=== PATIENT | female | born 1940 | race Caucasian/White ===

== ENCOUNTER 2017-10-01 21:13 | Emergency (ER) | payer OTHER ==
[~2017-10-01] VITALS: Ht 152.4 cm; Wt 75.3 kg
[~2017-10-01 21:13] MED LIST: ASPEC81 PO; CHOL100027 PO; CLOP1TAB15 PO; FISHOIL PO; FURO20TA PO; LPT/40 PO; METO-551 PO; NTRGSL/4 UT
[2017-10-01 21:19] VITALS: TEMP 36.6; Ht 152.4 cm; Wt 75.3 kg
[2017-10-01] MEDS ORDERED: ONDANSETRON 4MG OD TAB PO STA (21:39)
--- NOTE | 2017-10-01 21:40 | EMERGENCY ROOM VISIT NOTE ---
History Report prepared by Gladys: Mayra Feldman Under the Supervision of: Dr. Ajith Kim M.D. 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 Positive left knee pain, nausea, and constipation. Negative SOB, chest pain, fevers, chills, recent falls, recent trauma, or a history of blood clots in her chest or lungs. The patient notes she has no difficulties walking. She is currently taking Metoprolol, Plavix, aspirin, Lasix, and a statin. 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 Negative recent falls or a history of blood clots in her chest or lungs Review of Systems See HPI for pertinent positives and negatives. A total of ten systems were reviewed and were otherwise negative. Past Medical & Surgical Medical Problems: (1) Breast cancer (2) cardiac valve abnormality (3) Colon cancer (4) Hyperlipidemia (5) Hypertension (6) sternum removed Surgical Problems: (1) H/O heart surgery (2) History of colon resection (3) History of mastectomy Family History Cancer Diabetes mellitus Heart disease High blood pressure Lung disease Social History Smoking Status: Never Smoker Smokeless Tobacco Use: No Alcohol Use: none Marital Status: Housing Status: lives with family Current/Historical Medications Scheduled Aspirin (Aspirin 81), 81 MG PO QAM Atorvastatin (Lipitor), 40 MG PO QAM Cholecalciferol (Vitamin D 1000 Unit), 1,000 INTER.UNIT PO QAM Clopidogrel (Plavix), 75 MG PO QAM Fish Oil (Maiden-3), 1 CAP PO QAM Furosemide (Lasix), 20 MG PO QAM Metoprolol Tartrate (Lopressor), 100 MG PO QAM Metoprolol Tartrate (Lopressor) (Lopressor), 75 MG PO QPM Scheduled PRN Acetaminophen (Tylenol), 500 MG PO for Pain Nitroglycerin (Nitrostat), 0.4 MG UT PRN PRN for CHEST PAIN Allergies Coded Allergies: Codeine (Verified Allergy, Severe, RESP. DEPRESSION, 11/06/15) Oyster (Verified Allergy, Unknown, HIVES AND SWELLING, NO PROBLEMS W CONTRAST, 11/06/15) NO PROBLESM W CONTRAST Physical Exam Vital Signs Date Time Temp Pulse Resp B/P (MAP) Pulse Ox O2 Delivery O2 Flow Rate FiO2 10/01/17 23:58 97 18 138/76 95 10/01/17 22:32 88 18 135/67 93 Room Air 10/01/17 21:19 36.6 91 22 162/69 95 Room Air Physical Exam GENERAL: Awake, alert, well-appearing, NAD HENT: Normocephalic, atraumatic. EYES: Normal conjunctiva. Sclera non-icteric. PERRL. No anisocoria. NECK: Supple. No nuchal rigidity. FROM. Ecchymosis to the right anterior neck RESPIRATORY: CTAB, no rhonchi, wheezing, crackles CARDIAC: RRR, no MRG ABDOMEN: Soft, NTND, BS+. Lower abdomen with areas of ecchymosis. MSK: No chest wall TTP, Left lower extremity has good femoral and DP pulses. NVI distally SP/DP/TIB nerves. 1+ LLE edema and pain and swelling. No calf pain. Negative Augusto's sign. NEURO: GCS 15, CN 2-12 intact, moves all 4s on command SKIN: No rash or jaundice noted. Medical Decision & Procedures ER Provider Diagnostic Interpretation: Radiology results as stated below per my review and radiologist interpretation: US VENOUS LEFT LOWER EXTREMITY No DVT Complex fluid collection in the popliteal fossa measures 5 cm in diameter. Radiologist: Dre Jensen MD Study ready at 23:09 and initial results transmitted at 23:35 Medications Administered Medications (Trade) Dose Ordered Sig/Azalea Route Start Time Stop Time Status Last Admin Dose Admin Ondansetron HCl (Zofran Odt) 4 mg NOW STAT PO 10/01/17 21:39 10/01/17 21:42 DC 10/01/17 21:46 4 MG ED Course 2128: The patient was evaluated in room A10. A complete history and physical exam was performed. 2138: Ordered Zofran Odt 4 mg PO 2339: I reevaluated the patient. Discussed results and discharge instructions: She verbalized understanding and agreement. The patient is ready for discharge. 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 Positive left knee pain, nausea, and constipation. Negative SOB, chest pain, fevers, chills, recent falls, recent trauma, or a history of blood clots in her chest or lungs. Prior records reviewed and summarized above. Triage Nursing notes reviewed. The patient's history was concerning for swelling and pain in the leg. Differential diagnosis: Etiologies such as DVT, musculoskeletal, infection, joint effusion, trauma, lymphedema, idiopathic, CHF, as well as others were entertained. Patient was seen and evaluated the bedside. Patient did have a recent TAVR completion. Patient was noting that she has some left lower extremity swelling. Patient did complain of some left-sided knee pain. However this is chronic. The patient does not have any warmth or redness. The patient has been ambulatory and denies any trauma. The patient declined to get a knee film. The patient does take aspirin Plavix and other blood thinning medication. The patient does have some ecchymosis to the right neck and the right groin and lower abdomen. This is from her prior procedures and lines. The patient does not have any calf pain. The patient is neurovascularly intact distally and has good DP and femoral pulses of the left lower extremity. Patient was given some Zofran for nausea. Patient denies any chest pain or shortness of breath I do not believe that she requires further workup of her nausea. Patient did have an ultrasound of the left lower extremity. Patient ultrasound showed a complex fluid collection with no evidence of DVT. I do not believe that this fluid collection represents infection. Patient was told to continue to use an Nain wrap and elevate the extremity. Patient was told to follow-up with her PCP. Patient was deemed suitable for outpatient follow-up treatment at this time. Patient was given strict follow-up, discharge , and return precautions. All questions were answered. Patient was deemed suitable for outpatient follow-up at this time. Patient agreed with the plan of care and was safely discharged home. Medication Reconcilliation Current Medication List: was personally reviewed by me Blood Pressure Screening Patient's blood pressure: Elevated blood pressure Blood pressure disposition: Referred to PCP Impression Primary Impression: Swelling of lower limb Scribe Attestation The scribe's documentation has been prepared under my direction and personally reviewed by me in its entirety. I confirm that the note above accurately reflects all work, treatment, procedures, and medical decision making performed by me. Departure Information Dispostion Home / Self-Care Referrals Mohit Perkins M.D. (PCP) Forms HOME CARE DOCUMENTATION FORM, IMPORTANT VISIT INFORMATION, WORK / SCHOOL INSTRUCTIONS Patient Instructions ED Leg Swelling Unilateral, ED RICE, My [facility] Additional Instructions Please return to the emergency department if you have worsening or recurrent symptoms not amenable to at-home treatment. Please call for a follow-up appointment with her primary care physician. Please take your medications as prescribed. If you have other concerns and/or complaints please feel free to also call your primary care physician's office or return the ED for further evaluation, management, and treatment. Take your medications as prescribed. You have been examined and treated today on an emergency basis only. This is not a substitute for, or an effort to provide, complete comprehensive medical care. It is impossible to recognize and treat all injuries or illnesses in a single emergency department visit. It is therefore important that you follow up closely with [facility], your PCP, and/or your specialist(s). Call as soon as possible for an appointment. Thank you for your time and consideration. I look forward to speaking with you again soon. Please don't hesitate to call us if you have any questions.
[2017-10-01] MEDS ORDERED: OMEG10007 PO (22:01)
[2017-10-01] MEDS ORDERED: ACET-1256 PO (22:01)
[2017-10-01] MEDS ORDERED: METO50TA16 PO (22:01)
[2017-10-01] MEDS ORDERED: ASPI-435 PO (22:01)
[2017-10-01 23:58] VITALS: BP 138/76; PULSE 97; O2SAT 95
--- NOTE | 2017-10-02 07:48 | DIAGNOSTIC IMAGING REPORT ---
LEFT LOWER EXTREMITY VENOUS DOPPLER HISTORY: LE swelling, recent TAVR procedure w/ use of RLE for access COMPARISON STUDY: None. FINDINGS: There is normal compressibility, flow, and augmentation within the left lower extremity deep venous system. Slightly complex 5.0 x 0.9 x 2.1 cm fluid collection within the popliteal fossa. This likely represents a popliteal cyst. IMPRESSION: No DVT within the left lower extremity. Electronically signed by: Rc Rodríguez M.D. 10/02/2017 7:47 AM Dictated Date/Time: 10/02/2017 7:46 AM
== END 2017-10-01 23:59 | disposition home or self-care (01) ==
LOC: C.EDB 21:14 → C.EDA 23:59
DX: M79.89 Other specified soft tissue disorders (principal); E78.5 Hyperlipidemia, unspecified; I10 Essential (primary) hypertension; Z88.5 Allergy status to narcotic agent; Z91.013 Allergy to seafood

== ENCOUNTER 2019-07-29 06:18 | Inpatient (IN) ==
--- OUTSIDE RECORDS SUMMARY | 2019-07-29 06:20 | External Medical Summary | Continuity of Care Document ---
:1940 Author Name Renetta Morillo Address Unavailable Unavailable , Care Team Providers Name Role Phone Mayo Morillo RRemy Unavailable [email or web address] Active medical history not documented Allergies and Adverse Reactions Allergy history not documented Medications Medications not documented Procedures Procedures not documented Immunizations Immunizations not documented Plan of Treatment Planned Observations Planned Goals not documented Results No Known Results Results not documented
--- OUTSIDE RECORDS SUMMARY | 2019-07-29 06:21 | External Medical Summary | Continuity of Care Document ---
:1940 Author Name Renetta Morillo Address Unavailable Unavailable , Care Team Providers Name Role Phone Mayo Morillo RRemy Unavailable [email or web address] Active medical history not documented Allergies and Adverse Reactions Allergy history not documented Medications Medications not documented Procedures Procedures not documented Immunizations Immunizations not documented Plan of Treatment Planned Observations Planned Goals not documented Results No Known Results Results not documented
[2019-07-29] MEDS ORDERED: SODIUM CHLORIDE 0.9% 1000ML 250 ML IV ONE (06:42)
--- NOTE | 2019-07-29 06:47 | Emergency Department Note ---
History of Present Illness General Chief complaint: Chest Pain Stated complaint: CHEST PRESSURE, NAUSEA, CARDIAC HX Time Seen by Provider: 07/29/19 06:30 Source: patient and family Mode of arrival: ambulatory Limitations: no limitations History of Present Illness Maximum Pain Intensity: 0 This patient comes in complaining of episode of chest pain she is had flulike symptoms starting last week with a cough chest congestion wheezing. Her cough to minimally productive. She did not sleep at all last night she was coughing she had a fever of 101.9 yesterday but none today. Around 4 AM she started having chest fullness a rapid heartbeat she does have history of A. fib. She took 3 nitroglycerin and it relieved the fullness. She is had some nausea but no emesis. No lower extremity pain or swelling no blood or melena stool. No trauma. Slight headache. No abdominal pain. No shortness of breath. At prese nt she appears comfortable. Home Medications Home Medications Medication Instructions Recorded Confirmed Type acetaminophen [Tylenol Extra 500 mg PO DIRECTED PRN 07/29/19 07/29/19 History Strength] aspirin [Aspir-81] 81 mg PO QAM 07/29/19 07/29/19 History atorvastatin 40 mg PO QAM 07/29/19 07/29/19 History cholecalciferol (vitamin D3) 1,000 unit PO QAM 07/29/19 07/29/19 History [Vitamin D3] clopidogrel [Plavix] 75 mg PO QAM 07/29/19 07/29/19 History furosemide [Lasix] 20 mg PO DAILY PRN 07/29/19 07/29/19 History metoprolol tartrate 100 mg PO BID 07/29/19 07/29/19 History nitroglycerin [Nitrostat] 0.4 mg SUBLINGUAL DIRECTED PRN 07/29/19 07/29/19 History omega 9-[id number]-fish oil [Fish Oil] 1 cap PO QAM 07/29/19 07/29/19 History Allergies Allergy/AdvReac Type Severity Reaction Status Date / Time codeine Allergy Severe RESP. Verified 07/29/19 06:57 DEPRESSION oyster extract Allergy Intermediate HIVES AND Verified 07/29/19 06:57 SWELLING, NO PROBLEMS W CONTRAST Past Med/Surg History Social History Preferred Language: Somali Communication Ability: Effective Take Away Worker Required: No Beliefs That Will Affect Care: None Current Living Situation: Spouse Other Information That Helps Us Care for You: No Feels Safe at Home: Yes Safety Concerns: Feels Safe At This Time Smoking Status: Never smoker Do You Dip or Chew Tobacco: No ; Second Hand Exposure: No ; Tobacco Cessation Education Requested by Patient: No Hx Alcohol Use: No Hx Substance Use: No Review of Systems A total of 10 systems reviewed and were otherwise negative Physical Exam Vital Signs Vital Signs - 24 hr 07/29/19 06:22 07/29/19 06:32 07/29/19 06:33 Temperature 36.7 C Temperature Source Oral Pulse Rate 128 H 125 H Pulse Rate from SpO2 Sensor Respiratory Rate 22 26 H Blood Pressure 105/63 163/75 H Blood Pressure Mean 77 83 Blood Pressure Position Sitting Pulse Oximetry 94 94 Oxygen Delivery Method Room Air Room Air Room Air Sepsis Recent Fever Within 48 Hours No Sepsis Action Taken by Nursing No Action Required 07/29/19 06:35 07/29/19 07:00 07/29/19 07:16 Temperature Temperature Source Pulse Rate 132 H 120 H 124 H Pulse Rate from SpO2 Sensor 132 H Respiratory Rate 28 H 20 23 Blood Pressure 101/61 Blood Pressure Mean 70 Blood Pressure Position Pulse Oximetry 93 90 92 Oxygen Delivery Method Room Air Sepsis Recent Fever Within 48 Hours Sepsis Action Taken by Nursing 07/29/19 07:17 07/29/19 07:30 07/29/19 07:31 Temperature Temperature Source Pulse Rate 129 H 126 H 120 H Pulse Rate from SpO2 Sensor Respiratory Rate 20 24 19 Blood Pressure 119/97 Blood Pressure Mean 104 Blood Pressure Position Pulse Oximetry 92 92 92 Oxygen Delivery Method Sepsis Recent Fever Within 48 Hours Sepsis Action Taken by Nursing 07/29/19 07:45 07/29/19 07:52 07/29/19 08:00 Temperature Temperature Source Pulse Rate 140 H 143 H 128 H Pulse Rate from SpO2 Sensor 138 H 123 H 127 H Respiratory Rate 20 22 23 Blood Pressure 138/75 141/72 H Blood Pressure Mean 108 83 Blood Pressure Position Pulse Oximetry 93 92 92 Oxygen Delivery Method Sepsis Recent Fever Within 48 Hours Sepsis Action Taken by Nursing 07/29/19 08:01 07/29/19 08:15 07/29/19 08:30 Temperature Temperature Source Pulse Rate 122 H 116 H 124 H Pulse Rate from SpO2 Sensor 115 H 110 H Respiratory Rate 20 24 21 Blood Pressure 148/78 H Blood Pressure Mean 107 Blood Pressure Position Pulse Oximetry 93 94 93 Oxygen Delivery Method Sepsis Recent Fever Within 48 Hours Sepsis Action Taken by Nursing 07/29/19 08:31 07/29/19 08:45 Temperature Temperature Source Pulse Rate 120 H 103 H Pulse Rate from SpO2 Sensor 113 H 116 H Respiratory Rate 24 20 Blood Pressure Blood Pressure Mean Blood Pressure Position Pulse Oximetry 93 92 Oxygen Delivery Method Sepsis Recent Fever Within 48 Hours Sepsis Action Taken by Nursing General: Well developed well nourished older female who appears in no acute distress, breathing comfortably on room air. Normal speech HEENT: Normal cephalic atraumatic. Pupils are equal round and reactive to light. Extraocular movements are intact. Oropharynx is pink with moist mucous membranes. No swelling of the mouth lips or tongue. Neck: Supple with a midline trachea. No meningeal signs or stiffness, no JVD or bruits. No Stridor. Chest: Clear to auscultation bilaterally. No wheezes or rhonchi. No increased work of breathing. Heart: Irregular rate and rhythm with tachycardia without murmurs or gallops. Abdomen: Soft nontender, nondistended without rebound guarding or rigidity. Extremities: No cyanosis clubbing or edema. No calf tenderness or assymetry Spine/Back. Non tender to palpation. No CVA tenderness Skin: Good turgor without rashes. Neurologic exam: Cranial nerves two through 12 are intact. Motor and sensation are intact and symmetrical throughout. Course Administered Medications [facility]ir[facility] ([facility]rin E[facility]ab) [facility] [place] [facility] [place] Stop: 08/28/19 11:25 Last Admin: 07/29/19 12:18 Dose: 81 mg Documented by: [id number] Atorvastatin Calcium (Lipitor) 40 [facility] [place] [facility] [place] Stop: 08/28/19 11:25 Last Admin: 07/29/19 12:18 Dose: 40 mg Documented by: [id number] Clopidogrel Bisulfate (Plavix) 75 mg PO QAM [facility] Stop: 08/28/19 11:25 Last Admin: 07/29/19 12:18 Dose: 75 mg Documented by: [id number] Fish Oil ([place]-3 (Purified Fish Oil)) 1 gm PO DAILY [facility] Stop: 08/28/19 11:44 Last Admin: 07/29/19 12:18 Dose: 1 gm Documented by: [id number] Metoprolol Tartrate (Lopressor) 100 mg PO BID [facility] Stop: 08/28/19 11:25 Last Admin: 07/29/19 12:17 Dose: Not Given Documented by: [id number] Vitamin D (Vitamin D3) 1,000 units PO QAM [facility] Stop: 08/28/19 11:25 Last Admin: 07/29/19 12:18 Dose: 1,000 units Documented by: [id number] Discontinued Medications Sodium Chloride (Nss 1000ml) 250 mls @ 999 mls/hr IV .Q16M ONE Stop: 07/29/19 06:57 Last Infusion: 07/29/19 08:08 Dose: 0 mls/hr Documented by: [id number] Admin: 07/29/19 07:53 Dose: 999 mls/hr Documented by: [id number] Magnesium Sulfate/Dextrose (Magnesium Sulfate / D5w) 1 gm in 100 mls @ 100 mls/hr IV Q1H [facility] Stop: 07/29/19 09:59 Last Infusion: 07/29/19 10:16 Dose: 0 mls/hr Documented by: [id number] Admin: 07/29/19 09:29 Dose: 100 mls/hr Documented by: [id number] Infusion: 07/29/19 09:29 Dose: 0 mls/hr Documented by: [id number] Admin: 07/29/19 08:08 Dose: 100 mls/hr Documented by: [id number] Sodium Chloride (Nss 1000ml) 500 mls @ 999 mls/hr IV .Q31M ONE Stop: 07/29/19 08:45 Last Infusion: 07/29/19 09:08 Dose: 0 mls/hr Documented by: [id number] Admin: 07/29/19 08:24 Dose: 999 mls/hr Documented by: [id number] Piperacillin Sod/Tazobactam Sod (Zosyn) 4.5 gm in 120 mls @ 240 mls/hr IV NOW ONE Stop: 07/29/19 08:44 Last Infusion: 07/29/19 09:08 Dose: 0 mls/hr Documented by: [id number] Admin: 07/29/19 08:24 Dose: 240 mls/hr Documented by: [id number] Ceftriaxone Sodium (Rocephin) 1,000 mg in 50 mls @ 100 mls/hr IV NOW STA Stop: 07/29/19 09:58 Last Infusion: 07/29/19 11:35 Dose: 0 mls/hr Documented by: [id number] Admin: 07/29/19 10:16 Dose: 100 mls/hr Documented by: [id number] Doxycycline Hyclate 100 mg/ (Dextrose) 110 mls @ 50 mls/hr IV 1000 ONE Stop: 07/29/19 12:11 Last Infusion: 07/29/19 12:22 Dose: 0 mls/hr Documented by: [id number] Admin: 07/29/19 09:43 Dose: 50 mls/hr Documented by: [id number] Metoprolol Tartrate (Lopressor) 100 mg PO NOW STA Stop: 07/29/19 09:19 Last Admin: 07/29/19 09:42 Dose: 100 mg Documented by: [id number] Potassium Chloride (Klor-Con M20) 40 meq PO NOW STA Stop: 07/29/19 08:15 Last Admin: 07/29/19 08:23 Dose: 40 meq Documented by: [id number] Critical Care Time Critical Care Time: Yes Total Critical Care Time: 32 Due to the patient's cardiac disease, arrhythmia, tachycardia and electrolyte and metabolic abnormalities, infection, and need for frequent reassessment and multiple medications, I have personally spent greater than 32 minutes of critical care time in the direct management of this patient. This includes bedside care, interpretation of diagnostic studies, and testing, discussion with consultants, patient, and family members, and other required patient management activities. This 32 minutes is in excess of all separately billable procedures. Medical Decision Making Differential Diagnosis Includes: Acute coronary syndrome, rapid A. fib, influenza, dehydration, sepsis, pneumonia, CHF, electrolyte or metabolic abnormality Medical Records Attestation: I reviewed the patient's medical records. Home Medications Current Medication List: was personally reviewed by me Laboratory Data Attestation: I reviewed the patient's lab results. Result diagrams: 07/29/19 07:13 07/29/19 07:13 Lab Results 07/29/19 07/29/19 07/29/19 Range/Units 06:50 07:13 07:13 WBC 3.53 L (4.8-10.8) K/uL RBC 4.28 (4.2-5.4) M/uL Hgb 13.0 (12.0-16.0) g/dL Hct 40.4 (37-47) % MCV 94.4 (80-100) fL MCH 30.4 (25-34) pg MCHC 32.2 (32-36) g/dL RDW Std Deviation 49.3 H (36.4-46.3) fL RDW Coeff of Letitia 14.6 H (11.5-14.5) % Plt Count 143 (130-400) K/uL MPV 11.5 H (7.4-10.4) fL Immature Gran % (Auto) 0.0 % Neut % (Auto) 48.7 % Lymph % (Auto) 34.3 % [place] % (Auto) 11.3 % Eos % (Auto) 5.4 % Baso % (Auto) 0.3 % Immature Gran # (Auto) 0.00 (0.00-0.02) K/uL Neut # (Auto) 1.72 (1.4-6.5) K/uL Lymph # (Auto) 1.21 (1.2-3.4) K/uL [place] # (Auto) 0.40 (0.11-0.59) K/uL Eos # (Auto) 0.19 (0-0.5) K/uL Baso # (Auto) 0.01 (0-0.2) K/uL PT 11.0 (9.0-12.0) Seconds INR 1.0 (0.9-1.1) APTT 28.5 (21.0-31.0) Seconds PTT Ratio 1.0 Sodium (136-145) mmol/L Potassium (3.5-5.1) mmol/L Chloride (98-107) mmol/L Carbon Dioxide (21-32) mmol/L Anion Gap (3-11) BUN (7-18) mg/dl Creatinine (0.6-1.2) mg/dl Est Cr Clr Drug Dosing ml/min Est GFR ( Amer) Est GFR (Non-Af Amer) BUN/Creatinine Ratio (10-20) Glucose (70-99) mg/dl Lactate (0.4-2.0) mmol/L Calcium (8.5-10.1) mg/dl Magnesium (1.8-2.4) mg/dl Total Bilirubin (0.2-1) mg/dl AST (15-37) U/L ALT (12-78) U/L Alkaline Phosphatase (45-117) U/L Troponin I (0-0.045) ng/ml Total Protein (6.4-8.2) gm/dl Albumin (3.4-5.0) gm/dl Globulin (2.5-4.0) gm/dl Albumin/Globulin Ratio (0.9-2) Urine Color Urine Appearance (Clear) Urine pH (4.5-7.5) Ur Specific [place] (1.000-1.030) Urine Protein (Negative) Urine Glucose (UA) (Negative) Urine Ketones (Negative) Urine Blood (Negative) Urine Nitrite (Negative) Urine Bilirubin (Negative) Urine Urobilinogen (Negative) Ur Leukocyte Esterase (Negative) Influenza Type A (PCR) Neg for Influ A (Neg) Influenza Type B (PCR) Neg for Influ B (Neg) 07/29/19 07/29/19 07/29/19 Range/Units 07:13 07:13 08:50 WBC (4.8-10.8) K/uL RBC (4.2-5.4) M/uL Hgb (12.0-16.0) g/dL Hct (37-47) % MCV (80-100) fL MCH (25-34) pg MCHC (32-36) g/dL RDW Std Deviation (36.4-46.3) fL RDW Coeff of Letitia (11.5-14.5) % Plt Count (130-400) K/uL MPV (7.4-10.4) fL Immature Gran % (Auto) % Neut % (Auto) % Lymph % (Auto) % [place] % (Auto) % Eos % (Auto) % Baso % (Auto) % Immature Gran # (Auto) (0.00-0.02) K/uL Neut # (Auto) (1.4-6.5) K/uL Lymph # (Auto) (1.2-3.4) K/uL [place] # (Auto) (0.11-0.59) K/uL Eos # (Auto) (0-0.5) K/uL Baso # (Auto) (0-0.2) K/uL PT (9.0-12.0) Seconds INR (0.9-1.1) APTT (21.0-31.0) Seconds PTT Ratio Sodium 140 (136-145) mmol/L Potassium 3.2 L (3.5-5.1) mmol/L Chloride 104 (98-107) mmol/L Carbon Dioxide 31 (21-32) mmol/L Anion Gap 5.0 (3-11) BUN 21 H (7-18) mg/dl Creatinine 0.86 (0.6-1.2) mg/dl Est Cr Clr Drug Dosing 46.7 ml/min Est GFR ( Amer) 74.5 Est GFR (Non-Af Amer) 64.3 BUN/Creatinine Ratio 24.2 H (10-20) Glucose 206 H (70-99) mg/dl Lactate 2.2 H* (0.4-2.0) mmol/L Calcium 8.3 L (8.5-10.1) mg/dl Magnesium 1.3 L (1.8-2.4) mg/dl Total Bilirubin 0.3 (0.2-1) mg/dl AST 19 (15-37) U/L ALT 19 (12-78) U/L Alkaline Phosphatase 118 H (45-117) U/L Troponin I < 0.015 (0-0.045) ng/ml Total Protein 7.1 (6.4-8.2) gm/dl Albumin 3.0 L (3.4-5.0) gm/dl Globulin 4.1 H (2.5-4.0) gm/dl Albumin/Globulin Ratio 0.7 L (0.9-2) Urine Color Yellow Urine Appearance Clear (Clear) Urine pH 5.5 (4.5-7.5) Ur Specific [place] 1.016 (1.000-1.030) Urine Protein Negative (Negative) Urine Glucose (UA) Trace H (Negative) Urine Ketones Negative (Negative) Urine Blood Negative (Negative) Urine Nitrite Negative (Negative) Urine Bilirubin Negative (Negative) Urine Urobilinogen Negative (Negative) Ur Leukocyte Esterase Negative (Negative) Influenza Type A (PCR) (Neg) Influenza Type B (PCR) (Neg) 07/29/19 Range/Units 08:56 WBC (4.8-10.8) K/uL RBC (4.2-5.4) M/uL Hgb (12.0-16.0) g/dL Hct (37-47) % MCV (80-100) fL MCH (25-34) pg MCHC (32-36) g/dL RDW Std Deviation (36.4-46.3) fL RDW Coeff of Letitia (11.5-14.5) % Plt Count (130-400) K/uL MPV (7.4-10.4) fL Immature Gran % (Auto) % Neut % (Auto) % Lymph % (Auto) % [place] % (Auto) % Eos % (Auto) % Baso % (Auto) % Immature Gran # (Auto) (0.00-0.02) K/uL Neut # (Auto) (1.4-6.5) K/uL Lymph # (Auto) (1.2-3.4) K/uL [place] # (Auto) (0.11-0.59) K/uL Eos # (Auto) (0-0.5) K/uL Baso # (Auto) (0-0.2) K/uL PT (9.0-12.0) Seconds INR (0.9-1.1) APTT (21.0-31.0) Seconds PTT Ratio Sodium (136-145) mmol/L Potassium (3.5-5.1) mmol/L Chloride (98-107) mmol/L Carbon Dioxide (21-32) mmol/L Anion Gap (3-11) BUN (7-18) mg/dl Creatinine (0.6-1.2) mg/dl Est Cr Clr Drug Dosing ml/min Est GFR ( Amer) Est GFR (Non-Af Amer) BUN/Creatinine Ratio (10-20) Glucose (70-99) mg/dl Lactate 1.2 (0.4-2.0) mmol/L Calcium (8.5-10.1) mg/dl Magnesium (1.8-2.4) mg/dl Total Bilirubin (0.2-1) mg/dl AST (15-37) U/L ALT (12-78) U/L Alkaline Phosphatase (45-117) U/L Troponin I (0-0.045) ng/ml Total Protein (6.4-8.2) gm/dl Albumin (3.4-5.0) gm/dl Globulin (2.5-4.0) gm/dl Albumin/Globulin Ratio (0.9-2) Urine Color Urine Appearance (Clear) Urine pH (4.5-7.5) Ur Specific [place] (1.000-1.030) Urine Protein (Negative) Urine Glucose (UA) (Negative) Urine Ketones (Negative) Urine Blood (Negative) Urine Nitrite (Negative) Urine Bilirubin (Negative) Urine Urobilinogen (Negative) Ur Leukocyte Esterase (Negative) Influenza Type A (PCR) (Neg) Influenza Type B (PCR) (Neg) ECG Data Attestation: I personally reviewed and interpreted this ECG as follows: Indication: + chest pain, + palpitations and + tachycardia Rate (beats per minute): 122 Rhythm: + atrial fibrillation ECG [place]: + Normal ECG ST segments: + Nonspecific ST abnormalities; no ST elevation ECG Findings: no PVCs Comparison ECG Date: from (05/11/13- ST segment elevation has resolved) Blood Pressure Blood Pressure Findings: Normal blood pressure MDM Narrative This patient comes in as described above. She was placed on a playground monitor and B6. She had a fever and cough. She was noted to be in A. fib that was slightly rapid in the 110s. She was gently hydrated with a 250 cc IV normal saline bolus. Multiple blood testing was obtained. She has no chest pain at present. It sounds like this started with a URI/respiratory illness. A full sepsis work-up was obtained including chest x-ray and flu swab. She was reassessed frequently. EKG shows A. fib that was mild to moderately rapid without any significant acute ischemic changes. No ST segment elevation. There is nonspecific changes. White count is low likely consistent with a viral illness. Hemoglobin is normal, and she has no significant anemia. Her electrolytes were abnormal with a low magnesium of 1.3. This was repleted with 2 g of IV mag. Potassium is also low at 3.3. She was given 40 mEq p.o. Her chest x-ray shows a possible infiltrate. She was given IV Zosyn. She heard lactic acid is mildly elevated at 2.2. She was given additional IV fluid bolus. She tolerated the initial 250 cc and so I gave her another 500 cc. I was concerned about judicious fluid given her age and the possibility for fluid overload/CHF. She has been normotensive and if anything hypertensive. Her heart rate, I think at this point is compensatory she is averaging about 110 and I suspect with some hydration and electrolyte replacement that rate will come down. I [facility] her for likely admission/observation. media monitor note: The patient was placed on a playground monitor upon arrival. Her heart rate was 122 and she was in A. fib. She continued be on the monitor to continue to monitor her rate while she was in the ED Impression & Plan Chest pain, Atrial fibrillation with RVR, Hypomagnesemia, Acute hypokalemia, Pneumonia Discharge Plan Visit Data *Final* Discharge Date/Time: 07/29/19 11:09 Chief Complaint: Chest Pain Stated Complaint: CHEST PRESSURE, NAUSEA, CARDIAC HX ED Provider: Vince Remy Discharge Problem: Chest pain, Atrial fibrillation with RVR, Hypomagnesemia, Acute hypokalemia, Pneumonia Patient Disposition: Admitted As Inpatient Discharge Instructions Interventions: ED Discharge Assessment Last Done: 07/29/19 11:09 Discharge Problem: Chest pain Qualifiers: Chest pain type: precordial pain Qualified Code(s): R07.2 - Precordial pain Pneumonia Qualifiers: Pneumonia type: due to unspecified organism Laterality: right Lung location: lower lobe of lung Qualified Code(s): J18.9 - Pneumonia, unspecified organism
[2019-07-29 07:27] LABS: Basophils # (auto) 0.01 K/uL (0-0.2); Basophils % (auto) 0.3 %; Eosinophils # (auto) 0.19 K/uL (0-0.5); Eosinophils % (auto) 5.4 %; Hematocrit (blood only) 40.4 % (37-47); Lymphocytes # (auto) 1.21 K/uL (1.2-3.4); Lymphocytes % (auto) 34.3 %; Mean Corpuscular Hemoglobin 30.4 pg (25-34); Mean Corpuscular Hgb Conc 32.2 g/dL (32-36); Mean Corpuscular Volume 94.4 fL (80-100); Mean Platelet Volume 11.5 fL (7.4-10.4); Monocytes % (auto) 11.3 %; Neutrophils # (auto) 1.72 K/uL (1.4-6.5); Neutrophils % (auto) 48.7 %; Platelet Count 143 K/uL (130-400); RDW Coefficient of Variation 14.6 % (11.5-14.5); RDW Standard Deviation 49.3 fL (36.4-46.3); Red Blood Count 4.28 M/uL (4.2-5.4); White Blood Count 3.53 K/uL (4.8-10.8)
[2019-07-29 07:38] LABS: Influenza A virus by PCR Neg for Influ A (Neg); Influenza B virus by PCR Neg for Influ B (Neg)
[2019-07-29 07:45] LABS: Alanine Aminotransferase 19 U/L (12-78); Aspartate Aminotransferase 19 U/L (15-37); BUN Creatinine Ratio 24.2 (10-20); Blood Urea Nitrogen 21 mg/dl (7-18); Calcium 8.3 mg/dl (8.5-10.1); Carbon Dioxide 31 mmol/L (21-32); Chloride 104 mmol/L (98-107); Creatinine Clr Calc Pharmacy 46.7 ml/min; Est GFR (African American) 74.5; Est GFR (Non-African American) 64.3; Glucose 206 mg/dl (70-99); Magnesium 1.3 mg/dl (1.8-2.4); Potassium 3.2 mmol/L (3.5-5.1); Sodium 140 mmol/L (136-145)
[2019-07-29 07:49] LABS: Albumin Globulin Ratio 0.7 (0.9-2); Alkaline Phosphatase 118 U/L (45-117); Bilirubin,Total 0.3 mg/dl (0.2-1); Globulin 4.1 gm/dl (2.5-4.0); Total Protein 7.1 gm/dl (6.4-8.2); Troponin I < 0.015 ng/ml (0-0.045)
[2019-07-29 07:50] LABS: Partial Thromboplastin Time 28.5 Seconds (21.0-31.0)
--- NOTE | 2019-07-29 08:01 | XRay Report ---
XR chest 1V portable HISTORY: SEPSIS COMPARISON: Chest 05/03/2013. FINDINGS: Chronic elevation of the right hemidiaphragm. The heart remains mildly enlarged. Mitral miguel ulus calcifications and an aortic stent are noted. Old, healed left-sided rib fractures. Left basilar linear densities favor subsegmental atelectasis or scarring. Faint patchy densities within the right lung base and left midlung zone. IMPRESSION: Faint patchy densities within the right lung base and left midlung zone. This may represent an atypic al pneumonitis. ACT 112: Negative or not required by law. Electronically signed by: Rc Rodríguez M.D. 07/29/2019 7:59 AM
[2019-07-29] MEDS: MAGNESIUM SULFATE / D5W 1 GM/100 ML BAG IV SCH ×2 (08:08→09:29)
[2019-07-29] MEDS ORDERED: POTASSIUM CHLORIDE 20 MEQ TABCR PO STA (08:14)
[2019-07-29] MEDS ORDERED: PIPERACILLIN/TAZOBACTAM 4.5 GM/120 ML BAG IV ONE (08:15)
[2019-07-29] MEDS ORDERED: PIPERACILL/TAZOBAC CONSULT ACTIVE PRN (08:15)
[2019-07-29] MEDS ORDERED: SODIUM CHLORIDE 0.9% 1000ML 500 ML IV ONE (08:15)
[2019-07-29] MEDS ORDERED: METOPROLOL TARTRATE 100 MG TAB PO STA (09:18)
[2019-07-29 09:24] LABS: Appearance Urine Clear (Clear); Bilirubin Urine Negative (Negative); Blood Urine Negative (Negative); Color Urine Yellow; Glucose Urine UA Trace (Negative); Ketones Urine Negative (Negative); Leukocyte Esterase Urine Negative (Negative); Nitrite Urine Negative (Negative); Protein Urine Negative (Negative); Specific Gravity Urine 1.016 (1.000-1.030); Urobilinogen Urine Negative (Negative); pH Urine 5.5 (4.5-7.5)
[2019-07-29] MEDS ORDERED: cefTRIAXone SODIUM 1,000 MG/50 ML BAG IV STA (09:29)
--- NOTE | 2019-07-29 09:41 | History & Physical Report ---
Date of Service July 29, 2019 Assessment & Plan (1) Pneumonia: Complaint to have flu symptoms about 1 week ago and received Tamiflu on last Condition got worse with productive phlegm and fever with increasing shortness of breath Chest x-ray did show developing right lower lobe infiltrate Received 1 dose of Zosyn in the ER and will continue with intravenous ceftriaxone and doxycycline to cover atypicals She has significant wheezing without any history of asthma and/or COPD We will give nebulized bronchodilator while in the hospital She has been feeling a little bit better Present on Admission?: Yes (2) Atrial fibrillation with RVR: History of atrial fibrillation and multiple complicated cardiac problem Has been on metoprolol 100 mg twice daily at home Will continue current medications Heart rate seems to be coming down She is not on any anticoagulation for atrial fibrillation and she had a remote history of possible embolic stroke in 2005 as per the note (3) Chest pain: Complaint chest pressure/pain Initial troponin normal and will cycle troponin EKG did not show any significant change but atrial fibrillation and difficult to interpret Cardiology consulted (4) Hypertension: Continue current medications (5) Hyperlipidemia: Continue statin (6) Breast cancer: History of breast cancer status post surgery with complication Deformities involving the right upper chest wall No acute issues (7) 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 as a complication of intra-aortic balloon pump in 2012 History of calcific aortic valve stenosis status post TAVR in September 2017 Cardiac cath with a status post PCI in RCA with CAROLA She has been on aspirin and Plavix and will continue She does not have any acute symptoms except chest pain and or pressure as mentioned earlier (8) Electrolyte imbalance: Noted to have low potassium and low magnesium Supplemented Monitor DVT prophylaxis Subcu heparin CODE STATUS Full History of Present Illness Chief Complaint: Cough, shortness of breath with chest tightness and fever Primary Care Provider: Mohit Perkins MD She is a 79-year-old female with significant complicated past medical history including aortic valve stenosis status post TAVR, 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 She was seen by her primary care provider on last and was given Tamiflu. Her condition did not get any better and she was having more cough with productive of yellowish phlegm, increasing shortness of breath with chest pressure and wheezing and also had fever of 101 F. She complained to have maddie st pressure and some pain involving the left shoulder as well with palpitation. Denies any increasing leg swelling. Did have nausea but no vomiting. Denies any problem with urine and her bowel habit. Denies any numbness and or tingling involving any of the extremities. In the ER she was noted to have atrial fibrillation with RVR and a chest x-ray did show developing right lower lobe infiltration from that point she was admitted to telemetry unit for continuation of care. Allergies Allergy/AdvReac Type Severity Reaction Status Date / Time codeine Allergy Severe RESP. Verified 07/29/19 06:57 DEPRESSION oyster extract Allergy Intermediate HIVES AND Verified 07/29/19 06:57 SWELLING, NO PROBLEMS W CONTRAST Home Medications Home Medications Medication Instructions Recorded Confirmed Type acetaminophen [Tylenol Extra 500 mg PO DIRECTED PRN 07/29/19 07/29/19 History Strength] aspirin [Aspir-81] 81 mg PO QAM 07/29/19 07/29/19 History atorvastatin 40 mg PO QAM 07/29/19 07/29/19 History cholecalciferol (vitamin D3) 1,000 unit PO QAM 07/29/19 07/29/19 History [Vitamin D3] clopidogrel [Plavix] 75 mg PO QAM 07/29/19 07/29/19 History furosemide [Lasix] 20 mg PO DAILY PRN 07/29/19 07/29/19 History metoprolol tartrate 100 mg PO BID 07/29/19 07/29/19 History nitroglycerin [Nitrostat] 0.4 mg SUBLINGUAL DIRECTED PRN 07/29/19 07/29/19 History omega 8-csc-ipg-fish oil [Fish Oil] 1 cap PO QAM 07/29/19 07/29/19 History Past Med/Surg History Social History Preferred Language: Maori Communication Ability: Effective 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 Beliefs That Will Affect Care: None Current Living Situation: Spouse Other Information That Helps Us Care for You: No Feels Safe at Home: Yes Safety Concerns: Feels Safe At This Time Smoking Status: Never smoker Do You Dip or Chew Tobacco: No ; Second Hand Exposure: No ; Tobacco Cessation Education Requested by Patient: No Hx Alcohol Use: No Hx Substance Use: No Review of Systems Review of Systems: All systems reviewed & are unremarkable except as noted in HPI & below Physical Exam Physical Exam: Lying in bed with moderate shortness of breath Constitutional: + acute distress (Shortness of breath and palpitation but no chest pain), + ill appearing and + thin Eyes: PERRL, conjunctivae normal, anicteric sclerae ENMT: external ear and nose normal, oropharynx normal Neck: trachea midline, no thyromegaly Respiratory: + respiratory distress (Shortness of breath with wheezing) and + uses accessory muscles Auscultation: + diminished lung sounds, + crackles (Right base) and + wheezes (Mild to moderate volume) Cardiovascular: Rate/Rhythm: + abnormal rate and + abnormal rhythm Heart Sounds: + murmur (2/6 ejection systolic murmur over precordium and aortic area) Chest (Breasts): Chest: + abnormal inspection of chest (Deformities of the right upper anterior chest wall secondary to complication with breast cancer procedure) Gastrointestinal (Abdomen): Inspection/Auscultation: abdomen normal to inspection and normal bowel sounds; abdomen not distended Percussion/Palpation: abdomen soft; abdomen nontender Musculoskeletal: No acute arthritis involving any joints Neurologic: moves all extremities; no focal motor deficits Lymphatic: no cervical or axillary lymphadenopathy Results & Data Vital Signs (Past 12 Hours) Vital Signs Temp Pulse Resp BP Pulse Ox 07/29/19 09:01 22 92 07/29/19 08:45 103 H 20 92 07/29/19 08:31 120 H 24 93 07/29/19 08:30 124 H 21 148/78 H 93 07/29/19 08:15 116 H 24 94 07/29/19 08:01 122 H 20 93 07/29/19 08:00 128 H 23 141/72 H 92 07/29/19 07:52 143 H 22 138/75 92 07/29/19 07:45 140 H 20 93 07/29/19 07:31 120 H 19 92 07/29/19 07:30 126 H 24 119/97 92 07/29/19 07:17 129 H 20 92 07/29/19 07:16 124 H 23 101/61 92 07/29/19 07:00 120 H 20 90 07/29/19 06:35 132 H 28 H 93 07/29/19 06:32 125 H 26 H 163/75 H 94 07/29/19 06:22 36.7 C 128 H 22 105/63 94 Laboratory Results Short CBC 07/29/19 Range/Units 07:13 WBC 3.53 L (4.8-10.8) K/uL Hgb 13.0 (12.0-16.0) g/dL Hct 40.4 (37-47) % Plt Count 143 (130-400) K/uL BMP 07/29/19 07:13 Sodium 140 Potassium 3.2 L Chloride 104 Carbon Dioxide 31 BUN 21 H Creatinine 0.86 Glucose 206 H Calcium 8.3 L Cardiac Enzymes 07/29/19 Range/Units 07:13 Troponin I < 0.015 (0-0.045) ng/ml Liver Function 07/29/19 Range/Units 07:13 Total Bilirubin 0.3 (0.2-1) mg/dl AST 19 (15-37) U/L ALT 19 (12-78) U/L Alkaline Phosphatase 118 H (45-117) U/L Albumin 3.0 L (3.4-5.0) gm/dl Urine 07/29/19 Range/Units 08:50 Urine Color Yellow Urine Appearance Clear (Clear) Urine pH 5.5 (4.5-7.5) Ur Specific [place] 1.016 (1.000-1.030) Urine Protein Negative (Negative) Urine Glucose (UA) Trace H (Negative) Code Status & VTE Plan VTE Prophylaxis Plan VTE Prophylaxis will be ordered: Yes (1) Chest pain Chest pain type: precordial pain Qualified Code(s): R07.2 - Precordial pain (2) Pneumonia Laterality: right Lung location: lower lobe of lung Pneumonia type: due to unspecified organism Qualified Code(s): J18.9 - Pneumonia, unspecified organism
[2019-07-29] MEDS ORDERED: DOXYCYCLINE HYCLATE 100 MG in DEXTROSE 5% 100 ML IV ONE (10:00)
[2019-07-29] MEDS ORDERED: NITROGLYCERIN SL 0.4 MG/TAB TAB SL PRN (11:26)
[2019-07-29] MEDS ORDERED: FUROSEMIDE 20 MG TAB PO PRN (11:26)
[2019-07-29] MEDS: METOPROLOL TARTRATE 100 MG TAB PO SCH ×2 (12:17→20:12)
--- NOTE | 2019-07-29 12:17 | Cardiology Consultation ---
Date of Consultation July 29, 2019 Assessment & Plan (1) Pneumonia: (2) Breast cancer: (3) History of mastectomy: (4) Atrial fibrillation with RVR: (5) S/P TAVR (transcatheter aortic valve replacement): Patient is comfortable and currently eating lunch. I suspect that this is a pneumonia or perhaps bronchitis and less likely to be heart failure.. Her influenza screen was negative. Thus far I believe she is receiving appropriate treatment. We will follow along with you during her hospital stay. History of Present Illness Attending Physician: Blaze Tracy MD History of Present Illness The patient is a 79-year-old female with an extensive cardiac history as outlined below. She was in her usual state of health until several days ago she began to have fever, chills and a productive cough. She has now been admitted with pneumonia. Initially she was in atrial fibrillation with RVR but after coming to the floor she is now in sinus rhythm. Influenza a and B are negative. Past medical history: Problem List. 1.Possible embolic stroke in 2005. 2.History of mitral valve fibroelastoma, status post minimally invasive left thoracotomy resection in June 2008. Postoperative course complicated by hepatic enzyme elevation, paroxysmal atrial fibrillation, left pleural effusion requiring thoracentesis, right heart failure, and anemia 3.Ischemic heart disease. 1.Acute inferior/posterolateral STEMI secondary to a subtotal occlusion of the mid RCA s/p successful intervention to the proximal and mid RCA with two bare metal stents. 2.August 10, 2017 cardiac catheterization with single-vessel disease, status post August 2017 PCI of the ostial RCA with a single drug-eluting stent. 4.Severe calcific aortic valve stenosis status post September 27, 2017 TAVR at [facility] [place] [facility] 5.Hypertension. 6.Hyperlipidemia. 7.Breast carcinoma s/p initial lumpectomy with right axillary node dissection and radiation therapy in 1979. Subsequent recurrence, radical mastectomy in 1981 followed by second course of radiation therapy. Patient developed a nonhealing wound of her medial right chest in early 2009 at site of prior radiation therapy. Attempts to heal have resulted in multiple surgical interventions and nonhealing flaps with extended longstanding wound drainage and ultimately secondary healing. 8.History of right femoral artery pseudoaneurysm as a complication of intra- aortic balloon pump during acute inferior myocardial infarction, 2012. 9.Colon (cecum) cancer Rx right larry-colectomy in 2002 10.Hypothyroidism 11.DJD Allergies Allergy/AdvReac Type Severity Reaction Status Date / Time codeine Allergy Severe RESP. Verified 07/29/19 06:57 DEPRESSION oyster extract Allergy Intermediate HIVES AND Verified 07/29/19 06:57 SWELLING, NO PROBLEMS W CONTRAST Home Medications Home Medications Medication Instructions Recorded Confirmed Type acetaminophen [Tylenol Extra 500 mg PO DIRECTED PRN 07/29/19 07/29/19 History Strength] aspirin [Aspir-81] 81 mg PO QAM 07/29/19 07/29/19 History atorvastatin 40 mg PO QAM 07/29/19 07/29/19 History cholecalciferol (vitamin D3) 1,000 unit PO QAM 07/29/19 07/29/19 History [Vitamin D3] clopidogrel [Plavix] 75 mg PO QAM 07/29/19 07/29/19 History furosemide [Lasix] 20 mg PO DAILY PRN 07/29/19 07/29/19 History metoprolol tartrate 100 mg PO BID 07/29/19 07/29/19 History nitroglycerin [Nitrostat] 0.4 mg SUBLINGUAL DIRECTED PRN 07/29/19 07/29/19 History omega 7-iay-atx-fish oil [Fish Oil] 1 cap PO QAM 07/29/19 07/29/19 History Patient History Social History Preferred Language: Ukrainian Communication Ability: Effective Second Mate Required: No Beliefs That Will Affect Care: None Current Living Situation: Spouse Other Information That Helps Us Care for You: No Feels Safe at Home: Yes Safety Concerns: Feels Safe At This Time Smoking Status: Never smoker Do You Dip or Chew Tobacco: No ; Second Hand Exposure: No ; Tobacco Cessation Education Requested by Patient: No Hx Alcohol Use: No Hx Substance Use: No Review of Systems Review of Systems: All systems reviewed & are unremarkable except as noted in HPI & below Nothing additional to add. Physical Exam Physical Exam: General: no acute distress and stated age Head: normocephalic, no masses, lesions, tenderness or abnormalities Eyes: conjunctiva are pink and non-injected, sclera clear Neck: supple, no adenopathy, no bruits, normal jugular venous pulse, no hepatojugular reflux Chest: Chest wall deformity due to previous breast cancer surgery Lungs: clear to auscultation and percussion Cardiac Exam: - regular rate & rhythm, no murmurs gallops or rubs - normal S1, normal S2 Pulses: 2(+) throughout Abdomen: abdomen soft, non-tender, no abnormal masses and no hepatosplenomegaly Musculoskeletal: no gait disturbance, no joint inflammation, no deforming arthritis Extremities: no edema and no cyanosis Neuro: grossly normal exam Results & Data ([facility]) Vital Signs (Past 12 Hours) Vital Signs Temp Pulse Pulse Resp BP BP Pulse Ox 07/29/19 11:31 37.2 C 93 H 20 141/71 H 94 07/29/19 11:01 81 22 123/41 L 93 07/29/19 11:00 100 H 22 92 07/29/19 10:45 87 24 92 07/29/19 10:32 92 H 24 90 07/29/19 10:31 98 H 21 125/75 91 07/29/19 10:30 107 H 21 90 07/29/19 10:15 118 H 16 92 07/29/19 10:06 131 H 21 91 07/29/19 10:00 121 H 23 105/78 92 07/29/19 09:45 125 H 23 92 07/29/19 09:31 106 H 22 91 07/29/19 09:30 117 H 24 131/85 91 07/29/19 09:18 130 H 20 148/75 H 93 07/29/19 09:15 132 H 20 92 07/29/19 09:01 22 92 07/29/19 08:45 103 H 20 92 07/29/19 08:31 120 H 24 93 07/29/19 08:30 124 H 21 148/78 H 93 07/29/19 08:15 116 H 24 94 07/29/19 08:01 122 H 20 93 07/29/19 08:00 128 H 23 141/72 H 92 07/29/19 07:52 143 H 22 138/75 92 07/29/19 07:45 140 H 20 93 07/29/19 07:31 120 H 19 92 07/29/19 07:30 126 H 24 119/97 92 07/29/19 07:17 129 H 20 92 07/29/19 07:16 124 H 23 101/61 92 07/29/19 07:00 120 H 20 90 07/29/19 06:35 132 H 28 H 93 07/29/19 06:32 125 H 26 H 163/75 H 94 07/29/19 06:22 36.7 C 128 H 22 105/63 94 Laboratory Results Laboratory Results - last 24 hr 07/29/19 07/29/19 07/29/19 06:50 07:13 07:13 WBC 3.53 L RBC 4.28 Hgb 13.0 Hct 40.4 MCV 94.4 MCH 30.4 MCHC 32.2 RDW Std Deviation 49.3 H RDW Coeff of Letitia 14.6 H Plt Count 143 MPV 11.5 H Immature Gran % (Auto) 0.0 Neut % (Auto) 48.7 Lymph % (Auto) 34.3 [place] % (Auto) 11.3 Eos % (Auto) 5.4 Baso % (Auto) 0.3 Immature Gran # (Auto) 0.00 Neut # (Auto) 1.72 Lymph # (Auto) 1.21 [place] # (Auto) 0.40 Eos # (Auto) 0.19 Baso # (Auto) 0.01 PT 11.0 INR 1.0 APTT 28.5 PTT Ratio 1.0 Sodium Potassium Chloride Carbon Dioxide Anion Gap BUN Creatinine Est Cr Clr Drug Dosing Est GFR ( Amer) Est GFR (Non-Af Amer) BUN/Creatinine Ratio Glucose Lactate Calcium Magnesium Total Bilirubin AST ALT Alkaline Phosphatase Troponin I Total Protein Albumin Globulin Albumin/Globulin Ratio Urine Color Urine Appearance Urine pH Ur Specific [place] Urine Protein Urine Glucose (UA) Urine Ketones Urine Blood Urine Nitrite Urine Bilirubin Urine Urobilinogen Ur Leukocyte Esterase Influenza Type A (PCR) Neg for Influ A Influenza Type B (PCR) Neg for Influ B 07/29/19 07/29/19 07/29/19 07:13 07:13 08:50 WBC RBC Hgb Hct MCV MCH MCHC RDW Std Deviation RDW Coeff of Letitia Plt Count MPV Immature Gran % (Auto) Neut % (Auto) Lymph % (Auto) [place] % (Auto) Eos % (Auto) Baso % (Auto) Immature Gran # (Auto) Neut # (Auto) Lymph # (Auto) [place] # (Auto) Eos # (Auto) Baso # (Auto) PT INR APTT PTT Ratio Sodium 140 Potassium 3.2 L Chloride 104 Carbon Dioxide 31 Anion Gap 5.0 BUN 21 H Creatinine 0.86 Est Cr Clr Drug Dosing 46.7 Est GFR ( Amer) 74.5 Est GFR (Non-Af Amer) 64.3 BUN/Creatinine Ratio 24.2 H Glucose 206 H Lactate 2.2 H* Calcium 8.3 L Magnesium 1.3 L Total Bilirubin 0.3 AST 19 ALT 19 Alkaline Phosphatase 118 H Troponin I < 0.015 Total Protein 7.1 Albumin 3.0 L Globulin 4.1 H Albumin/Globulin Ratio 0.7 L Urine Color Yellow Urine Appearance Clear Urine pH 5.5 Ur Specific [place] 1.016 Urine Protein Negative Urine Glucose (UA) Trace H Urine Ketones Negative Urine Blood Negative Urine Nitrite Negative Urine Bilirubin Negative Urine Urobilinogen Negative Ur Leukocyte Esterase Negative Influenza Type A (PCR) Influenza Type B (PCR) 07/29/19 08:56 WBC RBC Hgb Hct MCV MCH MCHC RDW Std Deviation RDW Coeff of Letitia Plt Count MPV Immature Gran % (Auto) Neut % (Auto) Lymph % (Auto) [place] % (Auto) Eos % (Auto) Baso % (Auto) Immature Gran # (Auto) Neut # (Auto) Lymph # (Auto) [place] # (Auto) Eos # (Auto) Baso # (Auto) PT INR APTT PTT Ratio Sodium Potassium Chloride Carbon Dioxide Anion Gap BUN Creatinine Est Cr Clr Drug Dosing Est GFR ( Amer) Est GFR (Non-Af Amer) BUN/Creatinine Ratio Glucose Lactate 1.2 Calcium Magnesium Total Bilirubin AST ALT Alkaline Phosphatase Troponin I Total Protein Albumin Globulin Albumin/Globulin Ratio Urine Color Urine Appearance Urine pH Ur Specific [place] Urine Protein Urine Glucose (UA) Urine Ketones Urine Blood Urine Nitrite Urine Bilirubin Urine Urobilinogen Ur Leukocyte Esterase Influenza Type A (PCR) Influenza Type B (PCR) Medications Administered Current Inpatient Medications Albuterol (Ventolin 0.083% 2.5mg/3ml) 2.5 mg NEB Q8H PRN PRN Reason: Shortness Of Breath Stop: 08/28/19 09:18 Aspirin (Ecotrin Ectab) 81 [facility] [place] Stop: 08/28/19 11:25 Last Admin: 07/29/19 12:18 Dose: 81 mg Documented by: Atorvastatin Calcium (Lipitor) 40 mg [facility] [place] Stop: 08/28/19 11:25 Last Admin: 07/29/19 12:18 Dose: 40 mg Documented by: Clopidogrel Bisulfate (Plavix) 75 mg PO QAM [facility] Stop: 08/28/19 11:25 Last Admin: 07/29/19 12:18 Dose: 75 mg Documented by: Fish Oil ([place]-3 (Purified Fish Oil)) 1 gm PO DAILY [facility] Stop: 08/28/19 11:44 Last Admin: 07/29/19 12:18 Dose: 1 gm Documented by: Furosemide (Lasix) 20 mg PO DAILY PRN PRN Reason: Edema Stop: 08/28/19 11:25 Heparin Sodium (Porcine) (Heparin Sodium (Porcine)) 5,000 units SQ Q12 [facility] Stop: 08/28/19 20:59 Ceftriaxone Sodium (Rocephin) 1,000 mg in 50 mls @ 100 mls/hr IV Q24H [facility] Stop: 08/04/19 09:29 Doxycycline Hyclate 100 mg/ (Dextrose) 110 mls @ 50 mls/hr IV BID [facility] Stop: 08/05/19 20:59 Metoprolol Tartrate (Lopressor) 100 mg PO BID [facility] Stop: 08/28/19 11:25 Last Admin: 07/29/19 12:17 Dose: Not Given Documented by: Nitroglycerin (Nitrostat) 0.4 mg SL UD PRN PRN Reason: Chest Pain Stop: 08/28/19 11:25 Vitamin D (Vitamin D3) 1,000 units PO QAM [facility] Stop: 08/28/19 11:25 Last Admin: 07/29/19 12:18 Dose: 1,000 units Documented by: (1) Pneumonia Laterality: right Lung location: lower lobe of lung Pneumonia type: due to unspecified organism Qualified Code(s): J18.9 - Pneumonia, unspecified organism
[2019-07-29] MEDS: CLOPIDOGREL BISULFATE 75 MG TAB PO SCH (12:18)
[2019-07-29] MEDS: CHOLECALCIFEROL 1,000 UNITS 25 MCG TAB PO SCH (12:18)
[2019-07-29] MEDS: ATORVASTATIN 40 MG TAB PO SCH (12:18)
[2019-07-29] MEDS: OMEGA-3 (PURIFIED FISH OIL) 1 GM CAP PO SCH (12:18)
[2019-07-29] MEDS: ASPIRIN 81 MG ECTAB PO SCH (12:18)
[2019-07-29] MEDS: DOXYCYCLINE HYCLATE 100 MG in DEXTROSE 5% 100 ML IV SCH (20:12)
[2019-07-29] MEDS: HEPARIN SOD 5,000 UNIT/0.5 ML VIAL SQ SCH (20:12)
[2019-07-30 07:31] LABS: Basophils # (auto) 0.03 K/uL (0-0.2); Basophils % (auto) 0.8 %; Eosinophils % (auto) 5.4 %; Hematocrit (blood only) 39.5 % (37-47); Hemoglobin 12.8 g/dL (12.0-16.0); Lymphocytes # (auto) 1.64 K/uL (1.2-3.4); Mean Corpuscular Hemoglobin 30.2 pg (25-34); Mean Corpuscular Volume 93.2 fL (80-100); Mean Platelet Volume 11.3 fL (7.4-10.4); Monocytes # (auto) 0.39 K/uL (0.11-0.59); Monocytes % (auto) 10.5 %; Neutrophils # (auto) 1.47 K/uL (1.4-6.5); Neutrophils % (auto) 39.3 %; Platelet Count 128 K/uL (130-400); RDW Coefficient of Variation 14.6 % (11.5-14.5); Red Blood Count 4.24 M/uL (4.2-5.4); White Blood Count 3.73 K/uL (4.8-10.8)
[2019-07-30 07:37] LABS: Mean Corpuscular Hgb Conc 32.4 g/dL (32-36)
[2019-07-30 08:00] LABS: Albumin Globulin Ratio 0.8 (0.9-2); Albumin Level 3.1 gm/dl (3.4-5.0); BUN Creatinine Ratio 19.6 (10-20); Bilirubin,Total 0.5 mg/dl (0.2-1); C Reactive Protein 0.64 mg/dl (0-0.29); Calcium 8.8 mg/dl (8.5-10.1); Est GFR (African American) 96.4; Est GFR (Non-African American) 83.2; Globulin 3.9 gm/dl (2.5-4.0); Magnesium 1.6 mg/dl (1.8-2.4); Phosphorus 2.9 mg/dl (2.5-4.9); Potassium 3.9 mmol/L (3.5-5.1)
--- NOTE | 2019-07-30 09:54 | Hospitalist Progress Note ---
Date of Service July 30, 2019 Assessment & Plan (1) Pneumonia: -as per admission note on 07/29/2019 "Complaint to have flu symptoms about 1 week ago and received Tamiflu on last . Condition got worse with productive phlegm and fever with increasing shortness of breath. Chest x-ray did show developing right lower lobe infiltrate. Received 1 dose of Zosyn in the ER and will continue with intravenous ceftriaxone and doxycycline to cover atypicals. She has significant wheezing without any history of asthma and/or COPD. We will give nebulized bronchodilator while in the hospital.She has been feeling a little bit better" -07/30/2019: procalctonin is negative, mild elevated ESR, mild elevated CRP. continue antibiotics of ceftriaxone and doxycycline.continue nebulizers prn (2) Atrial fibrillation with RVR: atrial fibrillation with rapid ventricular response -remote history of possible embolic stroke in 2005 -on metoprolol 100 mg BID -initial atrial fibrillation with rapid ventricular response resolved fairly quickly when admitted on 07/29/2019 -patient has been normal sinus rhythm since -no systemic anticoagulation at this time as per Dr. 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 as a complication of intra-aortic balloon pump in 2012 History of calcific aortic valve stenosis status post TAVR in September 2017 History of Cardiac catheterization with a status post PCI in RCA with CAROLA -continue aspirin and Plavix and will continue (8) Electrolyte imbalance: Hypokalemia -corrected Hypomagnesemia -admission serum potassium was 1.3, after supplements were given by ED provider the serum magnesium is still low as 1.6 on 07/30/2019 -give scheduled magnesium supplements and IV magnesium on 07/30/2019 DVT prophylaxis Subcu heparin CODE STATUS Full Admission and Anticipated Discharge Date Admission Date: July 29, 2019 Subjective patient breathing on room air. has chronic right chest wall deformity. she has cough intermittently. normal sinus rhythm currently. no palpitations. no dizziness. no headache Review of Systems Review of Systems: All systems reviewed & are unremarkable except as noted in HPI & below Physical Exam Constitutional: cooperative Eyes: PERRL, conjunctivae normal, anicteric sclerae EOM intact bilaterally ENMT: external ear and nose normal, oropharynx normal Neck: normal visual inspection Respiratory: normal respiratory effort Cardiovascular: Rate/Rhythm: regular rate and regular rhythm Chest (Breasts): Additional Comments: right chest wall abnormality that is chronic Gastrointestinal (Abdomen): normal bowel sounds, soft, nontender, no hepatosplenomegaly Musculoskeletal: Head/Neck/Chest: normocephalic and head atraumatic Neurologic: PERRL, EOMI, accommodation nl, no face palsy, no dysarthria CN's II-XI intact bilaterally Psychiatric: A+Ox3, euthymic affect Results & Data ([facility]) Vital Signs (Past 12 Hours) Vital Signs Temp Pulse Pulse Resp BP Pulse Ox 07/30/19 08:00 36.7 C 89 18 158/60 H 91 07/30/19 04:14 37.0 C 89 19 139/73 90 07/30/19 02:46 84 07/30/19 00:00 36.7 C 80 18 147/63 H 90 (1) Chest pain Chest pain type: precordial pain Qualified Code(s): R07.2 - Precordial pain (2) Pneumonia Laterality: right Lung location: lower lobe of lung Pneumonia type: due to unspecified organism Qualified Code(s): J18.9 - Pneumonia, unspecified organism
[2019-07-30] MEDS: DOXYCYCLINE HYCLATE 100 MG in DEXTROSE 5% 100 ML IV SCH ×2 (10:18→20:05)
[2019-07-30] MEDS: cefTRIAXone SODIUM 1,000 MG/50 ML BAG IV SCH (10:19)
[2019-07-30] MEDS: ASPIRIN 81 MG ECTAB PO SCH (10:20)
[2019-07-30] MEDS: HEPARIN SOD 5,000 UNIT/0.5 ML VIAL SQ SCH ×2 (10:20→20:05)
[2019-07-30] MEDS: MAGNESIUM OXIDE 400 MG TAB PO SCH (10:21)
[2019-07-30] MEDS: METOPROLOL TARTRATE 100 MG TAB PO SCH ×2 (10:21→20:04)
[2019-07-30] MEDS: CHOLECALCIFEROL 1,000 UNITS 25 MCG TAB PO SCH (10:22)
[2019-07-30] MEDS: ATORVASTATIN 40 MG TAB PO SCH (10:23)
[2019-07-30] MEDS: OMEGA-3 (PURIFIED FISH OIL) 1 GM CAP PO SCH (10:23)
[2019-07-30] MEDS: CLOPIDOGREL BISULFATE 75 MG TAB PO SCH (10:23)
[2019-07-30] MEDS: MAGNESIUM SULFATE / D5W 1 GM/100 ML BAG IV SCH ×2 (11:05→11:58)
--- NOTE | 2019-07-30 11:27 | Cardiology Progress Note ---
Date of Service July 30, 2019 Assessment & Plan (1) Pneumonia: (2) Breast cancer: (3) History of mastectomy: (4) Atrial fibrillation with RVR: (5) S/P TAVR (transcatheter aortic valve replacement): The patient is improving with the current treatment. Of note is that she is currently not anticoagulated but is on dual antiplatelet therapy. As an outpatient and prior to this admission she was not anticoagulated by the patient's choice even though she may have had an embolic stroke in the past. At this point I would keep her on subcu heparin and dual antiplatelet therapy. Otherwise she is doing well. Subjective The patient is found sitting in a chair. She is markedly improved from yesterday. She has no new cardiac complaints today. She remains in sinus rhythm on the telemetry. Review of Systems Review of Systems: All systems reviewed & are unremarkable except as noted in HPI & below Nothing additional to add. Physical Exam Physical Exam: General: no acute distress and stated age Head: normocephalic, no masses, lesions, tenderness or abnormalities Eyes: conjunctiva are pink and non-injected, sclera clear Neck: supple, no adenopathy, no bruits, normal jugular venous pulse, no hepatojugular reflux Chest: normal shape and normal respiratory effort Lungs: [place]ales mid left lung field. Cardiac Exam: - regular rate & rhythm, no murmurs gallops or rubs - normal S1, normal S2 Pulses: 2(+) throughout Abdomen: abdomen soft, non-tender, no abnormal masses and no hepatosplenomegaly Musculoskeletal: no gait disturbance, no joint inflammation, no deforming arthritis Extremities: no edema and no cyanosis Neuro: grossly normal exam Results & Data Vital Signs (Past 12 Hours) Vital Signs Temp Pulse Pulse Resp BP Pulse Ox 07/30/19 08:00 36.7 C 89 18 158/60 H 91 07/30/19 04:14 37.0 C 89 19 139/73 90 07/30/19 02:46 84 07/30/19 00:00 36.7 C 80 18 147/63 H 90 Laboratory Results Laboratory Results - last 24 hr 07/29/19 07/29/19 07/30/19 13:05 19:52 07:16 WBC 3.73 L RBC 4.24 Hgb 12.8 Hct 39.5 MCV 93.2 MCH 30.2 MCHC 32.4 RDW Std Deviation 50.0 H RDW Coeff of Letitia 14.6 H Plt Count 128 L MPV 11.3 H Immature Gran % (Auto) 0.0 Neut % (Auto) 39.3 Lymph % (Auto) 44.0 [place] % (Auto) 10.5 Eos % (Auto) 5.4 Baso % (Auto) 0.8 Immature Gran # (Auto) 0.00 Neut # (Auto) 1.47 Lymph # (Auto) 1.64 [place] # (Auto) 0.39 Eos # (Auto) 0.20 Baso # (Auto) 0.03 ESR Sodium Potassium Chloride Carbon Dioxide Anion Gap BUN Creatinine Est Cr Clr Drug Dosing Est GFR ( Amer) Est GFR (Non-Af Amer) BUN/Creatinine Ratio Glucose Calcium Phosphorus Magnesium Total Bilirubin AST ALT Alkaline Phosphatase Troponin I 0.165 H* 0.140 H* C-Reactive Protein Total Protein Albumin Globulin Albumin/Globulin Ratio Procalcitonin 07/30/19 07/30/19 07/30/19 07:16 07:16 07:16 WBC RBC Hgb Hct MCV MCH MCHC RDW Std Deviation RDW Coeff of Letitia Plt Count MPV Immature Gran % (Auto) Neut % (Auto) Lymph % (Auto) [place] % (Auto) Eos % (Auto) Baso % (Auto) Immature Gran # (Auto) Neut # (Auto) Lymph # (Auto) [place] # (Auto) Eos # (Auto) Baso # (Auto) ESR 34 H Sodium 140 Potassium 3.9 D Chloride 106 Carbon Dioxide 30 Anion Gap 4.0 BUN 13 Creatinine 0.68 Est Cr Clr Drug Dosing 59.0 Est GFR ( Amer) 96.4 Est GFR (Non-Af Amer) 83.2 BUN/Creatinine Ratio 19.6 Glucose 117 H Calcium 8.8 Phosphorus 2.9 Magnesium 1.6 L Total Bilirubin 0.5 AST 19 ALT 18 Alkaline Phosphatase 114 Troponin I C-Reactive Protein 0.64 H Total Protein 7.0 Albumin 3.1 L Globulin 3.9 Albumin/Globulin Ratio 0.8 L Procalcitonin < 0.05 Medications Administered Current Inpatient Medications Albuterol (Ventolin 0.083% 2.5mg/3ml) 2.5 mg NEB Q8H PRN PRN Reason: Shortness Of Breath Stop: 08/28/19 09:18 Aspirin (Ecotrin Ectab) 81 mg PO QAM [facility] Stop: 08/28/19 11:25 Last Admin: 07/30/19 10:20 Dose: 81 mg Documented by: Atorvastatin Calcium (Lipitor) 40 mg PO QAM [facility] Stop: 08/28/19 11:25 Last Admin: 07/30/19 10:23 Dose: 40 mg Documented by: Clopidogrel Bisulfate (Plavix) 75 mg PO QAM [facility] Stop: 08/28/19 11:25 Last Admin: 07/30/19 10:23 Dose: 75 mg Documented by: Fish Oil ([place]-3 (Purified Fish Oil)) 1 gm PO DAILY [facility] Stop: 08/28/19 11:44 Last Admin: 07/30/19 10:23 Dose: 1 gm Documented by: Furosemide (Lasix) 20 mg PO DAILY PRN PRN Reason: Edema Stop: 08/28/19 11:25 Heparin Sodium (Porcine) (Heparin Sodium (Porcine)) 5,000 units SQ Q12 [facility] Stop: 08/28/19 20:59 Last Admin: 07/30/19 10:20 Dose: 5,000 units Documented by: Ceftriaxone Sodium (Rocephin) 1,000 mg in 50 mls @ 100 mls/hr IV Q24H [facility] Stop: 08/04/19 09:29 Last Infusion: 07/30/19 11:05 Dose: Infused Documented by: Doxycycline Hyclate 100 mg/ (Dextrose) 110 mls @ 50 mls/hr IV BID [facility] Stop: 08/05/19 20:59 Last Admin: 07/30/19 10:18 Dose: 50 mls/hr Documented by: Magnesium Sulfate/Dextrose (Magnesium Sulfate / D5w) 1 gm in 100 mls @ 100 mls/hr IV Q1H [facility] Stop: 07/30/19 11:59 Last Admin: 07/30/19 11:05 Dose: 100 mls/hr Documented by: Magnesium Oxide (Mag-Ox) 400 mg PO QAM [facility] Stop: 08/29/19 09:59 Last Admin: 07/30/19 10:21 Dose: 400 mg Documented by: Metoprolol Tartrate (Lopressor) 100 mg PO BID [facility] Stop: 08/28/19 11:25 Last Admin: 07/30/19 10:21 Dose: 100 mg Documented by: Nitroglycerin (Nitrostat) 0.4 mg SL UD PRN PRN Reason: Chest Pain Stop: 08/28/19 11:25 Vitamin D (Vitamin D3) 1,000 units PO QAM [facility] Stop: 08/28/19 11:25 Last Admin: 07/30/19 10:22 Dose: 1,000 units Documented by: (1) Pneumonia Laterality: right Lung location: lower lobe of lung Pneumonia type: due to unspecified organism Qualified Code(s): J18.9 - Pneumonia, unspecified organism
--- NOTE | 2019-07-30 13:20 | Electrocardiogram Report ---
Test Reason : Blood Pressure : / mmHG Vent. Rate : 122 BPM Atrial Rate : 119 BPM P-R Int : 000 ms QRS Dur : 106 ms QT Int : 328 ms P-R-T Axes : 000 -16 155 degrees QTc Int : 467 ms Atrial fibrillation with rapid ventricular response Moderate voltage criteria for LVH, may be normal variant Anterior infarct (cited on or before 11-MAY-2013) Marked ST abnormality, possible lateral subendocardial injury Abnormal ECG When compared with ECG of 11-MAY-2013 07:25, Diffuse injury pattern is no longer Present Confirmed by Tung Harrell ([id number]) on 07/30/2019 1:20:12 PM Referred By: REFERRED SELF Confirmed By:Tung Harrell
[2019-07-31 07:16] LABS: Basophils # (auto) 0.02 K/uL (0-0.2); Basophils % (auto) 0.4 %; Eosinophils # (auto) 0.17 K/uL (0-0.5); Eosinophils % (auto) 3.6 %; Hematocrit (blood only) 40.6 % (37-47); Hemoglobin 12.8 g/dL (12.0-16.0); Immature Granulocytes # (auto) 0.01 K/uL (0.00-0.02); Immature Granulocytes % (auto) 0.2 %; Lymphocytes # (auto) 1.72 K/uL (1.2-3.4); Lymphocytes % (auto) 36.1 %; Mean Corpuscular Hemoglobin 29.9 pg (25-34); Mean Corpuscular Hgb Conc 31.5 g/dL (32-36); Mean Corpuscular Volume 94.9 fL (80-100); Mean Platelet Volume 11.4 fL (7.4-10.4); Monocytes # (auto) 0.52 K/uL (0.11-0.59); Monocytes % (auto) 10.9 %; Neutrophils # (auto) 2.32 K/uL (1.4-6.5); Neutrophils % (auto) 48.8 %; Platelet Count 139 K/uL (130-400); RDW Coefficient of Variation 14.5 % (11.5-14.5); RDW Standard Deviation 49.9 fL (36.4-46.3); Red Blood Count 4.28 M/uL (4.2-5.4); White Blood Count 4.76 K/uL (4.8-10.8)
[2019-07-31 08:00] LABS: Albumin Level 3.1 gm/dl (3.4-5.0); BUN Creatinine Ratio 17.3 (10-20); Calcium 8.7 mg/dl (8.5-10.1); Creatinine Clr Calc Pharmacy 57.3 ml/min; Est GFR (African American) 95.5; Est GFR (Non-African American) 82.4; Magnesium 1.8 mg/dl (1.8-2.4); Potassium 3.9 mmol/L (3.5-5.1)
[2019-07-31 08:03] LABS: Albumin Globulin Ratio 0.8 (0.9-2); Bilirubin,Total 0.6 mg/dl (0.2-1); Globulin 3.9 gm/dl (2.5-4.0)
[2019-07-31] MEDS: cefTRIAXone SODIUM 1,000 MG/50 ML BAG IV SCH (08:32)
[2019-07-31] MEDS: DOXYCYCLINE HYCLATE 100 MG in DEXTROSE 5% 100 ML IV SCH ×2 (08:33→20:20)
[2019-07-31] MEDS: METOPROLOL TARTRATE 100 MG TAB PO SCH ×2 (08:39→20:21)
[2019-07-31] MEDS: ATORVASTATIN 40 MG TAB PO SCH (08:40)
[2019-07-31] MEDS: ASPIRIN 81 MG ECTAB PO SCH (08:40)
[2019-07-31] MEDS: MAGNESIUM OXIDE 400 MG TAB PO SCH (08:40)
[2019-07-31] MEDS: HEPARIN SOD 5,000 UNIT/0.5 ML VIAL SQ SCH ×2 (08:40→20:20)
[2019-07-31] MEDS: CLOPIDOGREL BISULFATE 75 MG TAB PO SCH (08:42)
[2019-07-31] MEDS: CHOLECALCIFEROL 1,000 UNITS 25 MCG TAB PO SCH (08:42)
[2019-07-31] MEDS: OMEGA-3 (PURIFIED FISH OIL) 1 GM CAP PO SCH (08:42)
--- NOTE | 2019-07-31 09:28 | Hospitalist Progress Note ---
Date of Service July 31, 2019 Assessment & Plan (1) Pneumonia: Hypoxia from pneumonia -as per admission note on 07/29/2019 "Complaint to have flu symptoms about 1 week ago and received Tamiflu on last . Condition got worse with productive phlegm and fever with increasing shortness of breath. Chest x-ray did show developing right lower lobe infiltrate. Received 1 dose of Zosyn in the ER and will continue with intravenous ceftriaxone and doxycycline to cover atypicals. She has significant wheezing without any history of asthma and/or COPD. We will give nebulized bronchodilator while in the hospital.She has been feeling a little bit better" -07/30/2019: procalctonin is negative, mild elevated ESR, mild elevated CRP. continue antibiotics of ceftriaxone and doxycycline.continue nebulizers prn -07/31/2019: patient seen with oxygen nasal cannula in the day time because nurse reports that patient had desaturation to 84 to 85% when on room air. continue antibiotics of ceftriaxone and doxycycline.continue nebulizers prn, will see if oxygen level can be titrated down. (2) Atrial fibrillation with RVR: atrial fibrillation with rapid ventricular response -remote history of possible embolic stroke in 2005 -on metoprolol 100 mg BID -initial atrial fibrillation with rapid ventricular response resolved fairly quickly when admitted on 07/29/2019 -patient has been normal sinus rhythm since -no systemic anticoagulation at this time as per Dr. 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 as a complication of intra-aortic balloon pump in 2012 History of calcific aortic valve stenosis status post TAVR in September 2017 History of Cardiac catheterization with a status post PCI in RCA with [facility] -continue aspirin and Plavix and will continue (8) Electrolyte imbalance: Hypokalemia -corrected Hypomagnesemia -admission serum potassium was 1.3, after supplements were given by ED provider the serum magnesium is still low as 1.6 on 07/30/2019 -give scheduled magnesium supplements and IV magnesium on 07/30/2019 -serum magnesium is 1.8 on 07/31/2019, give IV magnesium with scheduled magnesium DVT prophylaxis Subcu heparin CODE STATUS Full Admission and Anticipated Discharge Date Admission Date: July 29, 2019 Subjective Patient remains in sinus rhythm. However, patient seen with oxygen nasal cannula in the day time, nurse reports that patient had desaturation to 84 to 85% when on room air. Patient is not in acute distress. not in acute pain. she is disappointed that she cannot be discharged from hospital today Review of Systems Review of Systems: All systems reviewed & are unremarkable except as noted in HPI & below Physical Exam Constitutional: cooperative Eyes: PERRL, conjunctivae normal, anicteric sclerae EOM intact bilaterally ENMT: external ear and nose normal, oropharynx normal Neck: normal visual inspection Respiratory: normal respiratory effort Cardiovascular: Rate/Rhythm: regular rate and regular rhythm Gastrointestinal (Abdomen): normal bowel sounds, soft, nontender, no hepatosplenomegaly Musculoskeletal: Head/Neck/Chest: normocephalic and head atraumatic Neurologic: PERRL, EOMI, accommodation nl, no face palsy, no dysarthria CN's II-XI intact bilaterally Psychiatric: A+Ox3, euthymic affect Results & Data ([facility]) Vital Signs (Past 12 Hours) Vital Signs Temp Pulse Pulse Resp BP Pulse Ox 07/31/19 08:00 36.9 C 103 H 18 163/82 H 94 07/31/19 03:44 36.9 C 89 18 134/66 94 07/31/19 03:18 82 07/30/19 23:38 36.8 C 83 18 157/79 H 90 (1) Pneumonia Laterality: right Lung location: lower lobe of lung Pneumonia type: due to unspecified organism Qualified Code(s): J18.9 - Pneumonia, unspecified organism (2) Chest pain Chest pain type: precordial pain Qualified Code(s): R07.2 - Precordial pain
[2019-07-31] MEDS: ALBUTEROL 0.083% NEBU SOLN 3 ML VIAL NEB PRN ×2 (09:38→20:24)
--- NOTE | 2019-07-31 17:08 | Cardiology Progress Note ---
Date of Service July 31, 2019 Assessment & Plan (1) Pneumonia: (2) Breast cancer: (3) History of mastectomy: (4) Atrial fibrillation with RVR: (5) S/P TAVR (transcatheter aortic valve replacement): Patient is currently stable and maintaining sinus rhythm on her own. I would continue to treat her for her pneumonia. Hopefully home soon. Subjective The patient is slowly improving. She has no new cardiac complaints today. Review of Systems Review of Systems: All systems reviewed & are unremarkable except as noted in HPI & below Nothing additional to add. Physical Exam Physical Exam: General: no acute distress and stated age Head: normocephalic, no masses, lesions, tenderness or abnormalities Eyes: conjunctiva are pink and non-injected, sclera clear Neck: supple, no adenopathy, no bruits, normal jugular venous pulse, no hepatojugular reflux Chest: Chest deformity due to previous surgery Lungs: clear to auscultation and percussion Cardiac Exam: - regular rate & rhythm, no murmurs gallops or rubs - normal S1, normal S2 Pulses: 2(+) throughout Abdomen: abdomen soft, non-tender, no abnormal masses and no hepatosplenomegaly Musculoskeletal: no gait disturbance, no joint inflammation, no deforming arthritis Extremities: no edema and no cyanosis Neuro: grossly normal exam Results & Data Vital Signs (Past 12 Hours) Vital Signs Temp Pulse Resp BP Pulse Ox 07/31/19 15:51 36.8 C 82 19 147/67 H 89 L 07/31/19 13:21 91 07/31/19 12:59 97 07/31/19 12:00 36.8 C 87 22 145/97 H 91 07/31/19 09:39 88 18 97 07/31/19 08:00 36.9 C 103 H 18 163/82 H 94 Laboratory Results Laboratory Results - last 24 hr 07/30/19 07/31/19 07/31/19 19:08 06:36 06:36 WBC 4.76 L RBC 4.28 Hgb 12.8 Hct 40.6 MCV 94.9 MCH 29.9 MCHC 31.5 L RDW Std Deviation 49.9 H RDW Coeff of Letitia 14.5 Plt Count 139 MPV 11.4 H Immature Gran % (Auto) 0.2 Neut % (Auto) 48.8 Lymph % (Auto) 36.1 [place] % (Auto) 10.9 Eos % (Auto) 3.6 Baso % (Auto) 0.4 Immature Gran # (Auto) 0.01 Neut # (Auto) 2.32 Lymph # (Auto) 1.72 [place] # (Auto) 0.52 Eos # (Auto) 0.17 Baso # (Auto) 0.02 Sodium 141 Potassium 3.9 Chloride 103 Carbon Dioxide 34 H Anion Gap 4.0 BUN 12 Creatinine 0.70 Est Cr Clr Drug Dosing 57.3 Est GFR ( Amer) 95.5 Est GFR (Non-Af Amer) 82.4 BUN/Creatinine Ratio 17.3 Glucose 101 H Calcium 8.7 Magnesium 1.8 Total Bilirubin 0.6 AST 15 ALT 17 Alkaline Phosphatase 109 Total Protein 7.0 Albumin 3.1 L Globulin 3.9 Albumin/Globulin Ratio 0.8 L Stl C. diff Tox B Gene Negative Cdiff Gene Medications Administered Current Inpatient Medications Albuterol (Ventolin 0.083% 2.5mg/3ml) 2.5 mg NEB Q8H PRN PRN Reason: Shortness Of Breath Stop: 08/28/19 09:18 Last Admin: 07/31/19 09:38 Dose: 2.5 mg Documented by: Aspirin (E[facility]rin Ectab) [facility]: 08/28/19 11:25 Last Admin: 07/31/19 08:40 Dose: 81 mg Documented by: Atorvastatin Calcium (Lipitor) [facility] Stop: 08/28/19 11:25 Last Admin: 07/31/19 08:40 Dose: 40 mg Documented by: Clopidogrel Bisulfate (Plavix) [facility] Stop: 08/28/19 11:25 Last Admin: 07/31/19 08:42 Dose: 75 mg Documented by: Fish Oil ([place]-3 (Purified Fish Oil)) 1 gm PO DAILY [facility] Stop: 08/28/19 11:44 Last Admin: 07/31/19 08:42 Dose: 1 gm Documented by: Furosemide (Lasix) 20 mg PO DAILY PRN PRN Reason: Edema Stop: 08/28/19 11:25 Heparin Sodium (Porcine) (Heparin Sodium (Porcine)) 5,000 units SQ Q12 [facility] Stop: 08/28/19 20:59 Last Admin: 07/31/19 08:40 Dose: 5,000 units Documented by: Ceftriaxone Sodium (Rocephin) 1,000 mg in 50 mls @ 100 mls/hr IV Q24H [facility] Stop: 08/04/19 09:29 Last Infusion: 07/31/19 09:20 Dose: Infused Documented by: Doxycycline Hyclate 100 mg/ (Dextrose) 110 mls @ 50 mls/hr IV BID [facility] Stop: 08/05/19 20:59 Last Infusion: 07/31/19 10:46 Dose: Infused Documented by: Magnesium Oxide (Mag-Ox) 400 mg PO QAM [facility] Stop: 08/29/19 09:59 Last Admin: 07/31/19 08:40 Dose: 400 mg Documented by: Metoprolol Tartrate (Lopressor) 100 mg PO BID [facility] Stop: 08/28/19 11:25 Last Admin: 07/31/19 08:39 Dose: 100 mg Documented by: Nitroglycerin (Nitrostat) 0.4 mg SL UD PRN PRN Reason: Chest Pain Stop: 08/28/19 11:25 Vitamin D (Vitamin D3) 1,000 units PO QAM [facility] Stop: 08/28/19 11:25 Last Admin: 07/31/19 08:42 Dose: 1,000 units Documented by: (1) Pneumonia Laterality: right Lung location: lower lobe of lung Pneumonia type: due to unspecified organism Qualified Code(s): J18.9 - Pneumonia, unspecified organism
[2019-08-01] MEDS: cefTRIAXone SODIUM 1,000 MG/50 ML BAG IV SCH (08:25)
[2019-08-01] MEDS: DOXYCYCLINE HYCLATE 100 MG in DEXTROSE 5% 100 ML IV SCH (08:25)
[2019-08-01] MEDS: METOPROLOL TARTRATE 100 MG TAB PO SCH (08:28)
[2019-08-01] MEDS: MAGNESIUM OXIDE 400 MG TAB PO SCH (08:29)
[2019-08-01] MEDS: ASPIRIN 81 MG ECTAB PO SCH (08:29)
[2019-08-01] MEDS: ATORVASTATIN 40 MG TAB PO SCH (08:29)
[2019-08-01] MEDS: CHOLECALCIFEROL 1,000 UNITS 25 MCG TAB PO SCH (08:29)
[2019-08-01] MEDS: HEPARIN SOD 5,000 UNIT/0.5 ML VIAL SQ SCH (08:29)
[2019-08-01] MEDS: CLOPIDOGREL BISULFATE 75 MG TAB PO SCH (08:29)
[2019-08-01] MEDS: OMEGA-3 (PURIFIED FISH OIL) 1 GM CAP PO SCH (08:29)
--- NOTE | 2019-08-01 13:56 | Cardiology Progress Note ---
Date of Service August 01, 2019 Assessment & Plan (1) Pneumonia: (2) Breast cancer: (3) History of mastectomy: (4) Atrial fibrillation with RVR: (5) S/P TAVR (transcatheter aortic valve replacement): Patient is doing better and is anxious to go home. I will arrange follow- up with our office. Subjective He patient is sitting in the chair comfortably talking with her . She has no new complaints today. Heart rhythm remains sinus. Review of Systems Review of Systems: All systems reviewed & are unremarkable except as noted in HPI & below Nothing additional to add. Physical Exam Physical Exam: General: no acute distress and stated age Head: normocephalic, no masses, lesions, tenderness or abnormalities Eyes: conjunctiva are pink and non-injected, sclera clear Neck: supple, no adenopathy, no bruits, normal jugular venous pulse, no h epatojugular reflux Chest: normal shape and normal respiratory effort Lungs: clear to auscultation and percussion Cardiac Exam: - regular rate & rhythm, no murmurs gallops or rubs - normal S1, normal S2 Pulses: 2(+) throughout Abdomen: abdomen soft, non-tender, no abnormal masses and no hepatosplenomegaly Musculoskeletal: no gait disturbance, no joint inflammation, no deforming arthritis Extremities: no edema and no cyanosis Neuro: grossly normal exam Results & Data Vital Signs (Past 12 Hours) Vital Signs Temp Pulse Pulse Resp BP Pulse Ox 08/01/19 11:10 36.3 C L 79 18 165/76 H 91 08/01/19 08:00 83 93 08/01/19 07:38 36.6 C 96 H 18 154/70 H 98 08/01/19 04:00 37.0 C 94 H 18 148/69 H 93 08/01/19 03:57 81 L Medications Administered Current Inpatient Medications Albuterol (Ventolin 0.083% 2.5mg/3ml) 2.5 mg NEB Q8H PRN PRN Reason: Shortness Of Breath Stop: 08/28/19 09:18 Last Admin: 07/31/19 20:24 Dose: 2.5 mg Documented by: Aspirin (Ecotrin Ectab) [facility] Stop: 08/28/19 11:25 Last Admin: 08/01/19 08:29 Dose: 81 mg Documented by: Atorvastatin Calcium (Lipitor) 40 mg PO QAM [facility] Stop: 08/28/19 11:25 Last Admin: 08/01/19 08:29 Dose: 40 mg Documented by: Clopidogrel Bisulfate (Plavix) 75 mg PO QAM [facility] Stop: 08/28/19 11:25 Last Admin: 08/01/19 08:29 Dose: 75 mg Documented by: Fish Oil ([place]-3 (Purified Fish Oil)) 1 gm PO DAILY [facility] Stop: 08/28/19 11:44 Last Admin: 08/01/19 08:29 Dose: 1 gm Documented by: Furosemide (Lasix) 20 mg PO DAILY PRN PRN Reason: Edema Stop: 08/28/19 11:25 Heparin Sodium (Porcine) (Heparin Sodium (Porcine)) 5,000 units SQ Q12 [facility] Stop: 08/28/19 20:59 Last Admin: 08/01/19 08:29 Dose: 5,000 units Documented by: Ceftriaxone Sodium (Rocephin) 1,000 mg in 50 mls @ 100 mls/hr IV Q24H [facility] Stop: 08/04/19 09:29 Last Infusion: 08/01/19 08:55 Dose: Infused Documented by: Doxycycline Hyclate 100 mg/ (Dextrose) 110 mls @ 50 mls/hr IV BID [facility] Stop: 08/05/19 20:59 Last Infusion: 08/01/19 10:37 Dose: Infused Documented by: Magnesium Oxide (Mag-Ox) 400 mg PO QAM [facility] Stop: 08/29/19 09:59 Last Admin: 08/01/19 08:29 Dose: 400 mg Documented by: Metoprolol Tartrate (Lopressor) 100 mg PO BID [facility] Stop: 08/28/19 11:25 Last Admin: 08/01/19 08:28 Dose: 100 mg Documented by: Nitroglycerin (Nitrostat) 0.4 mg SL UD PRN PRN Reason: Chest Pain Stop: 08/28/19 11:25 Vitamin D (Vitamin D3) 1,[facility] [place] Stop: 08/28/19 11:25 Last Admin: 08/01/19 08:29 Dose: 1,000 units Documented by: (1) Pneumonia Laterality: right Lung location: lower lobe of lung Pneumonia type: due to unspecified organism Qualified Code(s): J18.9 - Pneumonia, unspecified organism
--- NOTE | 2019-08-01 14:16 | Hospitalist Progress Note ---
Date of Service August 01, 2019 Assessment & Plan (1) Pneumonia: Hypoxia from pneumonia per Dr. Efrain Estrada's notes (previous attending): -as per admission note on 07/29/2019 "Complaint to have flu symptoms about 1 week ago and received Tamiflu on last . Condition got worse with productive phlegm and fever with increasing shortness of breath. Chest x-ray did show developing right lower lobe infiltrate. Received 1 dose of Zosyn in the ER and will continue with intravenous ceftriaxone and doxycycline to cover atypicals. She has significant wheezing without any history of asthma and/or COPD. We will give nebulized bronchodilator while in the hospital.She has been feeling a little bit better" -07/30/2019: procalctonin is negative, mild elevated ESR, mild elevated CRP. continue antibiotics of ceftriaxone and doxycycline.continue nebulizers prn -07/31/2019: patient seen with oxygen nasal cannula in the day time because nurse reports that patient had desaturation to 84 to 85% when on room air. continue antibiotics of ceftriaxone and doxycycline.continue nebulizers prn, will see if oxygen level can be titrated down. 08/01/19 off oxygen, saturating well on room air, no dyspnea; afebrile discharge plan: Augmentin Extended release 2 g BID x 5 more days Doxycycline 100mg BID x 5 more days ff up with PCP within 1 week (2) Atrial fibrillation with RVR: per Dr. Efrain Estrada's notes: atrial fibrillation with rapid ventricular response -remote history of possible embolic stroke in 2006 -on metoprolol 100 mg BID -initial atrial fibrillation with rapid ventricular response resolved fairly quickly when admitted on 07/29/2019 -patient has been normal sinus rhythm since -no systemic anticoagulation at this time as per Dr. Cantrell 08/01/19 - remains in SR (3) Chest pain: per Dr. 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 as a complication of intra-aortic balloon pump in 2012 History of calcific aortic valve stenosis status post TAVR in September 2017 History of Cardiac catheterization with a status post PCI in RCA with CAROLA -continue aspirin and Plavix (8) Electrolyte imbalance: Hypokalemia -corrected -repeat level on ff up with PCP in 1 week Hypomagnesemia - given IV and PO Mg - improved from 1.3 to 1.8 - will give Mg supplement x 7 days, repeat level on ff up with PCP in 1 week DVT prophylaxis Subcu heparin given Disposition d/c home ff up with PCP in 1 week as per DC instructions Admission and Anticipated Discharge Date Admission Date: July 29, 2019 Subjective ff up for pneumonia, A fib seen resting in bedside chair, comfortable states she feels much better overall no dyspnea, coughing much less, no sputum off oxygen, ambulated in the halls with no oxygen supplement-no symptoms no chest pain, palpitations, dizziness no other symptoms states she is feeling much better, states she is ready and would like to be discharged today Review of Systems Review of Systems: All systems reviewed & are unremarkable except as noted in HPI & below Physical Exam Physical Exam: General- oriented x 3, not in distress, speaks in sentences with no effort or accessory muscle use Head- atraumatic Eyes- PERRL, EOMI, anicteric ENT- oropharynx clear Neck- supple, no JVD, no adenopathy, no thyromegaly; carotids +2/2, no bruits appreciated Lungs- clear to auscultation bilaterally, no rales/wheezes Heart- normal rate, regular rhythm; no murmur, no gallop, no rub appreciated Abdomen- normal bowel sounds, nondistended, soft, nontender, no masses or hepatosplenomegaly Extremities- no pretibial edema, no calf tenderness; peripheral pulses intact Neuro- alert, oriented x 3; CN 2-12 grossly intact; motor 5/5 bilaterally;sensation 100% on all extremities; no other gross focal neurologic deficits Skin- warm & dry Results & Data ([facility]) Vital Signs (Past 12 Hours) Vital Signs Temp Pulse Pulse Resp BP Pulse Ox 08/01/19 11:10 36.3 C L 79 18 165/76 H 91 08/01/19 08:00 83 93 08/01/19 07:38 36.6 C 96 H 18 154/70 H 98 08/01/19 04:00 37.0 C 94 H 18 148/69 H 93 08/01/19 03:57 81 L (1) Pneumonia Laterality: right Lung location: lower lobe of lung Pneumonia type: due to unspecified organism Qualified Code(s): J18.9 - Pneumonia, unspecified organism (2) Chest pain Chest pain type: precordial pain Qualified Code(s): R07.2 - Precordial pain
--- NOTE | 2019-08-01 14:44 | Discharge Summary ---
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 She was seen by her primary care provider on last and was given Tamiflu. Her condition did not get any better and she was having more cough with productive of yellowish phlegm, increasing shortness of breath with chest pressure and wheezing and also had fever of 101 F. She complained to have chest pressure and some pain involving the left shoulder as well with palpitation. Denies any increasing leg swelling. Did have nausea but no vomiting. Denies any problem with urine and her bowel habit. Denies any numbness and or tingling involving any of the extremities. In the ER she was noted to have atrial fibrillation with RVR and a chest x-ray did show developing right lower lobe infiltration from that point she was admitted to telemetry unit for continuation of care. Admission Exam Per Admitting Provider Physical Exam: Lying in bed with moderate shortness of breath Constitutional: + acute distress (Shortness of breath and palpitation but no chest pain), + ill appearing and + thin Eyes: PERRL, conjunctivae normal, anicteric sclerae ENMT: external ear and nose normal, oropharynx normal Neck: trachea midline, no thyromegaly Respiratory: + respiratory distress (Shortness of breath with wheezing) and + uses accessory muscles Auscultation: + diminished lung sounds, + crackles (Right base) and + wheezes (Mild to moderate volume) Cardiovascular: Rate/Rhythm: + abnormal rate and + abnormal rhythm Heart Sounds: + murmur (2/6 ejection systolic murmur over precordium and aortic area) Chest (Breasts): Chest: + abnormal inspection of chest (Deformities of the right upper anterior chest wall secondary to complication with breast cancer pro cedure) Gastrointestinal (Abdomen): Inspection/Auscultation: abdomen normal to inspection and normal bowel sounds; abdomen not distended Percussion/Palpation: abdomen soft; abdomen nontender Musculoskeletal: No acute arthritis involving any joints Neurologic: moves all extremities; no focal motor deficits Lymphatic: no cervical or axillary lymphadenopathy Principal Diagnosis PNEUMONIA Discharge Exam General- oriented x 3, not in distress, speaks in sentences with no effort or accessory muscle use Head- atraumatic Eyes- PERRL, EOMI, anicteric ENT- oropharynx clear Neck- supple, no JVD, no adenopathy, no thyromegaly; carotids +2/2, no bruits appreciated Lungs- clear to auscultation bilaterally, no rales/wheezes Heart- normal rate, regular rhythm; no murmur, no gallop, no rub appreciated Abdomen- normal bowel sounds, nondistended, soft, nontender, no masses or hepatosplenomegaly Extremities- no pretibial edema, no calf tenderness; peripheral pulses intact Neuro- alert, oriented x 3; CN 2-12 grossly intact; motor 5/5 bilaterally;sensation 100% on all extremities; no other gross focal neurologic deficits Skin- warm & dry Discharge Data Allergies Allergy/AdvReac Type Severity Reaction Status Date / Time codeine Allergy Severe RESP. Verified 07/29/19 06:57 DEPRESSION oyster extract Allergy Intermediate HIVES AND Verified 07/29/19 06:57 SWELLING, NO PROBLEMS W CONTRAST Consultations 07/29/19 08:17 Consult Cardiology Routine Ordered Studies XR chest 1V portable HISTORY: SEPSIS COMPARISON: Chest 05/03/2013. FINDINGS: Chronic elevation of the right hemidiaphragm. The heart remains mildly enlarged. Mitral annulus calcifications and an aortic stent are noted. Old, healed left-sided rib fractures. Left basilar linear densities favor subsegmental atelectasis or scarring. Faint patchy densities within the right lung base and left midlung zone. IMPRESSION: Faint patchy densities within the right lung base and left midlung zone. This may represent an atypical pneumonitis. ACT 112: Negative or not required by law. Hospital Course (1) Pneumonia: Hypoxia from pneumonia per Dr. Efrain Estrada's notes (previous attending): -as per admission note on 07/29/2019 "Complaint to have flu symptoms about 1 week ago and received Tamiflu on last . Condition got worse with productive phlegm and fever with increasing shortness of breath. Chest x-ray did show dev eloping right lower lobe infiltrate. Received 1 dose of Zosyn in the ER and will continue with intravenous ceftriaxone and doxycycline to cover atypicals. She has significant wheezing without any history of asthma and/or COPD. We will give nebulized bronchodilator while in the hospital.She has been feeling a little bit better" -procalctonin is negative, mild elevated ESR, mild elevated CRP. Given antibiotics of ceftriaxone and doxycycline.continue nebulizers prn 08/01/19 off oxygen, saturating well on room air, no dyspnea; afebrile discharge plan: Augmentin Extended release 2 g BID x 5 more days Doxycycline 100mg BID x 5 more days ff up with PCP within 1 week (2) Atrial fibrillation with RVR: per Dr. Efrain Estrada's notes: atrial fibrillation with rapid ventricular response -remote history of possible embolic stroke in 2005 -on metoprolol 100 mg BID -initial atrial fibrillation with rapid ventricular response resolved fairly qu ickly when admitted on 07/29/2019 -patient has been normal sinus rhythm since -no systemic anticoagulation at this time as per Dr. Cantrell who was consulted 08/01/19 - remains in SR ff up with Dr. Cantrell in 2 weeks (3) Chest pain: per Dr. 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 as a complication of intra-aortic balloon pump in 2012 History of calcific aortic valve stenosis status post TAVR in September 2017 History of Cardiac catheterization with a status post PCI in RCA with CAROLA -continue aspirin and Plavix (8) Electrolyte imbalance: Hypokalemia -corrected -repeat level on ff up with PCP in 1 week Hypomagnesemia - given IV and PO Mg - improved from 1.3 to 1.8 - will give Mg supplement x 7 days, repeat level on ff up with PCP in 1 week DVT prophylaxis Subcu heparin given Disposition d/c home ff up with PCP in 1 week as per DC instructions Total Time Total Time Spent Total Time Spent (In Minutes): 50 minutes Discharge Plan Discharge Items Patient Disposition: Home - Self-Care Reason For Visit: PNEUMONIA,AF W/RVR Discharge Diagnosis: PNEUMONIA Activity: As commented below Activity Comment: RESUME ACTIVITY GRADUALLY TOLERATED, NO HEAVY EXERTION Lifting: Wait until after follow-up appointment Exercise/Sports: Wait until after follow-up appointment Driving/Machine Use: NO DRIVING UNTIL RE-EVALUATED AND ALLOWED BY PRIMARY CARE PHYSICIAN Non-emergency contact: Primary Care Provider Call non-emergency contact if: you have any medication questions, your symptoms worsen and you have a fever Follow-up/Referrals: Dre Cantrell DO [Pairer Odds] - 08/17/19 10:15 am Mohit Perkins MD [Primary Care Provider] - 08/07/19 11:05 am Diet: Heart Healthy Addtl Attending Provider Instructions: PLEASE REVIEW YOUR NEW MEDICATION LIST AND FOLLOW INSTRUCTIONS CAREFULLY. ALWAYS TAKE A PROBIOTIC AND INCLUDE YOGURT IN YOUR DAILY DIET FOR AT LEAST 2 WEEKS. DRINK PLENTY OF FLUIDS. CALL YOUR PRIMARY CARE PHYSICIAN OR RETURN TO THER IMMEDIATELY IF WITH RECURRENCE OR WORSENING OF SYMPTOMS, FEVER/CHILLS, SHORTNESS OF BREATH, COUGH, SPUTUM PRODUCTION. FOLLOW UP WITH DR. PERKINS AND DR. CANTRELL SCHEDULED ABOVE. Pending Studies at Discharge: Yes Studies:: REPEAT BLOOD WORK- BASIC METABOLIC PROFILE AND MAGNESIUM LEVELS- ON FOLLOW UP WITH YOUR PRIMARY CARE PHYSICIAN Stand-Alone Forms: My [facility] [place], Smoking Cessation Medications and DC Order Prescriptions: New amoxicillin-pot clavulanate [Augmentin XR] 1,000-62.5 mg tablet extended release 12 hr 2 tab PO Q12H 5 Days Qty: 20 RF: 0 magnesium oxide 400 mg (241.3 mg magnesium) Tablet 400 mg PO QAM 7 Days Qty: 7 RF: 0 doxycycline hyclate 100 mg capsule 100 mg PO Q12H 5 Days Qty: 10 RF: 0 Continued atorvastatin 40 mg Tablet 40 mg PO QAM RF: 0 metoprolol tartrate 100 mg Tablet 100 mg PO BID RF: 0 clopidogrel [Plavix] 75 mg Tablet 75 mg PO QAM RF: 0 aspirin [Aspir-81] 81 mg Tablet,Delayed Release (Dr/Ec) 81 mg PO QAM RF: 0 acetaminophen [Tylenol Extra Strength] 500 mg Tablet 500 mg PO DIRECTED PRN (Reason: Fever Or Pain) RF: 0 nitroglycerin [Nitrostat] 0.4 mg Tablet, Sublingual 0.4 mg sublingual DIRECTED PRN (Reason: Chest Pain) RF: 0 furosemide [Lasix] 20 mg Tablet 20 mg PO DAILY PRN (Reason: Edema) RF: 0 cholecalciferol (vitamin D3) [Vitamin D3] 25 mcg (1,000 unit) Capsule 1,000 unit PO QAM RF: 0 omega [id number] oil [Fish Oil] 1,000 mg (120 mg-180 mg) Capsule 1 cap PO QAM RF: 0 Discharge Orders: Discharge Order (Routine); Ordered 08/01/19 Ordered By: Elian Noble Admission Data Admit Date/Time: 07/29/19 09:01 Attending Provider: Elian Noble Admit Provider: Blaze Tracy Primary Care Provider: Mohit Perkins Other Providers: Dre Cantrell ; Efrain Estrada
[2019-08-01] MEDS ORDERED: DOXYCYCLINE HOME PACK 100 MG/CAP PO ONE (15:45)
[2019-08-01] MEDS ORDERED: AMOXICILLIN/CLAVULANATE 500 MG TAB PO SCH ×2 (17:00)
== END 2019-08-01 15:54 | disposition home or self-care (01) | DRG 195 ==
LOC: ED 06:18 → SUATTDRO 09:01 → 2E 09:01

== ENCOUNTER 2020-01-15 20:15 | Inpatient (IN) ==
[2020-01-15] MEDS ORDERED: HEPARIN SOD (PORCINE) 1000 UNIT/ML 10 ML VIAL IV ONE (20:28)
[2020-01-15] MEDS ORDERED: fentaNYL citrate 100 MCG/2 ML VIAL IV STA (20:28)
[2020-01-15] MEDS ORDERED: ASPIRIN CHEW 324 MG PO STA (20:28)
[2020-01-15] MEDS ORDERED: SODIUM CHLORIDE 0.9% 500 ML IV ONE (20:28)
[2020-01-15] MEDS ORDERED: ASPIRIN CHEW 324 MG ONE (20:28)
[2020-01-15] MEDS ORDERED: ONDANSETRON INJ 2 MG/ML 2 ML VIAL IV STA (20:29)
[2020-01-15] MEDS ORDERED: TICAGRELOR 90 MG TAB PO ONE ×2 (20:29→20:30)
[2020-01-15] MEDS ORDERED: ONDANSETRON INJ 2 MG/ML 2 ML VIAL ONE (20:30)
[2020-01-15] MEDS ORDERED: HEPARIN SQ 5000 UNIT HEART ALERT CARP ONE (20:31)
[2020-01-15] MEDS ORDERED: HEPARIN (PORCINE) 1000 UNIT/ML 10 ML (CATH LAB USE ONLY) ONE (20:42)
[2020-01-15] MEDS ORDERED: NiCARDipine HCL INJ 2.5 MG/ML 10 ML AMP ONE (20:42)
[2020-01-15] MEDS ORDERED: NITROGLYCERIN/D5W 100MCG/ML 20ML SYR ONE (20:43)
[2020-01-15] MEDS ORDERED: MIDAZOLAM HCL 1 MG/ML 2ML VIAL ONE ×2 (20:43→21:11)
[2020-01-15 20:47] LABS: Basophils # (auto) 0.04 K/uL (0-0.2); Basophils % (auto) 0.5 %; Eosinophils # (auto) 0.53 K/uL (0-0.5); Hematocrit (blood only) 42.5 % (37-47); Hemoglobin 13.7 g/dL (12.0-16.0); Immature Granulocytes # (auto) 0.02 K/uL (0.00-0.02); Immature Granulocytes % (auto) 0.2 %; Lymphocytes # (auto) 3.45 K/uL (1.2-3.4); Lymphocytes % (auto) 39.2 %; Mean Corpuscular Hemoglobin 29.9 pg (25-34); Mean Corpuscular Hgb Conc 32.2 g/dL (32-36); Mean Corpuscular Volume 92.8 fL (80-100); Mean Platelet Volume 11.2 fL (7.4-10.4); Monocytes # (auto) 0.81 K/uL (0.11-0.59); Monocytes % (auto) 9.2 %; Neutrophils # (auto) 3.96 K/uL (1.4-6.5); Neutrophils % (auto) 44.9 %; Platelet Count 188 K/uL (130-400); RDW Standard Deviation 47.3 fL (36.4-46.3); Red Blood Count 4.58 M/uL (4.2-5.4); White Blood Count 8.81 K/uL (4.8-10.8)
[2020-01-15] MEDS: fentaNYL citrate 100 MCG/2 ML VIAL ONE ×2 (20:50→22:15)
--- NOTE | 2020-01-15 20:52 | Emergency Department Note ---
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 EKG on arrival demonstrates inferior ST elevation MS. Heart alert was activated. Patient is on Eliquis and took her morning dose. She was given full dose aspirin in the emergency department. Upon arrival of Dr. Whitfield, confirmed and was given 180 mg of Brilinta. Heparin deferred given on Eliquis. Patient reports feeling well over the past couple of days though she was seen emergency department several days ago for symptoms of dizziness with fleeting (seconds) chest pain and felt better after IV fluid hydration and otherwise negative w/u. She denies fevers, cough, congestion, diarrhea, urinary sx. Patient was taken to the [facility]. Case was discussed with Dr. Stout, [facility] hospitalist, who will evaluate the patient for admission following [facility]. WBC, H/H, platelets wnl. Chemistry without acidosis. Mg 1.6. Otherwise, LFTs and electrolytes unremarkable. Troponin negative/undetectable. Triage Nursing notes reviewed and agree them. Prior medical records reviewed Vital Signs: reviewed and remarkable for no significant abnormalities Differential diagnosis: Cardiac ischemia, aortic dissection, pulmonary embolism, pneumothorax, pneumonia, pericarditis, myocarditis, esophageal rupture, GERD, cholecystitis, pancreatitis, musculoskeletal, as well as other pathologies. ER treatment provided: See below. Diagnostics interpreted by me: ECG: Sinus rhythm, 94 bpm, PACs, Inferior ST elevations, QTC 477, QRS 104 bpm. Cardiac Monitoring: An order for continuous cardiac monitoring was placed and demonstrated sinus rhythm, 94 bpm, PACs, Laboratory studies: See below Consultation(s): Dr. Whitfield, interventional cardiology. Dr. Stout, [facility] hospitalist. 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 EKG on arrival demonstrates inferior ST elevation MS. Heart alert was activated. Patient is on Eliquis and took her morning dose. She was given full dose aspirin in the emergency department. Upon arrival of Dr. Whitfield, confirmed and was given 180 mg of Brilinta. Heparin deferred given on Eliquis. Patient reports feeling well over the past couple of days though she was seen emergency department several days ago for symptoms of dizziness with fleeting (seconds) chest pain and felt better after IV fluid hydration and otherwise negative w/u. She denies fevers, cough, congestion, diarrhea, urinary sx. ROS: See above HPI for pertinent positives & negatives. A total of 10 systems reviewed and were otherwise negative. PAST MEDICAL HISTORY:See Below PAST SURGICAL HISTORY:See Below FAMILY HISTORY:See Below SOCIAL HISTORY:See Below HOME MEDICATIONS:See Below ALLERGIES:See Below VITALS:See Below PHYSICAL EXAMINATION: GENERAL: Awake, alert, uncomfortable-appearing, in no distress HENT: Normocephalic, atraumatic. Oropharynx unremarkable. EYES: Normal conjunctiva. Sclera non-icteric. NECK: Supple. No nuchal rigidity. FROM. No JVD. RESPIRATORY: Clear to auscultation. CARDIAC: Regular rate, normal rhythm. Extremities warm and well perfused. Pulses equal. ABDOMEN: Soft, non-distended. No tenderness to palpation. No rebound or guarding. No masses. RECTAL: Deferred. MUSCULOSKELETAL: Chest examination reveals no tenderness. The back is sy mmetrical on inspection without obvious abnormality. There is no CVA tenderness to palpation. No joint edema. LOWER EXTREMITIES: Calves are equal size bilaterally and non-tender. No edema. No discoloration. NEURO: Normal sensorium. No sensory or motor deficits noted. SKIN: No rash or jaundice noted. ED COURSE: Critical Care: I have personally spent greater than 35 minutes of critical care time in the direct management of this patient. This includes bedside care, interpretation of diagnostic studies, and testing, discussion with consultants, patient, and family members, and other required patient management activities. This 35 minutes is in excess of all separately billable procedures. Pro Boston MD Past Med/Surg History Social History Smoking Status: Never smoker Second Hand Exposure: No; Hx Alcohol Use: Yes Alcohol type: wine Hx Substance Use: No Preferred Language: Divehi Communication Ability: Effective Payroll Accounting Manager Required: No Beliefs That Will Affect Care: None Current Living Situation: Spouse Feels Safe at Home: Yes Safety Concerns: Feels Safe At This Time Allergies Allergies Allergy/AdvReac Type Severity Reaction Status Date / Time codeine Allergy Severe RESP. Verified 01/15/20 21:10 DEPRESSION oyster extract Allergy Intermediate HIVES AND Verified 01/15/20 21:10 SWELLING, NO PROBLEMS W CONTRAST Home Meds Home Medications Medication Instructions Recorded Confirmed acetaminophen [Tylenol Extra 500 mg PO DIRECTED PRN 07/29/19 01/15/20 Strength] atorvastatin 40 mg PO QAM 07/29/19 01/15/20 cholecalciferol (vitamin D3) 1,000 unit PO QAM 07/29/19 01/15/20 [Vitamin D3] furosemide [Lasix] 20 mg PO MOWEFR 07/29/19 01/15/20 metoprolol tartrate 100 mg PO BID 07/29/19 01/15/20 omega 4-awy-uhr-fish oil [Fish Oil] 1 cap PO QAM 07/29/19 01/15/20 apixaban [Eliquis] 5 mg PO BID 01/15/20 01/15/20 nitroglycerin [Nitrostat] 0.4 mg SUBLINGUAL UD PRN 01/15/20 01/15/20 omeprazole 20 mg PO DAILY 01/15/20 01/15/20 Results & Data (ED) Vital Signs Vital Signs - 24 hr 01/15/20 20:21 01/15/20 20:37 01/15/20 20:38 Temperature 36.7 C Temperature Source Oral Pulse Rate 94 H Pulse Rate [Apical] 99 H Respiratory Rate 20 22 Respiratory Effort / Characteristics Respiratory Depth Normal Respiratory Pattern Blood Pressure 151/76 H Blood Pressure [Left Arm] 172/96 H Blood Pressure Mean 101 Blood Pressure Mean [Left Arm] 121 Blood Pressure Position [Left Arm] Pulse Oximetry 96 90 93 Oxygen Delivery Method Room Air Room Air Room Air Oxygen Flow Rate Sepsis Recent Fever Within 48 Hours No Sepsis New/Unexplained Change in Mental Status N/A Sepsis Action Taken by Nursing No Action Required 01/15/20 20:39 01/15/20 22:45 01/15/20 23:01 Temperature 37.0 C 37.0 C Temperature Source Oral Oral Pulse Rate Pulse Rate [Apical] 105 H 71 Respiratory Rate 26 H 18 Respiratory Effort / Characteristics Non-Labored Spontaneous Non-Labored Spontaneous Respiratory Depth Normal Normal Respiratory Pattern Regular Regular Blood Pressure Blood Pressure [Left Arm] 130/69 137/72 Blood Pressure Mean Blood Pressure Mean [Left Arm] 89 93 Blood Pressure Position [Left Arm] Sitting Lying Pulse Oximetry 94 91 99 Oxygen Delivery Method Room Air Nasal Cannula Nasal Cannula Oxygen Flow Rate 2 4 Sepsis Recent Fever Within 48 Hours Sepsis New/Unexplained Change in Mental Status Sepsis Action Taken by Nursing Laboratory Data Attestation: I reviewed the patient's lab results. Result diagrams: 01/15/20 20:36 01/15/20 20:36 Lab Results 01/15/20 01/15/20 01/15/20 Range/Units 20:36 20:36 20:36 WBC 8.81 (4.8-10.8) K/uL RBC 4.58 (4.2-5.4) M/uL Hgb 13.7 (12.0-16.0) g/dL Hct 42.5 (37-47) % MCV 92.8 (80-100) fL MCH 29.9 (25-34) pg MCHC 32.2 (32-36) g/dL RDW Std Deviation 47.3 H (36.4-46.3) fL RDW Coeff of Letitia 14.0 (11.5-14.5) % Plt Count 188 (130-400) K/uL MPV 11.2 H (7.4-10.4) fL Immature Gran % (Auto) 0.2 % Neut % (Auto) 44.9 % Lymph % (Auto) 39.2 % [place] % (Auto) 9.2 % Eos % (Auto) 6.0 % Baso % (Auto) 0.5 % Neut # (Auto) 3.96 (1.4-6.5) K/uL Lymph # (Auto) 3.45 H (1.2-3.4) K/uL [place] # (Auto) 0.81 H (0.11-0.59) K/uL Eos # (Auto) 0.53 H (0-0.5) K/uL Baso # (Auto) 0.04 (0-0.2) K/uL Immature Gran # (Auto) 0.02 (0.00-0.02) K/uL PT 11.3 (9.0-12.0) Seconds INR 1.1 (0.9-1.1) APTT 23.6 (21.0-31.0) Seconds PTT Ratio 0.8 Activ Coag Time Kaolin (94-140) SECONDS Sodium 139 (136-145) mmol/L Potassium 4.0 (3.5-5.1) mmol/L Chloride 99 (98-107) mmol/L Carbon Dioxide 32 (21-32) mmol/L Anion Gap 7.0 (3-11) BUN 13 (7-18) mg/dl Creatinine 0.95 (0.6-1.2) mg/dl Est Cr Clr Drug Dosing 44.7 ml/min Est GFR ( Amer) 66.0 Est GFR (Non-Af Amer) 57.0 BUN/Creatinine Ratio 13.9 (10-20) Glucose 180 H (70-99) mg/dl Calcium 8.7 (8.5-10.1) mg/dl Magnesium 1.6 L (1.8-2.4) mg/dl Total Bilirubin 0.7 (0.2-1) mg/dl AST 24 (15-37) U/L ALT 22 (12-78) U/L Alkaline Phosphatase 149 H (45-117) U/L Total Creatine Kinase 70 (26-192) U/L CK-MB (CK-2) 1.2 (0.5-3.6) ng/ml CK/CKMB % Calc 1.7 (0-3.0) Troponin I < 0.015 (0-0.045) ng/ml Total Protein 7.8 (6.4-8.2) gm/dl Albumin 3.4 (3.4-5.0) gm/dl Globulin 4.4 H (2.5-4.0) gm/dl Albumin/Globulin Ratio 0.8 L (0.9-2) Lipase 229 (73-393) U/L TSH 5.460 H (0.300-4.500) uIu/ml Free T4 1.04 (0.8-1.6) ng/dl Specimen Hemolysis Blood Type Antibody Screen 01/15/20 01/15/20 Range/Units 20:36 21:48 WBC (4.8-10.8) K/uL RBC (4.2-5.4) M/uL Hgb (12.0-16.0) g/dL Hct (37-47) % MCV (80-100) fL MCH (25-34) pg MCHC (32-36) g/dL RDW Std Deviation (36.4-46.3) fL RDW Coeff of Letitia (11.5-14.5) % Plt Count (130-400) K/uL MPV (7.4-10.4) fL Immature Gran % (Auto) % Neut % (Auto) % Lymph % (Auto) % [place] % (Auto) % Eos % (Auto) % Baso % (Auto) % Neut # (Auto) (1.4-6.5) K/uL Lymph # (Auto) (1.2-3.4) K/uL [place] # (Auto) (0.11-0.59) K/uL Eos # (Auto) (0-0.5) K/uL Baso # (Auto) (0-0.2) K/uL Immature Gran # (Auto) (0.00-0.02) K/uL PT (9.0-12.0) Seconds INR (0.9-1.1) APTT (21.0-31.0) Seconds PTT Ratio Activ Coag Time Kaolin 252 H (94-140) SECONDS Sodium (136-145) mmol/L Potassium (3.5-5.1) mmol/L Chloride (98-107) mmol/L Carbon Dioxide (21-32) mmol/L Anion Gap (3-11) BUN (7-18) mg/dl Creatinine (0.6-1.2) mg/dl Est Cr Clr Drug Dosing ml/min Est GFR ( Amer) Est GFR (Non-Af Amer) BUN/Creatinine Ratio (10-20) Glucose (70-99) mg/dl Calcium (8.5-10.1) mg/dl Magnesium (1.8-2.4) mg/dl Total Bilirubin (0.2-1) mg/dl AST (15-37) U/L ALT (12-78) U/L Alkaline Phosphatase (45-117) U/L Total Creatine Kinase (26-192) U/L CK-MB (CK-2) (0.5-3.6) ng/ml CK/CKMB % Calc (0-3.0) Troponin I (0-0.045) ng/ml Total Protein (6.4-8.2) gm/dl Albumin (3.4-5.0) gm/dl Globulin (2.5-4.0) gm/dl Albumin/Globulin Ratio (0.9-2) Lipase (73-393) U/L TSH (0.300-4.500) uIu/ml Free T4 (0.8-1.6) ng/dl Specimen Hemolysis Blood Type O Positive Antibody Screen NEGATIVE Administered Medications Sodium Chloride (Nss 1000ml) 750 mls @ 100 mls/hr IV .Q7H30M ILA Stop: 01/16/20 06:29 Last Admin: 01/16/20 00:01 Dose: 100 mls/hr Documented by: [id number] Magnesium Sulfate/Dextrose (Magnesium Sulfate / D5w) 1 gm in 100 mls @ 50 mls/hr IV Q2H ILA Stop: 01/16/20 03:44 Last Infusion: 01/16/20 02:15 Dose: 0 mls/hr Documented by: [id number] Admin: 01/16/20 01:07 Dose: 50 mls/hr Documented by: [id number] Infusion: 01/16/20 01:07 Dose: 50 mls/hr Documented by: [id number] Admin: 01/16/20 00:02 Dose: 50 mls/hr Documented by: [id number] Discontinued Medications Aspirin (Aspirin Chew 324 Mg) Confirm Administered Dose 324 mg .ROUTE .STK-MED ONE Stop: 01/15/20 20:29 Last Admin: 01/15/20 20:49 Dose: 324 mg Documented by: [id number] Aspirin (Aspirin Chew 324 Mg) 324 mg PO NOW STA Stop: 01/15/20 20:29 Last Admin: 01/15/20 20:37 Dose: Not Given Documented by: [id number] Eptifibatide (Eptifibatide 0.75 Mg/Ml 75mg Vial ([facility] Use Only)) Confirm Administered Dose 75 mg .ROUTE .STK-MED ONE Stop: 01/15/20 21:27 Last Admin: 01/15/20 22:06 Dose: 75 mg Documented by: [id number] Eptifibatide (Eptifibatide 2 Mg/Ml 10 Ml Vial ([facility] Use Only)) Confirm Administered Dose 20 mg IV .STK-MED ONE Stop: 01/15/20 21:38 Last Admin: 01/15/20 22:06 Dose: 27.2 mg Documented by: [id number] Fentanyl Citrate (Fentanyl Citrate 100 Mcg/2 Ml Vial) 50 mcg IV NOW STA Stop: 01/15/20 20:29 Last Admin: 01/15/20 20:36 Dose: 50 mcg Documented by: [id number] Fentanyl Citrate (Fentanyl Citrate 100 Mcg/2 Ml Vial) Confirm Administered Dose 100 mcg .ROUTE .STK-MED ONE Stop: 01/15/20 20:44 Last Admin: 01/15/20 22:15 Dose: 100 mcg Documented by: [id number] Heparin Sodium (Beef Lung) (Heparin Sq 5000 Unit Heart Alert Carp) Confirm Administered Dose 5,000 units .ROUTE .STK-MED ONE Stop: 01/15/20 20:32 Last Admin: 01/15/20 23:15 Dose: Not Given Documented by: [id number] Heparin Sodium (Porcine) (Heparin Sod (Porcine) 1000 Unit/Ml 10 Ml Vial) 5,000 units IV ONE ONE Stop: 01/15/20 20:29 Last Admin: 01/15/20 20:50 Dose: Not Given Documented by: [id number] Heparin Sodium (Porcine) (Heparin (Porcine) 1000 Unit/Ml 10 Ml ([facility] Use Only)) Confirm Administered Dose 10,000 units .ROUTE .STK-MED ONE Stop: 01/15/20 20:43 Last Admin: 01/15/20 22:13 Dose: 5,000 units Documented by: [id number] Heparin Sodium/Sodium Chloride (Heparin In Nss Infusion 1000 Unit/500 Ml (2 U/Ml) Bag) Confirm Administered Dose 3,000 units IV .STK-MED ONE Stop: 01/15/20 20:44 Last Admin: 01/15/20 22:05 Dose: 3,000 units Documented by: [id number] Sodium Chloride (Nss) 500 mls @ 999 mls/hr IV .Q31M ONE Stop: 01/15/20 20:58 Last Infusion: 01/15/20 23:17 Dose: 0 mls/hr Documented by: [id number] Admin: 01/15/20 20:36 Dose: 999 mls/hr Documented by: [id number] Midazolam HCl (Midazolam Hcl 1 Mg/Ml 2ml Vial) Confirm Administered Dose 2 mg .ROUTE .STK-MED ONE Stop: 01/15/20 20:44 Last Admin: 01/15/20 22:13 Dose: 3 mg Documented by: [id number] Midazolam HCl (Midazolam Hcl 1 Mg/Ml 2ml Vial) Confirm Administered Dose 2 mg .ROUTE .STK-MED ONE Stop: 01/15/20 21:12 Last Admin: 01/15/20 22:14 Dose: Not Given Documented by: [id number] Nicardipine HCl (Nicardipine Hcl Inj 2.5 Mg/Ml 10 Ml Amp) Confirm Administered Dose 25 mg .ROUTE .STK-MED ONE Stop: 01/15/20 20:43 Last Admin: 01/15/20 22:05 Dose: 25 mg Documented by: [id number] Nitroglycerin/Dextrose (Nitroglycerin/D5w 100mcg/Ml 20ml Syr) Confirm Administered Dose 2,000 mcg .ROUTE .STK-MED ONE Stop: 01/15/20 20:44 Last Admin: 01/15/20 22:05 Dose: 2,000 mcg Documented by: [id number] Ondansetron HCl (Ondansetron Inj 2 Mg/Ml 2 Ml Vial) 4 mg IV NOW STA Stop: 01/15/20 20:30 Last Admin: 01/15/20 20:33 Dose: 4 mg Documented by: [id number] Ondansetron HCl (Ondansetron Inj 2 Mg/Ml 2 Ml Vial) Confirm Administered Dose 4 mg .ROUTE .STK-MED ONE Stop: 01/15/20 20:31 Last Admin: 01/15/20 20:49 Dose: Not Given Documented by: [id number] Ticagrelor (Ticagrelor 90 Mg Tab) 180 mg PO ONE ONE Stop: 01/15/20 20:30 Last Admin: 08/25/20 20:45 Dose: 180 mg Documented by: [id number] Ticagrelor (Ticagrelor 90 Mg Tab) Confirm Administered Dose 180 mg PO .STK-MED ONE Stop: 01/15/20 20:31 Last Admin: 01/15/20 20:49 Dose: Not Given Documented by: [id number] Blood Pressure Blood Pressure Findings: Elevated blood pressure Blood Pressure Disposition: further management by hospitalist Discharge Plan Visit Data Chief Complaint: Chest Pain Stated Complaint: CHEST PAIN,NAUSEA ED Provider: Pro Boston Discharge Problem: ST elevation (STEMI) myocardial infarction, On apixaban therapy, S/P TAVR (transcatheter aortic valve replacement) Patient Disposition: Admitted As Inpatient Discharge Instructions Interventions: ED Discharge Assessment Last Done: 01/15/20 21:02
[2020-01-15 20:56] LABS: INR 1.1 (0.9-1.1); Partial Thromboplastin Ratio 0.8; Partial Thromboplastin Time 23.6 Seconds (21.0-31.0); Prothrombin Time 11.3 Seconds (9.0-12.0)
[2020-01-15] MEDS ORDERED: EPTIFIBATIDE 0.75 MG/ML 75MG VIAL (CATH LAB USE ONLY) ONE (21:26)
[2020-01-15] MEDS ORDERED: EPTIFIBATIDE 2 MG/ML 10 ML VIAL (CATH LAB USE ONLY) IV ONE (21:37)
[2020-01-15 21:46] LABS: Alanine Aminotransferase 22 U/L (12-78); Albumin Globulin Ratio 0.8 (0.9-2); Albumin Level 3.4 gm/dl (3.4-5.0); Alkaline Phosphatase 149 U/L (45-117); Aspartate Aminotransferase 24 U/L (15-37); BUN Creatinine Ratio 13.9 (10-20); Bilirubin,Total 0.7 mg/dl (0.2-1); Blood Urea Nitrogen 13 mg/dl (7-18); Calcium 8.7 mg/dl (8.5-10.1); Carbon Dioxide 32 mmol/L (21-32); Chloride 99 mmol/L (98-107); Creatine Kinase 70 U/L (26-192); Creatine Kinase MB 1.2 ng/ml (0.5-3.6); Creatinine Clr Calc Pharmacy 44.7 ml/min; Globulin 4.4 gm/dl (2.5-4.0); Glucose 180 mg/dl (70-99); Lipase 229 U/L (73-393); Magnesium 1.6 mg/dl (1.8-2.4); Sodium 139 mmol/L (136-145); Total Protein 7.8 gm/dl (6.4-8.2); Troponin I < 0.015 ng/ml (0-0.045)
[2020-01-15 22:11] LABS: T4 Free Thyroxine 1.04 ng/dl (0.8-1.6)
--- NOTE | 2020-01-15 22:34 | Pre Anesthesia Assessment ---
Date of Service January 15, 2020 Pre Sedation Assessment Vital Signs Temp Pulse Pulse Resp BP BP Pulse Ox 01/15/20 20:39 94 01/15/20 20:38 99 H 22 172/96 H 93 01/15/20 20:37 90 01/15/20 20:21 98.1 F 94 H 20 151/76 H 96 Cardiovascular RRR, no murmur, no edema Respiratory normal respiratory effort, lungs clear to auscultation Pre-Sedation Airway Assessment Smoking Status: Never smoker Hx Sleep Apnea: No Hx Difficult Intubation: No Short, Thick Neck: No Thyromental Distance: > or= 3.5 Finger Breadths Oral Cavity: + WNL Mallampati Class: III Procedure Planning Contraindications for Sedation: none Current Medications Reviewed: Yes Notes The planned sedation has been discussed with the patient. Informed Consent was obtained. I have identified the patient, determined the appropriateness of sedation and have assessed the patient immediately prior to the procedure. All medicine(s) and interventions are by my order.
--- NOTE | 2020-01-15 22:34 | Post Anesthesia Assessment ---
Date of Service January 15, 2020 Post Sedation Assessment Vital Signs Temp Pulse Pulse Resp BP BP Pulse Ox 01/15/20 20:39 94 01/15/20 20:38 99 H 22 172/96 H 93 01/15/20 20:37 90 01/15/20 20:21 98.1 F 94 H 20 151/76 H 96 Recovery Score Activity: Moves 4 extremities Respiration: Deep Breath/Cough Circulation: +/-20% PreAnes Value Consciousness: Fully Awake Oxygen Saturation: O2 needed for >90% Discharge Sedation Level of Care: Fast Track Phase II Post Sedation Plan On clinical assessment, the patient appears to have tolerated the sedation without complications. Patient is recovering as anticipated. Patient will continue to be monitored by nursing and may be discharged when sedation discharge criteria are met per below protocol. Upon Completions of procedure up to 15 minutes continue every 5 minute vital signs and the P.A.R. score; then discharge to a Phase I or Fast Track to Phase II per the following guidelines: * Discharge Patient to appropriate Phase II area if PAR is 8 or greater or return to pre- procedure baseline. The post - procedure orders will be as directed. * If PAR score is less than 8 or not return to pre-procedure baseline then patient will follow Phase I monitoring till PAR is reached for Phase II. The Phase I may be done in procedure room or may call to secure a Phase I area. * If naloxone or flumazenil are used for reversal, hold in Phase I for continued monitoring from when last reversal dose was given for a minimum of 60 minutes or longer pending the nurse and/or physician discretion of patient condition before discharge to Phase II. Please call the Sedation Physician to re-evaluate and complete post-note for discharge to Phase II area. Do NOT discharge from procedure sedation or Phase 1 until post- sedation evaluation note is complete by procedure /sedation MD Sedation Discharge Instructions to be given to the patient at discharge to home.
--- NOTE | 2020-01-15 22:41 | Cardiology Consultation ---
Date of Consultation January 15, 2020 Assessment & Plan (1) Acute NE: Presentation consistent with inferior STEMI and recommend proceeding with emergent cardiac catheterization and likely primary PCI. No apparent contraindications to procedure. Discussed risks, benefits, alternatives of procedure with patient and they are willing to proceed. Given ticagrelor 180 mg in the ED. Further recommendations pending findings of coronary angiography. History of Present Illness Attending Physician: Basil Whitfield MD History of Present Illness Mrs. Garcia is a 79-year-old woman here with acute chest pain and ECG concerning for acute NE. Patient seen emergently in the ED after heart alert activated upon arrival. She is followed by [facility] cardiology. Past cardiac history remarkable for mitral valve fibroblastoma post surgical resection 2008, prior inferior NE with bare-metal stents to proximal/mid RCA, additional PCI to ostial RCA in 2017, severe aortic stenosis post TAVR with core valve at [facility] back in September 2017, hypertension, dyslipidemia and atrial fibrillation. Other medical issues include breast cancer post resection, her radiation, colon cancer post hemicolectomy. Chest pain began approximately 1 hour prior to arrival. Per report recently was transitioned from clopidogrel to Eliquis. Had chest pain on 01/11 and presented to ED. Work-up unremarkable. Since then had some intermittent dizziness but was feeling well until this evening. Chest pain at time of arrival 11/29. Hemodynamically stable. EKG showed inferior ST elevations. Allergies Allergy/AdvReac Type Severity Reaction Status Date / Time codeine Allergy Severe RESP. Verified 01/15/20 21:10 DEPRESSION oyster extract Allergy Intermediate HIVES AND Verified 01/15/20 21:10 SWELLING, NO PROBLEMS W CONTRAST Home Medications Home Medications Medication Instructions Recorded Confirmed Type acetaminophen [Tylenol Extra 500 mg PO DIRECTED PRN 07/29/19 01/15/20 History Strength] atorvastatin 40 mg PO QAM 07/29/19 01/15/20 History cholecalciferol (vitamin D3) 1,000 unit PO QAM 07/29/19 01/15/20 History [Vitamin D3] furosemide [Lasix] 20 mg PO MOWEFR 07/29/19 01/15/20 History metoprolol tartrate 100 mg PO BID 07/29/19 01/15/20 History omega 2-frd-zdg-fish oil [Fish Oil] 1 cap PO QAM 07/29/19 01/15/20 History apixaban [Eliquis] 5 mg PO BID 01/15/20 01/15/20 History nitroglycerin [Nitrostat] 0.4 mg SUBLINGUAL UD PRN 01/15/20 01/15/20 History omeprazole 20 mg PO DAILY 01/15/20 01/15/20 History Patient History Social History Smoking Status: Never smoker Second Hand Exposure: No; Hx Alcohol Use: No Hx Substance Use: No Preferred Language: [place] Communication Ability: Effective Package Sealer Machine Required: No Beliefs That Will Affect Care: None Current Living Situation: Spouse Feels Safe at Home: Yes Review of Systems Review of Systems: Other (emergent situation) Physical Exam Physical Exam: General: Uncomfortable HEENT: Sclerae anicteric, mucous membranes moist Lungs: Clear to auscultation bilaterally Cardiac: Tachycardic, regular Abdomen: Soft, nontender, nondistended, positive bowel sounds. Extremities: Warm, well perfused, no edema. 2+ radial pulses Skin: No rashes or lesions. Neuro: Nonfocal Psych: Alert orient x3, normal affect and mood Results & Data ([facility]) Vital Signs (Past 12 Hours) Vital Signs Temp Pulse Pulse Resp BP BP Pulse Ox 01/15/20 20:39 94 01/15/20 20:38 99 H 22 172/96 H 93 01/15/20 20:37 90 01/15/20 20:21 98.1 F 94 H 20 151/76 H 96 PG Care Time/CCT Total # of Minutes Spent Total Time Spent with Patient: Total time spent is greater than 50% in coordination of care (as documented) at patient's floor/unit and/or counseling patient: Coding Level of Care Code 28575 Initial Inpt Care Lvl 3 Diagnoses Acute NE I21.9
--- NOTE | 2020-01-15 22:59 | Critical Care Consultation ---
Date of Consultation January 15, 2020 Assessment & Plan (1) Admitted to intensive care unit: Reason Critically Ill: 79-year-old female with acute inferior STEMI status post PTCA with CAROLA x1 to the ostial RCA requiring close hemodynamic monitoring status post coronary intervention. NEURO - * CAM ICU: NEGATIVE CARDIAC/VASCULAR - * Acute inferior STEMI status post PTCA with CAROLA x1 to the ostial RCA: * Previously on Plavix. Per recommendation from interventional list, will need restarted. * Continue with Eliquis. * ASCVD Rx per typical * Trend troponins. * A.m. echocardiogram * EKG: SR@[address] Elevations in inferior/lateral leads. QTc 477 ms. * Monitor on telemetry. RESPIRATORY - * No h/o pulmonary disease. * Saturating well on room air. GI/NUTRITION - * AHA Diet RENAL/LYTES - * Hypomagnesemia: * Replace as needed. - * No concerns at this time. ENDO - * No h/o DM or Thyroid Dz * BSGs per unit protocol. ISS --> gtt per unit policy. HEME - * Stable H&H ID - * No concerns for infectious contribution at this time. LINES/IV ACCESS - * PIVs x2 DVT PROPHYLAXIS - * Continue Eliquis * SCDs I have personally spent 35 minutes of critical care time in the direct management of this patient. This is a life/limb threatening event. This includes time spent evaluating patient, direct bedside care, chart review, placing orders, interpretation of diagnostic studies, discussion with consultants, patient, and family members, as well as other required patient management activities. This time is exclusive of all separately billable procedures, and teaching time and separate from and in addition to any other critical care service time. Thank you for allowing us to participate in the care of this patient. Please refer to my attending physician's documentation for any further recommendations. (2) S/P PTCA (percutaneous transluminal coronary angioplasty): (3) S/P drug eluting coronary stent placement: (4) ST elevation (STEMI) myocardial infarction: (5) Acute TX: (6) S/P TAVR (transcatheter aortic valve replacement): (7) Atrial fibrillation with RVR: (8) Atherosclerotic cardiovascular disease: (9) Breast cancer: (10) Colon cancer: (11) Hypertension: (12) Hyperlipidemia: (13) H/O heart surgery: History of Present Illness Attending Physician: Basil Whitfield MD History of Present Illness Patient is a 79-year-old female with a significant past medical history of coronary artery disease status post stenting several years ago, A. 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 After cooking dinner this evening, the patient reports developing a sudden onset of intense 10/10 chest pain. Upon arrival in the emergency department, the patient was noted to have an inferior STEMI on EKG. Heart alert was called and the patient was taken to the catheterization suite. The patient underwent successful PTCA with CAROLA x1 to the ostial RCA near prior stenting. No intraprocedural complications noted. Upon arrival in the ICU, the patient is awake, alert, and oriented. She reports complete resolve of chest pain rating her discomfort is 0/10. She reports that she has had some lower back pain as she has had to lay flat secondary to recent invention. Otherwise, she offers no complaints of pain. The patient reports that she has been having severe episodes of dizziness over the last several days and occasionally reports of palpitations. She does carry history of A. fib. She is uncertain if this is contributing. She did not experience any of this with the episode of chest discomfort tonight, however. Allergies Allergy/AdvReac Type Severity Reaction Status Date / Time codeine Allergy Severe RESP. Verified 01/15/20 21:10 DEPRESSION oyster extract Allergy Intermediate HIVES AND Verified 01/15/20 21:10 SWELLING, NO PROBLEMS W CONTRAST Home Medications Home Medications Medication Instructions Recorded Confirmed Type acetaminophen [Tylenol Extra 500 mg PO DIRECTED PRN 07/29/19 01/15/20 History Strength] atorvastatin 40 mg PO QAM 07/29/19 01/15/20 History cholecalciferol (vitamin D3) 1,000 unit PO QAM 07/29/19 01/15/20 History [Vitamin D3] furosemide [Lasix] 20 mg PO MOWEFR 07/29/19 01/15/20 History metoprolol tartrate 100 mg PO BID 07/29/19 01/15/20 History omega 6-suv-ach-fish oil [Fish Oil] 1 cap PO QAM 07/29/19 01/15/20 History apixaban [Eliquis] 5 mg PO BID 01/15/20 01/15/20 History nitroglycerin [Nitrostat] 0.4 mg SUBLINGUAL UD PRN 01/15/20 01/15/20 History omeprazole 20 mg PO DAILY 01/15/20 01/15/20 History Patient History Social History Smoking Status: Never smoker Second Hand Exposure: No; Hx Alcohol Use: Yes Alcohol type: wine Hx Substance Use: No Preferred Language: Hungarian Communication Ability: Effective Registered Representative Required: No Beliefs That Will Affect Care: None Current Living Situation: Spouse Feels Safe at Home: Yes Safety Concerns: Feels Safe At This Time Review of Systems Review of Systems: A complete 10 point review of systems was reviewed with the patient with pertinent positives and negatives as per history of present illness. All else were negative. Physical Exam Physical Exam: VITAL SIGNS - Vital signs and nursing notes were reviewed. GENERAL - 79-year-old female appearing her stated age who is in no acute distress. Communicates well with provider and answers questions appropriately. HEAD - NC/AT. EYES - PERRL with EOMI bilaterally. Sclera anicteric. Palpebral conjunctiva pink and moist with no injection noted. EARS - No deformities of external structures noted on gross examination bilaterally. NOSE - Midline and without cyanosis. No epistaxis or purulent drainage noted. MOUTH/OROPHARYNX - Without perioral cyanosis. Buccal mucosa pink and moist and without leukoplakia. NECK - Neck with FROM. Supple to palpation. LUNGS - Chest wall symmetric without accessory muscle use, intercostals retractions, or central cyanosis. Unique anatomy w/ what appears to be prior skin grafting to the anterior chest. Normal vesicular breath sounds CTA B/L. No wheezes, rales, or rhonchi appreciated. CARDIAC - RRR with S1/S2. No murmur, rubs, or gallops appreciated. No reproducible tenderness to palpation appreciated over the anterior chest wall. ABDOMEN - Abdominal contour flat without pulsations or visible masses. BS normoactive all four quadrants. No tenderness, palpable masses, hepatosplenomegaly, or ascites noted. EXTREMITIES - No clubbing or peripheral cyanosis. No pretibial edema present. +3/5 radial and dorsalis pedis pulses palpated throughout. +5/5 strength noted in UE/LE bilaterally. NEUROLOGIC - Cranial nerves II through XII grossly intact. Sensory intact to light touch throughout. PSYCH - A&Ox3 and cooperates fully with examiner. Pt is very pleasant and interacts well with examiner. Results & Data Results & Data ([facility]) Vital Signs (Past 12 Hours) Vital Signs Temp Pulse Pulse Resp BP BP Pulse Ox 01/15/20 20:39 94 01/15/20 20:38 99 H 22 172/96 H 93 01/15/20 20:37 90 01/15/20 20:21 36.7 C 94 H 20 151/76 H 96 Coding Level of Care Code Critical Care 1st 30-74 mins Diagnoses Admitted to intensive care unit Z78.9 S/P PTCA (percutaneous transluminal coronary angioplasty) Z98.61 S/P drug eluting coronary stent placement Z95.5 ST elevation (STEMI) myocardial infarction I21.3 Acute TX I21.9 S/P TAVR (transcatheter aortic valve replacement) Z95.2 Atrial fibrillation with RVR I48.91 Atherosclerotic cardiovascular disease I25.10 Breast cancer C50.919 Colon cancer C18.9 Hypertension I10 Hyperlipidemia E78.5 H/O heart surgery Z98.890 Time Spent (min) 35
[2020-01-15] MEDS ORDERED: ICU PROTOCOL FOR HYPERGLYCEMIA PRN ×2 (23:00→23:13)
[2020-01-15] MEDS ORDERED: ACETAMINOPHEN 325 MG TAB PO PRN (23:00)
[2020-01-15] MEDS ORDERED: ONDANSETRON INJ 2 MG/ML 2 ML VIAL IV PRN (23:00)
[2020-01-15] MEDS ORDERED: SODIUM CHLORIDE 0.9% 1000ML 750 ML IV SCH (23:00)
--- NOTE | 2020-01-15 23:24 | Cardiac Catheterization ---
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 Cardiac Status Clinical evaluation leading to the procedure CAD Presenation: STEMI Anginal Classification: CCS IV Heart Failure: No Cardiogenic Shock within 24 Hours: No Cardiac Arrest within 24 Hours: No Imaging Studies Past 6 Months: No Stress Studies Past 6 Months: No Diagnostic Physicians Name: Basil Whitfield MD Status: Emergency Closure Device Percutaneous Entry Location: Radial Closure Device: Radial Band Recommendations: PCI without planned CABG PCI Indication: Immediate PCI for STEMI First Noted: First EKG Lesion Segment Name: ostial RCA Culprit Artery: Yes Stenosis Prior to Rx (%): 100 Chronic Total Occlusion: No IVUS: Yes FFR: No Pre-Procedure CATRACHO Flow: 0 Previously Treated Lesion: Timeframe: greater than 2 years Treated with Stent: Yes In-Stent Thrombosis: Yes Stent Type: CAROLA Yes Lesion Complexity: High/C Lesion Length (mm): 12 Thrombus Present: Yes Bifurcation Lesion: No Guidewire Across Lesion: Stenosis Post-Procedure (%): 0 Post-Procedure CATRACHO Flow: 3 Devices(s) Deployed: Yes Yes Intraprocedure Events Significant Disection: No Perforation: No Cardiac Cath Procedure Full Procedure Date January 15, 2020 Pre-Procedure Diagnosis Pre-Procedure Diagnosis: STEMI AUC Score AUC Score: 9 Post-Procedure Diagnosis Post-Procedure Diagnosis: Severe CAD, Successful PCI and Normal Intracardiac Pressures Procedure(s) Performed Procedure(s) Performed: Coronary Angiography, Left Heart Cath, Drug Eluting Stent, Ultrasound Guided Vascular Access and IVUS Chief Program Officer Basil Whitfield MD Sliver Chopper(s) Nick Estimated Blood Loss Estimated Blood Loss: 15 Medication(s) Medication(s): Fentanyl, Heparin, Integrilin, Nicardipine, Nitroglycerin and Versed Medication(s): Ticagrelor Summary of Findings Indication: STEMI/Heart Alert Access: 6 Fr slender right radial artery, 4 Fr right common femoral vein under ultrasound guidance Catheters: [place], JR4 guide, JL 3.5 Findings: LM -angiographically normal LAD -medium caliber, mid segment luminal irregularities, distal vessel tapers prior to apex. Medium caliber first diagonal with 20 to 30% ostial stenosis Circumflex -angiographically normal, gives off large OM1 without significant d isease RCA -100% acute ostial in-stent occlusion. Heavy thrombus burden with reestablish flow. LVEDP -8 -- PCI -- Antithrombotic therapy: Heparin,, Integrilin, ticagrelor Procedure: RCA cannulated with JR4 guide Box Stamper 50 wire passed across lesion into distal vessel Ostial RCA lesion predilated with 2.5 compliant balloon Heavy thrombus burden noted throughout RCA particularly and proximal PDA. Started on Integrilin IVUS used to assess vessel, in-stent pathology. Heavily calcified mid RCA without significant disease. Stent widely patent until proximal aspect with residual thrombus/restenosis extending back to ostium. Stent postdilated with 3.5 NC balloon. Residual haziness in proximal aspect of stent. Proximal PDA thrombus gently ballooned with 2.5 balloon Residual ostial RCA stent disease covered with an additional 3.0 x 8 mm Xience Missy drug-eluting stent Stent post-dilated with 3.5 noncompliant balloon IC vasodilators administered for spasm Repeat IVUS showed well-expanded, well apposed stent Post procedure CATRACHO 3 flow, stent well expanded with minimal residual stenosis and no apparent cardiac complications. Arterial Closure: TR band Summary: 1. Inferior STEMI/100% ostial RCA very late stent thrombosis 2. Minimal non-culprit coronary artery disease 3. Normal intracardiac filling pressure 4. Successful PCI of ostial RCA stent thrombosis with placement of new ov erlapping CAROLA (3.0 x 8 mm Xience Missy; postdilated with 3.5 NC). Recommendations: Admit to ICU for continued monitoring Loaded with ticagrelor 180 mg in ED IC/IV Integrilin ended at completion of procedure Continue triple therapy for at least 1 month. Long-term likely dual therapy with P2Y12 inhibitor and anticoagulation Trend troponins until peak, Check Echo Uptitrate beta-brock/TIFFANIE as BP allows High-dose statin Consult cardiac Rehab Hemodynamics Rest Ao:: 141/55/95 Final Ao: 123/53/80 LV: 141/8 Recommendations Recommendations: PCI without planned CABG Specimens Specimens: None Radiation Exposure (mGy) 3340 Contrast (mls) 85 Fluids (cc crystalloids) Fluids (cc crystalloids): 360 Drains Drains: none Anesthesia moderate Procedural Complication(s) None Disposition ICU I attest to the content of the Intraoperative Record and any orders documented therein. Any exceptions are noted below. [email or web address] Card Cath Procedure Codes Cardiac Catheterization Procedure 1: Cardiovascular Cath Procedures: 44236 Coronaries and LHC (+/-LV) Therapeutic Services & Ancillary Proc Procedure 1: Cardiovascular Tx and Anc Procedures: 30382 IV Ultrasound (Coronary or Graft) Procedure 2: Cardiovascular Tx and Anc Procedures: 54249 Ultrasonic Guidance Vascular Access Procedure 3: Cardiovascular Tx and Anc Procedures: 67275 Insertion Central Venous Catheter Moderate Sedation Procedure 1: Sedation/Anesthesia: 77296 Mod Sedation by the same physician;Init15 Min Child Age 5 & Up Procedure 2: Sedation/Anesthesia: 35187 Mod Sedation by the same physician; Ea [id number] Minutes Stenting Procedure 1: Cardiovascular Stent Procedures: 34071 Perc transluminal revascularization of acute sub/total occl, aMI PG Care Time/CCT Total # of Minutes Spent Total Time Spent with Patient: Total time spent is greater than 50% in coordination of care (as documented) at patient's floor/unit and/or counseling patient:
[2020-01-15] MEDS ORDERED: ACETAMINOPHEN 500 MG TAB PO PRN (23:41)
[2020-01-15] MEDS ORDERED: NITROGLYCERIN SL 0.4 MG/TAB TAB SL PRN (23:41)
[2020-01-16] MEDS: MAGNESIUM SULFATE / D5W 1 GM/100 ML BAG IV SCH ×2 (00:02→01:07)
--- NOTE | 2020-01-16 02:23 | History and Physical Report ---
DATE OF ADMISSION: 01/15/2020 CHIEF COMPLAINT: ST elevated myocardial infarction. 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 Postoperative course complicated by atrial fibrillation, left pleural effusion requiring thoracocentesis, right heart failure and anemia, history of coronary artery disease status post stent to the RCA and in 2017 status post PCI of the ostial RCA with single drug-eluting stent, history of severe calcific aortic valve stenosis, status post TAVR at [facility] in September 2017, hypertension, hyperlipidemia, history of breast cancer, status post lumpectomy with right axillary lymph node dissection and radiation therapy in 1979. Subsequent recurrence and radical mastectomy in 1981 followed by second course of radiation therapy, patient ended up with nonhealing wounds of her medial right chest in early 2009 at site of prior radiation therapy, requiring multiple surgical interventions and nonhealing flaps with extended longstanding wound drainage and ultimately secondary healing. History of right femoral artery pseudoaneurysm as a complication of intraaortic balloon pump during acute inferior myocardial infarction in 2012, colon cancer, status post right hemicolectomy in 2001, hyperthyroidism, degenerative joint disease, history of C. diff, history of CVA, who lives with her , presents with chest pain and found to have ST elevated MS. The patient was in the ER on 01/12/2020 with dizziness. At that time, workup was negative and she was discharged home. She has been feeling the dizziness since last 3 days. Today, she walked in the room and sat in a chair and suddenly felt severe chest pain and was brought to ER.EKG showing acute inferior MS, heart alert was called in and currently status post cardiac catheterization, found to have 100% acute ostial in-stent occlusion, heavy thrombus burden, status post successful PCI of ostial RCA stent thrombosis and placement of new overlapping drug-eluting stent. Currently, the patient is asymptomatic, resting comfortably in the ICU, hemodynamically stable. The patient says during the episode, she felt short of breath, sweating and dizzy, that has all resolved now. Denies any headache, no blurred vision, no earache, no runny nose, no sore throat, no cough, no recent fever or chills. No abdominal pain. Normal bowel and bladder movements. Ambulates without any help. No swelling in the legs, no rash. Because of history of atrial fibrillation, the patient recently started on Eliquis and her Plavix was stopped. ALLERGIES: FOOD, CODEINE. PAST MEDICAL HISTORY: As mentioned above. PAST SURGICAL HISTORY: Bilateral knee arthroplasty, colonoscopy, right complete removal of the breast, cardiac catheterization, incision and drainage of soft tissue of neck, atrioventricular pacemaker implant in 2018. Radical mastectomy of the right side in 1980. Muscle skin flap trunk in 2009 and 2010 and debridement in 2009, partial removal of colon in 2001, partial removal of the eye fluid, radical sternum resection in 2010, removal of the cataract lens in 2011, TAVR in September 2017, replacement of mitral valve with bypass in 2008, total abdominal hysterectomy with removal of tubes in 1989. MEDICATIONS: Currently the patient is on Tylenol Extra Strength 500 mg p.o. as directed, Eliquis 5 mg p.o. b.i.d., atorvastatin 40 mg p.o. daily, vitamin D 1000 units p.o. daily, Lasix 20 mg p.o. Tuesday, Tuesday and Tuesday, metoprolol 100 mg p.o. b.i.d., nitroglycerin 0.4 mg sublingual p.r.n., omega fish oil 1 capsule p.o. a.m., omeprazole 20 mg p.o. daily. FAMILY HISTORY: Significant for father had prostate cancer. Mother had lung cancer, lymphoma and eye problems. Paternal grandmother had diabetes. Sister has eye problems. SOCIAL HISTORY: , lives with her . No smoking, no alcohol, no drug use. REVIEW OF SYMPTOMS: As per HPI. Rest of review of symptoms negative. PHYSICAL EXAMINATION: GENERAL: The patient is of moderate build, not in acute distress. VITAL SIGNS: Temperature 37, pulse 97, respiratory rate 20, blood pressure 148/80, oxygen 98% on 3 liters. HEENT: No pallor, no icterus. NECK: No JVD, no neck masses. CARDIOVASCULAR: S1, S2 heard, regular rate and rhythm, no murmur, no gallop. RESPIRATORY SYSTEM: Normal AP diameter. No accessory muscle use. No wheezing, no crackles. Scar tissue seen in the chest region. ABDOMEN: Soft, bowel sounds present, nontender. No distention. CENTRAL NERVOUS SYSTEM: Alert and awake. Speech is clear. Obeys commands. Moves extremities. EXTREMITIES: No edema, no erythema. LABORATORY DATA: WBC 8.8, hemoglobin 13.7, hematocrit 42.5, platelets 188. PT 11.3, INR 1.1, APTT 23.6. Sodium 139, potassium 4, chloride 99, bicarbonate 32, BUN 13, creatinine 0.9, serum glucose 180, calcium 8.7, magnesium 1.6, total bilirubin 0.7, AST 24, ALT 22, alkaline phosphatase 149, total creatine kinase 70, CK-MB 1.2. Troponin I less than 0.015. Lipase 293. TSH 5.4. Free T4 1.04. EKG: Sinus rhythm with PACs at a rate of 94. ST elevations in inferior leads. ASSESSMENT AND PLAN: This is a 79-year-old female who presents with acute ST elevated myocardial infarction. 1. Acute ST elevated myocardial infarction in inferior leads, status post cardiac catheterization and found to have 100% occlusion of the acute ostial in-stent occlusion, status post placement of the new overlapping drug-eluting stent of the ostial RCA stent thrombosis. The patient started with Ticagrelor and Integrilin as per cardiology. Interventional Cardiology recommended triple therapy with aspirin, Brilinta and Eliquis for 1 month and to continue long-term dual therapy with P2Y12 inhibitor and anticoagulation. We will trend the troponins and follow echocardiogram. High dose statin .Started on beta brock, Lopressor 50 b.i.d. and as blood pressure allows, to add TIFFANIE inhibitors. Monitor closely in ICU. Follow the fasting lipid profile, HbA1c levels. 2. History of atrial fibrillation, rate controlled with Lopressor and Eliquis. 3. History of aortic valve stenosis, status post TAVR. 4. Hypertension: Currently on Lopressor 50 b.i.d. Monitor the blood pressure and adjust medications, to add TIFFANIE inhibitors. 5. History of possible stroke, CVA: On Eliquis, currently on statin, added aspirin and Plavix. 6. History of breast cancer status post surgery and radiation. 7. History of colon cancer, status post hemicolectomy. 8. History of pseudoaneurysm of right femoral artery. 9. Deep venous thrombosis prophylaxis: On Eliquis. 10. Disposition: Close monitor in the ICU. Level 1 full code. Expect discharge home and follow with family doctor and cardiology. PT and OT prior to discharge. Social Service to help with discharge planning. MTDD
[2020-01-16 05:23] LABS: Basophils # (auto) 0.02 K/uL (0-0.2); Basophils % (auto) 0.3 %; Eosinophils # (auto) 0.14 K/uL (0-0.5); Eosinophils % (auto) 2.1 %; Hemoglobin 12.2 g/dL (12.0-16.0); Lymphocytes # (auto) 1.26 K/uL (1.2-3.4); Lymphocytes % (auto) 18.6 %; Mean Corpuscular Hemoglobin 29.4 pg (25-34); Mean Corpuscular Hgb Conc 31.3 g/dL (32-36); Mean Platelet Volume 10.4 fL (7.4-10.4); Monocytes # (auto) 0.62 K/uL (0.11-0.59); Monocytes % (auto) 9.1 %; Neutrophils # (auto) 4.74 K/uL (1.4-6.5); Neutrophils % (auto) 69.9 %; Platelet Count 155 K/uL (130-400); RDW Standard Deviation 48.4 fL (36.4-46.3); Red Blood Count 4.15 M/uL (4.2-5.4); White Blood Count 6.78 K/uL (4.8-10.8)
[2020-01-16 05:40] LABS: BUN Creatinine Ratio 18.7 (10-20); Calcium 8.2 mg/dl (8.5-10.1); Creatinine Clr Calc Pharmacy 61.1 ml/min; Est GFR (African American) 93.9; Potassium 3.8 mmol/L (3.5-5.1)
[2020-01-16 05:44] LABS: Estimated Average Glucose 154 mg/dl
[2020-01-16 06:03] LABS: Phosphorus 4.6 mg/dl (2.5-4.9)
[2020-01-16] MEDS ORDERED: PERFLUTREN LIPID MICROSPHERE (DEFINITY) IV ONE (07:03)
--- NOTE | 2020-01-16 08:05 | XRay Report ---
SINGLE VIEW CHEST CLINICAL HISTORY: Near syncope. FINDINGS: An AP, portable, upright chest radiograph is compared to study dated 01/12/2020. The examina tion is degraded by portable technique and patient rotation. The heart is mildly enlarged noting at herosclerotic calcification of the thoracic aorta. There is evidence of previous cardiac valve surger y. The pulmonary vasculature is noncongested. Chronic interstitial thickening and elevation of the ri ght hemidiaphragm is similar to previous. No airspace consolidation or large pleural effusion is iden tified. No pneumothorax is seen. The skeletal structures are osteopenic. The bony thorax is grossly i ntact. IMPRESSION: Mild cardiac enlargement and chronic changes as above. No acute cardiopulmonary abnormali ty is seen and there has been no significant change from 01/12/2020. ACT 112: Negative or not required by law. Electronically signed by: Pb Renae M.D. 01/16/2020 8:04 AM
[2020-01-16] MEDS: APIXABAN 5 MG TABLET PO SCH ×3 (08:46→20:31)
[2020-01-16] MEDS: ATORVASTATIN 40 MG TAB PO SCH (08:46)
[2020-01-16] MEDS: CHOLECALCIFEROL 1,000 UNITS 25 MCG TAB PO SCH (08:46)
[2020-01-16] MEDS: PANTOprazole 40 MG TAB PO SCH (08:47)
[2020-01-16] MEDS: ASPIRIN 81 MG ECTAB PO SCH (08:48)
[2020-01-16] MEDS: TICAGRELOR 90 MG TAB PO SCH ×2 (08:48→20:31)
[2020-01-16] MEDS ORDERED: METOPROLOL TARTRATE 50 MG TAB PO SCH (09:00)
[2020-01-16] MEDS ORDERED: FUROSEMIDE 20 MG TAB PO SCH (09:00)
--- NOTE | 2020-01-16 09:11 | Hospitalist Progress Note ---
Date of Service January 16, 2020 Assessment & Plan (1) ST elevation (STEMI) myocardial infarction: (2) S/P drug eluting coronary stent placement: This is a 79 y/o female who presents with acute ST elevated myocardial infarction. 1. Acute ST elevated myocardial infarction in inferior leads, status post cardiac catheterization and found to have 100% occlusion of the acute ostial in-stent occlusion, status post placement of the new overlapping drug-eluting stent of the ostial RCA stent thrombosis. The patient started with Ticagrelor and Integrilin as per cardiology. Interventional Cardiology recommended triple therapy with aspirin, Brilinta and Eliquis for 1 month and to continue long-term dual therapy with P2Y12 inhibitor and anticoagulation. We will trend the troponins and follow echocardiogram. High dose statin .Started on beta brock, Lopressor 50 b.i.d. and as blood pressure allows, to add TIFFANIE inhibitors. Monitored closely in ICU initially after procedure. Telemetry reviewed: Normal sinus rhythm with run of idioventricular rhythm, possibly afib w/ aberrancy. Cardiology consulted, recommend to continue medications as above, and transfer to telemetry Follow the fasting lipid profile, HbA1c levels. 2. New onset diabetes mellitus type 2 Hemoglobin A1c 7% rn diabetes educator consulted, discussed with the patient lifestyle modifications Discussed with the patient close PCP follow-up and left modifications 3. History of atrial fibrillation, rate controlled with Lopressor and Eliquis. 4. History of aortic valve stenosis, status post TAVR. 5. Hypertension: Currently on Lopressor 50 b.i.d. Monitor the blood pressure and adjust medications, to add TIFFANIE inhibitors. 6. History of possible stroke, CVA: On Eliquis, currently on statin, added aspirin and Plavix. 7. History of breast cancer status post surgery and radiation. History of colon cancer, status post hemicolectomy. 8. History of pseudoaneurysm of right femoral artery. 9. Deep venous thrombosis prophylaxis: On Eliquis. Disposition: Expect discharge home and follow with family doctor and cardiology. PT and OT prior to discharge. Social Service to help with discharge planning. Admission and Anticipated Discharge Date Admission Date: January 15, 2020 Subjective Patient is lying in bed, in no acute distress. States she did not have any more recurrences of chest pain since her PCI. Denies any episodes of shortness of breath, palpitations, lightheadedness, dizziness or syncope. Telemetry reviewed: Normal sinus rhythm with run of idioventricular rhythm, possibly afib w/ aberrancy. Review of Systems Review of Systems: All systems reviewed & are unremarkable except as noted in HPI & below Constitutional: no fever and no chills Respiratory: no cough and no dyspnea Cardiovascular: no chest pain and no palpitations Gastrointestinal: no abdominal pain, no nausea and no vomiting Physical Exam Physical Exam: GENERAL: Elderly female, lying in bed, not in acute distress. HEENT: Normocephalic, atraumatic, EOMI, no pallor, no icterus. NECK: No JVD, no neck masses. CARDIOVASCULAR: S1, S2 heard, regular rate and rhythm, no murmur, no gallop. RESPIRATORY SYSTEM: Normal AP diameter. No accessory muscle use. No wheezing, no crackles. Scar tissue seen in the chest region. ABDOMEN: Soft, bowel sounds present, nontender. No distention. NEURO: Alert and oriented x3, answering questions appropriately, speech fluent, no facial asymmetry, moves all 4 extremities spontaneously EXTREMITIES: No edema, no erythema Results & Data Results & Data ([facility]) Vital Signs (Past 12 Hours) Vital Signs Temp Pulse Pulse Resp BP BP Pulse Ox 01/16/20 06:10 102 H 25 H 130/57 L 94 01/16/20 05:00 92 H 19 134/73 96 01/16/20 04:46 36.7 C 90 20 134/66 97 01/16/20 03:46 90 22 125/60 97 01/16/20 02:46 91 H 18 139/64 96 01/16/20 01:46 92 H 18 129/50 L 97 01/16/20 00:46 102 H 20 135/78 98 01/16/20 00:16 97 H 16 150/71 H 98 01/15/20 23:46 99 H 20 139/54 L 97 01/15/20 23:31 97 H 20 148/80 H 98 01/15/20 23:16 100 H 21 132/78 98 01/15/20 23:01 37.0 C 71 18 137/72 99 01/15/20 22:45 37.0 C 105 H 26 H 130/69 91 Laboratory Results 01/16/20 01/16/20 01/16/20 Range/Units 05:08 05:08 05:08 WBC 6.78 (4.8-10.8) K/uL RBC 4.15 L (4.2-5.4) M/uL Hgb 12.2 (12.0-16.0) g/dL Hct 39.0 (37-47) % MCV 94.0 (80-100) fL MCH 29.4 (25-34) pg MCHC 31.3 L (32-36) g/dL RDW Std Deviation 48.4 H (36.4-46.3) fL RDW Coeff of Letitia 14.0 (11.5-14.5) % Plt Count 155 (130-400) K/uL MPV 10.4 (7.4-10.4) fL Immature Gran % (Auto) 0.0 % Neut % (Auto) 69.9 % Lymph % (Auto) 18.6 % [place] % (Auto) 9.1 % Eos % (Auto) 2.1 % Baso % (Auto) 0.3 % Neut # (Auto) 4.74 (1.4-6.5) K/uL Lymph # (Auto) 1.26 (1.2-3.4) K/uL [place] # (Auto) 0.62 H (0.11-0.59) K/uL Eos # (Auto) 0.14 (0-0.5) K/uL Baso # (Auto) 0.02 (0-0.2) K/uL Immature Gran # (Auto) 0.00 (0.00-0.02) K/uL PT (9.0-12.0) Seconds INR (0.9-1.1) APTT (21.0-31.0) Seconds PTT Ratio Activ Coag Time Kaolin (94-140) SECONDS Sodium 139 (136-145) mmol/L Potassium 3.8 (3.5-5.1) mmol/L Chloride 105 (98-107) mmol/L Carbon Dioxide 30 (21-32) mmol/L Anion Gap 4.0 (3-11) BUN 13 (7-18) mg/dl Creatinine 0.71 (0.6-1.2) mg/dl Est Cr Clr Drug Dosing 61.1 ml/min Est GFR ( Amer) 93.9 Est GFR (Non-Af Amer) 81.0 BUN/Creatinine Ratio 18.7 (10-20) Glucose 135 H (70-99) mg/dl Estimat Average Glucose 154 mg/dl Hemoglobin A1c 7.0 H (4.5-5.6) % Calcium 8.2 L (8.5-10.1) mg/dl Phosphorus 4.6 (2.5-4.9) mg/dl Magnesium 2.0 (1.8-2.4) mg/dl Total Bilirubin (0.2-1) mg/dl AST (15-37) U/L ALT (12-78) U/L Alkaline Phosphatase (45-117) U/L Total Creatine Kinase (26-192) U/L CK-MB (CK-2) (0.5-3.6) ng/ml CK/CKMB % Calc (0-3.0) Troponin I 27.000 H* (0-0.045) ng/ml Total Protein (6.4-8.2) gm/dl Albumin (3.4-5.0) gm/dl Globulin (2.5-4.0) gm/dl Albumin/Globulin Ratio (0.9-2) Triglycerides 123 (0-150) mg/dl Cholesterol 131 (0-200) mg/dl LDL Cholesterol, Calc 57 mg/dl VLDL Cholesterol, Calc 25 mg/dl HDL Cholesterol 49 mg/dl Cholesterol/HDL Ratio 3 Lipase (73-393) U/L TSH (0.300-4.500) uIu/ml Free T4 (0.8-1.6) ng/dl Specimen Hemolysis Nasal Screen MRSA (PCR) (Negative) Blood Type Antibody Screen 01/16/20 01/15/20 01/15/20 Range/Units 00:04 21:48 20:36 WBC (4.8-10.8) K/uL RBC (4.2-5.4) M/uL Hgb (12.0-16.0) g/dL Hct (37-47) % MCV (80-100) fL MCH (25-34) pg MCHC (32-36) g/dL RDW Std Deviation (36.4-46.3) fL RDW Coeff of Letitia (11.5-14.5) % Plt Count (130-400) K/uL MPV (7.4-10.4) fL Immature Gran % (Auto) % Neut % (Auto) % Lymph % (Auto) % [place] % (Auto) % Eos % (Auto) % Baso % (Auto) % Neut # (Auto) (1.4-6.5) K/uL Lymph # (Auto) (1.2-3.4) K/uL [place] # (Auto) (0.11-0.59) K/uL Eos # (Auto) (0-0.5) K/uL Baso # (Auto) (0-0.2) K/uL Immature Gran # (Auto) (0.00-0.02) K/uL PT (9.0-12.0) Seconds INR (0.9-1.1) APTT (21.0-31.0) Seconds PTT Ratio Activ Coag Time Kaolin 252 H (94-140) SECONDS Sodium (136-145) mmol/L Potassium (3.5-5.1) mmol/L Chloride (98-107) mmol/L Carbon Dioxide (21-32) mmol/L Anion Gap (3-11) BUN (7-18) mg/dl Creatinine (0.6-1.2) mg/dl Est Cr Clr Drug Dosing ml/min Est GFR ( Amer) Est GFR (Non-Af Amer) BUN/Creatinine Ratio (10-20) Glucose (70-99) mg/dl Estimat Average Glucose mg/dl Hemoglobin A1c (4.5-5.6) % Calcium (8.5-10.1) mg/dl Phosphorus (2.5-4.9) mg/dl Magnesium (1.8-2.4) mg/dl Total Bilirubin (0.2-1) mg/dl AST (15-37) U/L ALT (12-78) U/L Alkaline Phosphatase (45-117) U/L Total Creatine Kinase (26-192) U/L CK-MB (CK-2) (0.5-3.6) ng/ml CK/CKMB % Calc (0-3.0) Troponin I (0-0.045) ng/ml Total Protein (6.4-8.2) gm/dl Albumin (3.4-5.0) gm/dl Globulin (2.5-4.0) gm/dl Albumin/Globulin Ratio (0.9-2) Triglycerides (0-150) mg/dl Cholesterol (0-200) mg/dl LDL Cholesterol, Calc mg/dl VLDL Cholesterol, Calc mg/dl HDL Cholesterol mg/dl Cholesterol/HDL Ratio Lipase (73-393) U/L TSH (0.300-4.500) uIu/ml Free T4 (0.8-1.6) ng/dl Specimen Hemolysis Nasal Screen MRSA (PCR) Negative (Negative) Blood Type O Positive Antibody Screen NEGATIVE 01/15/20 01/15/20 01/15/20 Range/Units 20:36 20:36 20:36 WBC 8.81 (4.8-10.8) K/uL RBC 4.58 (4.2-5.4) M/uL Hgb 13.7 (12.0-16.0) g/dL Hct 42.5 (37-47) % MCV 92.8 (80-100) fL MCH 29.9 (25-34) pg MCHC 32.2 (32-36) g/dL RDW Std Deviation 47.3 H (36.4-46.3) fL RDW Coeff of Letitia 14.0 (11.5-14.5) % Plt Count 188 (130-400) K/uL MPV 11.2 H (7.4-10.4) fL Immature Gran % (Auto) 0.2 % Neut % (Auto) 44.9 % Lymph % (Auto) 39.2 % [place] % (Auto) 9.2 % Eos % (Auto) 6.0 % Baso % (Auto) 0.5 % Neut # (Auto) 3.96 (1.4-6.5) K/uL Lymph # (Auto) 3.45 H (1.2-3.4) K/uL [place] # (Auto) 0.81 H (0.11-0.59) K/uL Eos # (Auto) 0.53 H (0-0.5) K/uL Baso # (Auto) 0.04 (0-0.2) K/uL Immature Gran # (Auto) 0.02 (0.00-0.02) K/uL PT 11.3 (9.0-12.0) Seconds INR 1.1 (0.9-1.1) APTT 23.6 (21.0-31.0) Seconds PTT Ratio 0.8 Activ Coag Time Kaolin (94-140) SECONDS Sodium 139 (136-145) mmol/L Potassium 4.0 (3.5-5.1) mmol/L Chloride 99 (98-107) mmol/L Carbon Dioxide 32 (21-32) mmol/L Anion Gap 7.0 (3-11) BUN 13 (7-18) mg/dl Creatinine 0.95 (0.6-1.2) mg/dl Est Cr Clr Drug Dosing 44.7 ml/min Est GFR ( Amer) 66.0 Est GFR (Non-Af Amer) 57.0 BUN/Creatinine Ratio 13.9 (10-20) Glucose 180 H (70-99) mg/dl Estimat Average Glucose mg/dl Hemoglobin A1c (4.5-5.6) % Calcium 8.7 (8.5-10.1) mg/dl Phosphorus (2.5-4.9) mg/dl Magnesium 1.6 L (1.8-2.4) mg/dl Total Bilirubin 0.7 (0.2-1) mg/dl AST 24 (15-37) U/L ALT 22 (12-78) U/L Alkaline Phosphatase 149 H (45-117) U/L Total Creatine Kinase 70 (26-192) U/L CK-MB (CK-2) 1.2 (0.5-3.6) ng/ml CK/CKMB % Calc 1.7 (0-3.0) Troponin I < 0.015 (0-0.045) ng/ml Total Protein 7.8 (6.4-8.2) gm/dl Albumin 3.4 (3.4-5.0) gm/dl Globulin 4.4 H (2.5-4.0) gm/dl Albumin/Globulin Ratio 0.8 L (0.9-2) Triglycerides (0-150) mg/dl Cholesterol (0-200) mg/dl LDL Cholesterol, Calc mg/dl VLDL Cholesterol, Calc mg/dl HDL Cholesterol mg/dl Cholesterol/HDL Ratio Lipase 229 (73-393) U/L TSH 5.460 H (0.300-4.500) uIu/ml Free T4 1.04 (0.8-1.6) ng/dl Specimen Hemolysis Nasal Screen MRSA (PCR) (Negative) Blood Type Antibody Screen Medications Administered Current Inpatient Medications Acetaminophen (Acetaminophen 325 Mg Tab) 650 mg PO Q4H PRN PRN Reason: MILD Pain (Scale 1,2,3) Stop: 02/14/20 22:59 Apixaban (Apixaban 5 Mg Tablet) 5 mg PO BID [facility] Stop: 02/15/20 08:59 Last Admin: 01/16/20 09:06 Dose: 5 mg Documented by: Aspirin (Aspirin 81 Mg Ectab) 81 mg PO QAM [facility] Stop: 02/15/20 08:59 Last Admin: 01/16/20 08:48 Dose: 81 mg Documented by: Atorvastatin Calcium (Atorvastatin 40 Mg Tab) 80 mg PO QAM [facility] Stop: 02/15/20 08:59 Last Admin: 01/16/20 08:46 Dose: 80 mg Documented by: Furosemide (Furosemide 20 Mg Tab) 20 mg PO MOWEFR [facility] Stop: 02/15/20 08:59 Last Admin: 01/16/20 08:47 Dose: 20 mg Documented by: Metoprolol Tartrate (Metoprolol Tartrate 50 Mg Tab) 50 mg PO BID [facility] Stop: 02/15/20 08:59 Last Admin: 01/16/20 08:48 Dose: 50 mg Documented by: Miscellaneous (Icu Protocol For Hyperglycemia) 1 ea N/A PRN PRN; Protocol PRN Reason: Hyperglycemia Protocol Stop: 01/17/20 22:59 Nitroglycerin (Nitroglycerin Sl 0.4 Mg/Tab Tab) 0.4 mg SL UD PRN PRN Reason: Chest Pain Stop: 02/14/20 23:40 Ondansetron HCl (Ondansetron Inj 2 Mg/Ml 2 Ml Vial) 4 mg IV Q6H PRN PRN Reason: Nausea And Vomiting Stop: 02/14/20 22:59 Pantoprazole Sodium (Pantoprazole 40 Mg Tab) 40 mg PO DAILY [facility] Stop: 02/15/20 08:59 Last Admin: 01/16/20 08:47 Dose: 40 mg Documented by: Ticagrelor (Ticagrelor 90 Mg Tab) 90 mg PO BID [facility] Stop: 02/15/20 08:59 Last Admin: 01/16/20 08:48 Dose: 90 mg Documented by: Vitamin D (Cholecalciferol 1,000 Units 25 Mcg Tab) 1,000 units PO QAM [facility] Stop: 02/15/20 08:59 Last Admin: 01/16/20 08:46 Dose: 1,000 units Documented by:
[2020-01-16] MEDS ORDERED: GLUCOSE 40% GEL 15 GM TUBE PO PRN (10:30)
[2020-01-16] MEDS ORDERED: GLUCOSE 10 TABS/TUBE PO PRN (10:30)
[2020-01-16] MEDS ORDERED: GLUCAGON FOR INJ 1 MG VIAL IM PRN (10:30)
[2020-01-16] MEDS ORDERED: DEXTROSE 50% 50 ML SYRINGE IV PRN (10:30)
[2020-01-16] MEDS ORDERED: CARBOHYDRATES FOR HYPOGLYCEMIA PO PRN (10:30)
[2020-01-16] MEDS ORDERED: POTASSIUM CHLORIDE PWD 20 MEQ PACK PO ONE (10:45)
[2020-01-16] MEDS: INSULIN ASPART 100 UNITS/ML 3 ML PEN SC SCH ×3 (11:06→21:10)
--- NOTE | 2020-01-16 11:14 | Critical Care Progress Note ---
Date of Service January 16, 2020 Assessment & Plan (1) Admitted to intensive care unit: Impression: 79-year-old female with history of coronary disease and TAVR presenting with acute myocardial infarction status post stent placement. She is doing well clinically. She does have an elevated hemoglobin A1c. Recommendations: 1. Acute myocardial infarction: Doing well post stent placement. 2. Hypertension: We will increase the patient's metoprolol 200 mg twice daily. Given potential diabetes will add lisinopril 2.5 mg daily and follow kidney function and potassium. 3. Abnormal chest x-ray: The patient has elevation of the right hemidiaphragm which has been chronic dating back for 7 or 8 years. She is asymptomatic. No additional evaluation indicated currently. 4. Diabetes: Patient's hemoglobin A1c is elevated at 7. No prior history of diabetes. Recommend the patient meet with the diabetic nurse educator. Will institute insulin sliding scale. Follow blood sugars. May require oral hypoglycemics. Will need close follow-up with her primary care provider Patient is stable to transfer out of the intensive care unit to the telemetry floor. We will sign off at this point in time. Feel free to contact us with additional pulmonary critical care issues (2) S/P drug eluting coronary stent placement: (3) Hypertension: (4) Hyperlipidemia: Admission and Anticipated Discharge Date Admission Date: January 15, 2020 Subjective Patient seen and examined. EMR reviewed. Discussed with critical care CHAITANYA and on multidisciplinary rounds and with bedside critical care nurse. Also discussed with cardiology. The patient reports that she is doing well post catheterization and stent placement. She denies any chest pain or palpitations. No difficulty breathing. No shortness of breath or palpitations. Her radial site shows evidence of small hematoma with some ecchymoses. Not painful. She is neurovascularly intact. Review of Systems Review of Systems: All systems reviewed & are unremarkable except as noted in HPI & below Physical Exam Constitutional: WD/WN, vitals as above Neck: trachea midline, no thyromegaly Respiratory: normal respiratory effort, lungs clear to auscultation Cardiovascular: RRR, no murmur, no edema Gastrointestinal (Abdomen): normal bowel sounds, soft, nontender, no hepatosplenomegaly Musculoskeletal: Extremities: extremities normal to inspection Skin: no rashes, warm and dry Neurologic: Nonfocal exam Lymphatic: no cervical lymphadenopathy Results & Data Results & Data ([facility]) Vital Signs (Past 12 Hours) Vital Signs Temp Pulse Pulse Resp BP BP Pulse Ox 01/16/20 06:10 102 H 25 H 130/57 L 94 01/16/20 05:00 92 H 19 134/73 96 01/16/20 04:46 36.7 C 90 20 134/66 97 01/16/20 03:46 90 22 125/60 97 01/16/20 02:46 91 H 18 139/64 96 01/16/20 01:46 92 H 18 129/50 L 97 01/16/20 00:46 102 H 20 135/78 98 01/16/20 00:16 97 H 16 150/71 H 98 01/15/20 23:46 99 H 20 139/54 L 97 01/15/20 23:31 97 H 20 148/80 H 98 01/15/20 23:16 100 H 21 132/78 98 Laboratory Results 01/16/20 05:08 01/16/20 05:08 Hemoglobin A1c elevated at 7 Diagnostic Findings Chest x-ray reviewed. There is chronic elevation of the right hemidiaphragm. No CT scans available. Coding Level of Care Code 22822 Subseq Hosp Care Lvl 3 Diagnoses Admitted to intensive care unit Z78.9 S/P drug eluting coronary stent placement Z95.5 Hypertension I10 Hyperlipidemia E78.5 Time Spent (min) 26
--- NOTE | 2020-01-16 11:27 | Electrocardiogram Report ---
Test Reason : Blood Pressure : / mmHG Vent. Rate : 094 BPM Atrial Rate : 094 BPM P-R Int : 158 ms QRS Dur : 104 ms QT Int : 382 ms P-R-T Axes : 035 005 090 degrees QTc Int : 477 ms Poor data quality, interpretation may be adversely affected Sinus rhythm with Premature atrial complexes Left atrial enlargement Acute Inferior-posterior infarct Consider right ventricular involvement in acute inferior infarct Abnormal ECG When compared with ECG of 12-JAN-2020 12:27, Premature atrial complexes are now Present Acute Inferior-posterior infarct is now Present Confirmed by Bubba Mata ([id number]) on 01/16/2020 11:26:33 AM Referred By: REFERRED SELF Confirmed By:Bubba Mata
--- NOTE | 2020-01-16 11:59 | Electrocardiogram Report ---
Test Reason : Blood Pressure : / mmHG Vent. Rate : 097 BPM Atrial Rate : 097 BPM P-R Int : 172 ms QRS Dur : 106 ms QT Int : 380 ms P-R-T Axes : 042 -24 -37 degrees QTc Int : 482 ms Normal sinus rhythm Left atrial enlargement Left ventricular hypertrophy Serial changes of evolving Inferior infarct Old Anterior infarct (cited on or before 11-MAY-2013) Abnormal ECG When compared with ECG of 15-JAN-2020 20:21, Confirmed by Bubba Mata ([id number]) on 01/16/2020 11:59:20 AM Referred By: REFERRED SELF Confirmed By:Bubba Mata
[2020-01-16] MEDS ORDERED: METOPROLOL TARTRATE 50 MG TAB PO ONE (15:30)
--- NOTE | 2020-01-16 16:30 | Cardiology Progress Note ---
Date of Service January 16, 2020 Assessment & Plan (1) ST elevation (STEMI) myocardial infarction: (2) S/P drug eluting coronary stent placement: (3) S/P TAVR (transcatheter aortic valve replacement): The patient is doing well status post PCI to her RCA. She is concerned about being on triple therapy, she was reassured that since she is in sinus rhythm she had a significant bleeding occur we may be able to hold Eliquis but will need dual antiplatelet therapy for the time being Did have a short burst of idioventricular rhythm today, possibly secondary reperfusion. Beta-brock restarted. She received 50 mg of metoprolol tartrate p.o. this a.m. and I will give her additional 50 now she will then restart her normal 100 twice daily. Okay to transfer to telemetry Admission and Anticipated Discharge Date Admission Date: January 15, 2020 Subjective Patient seen and examined, chart reviewed. States that she is feeling well today and has not had any recurrences of chest discomfort since PCI. Denies any episodes of shortness of breath, palpitations, lightheadedness, dizziness or syncope. She has been tolerating her medications without issue. Telemetry reviewed: Normal sinus rhythm with an approximately 32nd run of idioventricular rhythm, possibly atrial fibrillation with aberrancy. No other episodes of atrial fibrillation on monitor. Review of Systems Review of Systems: All systems reviewed & are unremarkable except as noted in HPI & below Physical Exam Physical Exam: General: Awake, alert and oriented x 3. No acute distress. HEENT: Normocephalic, atraumatic. Pupils equal, round and reactive to light and accommodation. Extraocular muscles are intact. Anicteric sclera. Moist mucous membranes. Neck: No JVD. No bruit. Cardiovascular: Regular. Positive S-4. Normal S-1 and S-2. No S-3. No murmurs or rubs. Pulmonary: Clear to auscultation B/L. No rales, rhonchi or wheezing Abdomen: Bowel sounds x 4, soft. No rebound, guarding or tenderness. No organomegaly. Extremities: No clubbing, cyanosis or edema. +2 pedal pulses bilaterally. Skin: Warm and dry. Results & Data ([facility]) Vital Signs (Past 12 Hours) Vital Signs Temp Pulse Pulse Resp BP BP Pulse Ox 01/16/20 16:00 36.9 C 92 H 24 143/67 H 97 01/16/20 14:55 100 H 20 146/60 H 96 01/16/20 13:44 36.7 C 01/16/20 13:36 101 H 30 H 127/56 L 92 01/16/20 13:00 97 H 28 H 127/56 L 01/16/20 12:00 88 22 01/16/20 11:03 86 22 96 01/16/20 11:02 86 22 131/82 93 01/16/20 10:10 86 24 144/70 H 89 L 01/16/20 09:10 97 H 24 138/61 93 01/16/20 08:11 94 H 26 H 143/64 H 01/16/20 07:10 99 H 25 H 155/69 H 92 01/16/20 06:10 102 H 25 H 130/57 L 94 01/16/20 05:00 92 H 19 134/73 96 01/16/20 04:46 36.7 C 90 20 134/66 97
[2020-01-16] MEDS: METOPROLOL TARTRATE 100 MG TAB PO SCH (20:31)
[2020-01-16] MEDS ORDERED: LORazepam 0.5 MG TAB PO STA (23:11)
[2020-01-17 05:04] LABS: Hematocrit (blood only) 39.9 % (37-47); Hemoglobin 12.9 g/dL (12.0-16.0); Mean Corpuscular Hemoglobin 29.9 pg (25-34); Mean Corpuscular Hgb Conc 32.3 g/dL (32-36); Mean Corpuscular Volume 92.4 fL (80-100); Mean Platelet Volume 11.2 fL (7.4-10.4); Platelet Count 161 K/uL (130-400); RDW Coefficient of Variation 14.1 % (11.5-14.5); RDW Standard Deviation 47.6 fL (36.4-46.3); Red Blood Count 4.32 M/uL (4.2-5.4)
[2020-01-17 05:31] LABS: BUN Creatinine Ratio 19.9 (10-20); Calcium 8.6 mg/dl (8.5-10.1); Creatinine Clr Calc Pharmacy 52.3 ml/min; Est GFR (African American) 77.7; Est GFR (Non-African American) 67.1; Magnesium 1.8 mg/dl (1.8-2.4); Potassium 4.2 mmol/L (3.5-5.1)
[2020-01-17 05:52] LABS: Phosphorus 3.5 mg/dl (2.5-4.9)
[2020-01-17 06:53] LABS: Appearance Urine Clear (Clear); Bacteria Urine Automated Negative (Negative); Bilirubin Urine Negative (Negative); Blood Urine Negative (Negative); Color Urine Yellow; Epithelial Cell Urine Auto >30 /lpf (0-5); Glucose Urine UA Negative (Negative); Ketones Urine Negative (Negative); Leukocyte Esterase Urine Trace (Negative); Nitrite Urine Negative (Negative); Protein Urine Negative (Negative); RBC Urine Automated 0-4 /hpf (0-4); Specific Gravity Urine 1.014 (1.000-1.030); Urobilinogen Urine Negative (Negative); pH Urine 8.5 (4.5-7.5)
--- NOTE | 2020-01-17 07:17 | XRay Report ---
XR chest 1V portable CLINICAL HISTORY: sob COMPARISON STUDY: 01/16/2020 FINDINGS: The heart is borderline enlarged. There is an aortic valve prosthesis. There is chronic margarita vation right hemidiaphragm with chronic blunting of the right lateral costophrenic angle. There is no failure. There is no lobar consolidation. There are no pleural effusions. There is a left lower lung zone calcified granuloma.[ IMPRESSION: No active disease in the chest. ACT 112: Negative or not required by law. Electronically signed by: Roney Holden M.D. 01/17/2020 7:16 AM
--- NOTE | 2020-01-17 08:02 | Hospitalist Progress Note ---
Date of Service January 17, 2020 Assessment & Plan (1) ST elevation (STEMI) myocardial infarction: (2) S/P drug eluting coronary stent placement: This is a 79 y/o female who presents with acute ST elevated myocardial infarction. 1. Acute ST elevated myocardial infarction in inferior leads, status post cardiac catheterization and found to have 100% occlusion of the acute ostial in-stent occlusion, status post placement of the new overlapping drug-eluting stent of the ostial RCA stent thrombosis. Interventional Cardiology recommended triple therapy with aspirin, Brilinta and Eliquis for 1 month and to continue long-term dual therapy with P2Y12 inhibitor and anticoagulation. High dose statin. Continue metoprolol 100 mg twice daily, and started on lisinopril 2.5 mg daily. Initially monitored closely in ICU after procedure. Telemetry reviewed: Normal sinus rhythm with run of idioventricular rhythm, possibly afib w/ aberrancy noted yesterday. Cardiology consulted, recommend to continue medications as above, and safe to discharge home. 2. New onset diabetes mellitus type 2 Hemoglobin A1c 7% life educator consulted, discussed with the patient lifestyle modifications Discussed with the patient close PCP follow-up and lifestyle modifications 3. History of atrial fibrillation, rate controlled with Lopressor, on Eliquis. 4. History of aortic valve stenosis, status post TAVR. 5. Hypertension: Currently on Lopressor, and lisinopril monitor the blood pressure and adjust medications 6. History of possible stroke, CVA: On Eliquis, currently on statin, added aspirin and Brilinta due to stent placement. 7. History of breast cancer status post surgery and radiation. History of colon cancer, status post hemicolectomy. 8. History of pseudoaneurysm of right femoral artery. 9. Deep venous thrombosis prophylaxis: On Eliquis. Disposition: Discharge home and follow up with family doctor and cardiology. Admission and Anticipated Discharge Date Admission Date: January 15, 2020 Subjective No acute events overnight. Patient is lying in bed, in no acute distress. Patient's at the bedside. Currently she denies any chest pain, palpitations, shortness of breath, fevers, chills, abdominal pain, nausea or vomiting. She reports episodes of dizziness, these have improved significantly after stent placement. She says that these episodes are now only very short and she does not have them as often either. PT evaluated patient, believe safe to discharge home. Patient also reported some anxiety/trouble sleeping, and she received 0.25 of Ativan which she believes helped. She is hopeful to have some medication at home to help her with anxiety and sleep. Review of Systems Review of Systems: All systems reviewed & are unremarkable except as noted in HPI & below Constitutional: no fever and no chills Respiratory: no cough and no dyspnea Cardiovascular: no chest pain and no palpitations Gastrointestinal: no abdominal pain, no nausea and no vomiting Physical Exam Physical Exam: GENERAL: Elderly female, lying in bed, not in acute distress. HEENT: Normocephalic, atraumatic, EOMI, no pallor, no icterus. NECK: No JVD, no neck masses. CARDIOVASCULAR: S1, S2 heard, regular rate and rhythm, no murmur, no gallop. RESPIRATORY SYSTEM: Normal AP diameter. No accessory muscle use. No wheezing, no crackles. Scar tissue seen in the chest region. ABDOMEN: Soft, bowel sounds present, nontender. No distention. NEURO: Alert and oriented x3, answering questions appropriately, speech fluent, no facial asymmetry, moves all 4 extremities spontaneously EXTREMITIES: No edema, no erythema Results & Data Results & Data ([facility]) Vital Signs (Past 12 Hours) Vital Signs Temp Pulse Pulse Resp BP Pulse Ox 01/17/20 07:01 36.7 C 91 H 18 131/75 93 01/17/20 04:00 36.8 C 97 H 20 130/70 91 01/17/20 00:00 86 01/16/20 23:02 36.6 C 82 20 142/81 H 95 Laboratory Results 01/17/20 01/17/20 01/17/20 Range/Units 07:22 06:40 04:44 WBC (4.8-10.8) K/uL RBC (4.2-5.4) M/uL Hgb (12.0-16.0) g/dL Hct (37-47) % MCV (80-100) fL MCH (25-34) pg MCHC (32-36) g/dL RDW Std Deviation (36.4-46.3) fL RDW Coeff of Letitia (11.5-14.5) % Plt Count (130-400) K/uL MPV (7.4-10.4) fL Sodium 139 (136-145) mmol/L Potassium 4.2 (3.5-5.1) mmol/L Chloride 103 (98-107) mmol/L Carbon Dioxide 32 (21-32) mmol/L Anion Gap 4.0 (3-11) BUN 16 (7-18) mg/dl Creatinine 0.83 (0.6-1.2) mg/dl Est Cr Clr Drug Dosing 52.3 ml/min Est GFR ( Amer) 77.7 Est GFR (Non-Af Amer) 67.1 BUN/Creatinine Ratio 19.9 (10-20) Glucose 133 H (70-99) mg/dl POC Glucose 117 H (70-99) mg/dl Calcium 8.6 (8.5-10.1) mg/dl Phosphorus 3.5 D (2.5-4.9) mg/dl Magnesium 1.8 (1.8-2.4) mg/dl Troponin I (0-0.045) ng/ml Urine Color Yellow Urine Appearance Clear (Clear) Urine pH 8.5 H (4.5-7.5) Ur Specific Mansfield 1.014 (1.000-1.030) Urine Protein Negative (Negative) Urine Glucose (UA) Negative (Negative) Urine Ketones Negative (Negative) Urine Blood Negative (Negative) Urine Nitrite Negative (Negative) Urine Bilirubin Negative (Negative) Urine Urobilinogen Negative (Negative) Ur Leukocyte Esterase Trace H (Negative) Urine WBC (Auto) 1-5 (0-5) /hpf Urine RBC (Auto) 0-4 (0-4) /hpf U Hyaline Cast (Auto) 1-5 (0-5) /lpf U Epithel Cells (Auto) >30 H (0-5) /lpf Urine Bacteria (Auto) Negative (Negative) 01/17/20 01/16/20 01/16/20 Range/Units 04:44 16:56 16:20 WBC 7.70 (4.8-10.8) K/uL RBC 4.32 (4.2-5.4) M/uL Hgb 12.9 (12.0-16.0) g/dL Hct 39.9 (37-47) % MCV 92.4 (80-100) fL MCH 29.9 (25-34) pg MCHC 32.3 (32-36) g/dL RDW Std Deviation 47.6 H (36.4-46.3) fL RDW Coeff of Letitia 14.1 (11.5-14.5) % Plt Count 161 (130-400) K/uL MPV 11.2 H (7.4-10.4) fL Sodium (136-145) mmol/L Potassium (3.5-5.1) mmol/L Chloride (98-107) mmol/L Carbon Dioxide (21-32) mmol/L Anion Gap (3-11) BUN (7-18) mg/dl Creatinine (0.6-1.2) mg/dl Est Cr Clr Drug Dosing ml/min Est GFR ( Amer) Est GFR (Non-Af Amer) BUN/Creatinine Ratio (10-20) Glucose (70-99) mg/dl POC Glucose 128 H (70-99) mg/dl Calcium (8.5-10.1) mg/dl Phosphorus (2.5-4.9) mg/dl Magnesium (1.8-2.4) mg/dl Troponin I 12.800 H* (0-0.045) ng/ml Urine Color Urine Appearance (Clear) Urine pH (4.5-7.5) Ur Specific [place] (1.000-1.030) Urine Protein (Negative) Urine Glucose (UA) (Negative) Urine Ketones (Negative) Urine Blood (Negative) Urine Nitrite (Negative) Urine Bilirubin (Negative) Urine Urobilinogen (Negative) Ur Leukocyte Esterase (Negative) Urine WBC (Auto) (0-5) /hpf Urine RBC (Auto) (0-4) /hpf U Hyaline Cast (Auto) (0-5) /lpf U Epithel Cells (Auto) (0-5) /lpf Urine Bacteria (Auto) (Negative) 01/16/20 01/16/20 Range/Units 10:50 10:46 WBC (4.8-10.8) K/uL RBC (4.2-5.4) M/uL Hgb (12.0-16.0) g/dL Hct (37-47) % MCV (80-100) fL MCH (25-34) pg MCHC (32-36) g/dL RDW Std Deviation (36.4-46.3) fL RDW Coeff of Letitia (11.5-14.5) % Plt Count (130-400) K/uL MPV (7.4-10.4) fL Sodium (136-145) mmol/L Potassium (3.5-5.1) mmol/L Chloride (98-107) mmol/L Carbon Dioxide (21-32) mmol/L Anion Gap (3-11) BUN (7-18) mg/dl Creatinine (0.6-1.2) mg/dl Est Cr Clr Drug Dosing ml/min Est GFR ( Amer) Est GFR (Non-Af Amer) BUN/Creatinine Ratio (10-20) Glucose (70-99) mg/dl POC Glucose 126 H (70-99) mg/dl Calcium (8.5-10.1) mg/dl Phosphorus (2.5-4.9) mg/dl Magnesium (1.8-2.4) mg/dl Troponin I 16.900 H* (0-0.045) ng/ml Urine Color Urine Appearance (Clear) Urine pH (4.5-7.5) Ur Specific [place] (1.000-1.030) Urine Protein (Negative) Urine Glucose (UA) (Negative) Urine Ketones (Negative) Urine Blood (Negative) Urine Nitrite (Negative) Urine Bilirubin (Negative) Urine Urobilinogen (Negative) Ur Leukocyte Esterase (Negative) Urine WBC (Auto) (0-5) /hpf Urine RBC (Auto) (0-4) /hpf U Hyaline Cast (Auto) (0-5) /lpf U Epithel Cells (Auto) (0-5) /lpf Urine Bacteria (Auto) (Negative) Medications Administered Current Inpatient Medications Acetaminophen (Acetaminophen 325 Mg Tab) 650 mg PO Q4H PRN PRN Reason: MILD Pain (Scale 1,2,3) Stop: 02/14/20 22:59 Apixaban (Apixaban 5 Mg Tablet) 5 mg PO BID [facility] Stop: 02/15/20 08:59 Last Admin: 01/16/20 20:31 Dose: 5 mg Documented by: Aspirin (Aspirin 81 Mg Ectab) 81 mg PO QAM [facility] Stop: 02/15/20 08:59 Last Admin: 01/16/20 08:48 Dose: 81 mg Documented by: Atorvastatin Calcium (Atorvastatin 40 Mg Tab) 80 mg PO QAM [facility] Stop: 02/15/20 08:59 Last Admin: 08/26/20 08:46 Dose: 80 mg Documented by: Dextrose (Dextrose 50% 50 Ml Syringe) 25 - 50 ml IV UD PRN; Protocol PRN Reason: Hypoglycemia Protocol Stop: 02/15/20 10:29 Furosemide (Furosemide 20 Mg Tab) 20 mg PO MOWEFR [facility] Stop: 02/15/20 08:59 Last Admin: 01/16/20 08:47 Dose: 20 mg Documented by: Glucagon (Glucagon For Inj 1 Mg Vial) 1 mg IM UD PRN; Protocol PRN Reason: Hypoglycemia Protocol Stop: 02/15/20 10:29 Glucose (Glucose 40% Gel 15 Gm Tube) 15 - 30 gm PO UD PRN; Protocol PRN Reason: Hypoglycemia Protocol Stop: 02/15/20 10:29 Glucose (Glucose 10 Tabs/Tube) 4 - 8 tabs PO UD PRN; Protocol PRN Reason: Hypoglycemia Protocol Stop: 02/15/20 10:29 Insulin Aspart (Insulin Aspart 100 Units/Ml 3 Ml Pen) 0 units SC ACHS [facility] Stop: 02/15/20 11:29 Last Admin: 01/16/20 21:10 Dose: Not Given Documented by: Lisinopril (Lisinopril 2.5 Mg Tab) 2.5 mg PO QAM [facility] Stop: 02/15/20 09:59 Last Admin: 01/16/20 11:05 Dose: 2.5 mg Documented by: Metoprolol Tartrate (Metoprolol Tartrate 100 Mg Tab) 100 mg PO BID [facility] Stop: 02/15/20 20:59 Last Admin: 01/16/20 20:31 Dose: 100 mg Documented by: Miscellaneous (Icu Protocol For Hyperglycemia) 1 ea N/A PRN PRN; Protocol PRN Reason: Hyperglycemia Protocol Stop: 01/17/20 22:59 Miscellaneous (Carbohydrates For Hypoglycemia ) 15 - 30 gm PO UD PRN PRN Reason: Hypoglycemia Treatment Stop: 02/15/20 10:29 Nitroglycerin (Nitroglycerin Sl 0.4 Mg/Tab Tab) 0.4 mg SL UD PRN PRN Reason: Chest Pain Stop: 02/14/20 23:40 Ondansetron HCl (Ondansetron Inj 2 Mg/Ml 2 Ml Vial) 4 mg IV Q6H PRN PRN Reason: Nausea And Vomiting Stop: 02/14/20 22:59 Pantoprazole Sodium (Pantoprazole 40 Mg Tab) 40 mg PO DAILY [facility] Stop: 02/15/20 08:59 Last Admin: 01/16/20 08:47 Dose: 40 mg Documented by: Ticagrelor (Ticagrelor 90 Mg Tab) 90 mg PO BID [facility] Stop: 02/15/20 08:59 Last Admin: 01/16/20 20:31 Dose: 90 mg Documented by: Vitamin D (Cholecalciferol 1,000 Units 25 Mcg Tab) 1,000 units PO QA [facility] Stop: 02/15/20 08:59 Last Admin: 01/16/20 08:46 Dose: 1,000 units Documented by:
[2020-01-17] MEDS: INSULIN ASPART 100 UNITS/ML 3 ML PEN SC SCH ×2 (08:10→13:40)
[2020-01-17] MEDS: METOPROLOL TARTRATE 100 MG TAB PO SCH (08:10)
[2020-01-17] MEDS: CHOLECALCIFEROL 1,000 UNITS 25 MCG TAB PO SCH (08:11)
[2020-01-17] MEDS: APIXABAN 5 MG TABLET PO SCH (08:11)
[2020-01-17] MEDS: ATORVASTATIN 40 MG TAB PO SCH (08:11)
[2020-01-17] MEDS: PANTOprazole 40 MG TAB PO SCH (08:11)
[2020-01-17] MEDS: ASPIRIN 81 MG ECTAB PO SCH (08:11)
[2020-01-17] MEDS: TICAGRELOR 90 MG TAB PO SCH (08:11)
--- NOTE | 2020-01-17 14:19 | Cardiology Progress Note ---
Date of Service January 17, 2020 Assessment & Plan (1) ST elevation (STEMI) myocardial infarction: (2) S/P drug eluting coronary stent placement: (3) S/P TAVR (transcatheter aortic valve replacement): The patient is doing well status post PCI to her RCA. She is doing well without arrhythmias or significant ectopy. No further symptoms. Anxious for discharge. Medications reviewed with the patient and her . Recommend discharge to home on current medications. We will arrange outpatient follow-up with us in 2 to 4 weeks. (4) Anxiety: Responded well to Ativan last p.m. We will ask primary team to start therapy and recommend follow-up with PCP as outpatient. (5) BPV (benign positional vertigo): We will ask physical therapy to evaluate and treat. Admission and Anticipated Discharge Date Admission Date: January 15, 2020 Subjective Patient seen and examined, chart reviewed. at bedside. States that she feels well but very anxious. She is also been having episodes of positional dizziness. Received Ativan last evening with significant improvement of her anxiety, is asking if something could be started. Denies chest pain, shortness of breath, palpitations, lightheadedness or syncope. Telemetry reviewed: Normal sinus rhythm without arrhythmia or significant ectopy. Review of Systems Review of Systems: All systems reviewed & are unremarkable except as noted in HPI & below Physical Exam Physical Exam: General: Awake, alert and oriented x 3. No acute distress. HEENT: Normocephalic, atraumatic. Pupils equal, round and reactive to light and accommodation. Extraocular muscles are intact. Anicteric sclera. Moist mucous membranes. Neck: No JVD. No bruit. Cardiovascular: Regular. Positive S-4. Normal S-1 and S-2. No S-3. No murmurs or rubs. Pulmonary: Clear to auscultation B/L. No rales, rhonchi or wheezing Abdomen: Bowel sounds x 4, soft. No rebound, guarding or tenderness. No organomegaly. Extremities: No clubbing, cyanosis or edema. +2 pedal pulses bilaterally. Skin: Warm and dry. Results & Data ([facility]) Vital Signs (Past 12 Hours) Vital Signs Temp Pulse Resp BP Pulse Ox 01/17/20 11:04 36.7 C 80 19 131/72 94 01/17/20 07:01 36.7 C 91 H 18 131/75 93 01/17/20 04:00 36.8 C 97 H 20 130/70 91
--- NOTE | 2020-01-17 15:57 | Discharge Summary ---
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 Postoperative course complicated by atrial fibrillation, left pleural effusion requiring thoracocentesis, right heart failure and anemia, history of coronary artery disease status post stent to the RCA and in 2017 status post PCI of the ostial RCA with single drug-eluting stent, history of severe calcific aortic valve stenosis, status post TAVR at [facility] in September 2017, hypertension, hyperlipidemia, history of breast cancer, status post lumpectomy with right axillary lymph node dissection and radiation therapy in 1979. Subsequent recurrence and radical mastectomy in 1981 followed by second course of radiation therapy, patient ended up with nonhealing wounds of her medial right chest in early 2009 at site of prior radiation therapy, requiring multiple surgical interventions and nonhealing flaps with extended longstanding wound drainage and ultimately secondary healing. History of right femoral artery pseudoaneurysm as a complication of intraaortic balloon pump during acute inferior myocardial infarction in 2012, colon cancer, status post right hemicolectomy in 2001, hyperthyroidism, degenerative joint disease, history of C. diff, history of CVA, who lives with her , presents with chest pain and found to have ST elevated DC. The patient was in the ER on 01/12/2020 with dizziness. At that time, workup was negative and she was discharged home. She has been feeling the dizziness since last 3 days. Today, she walked in the room and sat in a chair and suddenly felt severe chest pain and was brought to ER.EKG showing acute inferior DC, heart alert was called in and currently status post cardiac catheterization, found to have 100% acute ostial in-stent occlusion, heavy thrombus burden, status post successful PCI of ostial RCA stent thrombosis and placement of new overlapping drug-eluting stent. Currently, the patient is asymptomatic, resting comfortably in the ICU, hemodynamically stable. The patient says during the episode, she felt short of breath, sweating and dizzy, that has all resolved now. Denies any headache, no blurred vision, no earache, no runny nose, no sore throat, no cough, no recent fever or chills. No abdominal pain. Normal bowel and bladder movements. Ambulates without any help. No swelling in the legs, no rash. Because of history of atrial fibrillation, the patient recently started on Eliquis and her Plavix was stopped. Admission Exam Per Admitting Provider GENERAL: The patient is of moderate build, not in acute distress. VITAL SIGNS: Temperature 37, pulse 97, respiratory rate 20, blood pressure 148/80, oxygen 98% on 3 liters. HEENT: No pallor, no icterus. NECK: No JVD, no neck masses. CARDIOVASCULAR: S1, S2 heard, regular rate and rhythm, no murmur, no gallop. RESPIRATORY SYSTEM: Normal AP diameter. No accessory muscle use. No wheezing, no crackles. Scar tissue seen in the chest region. ABDOMEN: Soft, bowel sounds present, nontender. No distention. CENTRAL NERVOUS SYSTEM: Alert and awake. Speech is clear. Obeys commands. Moves extremities. EXTREMITIES: No edema, no erythema. Principal Diagnosis STEMI status post Drug-eluting stent placement Diabetes mellitus type 2, new onset Anxiety Discharge Exam GENERAL: Elderly female, lying in bed, not in acute distress. HEENT: Normocephalic, atraumatic, EOMI, no pallor, no icterus. NECK: No JVD, no neck masses. CARDIOVASCULAR: S1, S2 heard, regular rate and rhythm, no murmur, no gallop. RESPIRATORY SYSTEM: Normal AP diameter. No accessory muscle use. No wheezing, no crackles. Scar tissue seen in the chest region. ABDOMEN: Soft, bowel sounds present, nontender. No distention. NEURO: Alert and oriented x3, answering questions appropriately, speech fluent, no facial asymmetry, moves all 4 extremities spontaneously EXTREMITIES: No edema, no erythema SKIN: warm, dry Discharge Data Allergies Allergy/AdvReac Type Severity Reaction Status Date / Time codeine Allergy Severe RESP. Verified 01/15/20 21:10 DEPRESSION oyster extract Allergy Intermediate HIVES AND Verified 01/15/20 21:10 SWELLING, NO PROBLEMS W CONTRAST Consultations 01/15/20 21:24 ED Decision to Admit Stat 01/15/20 23:03 Consult Cardiac Rehabilitation Routine 01/15/20 23:04 Consult Case Management - Discharge Planning Routine Consult Wire Drawing Die Maker Routine 01/15/20 23:13 Consult Case Management - Discharge Planning Routine Consult Wire Drawing Die Maker Routine 01/15/20 23:50 Consult Cardiology Routine 01/16/20 08:00 Consult Cardiology Routine Procedures Performed Operation Date: 01/15/20 08:45 Actual Procedures p Aspiration/PCI w/CAROLA for Stemi - MD bahman Espinal Central Venous Cath Placement - Zoltan Whitfield MD s Cineradiography w/Routine Exam - MD bahman Espinal IVUS Coronary Single Vessel - Zoltan Whitfield MD Ordered Studies 01/15/20 08:06 CL IVUS Coronary Single Vessel Routine 01/15/20 20:41 CL Cath Imgs for PACS use only Stat Hospital Course (1) ST elevation (STEMI) myocardial infarction: (2) S/P drug eluting coronary stent placement: This is a 79 y/o female who presents with acute ST elevated myocardial infarction. 1. Acute ST elevated myocardial infarction in inferior leads, status post cardiac catheterization and found to have 100% occlusion of the acute ostial in-stent occlusion, status post placement of the new overlapping drug-eluting stent of the ostial RCA stent thrombosis. Interventional Cardiology recommended triple therapy with aspirin, Brilinta and Eliquis for 1 month and to continue long-term dual therapy with P2Y12 inhibitor and anticoagulation. High dose statin. Continue metoprolol 100 mg twice daily, and started on lisinopril 2.5 mg daily. Initially monitored closely in ICU after procedure. Telemetry reviewed: Normal sinus rhythm with run of idioventricular rhythm, possibly afib w/ aberrancy noted yesterday. Cardiology consulted, recommend to continue medications as above, and safe to discharge home. 2. New onset diabetes mellitus type 2 Hemoglobin A1c 7% diabetes educator consulted, discussed with the patient lifestyle modifications Discussed with the patient close PCP follow-up and lifestyle modifications 3. History of atrial fibrillation, rate controlled with Lopressor, on Eliquis. 4. History of aortic valve stenosis, status post TAVR. 5. Hypertension: Currently on Lopressor, and lisinopril monitor the blood pressure and adjust medications 6. History of possible stroke, CVA: On Eliquis, currently on statin, added aspirin and Brilinta due to stent placement. 7. History of breast cancer status post surgery and radiation. History of colon cancer, status post hemicolectomy. 8. History of pseudoaneurysm of right femoral artery. 9. Deep venous thrombosis prophylaxis: On Eliquis. Disposition: Discharge home and follow up with family doctor and cardiology. Total Time Total Time Spent Total Time Spent (In Minutes): 50 Total Time Includes: Examination of the Patient, Discharge Planning, Medication Reconciliation and Communication With Other Providers Discharge Plan Discharge Items Patient Disposition: Home - Self-Care Reason For Visit: STEMI, CHEST PAIN Discharge Diagnosis: STEMI status post Drug-eluting stent placement Diabetes mellitus type 2, new onset Activity: Per Instructions section Non-emergency contact: Primary Care Provider and Yeast Tender Call non-emergency contact if: you have any medication questions and your symptoms worsen Follow-up/Referrals: Mohit Perkins MD [Primary Care Provider] - 01/21/20 11:20 am (Date & Time 01/21/2020 11:20 AM Provider Mohit Perkins MD [facility] ) Diet: Heart Healthy Addtl Attending Provider Instructions: It is important that you follow-up with your primary care doctor and your video software engineer. Make sure to take aspirin, Brilinta, Eliquis, atorvastatin, lisinopril, metoprolol as prescribed. It is recommended that you take aspirin, Brilinta, Eliquis for 1 month. Do not change any medications unless you talk to your video software engineer. You were also diagnosed with diabetes mellitus, and discussed this with the clinical staff educator. Lifestyle modifications are recommended, however you may need medication to help with diabetes in the future. Discuss this with your primary care doctor. It is important that your primary care doctor closely follows up on your diabetes. For anxiety/sleep disturbance, Ativan was prescribed for you. Only take one half of a tablet as needed for sleep. Discuss this further with your primary care doctor. Pending Studies at Discharge: No Stand-Alone Forms: My [facility] Reviews, Smoking Cessation Medications and DC Order Prescriptions: New atorvastatin 40 mg Tablet 80 mg PO QAM 30 Days Qty: 60 RF: 0 Brilinta 90 mg Tablet 90 mg PO BID 30 Days Qty: 60 RF: 0 lisinopril 2.5 mg Tablet 2.5 mg PO QAM 30 Days Qty: 30 RF: 0 aspirin 81 mg Tablet,Delayed Release (Dr/Ec) 81 mg PO QAM 30 Days Qty: 30 RF: 0 lorazepam [Ativan] 0.5 mg tablet 0.25 mg PO HS PRN (Reason: sleep) Qty: 7 RF: 0 Continued metoprolol tartrate 100 mg Tablet 100 mg PO BID RF: 0 acetaminophen [Tylenol Extra Strength] 500 mg Tablet 500 mg PO DIRECTED PRN (Reason: Fever Or Pain) RF: 0 furosemide [Lasix] 20 mg Tablet 20 mg PO MOWEFR RF: 0 cholecalciferol (vitamin D3) [Vitamin D3] 25 mcg (1,000 unit) Capsule 1,000 unit PO QAM RF: 0 omega [id number] oil [Fish Oil] 1,000 mg (120 mg-180 mg) Capsule 1 cap PO QAM RF: 0 nitroglycerin [Nitrostat] 0.4 mg Tablet, Sublingual 0.4 mg sublingual UD PRN (Reason: Chest Pain) RF: 0 Eliquis 5 mg Tablet 5 mg PO BID RF: 0 omeprazole 20 mg Tablet,Delayed Release (Dr/Ec) 20 mg PO DAILY RF: 0 Discontinued atorvastatin 40 mg Tablet 40 mg PO QAM RF: 0 Discharge Orders: Discharge Order (Routine); Ordered 01/17/20 Ordered By: Jerome Barragan/Other Patient Handouts: Managing Type 2 Diabetes, Diabetes: Meal Planning, Eating Heart-Healthy Foods, A1C Admission Data Admit Date/Time: 01/15/20 23:04 Attending Provider: Jerome Mcneal Admit Provider: Cody Stout Primary Care Provider: Mohit Perkins Other Providers: Zack Giron ; Efrain Alexander ; Cody Stout ; Zoltan Whitfield ; Jason Dasilva ; Chavo Rock ; Steffen Santos ; Charly Alatorre ; Dre Cantrell ; Mohit Orellana ; Maria Horton ; Cheri Berkowitz ; Mahesh Gregg
== END 2020-01-17 16:30 | disposition home or self-care (01) | DRG 247 ==
LOC: ED 20:15 → CC 21:02 → SUATTDRO 23:04 → 1E 23:04 → 2S 01-16 16:14

== ENCOUNTER 2022-02-06 16:27 | Inpatient (IN) ==
--- NOTE | 2022-02-06 16:45 | Emergency Department Note ---
Impression & Plan Acute exacerbation of CHF (congestive heart failure), Acute respiratory failure with hypoxemia, Atrial fibrillation with RVR, Hypomagnesemia, S/P TAVR (transcatheter aortic valve replacement) ED Provider Note NAME: KENDALL GRUBBS AGE: 81 SEX: F : 1940 ARRIVES VIA: Walk-In INFORMANT: Patient, ED PROVIDER(S): Ajith Kim MD Chief Complaint: Shortness of breath, chest pain HPI: Patient presents due to concern for associated chest pain that began about 2 hours prior to arrival. The patient did take a nitro but without significant relief in symptoms. The patient did have a recent hospitalization for a calculus cholecystitis. The patient had also had an admission back in October to where the patient did have a PERC drain placed for cholecystitis. It was determined during her most recent hospitalization that her cardiac risk was too high to warrant removal of her gallbladder. The patient denies any recent surgeries or procedures. The patient was discharged from [facility] approximately 5 days prior. Patient describes her chest pain is centralized and nonradiating. Patient does have prior history of breast CA sternal osteomyelitis. Patient did have prior removal of her sternum. Patient denies any falls or trauma. The patient has not had any cough or fever. The patient is concerned that she is "filling up with fluid." ROS: See HPI for pertinent positives and negatives. A total of 10 systems were reviewed and otherwise negative. Past medical history: See below Surgical history: See below Social history: See below Physical Exam: GENERAL: Ill in appearance, moderate distress, nasal cannula in place. EYE EXAM: Normal conjunctiva. PERRL, no anisocoria and EOM's grossly intact w/o pain. NECK: Supple, no nuchal rigidity, no adenopathy, non-tender. No signs of meningismus. FROM of the neck with good chin to chest and neck extension. No stridor. Chest: Scarring with likely prior skin graft to the right anterior chest with absent portion of the sternum. LUNGS: Crackles throughout, tachypneic. HEART: Tachycardic and irregularly irregular, no MRG. ABDOMEN: Abdomen soft, non-tender, normo-active bowel sounds, no masses, no rebound or guarding. BACK: No CVA TTP. SKIN: No rashes and no bruising. UPPER EXTREMITIES: Upper extremities are grossly normal. LOWER EXTREMITIES: Grossly normal, 2-3+ bilateral symmetric lower extremity edema without calf pain or erythema, no crepitus, compartments are soft and neurovascular intact distally NEURO EXAM: A&O x3, cranial nerves II-XII grossly intact, normal speech, moves all 4 extremities. Differential diagnoses: Cardiac ischemia, aortic dissection, pulmonary embolism, pneumothorax, pneumonia, pericarditis, myocarditis, esophageal rupture, GERD, cholecystitis, pancreatitis, musculoskeletal, as well as other pathologies. Course: Patient was seen and evaluated the bedside. Full history physical exam was performed. EKG interpreted by me Being read as sinus tach but believe this to be A. fib with RVR with rate of 145, normal QRS duration, normal axis. Repeat completed at 1652 being read as SVT but believe A. fib with RVR rate of 150 with normal axis and normal QRS duration. Imaging Studies: See Below Cardiac monitoring: An order was placed for continuous cardiac monitoring. The monitor shows a rate of 142 with irregularly irregular and tachycardicrhythm. MDM: Patient did present due to concern for shortness of breath and chest pain. The patient did have improvement of her chest pain with additional oxygen and positional changes. I did obtain some outpatient records and the patient was ordered Lasix, nitro, metoprolol IV, and BiPAP. Patient did have blood work completed along with a [id number] BMP. The patient did have a relatively recent CT angiography of the chest completed in October which showed no evidence of dissection or PE at that time. The patient is anticoagulated on Eliquis. Pat ient does have significant leg swelling with shortness of breath and the patient does have B-lines on [id number] bedside ultrasound. No obvious pericardial effusion noted. Patient's blood work showed a normal creatinine potassium. Patient did have improvement with the medications. The patient was given multiple doses of IV metoprolol and did have improvement in her heart rate. The patient was tolerating the BiPAP well. The patient's blood work did show normal white count with a hemoglobin of 8. The patient's platelet count is unremarkable. INR 1.2. Patient did have a positive troponin. Patient did have an elevated BNP. Do believe that the patient's elevated troponin and BNP likely to demand ischemia secondary to her A. fib with RVR. Patient chest pain is virtually resolved. Shortness of breath is much improved with symptomatic treatment IV medications in addition to BiPAP. I did speak the on-call hospitalist Dr. Cox and the patient was admitted to the medicine service. Critical Care: I have personally spent 95 minutes of critical care time in direct management of this patient. This includes bedside care, interpretation of diagnostic studies, and testing, discussion with consultants, patient, and family members, and other require inpatient management activities. This 95 minutes is in excess of all separately billable procedures. Past Med/Surg History Medical History (HFpEF) heart failure with preserved ejection fraction Acute hypokalemia Anxiety Atherosclerotic cardiovascular disease Atrial fibrillation with RVR BPV (benign positional vertigo) Breast cancer Colon cancer DMII (diabetes mellitus, type 2) Hyperlipidemia Hypertension Hypomagnesemia On apixaban therapy Pneumonia ST elevation (STEMI) myocardial infarction Surgical History History of colon resection History of mastectomy S/P drug eluting coronary stent placement S/P PTCA (percutaneous transluminal coronary angioplasty) S/P TAVR (transcatheter aortic valve replacement) Social History Smoking Status: Never smoker Second Hand Exposure: No; Do You Dip or Chew Tobacco: No; Tobacco Cessation Education Requested by Patient: No Hx Alcohol Use: No Hx Substance Use: No Preferred Language: [place] Leonean Communication Ability: Effective Illuminating Engineer Required: No Beliefs That Will Affect Care: None marital status: Current Living Situation: Spouse Other Information That Helps Us Care for You: No Feels Safe at Home: Yes Safety Concerns: Feels Safe At This Time Assistive Devices: Glasses and Oxygen - Continuous Allergies Allergies Allergy/AdvReac Type Severity Reaction Status Date / Time codeine Allergy Severe RESP. Verified 01/15/20 21:10 DEPRESSION oyster extract Allergy Intermediate HIVES AND Verified 01/15/20 21:10 SWELLING, NO PROBLEMS W CONTRAST Home Meds Home Medications Medication Instructions Recorded Confirmed acetaminophen 500 mg tablet 500 mg PO DIRECTED PRN Fever Or 07/29/19 02/06/22 (Tylenol Extra Strength) Pain cholecalciferol (vitamin D3) 25 1,000 unit PO QAM 07/29/19 02/06/22 mcg (1,000 unit) capsule (Vitamin D3) furosemide 20 mg tablet (Lasix) 20 mg PO DAILY 07/29/19 02/06/22 metoprolol tartrate 100 mg tablet 200 mg PO BID 07/29/19 02/06/22 omega [id number]-izk-fbc-fish oil 1,000 mg 1 cap PO QAM 07/29/19 02/06/22 (120 mg-180 mg) capsule (Fish Oil) nitroglycerin 0.4 mg sublingual 0.4 mg sublingual UD PRN Chest Pain 01/15/20 02/06/22 tablet (Nitrostat) omeprazole 20 mg tablet,delayed 20 mg PO DAILY 01/15/20 02/06/22 release atorvastatin 40 mg tablet 40 mg PO DAILY 02/06/22 02/06/22 clopidogrel 75 mg tablet 75 mg PO DAILY 02/06/22 02/06/22 ferrous sulfate 325 mg (65 mg 325 mg PO DAILY 02/06/22 02/06/22 iron) tablet (Iron (ferrous sulfate)) isosorbide mononitrate 30 mg 30 mg PO DAILY 02/06/22 02/06/22 tablet,extended release 24 hr lisinopril 2.5 mg tablet 2.5 mg PO DAILY 02/06/22 02/06/22 lorazepam 0.5 mg tablet (Ativan) 0.25 mg PO BID PRN Anxiety 02/06/22 02/06/22 Previous Rx's Medication Instructions Recorded apixaban 5 mg tablet (Eliquis) 5 mg PO BID 30 days #60 tabs 01/17/20 Results & Data (ED) Vital Signs Vital Signs - 24 hr 02/06/22 16:47 02/06/22 16:50 02/06/22 17:00 Pulse Rate 109 H 148 H 147 H Pulse Rate from SpO2 Sensor 139 H 149 H 149 H Respiratory Rate 23 27 H 36 H Respiratory Effort / Characteristics Respiratory Depth Respiratory Pattern Blood Pressure 184/94 H Blood Pressure Mean 124 Pulse Oximetry 100 100 100 Pulse Oximetry [Left Middle Finger] Oxygen Delivery Method Nasal Cannula Oxygen Delivery Method [Left Middle Finger] Oxygen Flow Rate 6 Oxygen Flow Rate [Left Middle Finger] Fraction of Inspired Oxygen 02/06/22 17:17 02/06/22 17:23 02/06/22 16:59 Pulse Rate 147 H 150 H Pulse Rate from SpO2 Sensor Respiratory Rate 29 H Respiratory Effort / Characteristics Non-Labored Spontaneous Respiratory Depth Normal Respiratory Pattern Tachypnea Blood Pressure 184/94 H Blood Pressure Mean Pulse Oximetry 97 83 L Pulse Oximetry [Left Middle Finger] Oxygen Delivery Method Room Air Oxygen Delivery Method [Left Middle Finger] Oxygen Flow Rate Oxygen Flow Rate [Left Middle Finger] Fraction of Inspired Oxygen 28 02/06/22 17:11 02/06/22 17:20 02/06/22 17:48 Pulse Rate 145 H 149 H 99 H Pulse Rate from SpO2 Sensor 151 H 148 H Respiratory Rate 26 H 19 Respiratory Effort / Characteristics Respiratory Depth Respiratory Pattern Blood Pressure 163/89 H 130/89 112/87 Blood Pressure Mean 113 102 Pulse Oximetry 100 99 Pulse Oximetry [Left Middle Finger] Oxygen Delivery Method BiPAP Oxygen Delivery Method [Left Middle Finger] Oxygen Flow Rate Oxygen Flow Rate [Left Middle Finger] Fraction of Inspired Oxygen 02/06/22 17:30 02/06/22 18:00 02/06/22 18:28 Pulse Rate 144 H 128 H 115 H Pulse Rate from SpO2 Sensor 145 H 134 H Respiratory Rate 24 21 Respiratory Effort / Characteristics Respiratory Depth Respiratory Pattern Blood Pressure 147/79 H 110/78 133/67 Blood Pressure Mean 101 88 Pulse Oximetry 96 96 Pulse Oximetry [Left Middle Finger] Oxygen Delivery Method BiPAP BiPAP Oxygen Delivery Method [Left Middle Finger] Oxygen Flow Rate Oxygen Flow Rate [Left Middle Finger] Fraction of Inspired Oxygen 02/06/22 18:30 02/06/22 18:50 02/06/22 18:51 Pulse Rate 115 H Pulse Rate from SpO2 Sensor 119 H Respiratory Rate 24 Respiratory Effort / Characteristics Respiratory Depth Respiratory Pattern Blood Pressure 99/63 L Blood Pressure Mean 75 Pulse Oximetry 91 100 95 Pulse Oximetry [Left Middle Finger] Oxygen Delivery Method BiPAP BiPAP Nasal Cannula Oxygen Delivery Method [Left Middle Finger] Oxygen Flow Rate 5 4 Oxygen Flow Rate [Left Middle Finger] Fraction of Inspired Oxygen 02/06/22 19:06 02/06/22 18:52 02/06/22 19:00 Pulse Rate 108 H 102 H Pulse Rate from SpO2 Sensor 108 H 119 H Respiratory Rate 27 H 19 Respiratory Effort / Characteristics Respiratory Depth Respiratory Pattern Blood Pressure 134/53 L Blood Pressure Mean 80 Pulse Oximetry 96 95 95 Pulse Oximetry [Left Middle Finger] Oxygen Delivery Method Nasal Cannula Nasal Cannula Oxygen Delivery Method [Left Middle Finger] Oxygen Flow Rate 4 4 Oxygen Flow Rate [Left Middle Finger] Fraction of Inspired Oxygen 02/06/22 19:01 09/17/22 19:01 02/06/22 16:48 Pulse Rate 119 H Pulse Rate from SpO2 Sensor 128 H Respiratory Rate 27 H Respiratory Effort / Characteristics Respiratory Depth Respiratory Pattern Blood Pressure 138/91 Blood Pressure Mean 106 Pulse Oximetry 93 Pulse Oximetry [Left Middle Finger] 94 Oxygen Delivery Method Oxygen Delivery Method [Left Middle Finger] Nasal Cannula Oxygen Flow Rate Oxygen Flow Rate [Left Middle Finger] 4 Fraction of Inspired Oxygen Home Medications Current Medication List: was personally reviewed by me Laboratory Data Attestation: I reviewed the patient's lab results. Result diagrams: 02/07/22 07:20 02/07/22 07:19 Lab Results 02/06/22 02/06/22 02/06/22 Range/Units 16:55 16:55 16:55 WBC 4.93 (4.8-10.8) K/ul RBC 3.21 L (3.93-5.22) M/uL Hgb 8.1 L (12.0-16.0) g/dl POC Hgb (12.0-16.0) g/dl Hct 27.8 L (34.1-44.9) % POC Hct (37-47) % MCV 86.6 (80.0-100.0) fL MCH 25.2 (25.0-34.0) pg MCHC 29.1 L (32.0-36.0) g/dL RDW Std Deviation 52.0 H (36.4-46.3) fL RDW Coeff of Letitia 16.7 H (11.5-14.5) % Plt Count 191 (130-400) K/uL MPV 12.0 (9.4-12.3) fL Immature Gran % (Auto) 0.2 % Neut % (Auto) 62.3 % Lymph % (Auto) 22.9 % [place] % (Auto) 11.2 % Eos % (Auto) 2.4 % Baso % (Auto) 1.0 % Neut # (Auto) 3.07 (1.4-6.5) K/uL Lymph # (Auto) 1.13 L (1.2-3.4) K/uL [place] # (Auto) 0.55 (0.24-0.82) K/uL Eos # (Auto) 0.12 (0-0.50) K/uL Baso # (Auto) 0.05 (0-0.2) K/uL Immature Gran # (Auto) 0.01 (0.00-0.02) K/uL PT 12.5 H (9.0-12.0) Seconds INR 1.2 H (0.9-1.1) APTT 27.9 (21.0-31.0) Seconds PTT Ratio 1.0 POC Sodium (135-144) mmol/L Sodium 142 (136-145) mmol/L POC Potassium (3.3-5.0) mmol/L Potassium 4.0 (3.5-5.1) mmol/L POC Chloride (101-112) mmol/L Chloride 97 L (98-107) mmol/L Carbon Dioxide 39 H (21-32) mmol/L POC Total CO2 (24-31) mmol/L Anion Gap 6 (3-11) POC Anion Gap (16-25) mmol/L POC BUN (7-18) mg/dl BUN 45 H (6-23) mg/dl Creatinine 1.06 (0.6-1.2) mg/dl POC Creatinine (0.6-1.3) mg/dl Est Cr Clr Drug Dosing 39.6 ml/min Est GFR ( Amer) 57.0 ml/min Est GFR (Non-Af Amer) 49.2 ml/min BUN/Creatinine Ratio 42.5 H (10-20) Glucose 189 H (70-99(Fasting)) mg/dl POC Glucose (other) (70-99) mg/dl Calcium 8.4 L (8.5-10.1) mg/dl POC Ioniz Calcium Nick (1.12-1.32) mmol/l Magnesium (1.7-2.4) mg/dl Total Bilirubin 0.8 (0.2-1.0) mg/dl AST 17 (13-39) U/L ALT 12 (7-52) U/L Alkaline Phosphatase 89 (34-104) U/L Troponin I High Sens 19.3 H D (0-14) pg/ml B-Natriuretic Peptide (0-100) pg/ml Total Protein 7.0 (6.0-8.3) gm/dl Albumin 3.8 (3.4-5.0) gm/dl Globulin 3.2 (2.5-4.0) gm/dl Albumin/Globulin Ratio 1.2 (0.9-2) Lipase 92 H (11-82) U/L SARS-CoV-2, RNA, NAAT (NEGATIVE) 02/06/22 02/06/22 02/06/22 Range/Units 16:55 16:55 17:08 WBC (4.8-10.8) K/ul RBC (3.93-5.22) M/uL Hgb (12.0-16.0) g/dl POC Hgb 10.2 L (12.0-16.0) g/dl Hct (34.1-44.9) % POC Hct 30 L (37-47) % MCV (80.0-100.0) fL MCH (25.0-34.0) pg MCHC (32.0-36.0) g/dL RDW Std Deviation (36.4-46.3) fL RDW Coeff of Letitia (11.5-14.5) % Plt Count (130-400) K/uL MPV (9.4-12.3) fL Immature Gran % (Auto) % Neut % (Auto) % Lymph % (Auto) % [place] % (Auto) % Eos % (Auto) % Baso % (Auto) % Neut # (Auto) (1.4-6.5) K/uL Lymph # (Auto) (1.2-3.4) K/uL [place] # (Auto) (0.24-0.82) K/uL Eos # (Auto) (0-0.50) K/uL Baso # (Auto) (0-0.2) K/uL Immature Gran # (Auto) (0.00-0.02) K/uL PT (9.0-12.0) Seconds INR (0.9-1.1) APTT (21.0-31.0) Seconds PTT Ratio POC Sodium 143 (135-144) mmol/L Sodium (136-145) mmol/L POC Potassium 4.0 (3.3-5.0) mmol/L Potassium (3.5-5.1) mmol/L POC Chloride 93 L (101-112) mmol/L Chloride (98-107) mmol/L Carbon Dioxide (21-32) mmol/L POC Total CO2 38 H (24-31) mmol/L Anion Gap (3-11) POC Anion Gap 17.0 (16-25) mmol/L POC BUN 53 H (7-18) mg/dl BUN (6-23) mg/dl Creatinine (0.6-1.2) mg/dl POC Creatinine 1.1 (0.6-1.3) mg/dl Est Cr Clr Drug Dosing ml/min Est GFR ( Amer) ml/min Est GFR (Non-Af Amer) ml/min BUN/Creatinine Ratio (10-20) Glucose (70-99(Fasting)) mg/dl POC Glucose (other) 199 H (70-99) mg/dl Calcium (8.5-10.1) mg/dl POC Ioniz Calcium Nick 1.06 L (1.12-1.32) mmol/l Magnesium 1.0 L (1.7-2.4) mg/dl Total Bilirubin (0.2-1.0) mg/dl AST (13-39) U/L ALT (7-52) U/L Alkaline Phosphatase (34-104) U/L Troponin I High Sens (0-14) pg/ml B-Natriuretic Peptide (0-100) pg/ml Total Protein (6.0-8.3) gm/dl Albumin (3.4-5.0) gm/dl Globulin (2.5-4.0) gm/dl Albumin/Globulin Ratio (0.9-2) Lipase (11-82) U/L SARS-CoV-2, RNA, NAAT NEGATIVE (NEGATIVE) 02/06/22 Range/Units 17:50 WBC (4.8-10.8) K/ul RBC (3.93-5.22) M/uL Hgb (12.0-16.0) g/dl POC Hgb (12.0-16.0) g/dl Hct (34.1-44.9) % POC Hct (37-47) % MCV (80.0-100.0) fL MCH (25.0-34.0) pg MCHC (32.0-36.0) g/dL RDW Std Deviation (36.4-46.3) fL RDW Coeff of Letitia (11.5-14.5) % Plt Count (130-400) K/uL MPV (9.4-12.3) fL Immature Gran % (Auto) % Neut % (Auto) % Lymph % (Auto) % [place] % (Auto) % Eos % (Auto) % Baso % (Auto) % Neut # (Auto) (1.4-6.5) K/uL Lymph # (Auto) (1.2-3.4) K/uL [place] # (Auto) (0.24-0.82) K/uL Eos # (Auto) (0-0.50) K/uL Baso # (Auto) (0-0.2) K/uL Immature Gran # (Auto) (0.00-0.02) K/uL PT (9.0-12.0) Seconds INR (0.9-1.1) APTT (21.0-31.0) Seconds PTT Ratio POC Sodium (135-144) mmol/L Sodium (136-145) mmol/L POC Potassium (3.3-5.0) mmol/L Potassium (3.5-5.1) mmol/L POC Chloride (101-112) mmol/L Chloride (98-107) mmol/L Carbon Dioxide (21-32) mmol/L POC Total CO2 (24-31) mmol/L Anion Gap (3-11) POC Anion Gap (16-25) mmol/L POC BUN (7-18) mg/dl BUN (6-23) mg/dl Creatinine (0.6-1.2) mg/dl POC Creatinine (0.6-1.3) mg/dl Est Cr Clr Drug Dosing ml/min Est GFR ( Amer) ml/min Est GFR (Non-Af Amer) ml/min BUN/Creatinine Ratio (10-20) Glucose (70-99(Fasting)) mg/dl POC Glucose (other) (70-99) mg/dl Calcium (8.5-10.1) mg/dl POC Ioniz Calcium Nick (1.12-1.32) mmol/l Magnesium (1.7-2.4) mg/dl Total Bilirubin (0.2-1.0) mg/dl AST (13-39) U/L ALT (7-52) U/L Alkaline Phosphatase (34-104) U/L Troponin I High Sens (0-14) pg/ml B-Natriuretic Peptide 639 H (0-100) pg/ml Total Protein (6.0-8.3) gm/dl Albumin (3.4-5.0) gm/dl Globulin (2.5-4.0) gm/dl Albumin/Globulin Ratio (0.9-2) Lipase (11-82) U/L SARS-CoV-2, RNA, NAAT (NEGATIVE) Administered Medications Acetaminophen (Acetaminophen 325 Mg Tab) 650 mg PO Q4H PRN PRN Reason: Pain or Fever Stop: 03/08/22 21:22 Last Admin: 02/07/22 05:31 Dose: 650 mg Documented By: ALYSSA Apixaban (Apixaban 5 Mg Tablet) 5 mg PO BID ILA Stop: 03/08/22 21:22 Last Admin: 02/07/22 08:16 Dose: 5 mg Documented By: ANNE-MARIE Admin: 02/06/22 22:22 Dose: 5 mg Documented By: ALYSSA Atorvastatin Calcium (Atorvastatin 40 Mg Tab) 40 mg PO DAILY ILA Stop: 03/09/22 08:59 Last Admin: 02/07/22 08:17 Dose: 40 mg Documented By: ANNE-MARIE Clopidogrel Bisulfate (Clopidogrel Bisulfate 75 Mg Tab) 75 mg PO DAILY ILA Stop: 03/09/22 08:59 Last Admin: 02/07/22 08:16 Dose: 75 mg Documented By: SUB Ferrous Sulfate (Ferrous Sulfate 325 Mg Tab) 325 mg PO DAILY ILA Stop: 03/09/22 08:59 Last Admin: 02/07/22 08:16 Dose: 325 mg Documented By: SUB Fish Oil (Anthony-3 (Purified Fish Oil) 1 Gm Cap) 1 gm PO QAM ILA Stop: 03/09/22 08:59 Last Admin: 02/07/22 08:16 Dose: 1 gm Documented By: SUB Furosemide (Furosemide 40 Mg/4 Ml Vial) 40 mg IV BID ILA Stop: 03/09/22 11:29 Last Admin: 02/07/22 11:26 Dose: 40 mg Documented By: ANNE-MARIE Insulin Aspart (Insulin Aspart Per Unit) 0 units SC ACHS ILA Stop: 03/08/22 21:22 Last Admin: 02/07/22 11:59 Dose: 2 units Documented By: ANNE-MARIE Co-signed By: GOVIND Admin: 02/07/22 08:08 Dose: Not Given Documented By: ANNE-MARIE Admin: 02/06/22 22:22 Dose: 2 units Documented By: ALYSSA Co-signed By: AMI Isosorbide Mononitrate (Isosorbide [place] Extended Rel 30 Mg Tabcr) 30 mg PO DAILY ILA Stop: 03/09/22 08:59 Last Admin: 02/07/22 08:16 Dose: 30 mg Documented By: SUB Lisinopril (Lisinopril 2.5 Mg Tab) 2.5 mg PO DAILY ILA Stop: 03/09/22 08:59 Last Admin: 02/07/22 08:16 Dose: 2.5 mg Documented By: SUB Metoprolol Tartrate (Metoprolol Tartrate 100 Mg Tab) 200 mg PO BID ILA Stop: 03/08/22 21:22 Last Admin: 02/07/22 08:16 Dose: 200 mg Documented By: ANNE-MARIE Admin: 02/06/22 22:22 Dose: 200 mg Documented By: ThienT Nitroglycerin (Nitroglycerin Sl 0.4 Mg/Tab Tab) 0.4 mg SL UD PRN PRN Reason: Chest Pain Stop: 03/08/22 16:47 Last Admin: 02/06/22 17:17 Dose: 0.4 mg Documented By: MT Pantoprazole Sodium (Pantoprazole 40 Mg Tab) 40 mg PO DAILY ILA Stop: 03/09/22 08:59 Last Admin: 02/07/22 08:16 Dose: 40 mg Documented By: SUB Spironolactone (Spironolactone 12.5 Mg Tab) 12.5 mg PO DAILY ILA Stop: 03/09/22 10:59 Last Admin: 02/07/22 11:56 Dose: 12.5 mg Documented By: SUB Vitamin D (Cholecalciferol 1,000 Units 25 Mcg Tab) 1,000 units PO QAM ILA Stop: 03/09/22 08:59 Last Admin: 02/07/22 08:16 Dose: 1,000 units Documented By: SUB Discontinued Medications Aspirin (Aspirin Chew 324 Mg) 324 mg PO NOW STA Stop: 02/06/22 16:49 Last Admin: 02/06/22 17:17 Dose: 324 mg Documented By: MT Furosemide (Furosemide 40 Mg/4 Ml Vial) 40 mg IV ONE ONE Stop: 02/06/22 17:11 Last Admin: 02/06/22 17:17 Dose: 40 mg Documented By: MT Furosemide (Furosemide 40 Mg/4 Ml Vial) 40 mg IV BID ILA Stop: 02/09/22 10:44 Last Admin: 02/07/22 12:01 Dose: Not Given Documented By: ANNE-MARIE Calcium Gluconate () 1,000 mg in 60 mls @ 240 mls/hr IV NOW STA Stop: 02/06/22 18:45 Last Infusion: 02/06/22 19:31 Dose: 0 mls/hr Documented By: Admin: 02/06/22 19:12 Dose: 240 mls/hr Documented By: BARRON Magnesium Sulfate/Dextrose (Magnesium Sulfate / D5w) 1 gm in 100 mls @ 50 mls/hr IV Q2H ILA Stop: 02/07/22 15:14 Last Infusion: 02/07/22 15:56 Dose: 0 mls/hr Documented By: Admin: 02/07/22 13:53 Dose: 50 mls/hr Documented By: ANNE-MARIE Infusion: 02/07/22 13:53 Dose: 50 mls/hr Documented By: Admin: 02/07/22 11:54 Dose: 50 mls/hr Documented By: ANNE-MARIE Infusion: 02/07/22 11:46 Dose: 50 mls/hr Documented By: Admin: 02/07/22 09:46 Dose: 50 mls/hr Documented By: ANNE-MARIE Infusion: 02/07/22 09:46 Dose: 50 mls/hr Documented By: Admin: 02/07/22 08:14 Dose: 50 mls/hr Documented By: ANNE-MARIE Lorazepam (Lorazepam 2 Mg/1 Ml Vial) 0.25 mg IV NOW STA; Protocol Stop: 02/06/22 18:16 Last Admin: 02/06/22 18:28 Dose: 0.25 mg Documented By: RAFAL Metoprolol Tartrate (Metoprolol Tartrate 1 Mg/Ml Vial) 5 mg IV NOW STA Stop: 02/06/22 17:11 Last Admin: 02/06/22 17:17 Dose: 5 mg Documented By: RAFAL Metoprolol Tartrate (Metoprolol Tartrate 1 Mg/Ml Vial) 5 mg IV NOW STA Stop: 02/06/22 17:40 Last Admin: 02/06/22 17:48 Dose: 5 mg Documented By: RAFAL Metoprolol Tartrate (Metoprolol Tartrate 1 Mg/Ml Vial) 5 mg IV NOW STA Stop: 02/06/22 18:19 Last Admin: 02/06/22 18:28 Dose: 5 mg Documented By: MT Imaging Data Radiologist's Impression: Chest X-Ray 02/06/22 16:30 XR chest 1V portable HISTORY: Atypical Chest Pain COMPARISON: Chest CTA 11/03/2021. FINDINGS: No pneumothorax. No pleural effusions. There is chronic elevation the right hemidiaphragm with stable blunting of the right lateral costophrenic sulcus. The heart remains mildly enlarged. There are dense mitral annulus calcifications and an aortic valve stent is noted. No evidence for pulmonary edema. Patchy reticulonodular densities within the lung bases persist. IMPRESSION: 1. Patchy reticulonodular densities within the lung bases persists. This favors a chronic inflammatory/infectious bronchiolitis. 2. No new focal lung consolidations identified. 3. Stable cardiomegaly. ACT 112: Negative or not required by law. Electronically signed by: Rc Rodríguez M.D. 02/06/2022 5:16 PM Discharge Plan Visit Data Chief Complaint: Chest Pain Stated Complaint: CHEST PAIN ED Provider: Ajith Kim Discharge Problem: Acute exacerbation of CHF (congestive heart failure), Acute respiratory failure with hypoxemia, Atrial fibrillation with RVR, Hypomagnesemia, S/P TAVR (transcatheter aortic valve replacement) Patient Disposition: Admitted As Inpatient Discharge Instructions Interventions: ED Discharge Assessment Last Done: 02/06/22 19:50
[2022-02-06] MEDS ORDERED: NITROGLYCERIN SL 0.4 MG/TAB TAB SL PRN ×2 (16:48→21:23)
[2022-02-06] MEDS ORDERED: ASPIRIN CHEW 324 MG PO STA (16:48)
[2022-02-06] MEDS ORDERED: FUROSEMIDE 40 MG/4 ML VIAL IV ONE (17:10)
[2022-02-06] MEDS ORDERED: METOPROLOL TARTRATE 1 MG/ML VIAL IV STA ×3 (17:10→18:18)
--- NOTE | 2022-02-06 17:17 | XRay Report ---
XR chest 1V portable HISTORY: Atypical Chest Pain COMPARISON: Chest CTA 11/03/2021. FINDINGS: No pneumothorax. No pleural effusions. There is chronic elevation the right hemidiaphragm w ith stable blunting of the right lateral costophrenic sulcus. The heart remains mildly enlarged. Ther e are dense mitral annulus calcifications and an aortic valve stent is noted. No evidence for pulmona ry edema. Patchy reticulonodular densities within the lung bases persist. IMPRESSION: 1. Patchy reticulonodular densities within the lung bases persists. This favors a chronic inflammator y/infectious bronchiolitis. 2. No new focal lung consolidations identified. 3. Stable cardiomegaly. ACT 112: Negative or not required by law. Electronically signed by: Rc Rodríguez M.D. 02/06/2022 5:16 PM
[2022-02-06 17:21] LABS: iSTAT Creatinine 1.1 mg/dl (0.6-1.3); iSTAT Hemoglobin 10.2 g/dl (12.0-16.0); iSTAT Ionized Calcium 1.06 mmol/l (1.12-1.32)
[2022-02-06 17:25] LABS: Basophils # (auto) 0.05 K/uL (0-0.2); Eosinophils # (auto) 0.12 K/uL (0-0.50); Eosinophils % (auto) 2.4 %; Hematocrit (blood only) 27.8 % (34.1-44.9); Hemoglobin 8.1 g/dl (12.0-16.0); Immature Granulocytes # (auto) 0.01 K/uL (0.00-0.02); Immature Granulocytes % (auto) 0.2 %; Lymphocytes # (auto) 1.13 K/uL (1.2-3.4); Lymphocytes % (auto) 22.9 %; Mean Corpuscular Hemoglobin 25.2 pg (25.0-34.0); Mean Corpuscular Hgb Conc 29.1 g/dL (32.0-36.0); Mean Corpuscular Volume 86.6 fL (80.0-100.0); Monocytes # (auto) 0.55 K/uL (0.24-0.82); Monocytes % (auto) 11.2 %; Neutrophils # (auto) 3.07 K/uL (1.4-6.5); Neutrophils % (auto) 62.3 %; Platelet Count 191 K/uL (130-400); RDW Coefficient of Variation 16.7 % (11.5-14.5); Red Blood Count 3.21 M/uL (3.93-5.22); White Blood Count 4.93 K/ul (4.8-10.8)
[2022-02-06 17:37] LABS: INR 1.2 (0.9-1.1); Partial Thromboplastin Time 27.9 Seconds (21.0-31.0); Prothrombin Time 12.5 Seconds (9.0-12.0)
[2022-02-06 17:54] LABS: Troponin I High Sensitivity 19.3 pg/ml (0-14)
[2022-02-06] MEDS ORDERED: LORazepam 2 MG/2 ML SYR IV STA (18:15)
[2022-02-06 18:19] LABS: Albumin Globulin Ratio 1.2 (0.9-2); Albumin Level 3.8 gm/dl (3.4-5.0); BUN Creatinine Ratio 42.5 (10-20); Bilirubin,Total 0.8 mg/dl (0.2-1.0); Calcium 8.4 mg/dl (8.5-10.1); Creatinine Clr Calc Pharmacy 39.6 ml/min; Est GFR (Non-African American) 49.2 ml/min; Globulin 3.2 gm/dl (2.5-4.0)
[2022-02-06] MEDS ORDERED: CALCIUM GLUCONATE 1,000 MG/60 ML BAG IV STA (18:31)
--- NOTE | 2022-02-06 19:57 | History & Physical Report ---
Date of Service February 06, 2022 Assessment & Plan (1) Acute on chronic heart failure with preserved ejection fraction: (2) Acute and chronic respiratory failure: (3) Anemia: (4) Atrial fibrillation with RVR: (5) Hypertension: (6) S/P TAVR (transcatheter aortic valve replacement): (7) DMII (diabetes mellitus, type 2): Plan Acute on CHF with Hypoxia: -was able to transition pt from BiPAP to NC --- pt did very well on 4L of oxygen -Echo from 04/2021 showed EF of 58% -trop is elevated: will trend -continue Lasix 40mg IV q24hr -Cardiology consult -repeat echo -at baseline pt wears 2L of oxygen ----wean off oxygen as tolerates -daily weight -Strict I/O Afib with RVR: -HR improved with IV Lopressor -will continue pt on home metoprolol dose 200mg BID -admit to PCU tele - continue Eliquis BID Chronic anemia: -hgb from outpt was 8.7 but it was 10-11 3 months ago -hgb is stable now -will get FOBT -trend CBC -continue iron supplement chronic calculus cholecystitis: -pt was admitted to [facility] 2 weeks ago for possible cholecystectomy but it was cancelled bc pt tested positive for COVID -sched to follow up with surgery as outpt on 02/24 CAD s/p stents: -continue statin and Plavix DMII: -pt is not on any meds from outpt -repeat A1C and ISS HTN/HLD/Anxiety: -continue home meds Diet: Heart healthy and DMII DVT PPx:Eliquis Code Status: FULL CODE Emergency Contact: Adama [phone] History of Present Illness Chief Complaint: chest pain Primary Care Provider: Mohit Perkins MD Pt is a 81 y/o F with complicated cardiac history, CAD s/p stents, Mitral valve fibroelastoma s/p annuloplasty, breast ca s/p lumpectomy & radiation, 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 Per pt she has been having diarrhea 3-4x/day with nausea for few weeks. Today she started to experience chest pain and has been noticing increased leg swelling for last few days. Has been complaint with her medications and today took 40mg of lasix instead of 20mg. She has been wearing 2L of oxygen at home continuously. ER course: pt was initially put on Bipap and given 40mg IV Lasix and 15mg of IV Lopressor At bedside: pt denied any acute CP, abd pain, N/V or SOB. She stated that she is feeling better since the arrival. Transition the pt to 4L NC and pt did very well and remained asymptomatic Allergies Allergy/AdvReac Type Severity Reaction Status Date / Time codeine Allergy Severe RESP. Verified 01/15/20 21:10 DEPRESSION oyster extract Allergy Intermediate HIVES AND Verified 01/15/20 21:10 SWELLING, NO PROBLEMS W CONTRAST Home Medications Medication Instructions Recorded Confirmed Type acetaminophen 500 mg tablet 500 mg PO DIRECTED PRN Fever Or 07/29/19 02/06/22 History (Tylenol Extra Strength) Pain cholecalciferol (vitamin D3) 25 1,000 unit PO QAM 07/29/19 02/06/22 History mcg (1,000 unit) capsule (Vitamin D3) furosemide 20 mg tablet (Lasix) 20 mg PO DAILY 07/29/19 02/06/22 History metoprolol tartrate 100 mg tablet 200 mg PO BID 07/29/19 02/06/22 History omega 5-mjw-baa-fish oil 1,000 mg 1 cap PO QAM 07/29/19 02/06/22 History (120 mg-180 mg) capsule (Fish Oil) nitroglycerin 0.4 mg sublingual 0.4 mg sublingual UD PRN Chest Pain 01/15/20 02/06/22 History tablet (Nitrostat) omeprazole 20 mg tablet,delayed 20 mg PO DAILY 01/15/20 02/06/22 History release apixaban 5 mg tablet (Eliquis) 5 mg PO BID 30 days #60 tabs 01/17/20 02/06/22 Rx atorvastatin 40 mg tablet 40 mg PO DAILY 02/06/22 02/06/22 History clopidogrel 75 mg tablet 75 mg PO DAILY 02/06/22 02/06/22 History ferrous sulfate 325 mg (65 mg 325 mg PO DAILY 02/06/22 02/06/22 History iron) tablet (Iron (ferrous sulfate)) isosorbide mononitrate 30 mg 30 mg PO DAILY 02/06/22 02/06/22 History tablet,extended release 24 hr lisinopril 2.5 mg tablet 2.5 mg PO DAILY 02/06/22 02/06/22 History lorazepam 0.5 mg tablet (Ativan) 0.25 mg PO BID PRN Anxiety 02/06/22 02/06/22 History Past Med/Surg History Medical History (Updated 02/06/22 @ 19:54 by Chin Chacon MD) (HFpEF) heart failure with preserved ejection fraction Acute hypokalemia Anxiety Atherosclerotic cardiovascular disease Atrial fibrillation with RVR BPV (benign positional vertigo) Breast cancer Colon cancer DMII (diabetes mellitus, type 2) Hyperlipidemia Hypertension Hypomagnesemia On apixaban therapy Pneumonia ST elevation (STEMI) myocardial infarction Surgical History History of colon resection History of mastectomy S/P drug eluting coronary stent placement S/P PTCA (percutaneous transluminal coronary angioplasty) S/P TAVR (transcatheter aortic valve replacement) Social History Smoking Status: Never smoker Second Hand Exposure: No; Hx Alcohol Use: Yes Alcohol type: wine Hx Substance Use: No Preferred Language: Hebrew Communication Ability: Effective Complaint Investigations Officer Required: No Beliefs That Will Affect Care: None marital status: Current Living Situation: Spouse Feels Safe at Home: Yes Assistive Devices: None Review of Systems Review of Systems: At least 10 Review of systems were reviewed and all negative except as indicated in HPI Physical Exam Physical Exam: General:.NC in place (4L), NAD, well developed, well nourished, average body habitus HEENT:. Normocephalic and atraumatic, Normal Conjunctiva, EOMI, Sclera is non- icteric Lungs:.b/l lower lobe crackles but Good air entry b/l Heart:.Systolic murmur, in Afib ( upper part of the sternum removed) Abdominal:. ND, Soft, NT MSK:severe b/l LE pitting edema Psych:. AAOx3, normal affect Results & Data Results & Data ([facility]) Vital Signs (Past 12 Hours) Vital Signs Temp Pulse Resp BP Pulse Ox O2 Del Method O2 Flow Rate 02/06/22 19:25 105 H 25 H 120/77 100 02/06/22 19:01 138/91 02/06/22 19:01 119 H 27 H 93 02/06/22 19:00 102 H 19 95 02/06/22 18:52 108 H 27 H 134/53 L 95 Nasal Cannula 4 02/06/22 19:06 96 Nasal Cannula 4 02/06/22 18:51 95 Nasal Cannula 4 02/06/22 18:50 100 BiPAP 5 02/06/22 18:30 115 H 24 99/63 L 91 BiPAP 02/06/22 18:28 115 H 133/67 02/06/22 18:00 128 H 21 110/78 96 BiPAP 02/06/22 17:30 144 H 24 147/79 H 96 BiPAP 02/06/22 17:48 99 H 112/87 02/06/22 17:20 149 H 19 130/89 99 BiPAP 02/06/22 17:11 145 H 26 H 163/89 H 100 02/06/22 16:59 83 L Room Air 02/06/22 17:23 150 H 29 H 97 02/06/22 17:17 147 H 184/94 H 02/06/22 17:00 147 H 36 H 184/94 H 100 Nasal Cannula 6 02/06/22 16:50 148 H 27 H 100 02/06/22 16:47 109 H 23 100 02/06/22 16:28 36.5 C 133 H 16 130/70 92 Room Air FiO2 02/06/22 19:25 02/06/22 19:01 02/06/22 19:01 02/06/22 19:00 02/06/22 18:52 02/06/22 19:06 02/06/22 18:51 02/06/22 18:50 02/06/22 18:30 02/06/22 18:28 02/06/22 18:00 02/06/22 17:30 02/06/22 17:48 02/06/22 17:20 02/06/22 17:11 02/06/22 16:59 02/06/22 17:23 28 02/06/22 17:17 02/06/22 17:00 02/06/22 16:50 02/06/22 16:47 02/06/22 16:28 Laboratory Results Short CBC 02/06/22 Range/Units 16:55 WBC 4.93 (4.8-10.8) K/ul Hgb 8.1 L (12.0-16.0) g/dl Hct 27.8 L (34.1-44.9) % Plt Count 191 (130-400) K/uL BMP 02/06/22 16:55 Sodium 142 Potassium 4.0 Chloride 97 L Carbon Dioxide 39 H BUN 45 H Creatinine 1.06 Glucose 189 H Calcium 8.4 L Liver Function 02/06/22 Range/Units 16:55 Total Bilirubin 0.8 (0.2-1.0) mg/dl AST 17 (13-39) U/L ALT 12 (7-52) U/L Alkaline Phosphatase 89 (34-104) U/L Albumin 3.8 (3.4-5.0) gm/dl Diagnostic Findings Chest X-Ray 02/06/22 16:30 XR chest 1V portable HISTORY: Atypical Chest Pain COMPARISON: Chest CTA 11/03/2021. FINDINGS: No pneumothorax. No pleural effusions. There is chronic elevation the right hemidiaphragm with stable blunting of the right lateral costophrenic sulcus. The heart remains mildly enlarged. There are dense mitral annulus calcifications and an aortic valve stent is noted. No evidence for pulmonary edema. Patchy reticulonodular densities within the lung bases persist. IMPRESSION: 1. Patchy reticulonodular densities within the lung bases persists. This favors a chronic inflammatory/infectious bronchiolitis. 2. No new focal lung consolidations identified. 3. Stable cardiomegaly. ACT 112: Negative or not required by law. Electronically signed by: Rc Rodríguez M.D. 02/06/2022 5:16 PM Code Status & VTE Plan VTE Prophylaxis Plan VTE Prophylaxis will be ordered: Yes
[2022-02-06] MEDS ORDERED: CARBOHYDRATES FOR HYPOGLYCEMIA PO PRN (21:23)
[2022-02-06] MEDS ORDERED: DEXTROSE 50% 50 ML SYRINGE IV PRN (21:23)
[2022-02-06] MEDS ORDERED: GLUCAGON FOR INJ 1 MG VIAL SQ PRN (21:23)
[2022-02-06] MEDS ORDERED: GLUCOSE 10 TAB/TUBE PO PRN (21:23)
[2022-02-06] MEDS ORDERED: GLUCOSE 40% GEL 15 GM TUBE PO PRN (21:23)
[2022-02-06] MEDS: METOPROLOL TARTRATE 100 MG TAB PO SCH (22:22)
[2022-02-06] MEDS: INSULIN ASPART PER UNIT SC SCH (22:22)
[2022-02-06] MEDS: APIXABAN 5 MG TABLET PO SCH (22:22)
[2022-02-07] MEDS: ACETAMINOPHEN 325 MG TAB PO PRN ×2 (05:31→20:11)
--- NOTE | 2022-02-07 08:06 | Hospitalist Progress Note ---
Date of Service February 07, 2022 Assessment & Plan (1) Acute on chronic heart failure with preserved ejection fraction: Plan: -was able to transition pt from BiPAP to NC --- pt did very well on 4L of oxygen -Echo from 04/2021 showed EF of 58% -trop is elevated: will trend - large jump but repeat without delta, ECG without ischemic chages - trop elevation likely type 2 NSTEMI with demand ischemia in the setting of CHF exacerbation and afib -continue Lasix 40mg IV BID - started on spironolactone 12.5mg dialy per cardiology -Cardiology consult -repeat echo pending -at baseline pt wears 2L of oxygen ----wean off oxygen as tolerates - down to baseline 2L NC -daily weight -Strict I/O (2) Acute and chronic respiratory failure: Plan: - exacerbation of CHF - improved with IV diuretics - on baseline home O2 at 2L NC - monitor, Lasix as above (3) Anemia: Plan: -hgb from outpt was 8.7 but it was 10-11 3 months ago -hgb is stable now -will get FOBT -trend CBC -continue iron supplement - possilbe dilution given volume overload from CHF - will monitor, no signs of bleeding (4) Atrial fibrillation with RVR: Plan: -HR improved with IV Lopressor -will continue pt on home metoprolol dose 200mg BID -admit to PCU tele - continue Eliquis BID (5) CAD (coronary artery disease): Plan: -continue statin and Plavix - troponin elevated 19-->1395 - without chest pain - ECG without ischemic changes - trend troponin, ECG - Cardiology consulted (6) Hypertension: Plan: -continue home meds (7) S/P TAVR (transcatheter aortic valve replacement): Plan: - noted (8) DMII (diabetes mellitus, type 2): Plan: - not on medications at this time - monitor BG - will start on ISS for now - follow up A1c - diabetic diet (9) Chronic cholecystitis with calculus: Plan: -pt was admitted to [place] 2 weeks ago for possible cholecystectomy but it was cancelled bc pt tested positive for COVID -sched to follow up with surgery as outpt on 02/24 Plan DVT PPx:Eliquis Code Status: FULL CODE Dispo: PCU/telemetry Emergency Contact: Adama [phone] Bertram Aldridge MD [facility] Medicine Admission and Anticipated Discharge Date Admission Date: February 06, 2022 Subjective Patient with CAD s/p stenting, MV fibroelastoma s/p annuloplasty, breat CA s/p lumpectomy and radition, h/o sternal osteomyelitis, STEMI, HFpEF, s/p TAVR, afib on Eliquis, HTN, DM2 (not on meds), colon CA s/p hemicolectomy, chronic respiratory failure on home O2 2L, anxiety, anemia admitted for shortness of breath, found to be in CHF exacerbation and elevated troponin. Started on diuresis, TTE ordered, Cardiology consulted. Patient denies chest pain, shortness of breath, n/v/d, light headedness, dizziness, abdominal pain, dysuria, palpitations. Review of Systems Review of Systems: All systems reviewed & are unremarkable except as noted in Subjective Physical Exam Physical Exam: General:.NC in place (2L),NAD, well developed, well nourished, average body habitus HEENT:.Normocephalic and atraumatic, Normal Conjunctiva, EOMI, Sclera is non- icteric Lungs:.CTAB Heart:.Systolic murmur, in NSR( upper part of the sternum removed) Abdominal:.ND, Soft, NT MSK:2+ b/l LE pitting edema to knees Psych:.AAOx3, normal affect Results & Data Results & Data ([facility]) Vital Signs (Past 12 Hours) Vital Signs Temp Pulse Pulse Resp BP Pulse Ox Pulse Ox 02/07/22 07:35 36.4 C L 83 20 120/57 L 100 02/07/22 07:15 82 02/07/22 07:15 02/07/22 05:27 36.8 C 83 18 113/56 L 100 02/07/22 00:15 101 H 02/06/22 20:50 103 H 02/06/22 23:49 36.9 C 99 H 20 114/60 96 02/06/22 21:25 02/06/22 21:25 36.6 C 75 28 H 125/85 94 02/06/22 21:23 36.6 C 971 H 28 H 125/85 97 02/06/22 21:23 94 O2 Del Method O2 Del Method O2 Flow Rate O2 Flow Rate 02/07/22 07:35 Nasal Cannula 4 02/07/22 07:15 02/07/22 07:15 Nasal Cannula 4 02/07/22 05:27 Nasal Cannula 4.0 02/07/22 00:15 02/06/22 20:50 02/06/22 23:49 Nasal Cannula 4.0 02/06/22 21:25 Nasal Cannula 4 02/06/22 21:25 Nasal Cannula 4 02/06/22 21:23 Nasal Cannula 4 02/06/22 21:23 Nasal Cannula 4 Laboratory Results Short CBC 02/06/22 Range/Units 16:55 WBC 4.93 (4.8-10.8) K/ul Hgb 8.1 L (12.0-16.0) g/dl Hct 27.8 L (34.1-44.9) % Plt Count 191 (130-400) K/uL BMP 02/06/22 16:55 Sodium 142 Potassium 4.0 Chloride 97 L Carbon Dioxide 39 H BUN 45 H Creatinine 1.06 Glucose 189 H Calcium 8.4 L Liver Function 02/06/22 Range/Units 16:55 Total Bilirubin 0.8 (0.2-1.0) mg/dl AST 17 (13-39) U/L ALT 12 (7-52) U/L Alkaline Phosphatase 89 (34-104) U/L Albumin 3.8 (3.4-5.0) gm/dl Diagnostic Findings reviewed Medications Administered Current Inpatient Medications Acetaminophen (Acetaminophen 325 Mg Tab) 650 mg PO Q4H PRN PRN Reason: Pain or Fever Stop: 03/08/22 21:22 Last Admin: 02/07/22 05:31 Dose: 650 mg Apixaban (Apixaban 5 Mg Tablet) 5 mg PO BID ILA Stop: 03/08/22 21:22 Last Admin: 02/06/22 22:22 Dose: 5 mg Atorvastatin Calcium (Atorvastatin 40 Mg Tab) 40 mg PO DAILY ILA Stop: 03/09/22 08:59 Clopidogrel Bisulfate (Clopidogrel Bisulfate 75 Mg Tab) 75 mg PO DAILY ILA Stop: 03/09/22 08:59 Dextrose (Dextrose 50% 50 Ml Syringe) 25 - 50 ml IV UD PRN; Protocol PRN Reason: Hypoglycemia Protocol Stop: 03/08/22 21:22 Ferrous Sulfate (Ferrous Sulfate 325 Mg Tab) 325 mg PO DAILY ILA Stop: 03/09/22 08:59 Fish Oil ([place]-3 (Purified Fish Oil) 1 Gm Cap) 1 gm PO QAM ILA Stop: 03/09/22 08:59 Furosemide (Furosemide 40 Mg/4 Ml Vial) 40 mg IV Q24H ILA Stop: 03/09/22 16:59 Glucagon (Glucagon For Inj 1 Mg Vial) 1 mg SQ UD PRN; Protocol PRN Reason: Hypoglycemia Protocol Stop: 03/08/22 21:22 Glucose (Glucose 40% Gel 15 Gm Tube) 15 - 30 gm PO UD PRN; Protocol PRN Reason: Hypoglycemia Protocol Stop: 03/08/22 21:22 Glucose (Glucose 10 Tab/Tube) 4 - 8 tab PO UD PRN; Protocol PRN Reason: Hypoglycemia Treatment Stop: 03/08/22 21:22 Magnesium Sulfate/Dextrose (Magnesium Sulfate / D5w) 1 gm in 100 mls @ 50 mls/hr IV Q2H ILA Stop: 02/07/22 15:14 Insulin Aspart (Insulin Aspart Per Unit) 0 units SC ACHS ILA Stop: 03/08/22 21:22 Last Admin: 02/06/22 22:22 Dose: 2 units Isosorbide Mononitrate (Isosorbide Holmes Extended Rel 30 Mg Tabcr) 30 mg PO DAILY ILA Stop: 03/09/22 08:59 Lisinopril (Lisinopril 2.5 Mg Tab) 2.5 mg PO DAILY ILA Stop: 03/09/22 08:59 Lorazepam (Lorazepam 0.5 Mg Tab) 0.25 mg PO BID PRN PRN Reason: Anxiety Stop: 03/08/22 21:22 Metoprolol Tartrate (Metoprolol Tartrate 100 Mg Tab) 200 mg PO BID ILA Stop: 03/08/22 21:22 Last Admin: 02/06/22 22:22 Dose: 200 mg Miscellaneous (Carbohydrates For Hypoglycemia ) 15 - 30 gm PO UD PRN PRN Reason: Hypoglycemia Protocol Stop: 03/08/22 21:22 Nitroglycerin (Nitroglycerin Sl 0.4 Mg/Tab Tab) 0.4 mg SL UD PRN PRN Reason: Chest Pain Stop: 03/08/22 16:47 Last Admin: 02/06/22 17:17 Dose: 0.4 mg Nitroglycerin (Nitroglycerin Sl 0.4 Mg/Tab Tab) 0.4 mg SL UD PRN PRN Reason: Chest Pain Stop: 03/08/22 21:22 Pantoprazole Sodium (Pantoprazole 40 Mg Tab) 40 mg PO DAILY ILA Stop: 03/09/22 08:59 Vitamin D (Cholecalciferol 1,000 Units 25 Mcg Tab) 1,000 units PO QAM ILA Stop: 03/09/22 08:59
[2022-02-07] MEDS: INSULIN ASPART PER UNIT SC SCH ×4 (08:08→20:17)
[2022-02-07 08:10] LABS: Albumin Globulin Ratio 1.3 (0.9-2); Albumin Level 3.5 gm/dl (3.4-5.0); BUN Creatinine Ratio 45.2 (10-20); Bilirubin,Total 0.8 mg/dl (0.2-1.0); Calcium 8.2 mg/dl (8.5-10.1); Creatinine Clr Calc Pharmacy 37.5 ml/min; Est GFR (African American) 58.4 ml/min; Est GFR (Non-African American) 50.3 ml/min; Globulin 2.8 gm/dl (2.5-4.0); Potassium 4.1 mmol/L (3.5-5.1); Total Protein 6.3 gm/dl (6.0-8.3)
[2022-02-07 08:13] LABS: Basophils # (auto) 0.06 K/uL (0-0.2); Basophils % (auto) 1.5 %; Eosinophils # (auto) 0.08 K/uL (0-0.50); Giant Platelets 1+; Hematocrit (blood only) 27.7 % (34.1-44.9); Hemoglobin 7.8 g/dl (12.0-16.0); Immature Granulocytes # (auto) 0.01 K/uL (0.00-0.02); Immature Granulocytes % (auto) 0.2 %; Lymphocytes % (auto) 22.3 %; Mean Corpuscular Hemoglobin 24.9 pg (25.0-34.0); Mean Corpuscular Hgb Conc 28.2 g/dL (32.0-36.0); Mean Corpuscular Volume 88.5 fL (80.0-100.0); Mean Platelet Volume 11.7 fL (9.4-12.3); Monocytes # (auto) 0.46 K/uL (0.24-0.82); Monocytes % (auto) 11.4 %; Neutrophils # (auto) 2.53 K/uL (1.4-6.5); Neutrophils % (auto) 62.6 %; Ovalocytes 1+; Platelet Count 152 K/uL (130-400); Polychromasia 1+; RDW Coefficient of Variation 16.9 % (11.5-14.5); RDW Standard Deviation 53.6 fL (36.4-46.3); Red Blood Count 3.13 M/uL (3.93-5.22); White Blood Count 4.04 K/ul (4.8-10.8)
[2022-02-07] MEDS: MAGNESIUM SULFATE / D5W 1 GM/100 ML BAG IV SCH ×4 (08:14→13:53)
[2022-02-07] MEDS: FERROUS SULFATE 325 MG TAB PO SCH (08:16)
[2022-02-07] MEDS: PANTOprazole 40 MG TAB PO SCH (08:16)
[2022-02-07] MEDS: METOPROLOL TARTRATE 100 MG TAB PO SCH ×2 (08:16→20:11)
[2022-02-07] MEDS: APIXABAN 5 MG TABLET PO SCH ×2 (08:16→20:11)
[2022-02-07] MEDS: CHOLECALCIFEROL 1,000 UNITS 25 MCG TAB PO SCH (08:16)
[2022-02-07] MEDS: lisinopril 2.5 MG TAB PO SCH (08:16)
[2022-02-07] MEDS: CLOPIDOGREL BISULFATE 75 MG TAB PO SCH (08:16)
[2022-02-07] MEDS: OMEGA-3 (PURIFIED FISH OIL) 1 GM CAP PO SCH (08:16)
[2022-02-07] MEDS: ISOSORBIDE MONO EXTENDED REL 30 MG TABCR PO SCH (08:16)
[2022-02-07] MEDS: ATORVASTATIN 40 MG TAB PO SCH (08:17)
--- NOTE | 2022-02-07 08:21 | Cardiology Consultation ---
Date of Consultation February 07, 2022 Assessment & Plan (1) Acute on chronic heart failure with preserved ejection fraction: (2) Acute and chronic respiratory failure: (3) Non-ST elevation (NSTEMI) myocardial infarction: (4) Paroxysmal atrial fibrillation: (5) S/P TAVR (transcatheter aortic valve replacement): (6) Hypomagnesemia: (7) Anemia: Plan Complex 81-year-old female presenting to the emergency department with acute on chronic respiratory failure with hypoxia due to acute heart failure, paroxysmal atrial fibrillation with rapid ventricular response, and type II non-STEMI (demand ischemia) in the setting of chronic coronary disease. Patient converted to sinus rhythm overnight. Electrolyte derangement noted with significant hypomagnesemia. IV magnesium currently infusing. She is currently treated with high-dose metoprolol, 200 mg twice daily and appropriately anticoagulated with Eliquis. Recommend intravenous Lasix, 40 mg twice daily. Add spironolactone 12.5 mg daily. Follow daily weight, fluid balance, GFR, and electrolytes. Trend cardiac enzymes. Repeat resting 2D transthoracic echocardiogram pending. Follow daily H&H. Monitor for signs of recurrent GI blood loss. (Patient with history of internal hemorrhoids). History of Present Illness Reason for Consultation: Acute CHF Requesting Physician: Dr. Chacon Attending Physician: Bertram Aldridge MD History of Present Illness 81-year-old female recently discharged from [facility] secondary to chronic calculus cholecystitis status post ERCP and biliary stent placement. Discharged from [facility] 02/01/2022. Cardiac history includes CAD status post stenting, mitral valve fibroblastoma status post annuloplasty chronic heart failure with preserved ejection fraction, aortic stenosis status post TAVR, paroxysmal atrial fibrillation chronically anticoagulated with Eliquis, hypertension, and diabetes. Covid + 01/28/2022. Presented to the ER yesterday with 3 to 4 days of diarrhea and nausea. Reported increased leg swelling prior to admission. States "I was feeling very ill". 10 pound weight gain over a 1 week period. Denies any recent medication changes excessive sodium or fluid intake. Increased dose of Lasix on the day prior to admission due to worsening edema. Denies orthopnea or PND. Fleeting episode of chest tightness noted approximately 3 days ago. Chronically supplemented with 2 L of oxygen at home. In the ER she was initially placed on BiPAP and treated with intravenous furosemide and Lopressor. ECG demonstrating atrial flutter with 2-1 conduction. Converted to sinus rhythm at approximately 12:11 AM. ECG this morning confirming atrial fibrillation at [address] changes. Feeling much better today. Oxygen supplementation reduced to 2 L. Negative fluid balance noted. Guevara catheter in place. Denies chest pain, abdominal discomfort, nausea, or vomiting. Significant hypomagnesemia and anemia noted on admission. Troponin elevated, trending upward overnight. Resting 2D transthoracic echocardiogram pending. Complex problem list copied from the outpatient medical record: Problem List. 1. Possible embolic stroke in 2005. 2. 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 Postoperative course complicated by hepatic enzyme elevation, paroxysmal atrial fibrillation, left pleural effusion requiring thoracentesis, right heart failure, and anemia 3. Ischemic heart disease. 1. Acute inferior/posterolateral STEMI secondary to a subtotal occlusion of the mid RCA s/p successful intervention to the proximal and mid RCA with two bare metal stents. 2. August 10, 2017 cardiac catheterization with single-vessel disease, status post August 2017 PCI of the ostial RCA with a single drug-eluting stent. 3. January 15, 2020 inferior STEMI, very late stent thrombosis with minimal non culprit coronary artery disease elsewhere, normal intracardiac filling pressures. Status post PCI of the ostial RCA sten thrombosis with a new overlapping 3.0 x 8 mm Xience drug eluting stent. 4. Severe calcific aortic valve stenosis status post September 27, 2017 TAVR at [facility] [place] 5. Paroxysmal atrial fibrillation. bserved after mitral valve surgery, when hospitalized in July 2019 with pneumonia, and possibly when hospitalized in December 2019 6. [id number] score 9 points. 7. Hypertension. 8. Diastolic congestive heart failure 9. Hyperlipidemia. 10. Type II diabetes mellitus 11. Breast carcinoma s/p initial lumpectomy with right axillary node dissection and radiation therapy in 1979. Subsequent recurrence, radical mastectomy in 1981 followed by second course of radiation therapy. Patient developed a nonhealing wound of her medial right chest in early 2009 at site of prior radiation therapy. Attempts to heal resulted in multiple surgical interventions and nonhealing flaps with extended longstanding wound drainage and ultimately secondary healing. 12. History of right femoral artery pseudoaneurysm as a complication of intra- aortic balloon pump during acute inferior myocardial infarction, 2012. 13. Colon (cecum) cancer Rx right larry-colectomy in 2001 14. Hypothyroidism 15. DJD 16. Hospitalized in January 2020, presenting at that time with multiple complaints. She noted dizziness that appear to be vertiginous in etiology as well as secondary to volume depletion. She was prescribed meclizine. Furosemide was decreased to only as needed and she was advised increase her free water intake. 17. Presentation in April 2021 with symptomatic iron deficiency anemia Allergies Allergy/AdvReac Type Severity Reaction Status Date / Time codeine Allergy Severe RESP. Verified 01/15/20 21:10 DEPRESSION oyster extract Allergy Intermediate HIVES AND Verified 01/15/20 21:10 SWELLING, NO PROBLEMS W CONTRAST Home Medications Medication Instructions Recorded Confirmed Type acetaminophen 500 mg tablet 500 mg PO DIRECTED PRN Fever Or 07/29/19 02/06/22 History (Tylenol Extra Strength) Pain cholecalciferol (vitamin D3) 25 1,000 unit PO QAM 07/29/19 02/06/22 History mcg (1,000 unit) capsule (Vitamin D3) furosemide 20 mg tablet (Lasix) 20 mg PO DAILY 07/29/19 02/06/22 History metoprolol tartrate 100 mg tablet 200 mg PO BID 07/29/19 02/06/22 History omega 2-cho-ivk-fish oil 1,000 mg 1 cap PO QAM 07/29/19 02/06/22 History (120 mg-180 mg) capsule (Fish Oil) nitroglycerin 0.4 mg sublingual 0.4 mg sublingual UD PRN Chest Pain 01/15/20 02/06/22 History tablet (Nitrostat) omeprazole 20 mg tablet,delayed 20 mg PO DAILY 01/15/20 02/06/22 History release apixaban 5 mg tablet (Eliquis) 5 mg PO BID 30 days #60 tabs 01/17/20 02/06/22 Rx atorvastatin 40 mg tablet 40 mg PO DAILY 02/06/22 02/06/22 History clopidogrel 75 mg tablet 75 mg PO DAILY 02/06/22 02/06/22 History ferrous sulfate 325 mg (65 mg 325 mg PO DAILY 02/06/22 02/06/22 History iron) tablet (Iron (ferrous sulfate)) isosorbide mononitrate 30 mg 30 mg PO DAILY 02/06/22 02/06/22 History tablet,extended release 24 hr lisinopril 2.5 mg tablet 2.5 mg PO DAILY 02/06/22 02/06/22 History lorazepam 0.5 mg tablet (Ativan) 0.25 mg PO BID PRN Anxiety 02/06/22 02/06/22 History Patient History Medical History (HFpEF) heart failure with preserved ejection fraction Acute hypokalemia Anxiety Atherosclerotic cardiovascular disease Atrial fibrillation with RVR BPV (benign positional vertigo) Breast cancer Colon cancer DMII (diabetes mellitus, type 2) Hyperlipidemia Hypertension Hypomagnesemia On apixaban therapy Pneumonia ST elevation (STEMI) myocardial infarction Surgical History History of colon resection History of mastectomy S/P drug eluting coronary stent placement S/P PTCA (percutaneous transluminal coronary angioplasty) S/P TAVR (transcatheter aortic valve replacement) Social History Smoking Status: Never smoker Second Hand Exposure: No; Do You Dip or Chew Tobacco: No; Tobacco Cessation Education Requested by Patient: No Hx Alcohol Use: No Hx Substance Use: No Preferred Language: Telugu Communication Ability: Effective Cut Out Press Operator Required: No Beliefs That Will Affect Care: None marital status: Current Living Situation: Spouse Other Information That Helps Us Care for You: No Feels Safe at Home: Yes Safety Concerns: Feels Safe At This Time Assistive Devices: Glasses and Oxygen - Continuous Review of Systems Review of Systems: All systems reviewed & are unremarkable except as noted in Subjective Physical Exam Constitutional: well nourished and + ill appearing; no acute distress Respiratory: normal respiratory effort; no respiratory distress and no labored breathing Auscultation: + diminished lung sounds (Bases bilateral) and + rales (Bases bilateral) Cardiovascular: Rate/Rhythm: regular rate and regular rhythm Heart Sounds: normal S1, normal S2 and + murmur (2/6 systolic ejection) Vessels: radial pulses present; no JVD (Seated upright) and no carotid bruit Extremities: + edema (2+ bilateral pretibial edema) Gastrointestinal (Abdomen): Inspection/Auscultation: abdomen normal to inspection; abdomen not distended Percussion/Palpation: abdomen soft; abdomen nontender, no guarding and abdomen not rigid Neurologic: CN's II-XI intact bilaterally and moves all extremities; no focal motor deficits Motor/Sensory: no tremor Results & Data ([facility]) Vital Signs (Past 12 Hours) Vital Signs Temp Pulse Pulse Resp BP Pulse Ox Pulse Ox 02/07/22 07:35 36.4 C L 83 20 120/57 L 100 02/07/22 07:15 82 02/07/22 07:15 02/07/22 05:27 36.8 C 83 18 113/56 L 100 02/07/22 00:15 101 H 02/06/22 20:50 103 H 02/06/22 23:49 36.9 C 99 H 20 114/60 96 02/06/22 21:25 02/06/22 21:25 36.6 C 75 28 H 125/85 94 02/06/22 21:23 36.6 C 971 H 28 H 125/85 97 02/06/22 21:23 94 O2 Del Method O2 Del Method O2 Flow Rate O2 Flow Rate 02/07/22 07:35 Nasal Cannula 4 02/07/22 07:15 02/07/22 07:15 Nasal Cannula 4 02/07/22 05:27 Nasal Cannula 4.0 02/07/22 00:15 02/06/22 20:50 02/06/22 23:49 Nasal Cannula 4.0 02/06/22 21:25 Nasal Cannula 4 02/06/22 21:25 Nasal Cannula 4 02/06/22 21:23 Nasal Cannula 4 02/06/22 21:23 Nasal Cannula 4 Diagnostic Findings 2D echocardiogram report 04/30/2021: Normal LV chamber size with mild concentric LVH. Normal LV systolic function without regional wall motion abnormality. The patient is status post TAVR with Claudio type prosthetic valve. The aortic valve prosthesis systolic gradients are normal for this type prosthesis. Significant aortic valve prosthesis regurgitation is absent. Calculated LV ejection Fraction = 58% (bi-plane method of discs). Mitral stenosis is absent. Mild mitral regurgitation is present. There is evidence of prior mitral valve annuloplasty. Grade 2 diastolic dysfunction. Severe left atrial enlargement. Pulmonary hypertension is present. The estimated pulmonary artery systolic pressure is 41mm Hg. Left
[2022-02-07] MEDS ORDERED: FUROSEMIDE 40 MG/4 ML VIAL IV SCH ×2 (10:45→17:00)
[2022-02-07] MEDS: FUROSEMIDE 40 MG/4 ML VIAL IV SCH ×2 (11:26→20:12)
[2022-02-07] MEDS: SPIRONOLACTONE 12.5 MG TAB PO SCH (11:56)
--- NOTE | 2022-02-07 12:29 | Electrocardiogram Report ---
Test Reason : Blood Pressure : / mmHG Vent. Rate : 145 BPM Atrial Rate : 144 BPM P-R Int : 000 ms QRS Dur : 090 ms QT Int : 284 ms P-R-T Axes : 000 -14 162 degrees QTc Int : 441 ms Poor data quality, interpretation may be adversely affected Sinus tachycardia Left ventricular hypertrophy with repolarization abnormality Possible Inferior infarct , age undetermined Anterolateral infarct (cited on or before 11-MAY-2013) Abnormal ECG When compared with ECG of 03-NOV-2021 18:57, Sinus rhythm has replaced Atrial fibrillation Questionable change in initial forces of Anterolateral leads Confirmed by Dalton Singer ([id number]) on 02/07/2022 12:28:48 PM Referred By: REFERRED SELF Confirmed By:Dalton Singer
--- NOTE | 2022-02-07 12:29 | Electrocardiogram Report ---
Test Reason : Blood Pressure : / mmHG Vent. Rate : 150 BPM Atrial Rate : 153 BPM P-R Int : 000 ms QRS Dur : 092 ms QT Int : 284 ms P-R-T Axes : 000 -16 157 degrees QTc Int : 448 ms Poor data quality, interpretation may be adversely affected Supraventricular tachycardia Left ventricular hypertrophy with repolarization abnormality Inferior infarct (cited on or before 11-MAY-2013) Anterior infarct (cited on or before 11-MAY-2013) Abnormal ECG When compared with ECG of 06-FEB-2022 16:41, (unconfirmed) Questionable change in initial forces of Lateral leads Confirmed by Dalton Singer ([id number]) on 02/07/2022 12:29:44 PM Referred By: REFERRED SELF Confirmed By:Dalton Singer
--- NOTE | 2022-02-07 12:38 | Electrocardiogram Report ---
Test Reason : Blood Pressure : / mmHG Vent. Rate : 107 BPM Atrial Rate : 110 BPM P-R Int : 000 ms QRS Dur : 104 ms QT Int : 364 ms P-R-T Axes : 000 -09 009 degrees QTc Int : 485 ms Atrial fibrillation with rapid ventricular response Minimal voltage criteria for LVH, may be normal variant Possible Inferior infarct (cited on or before 11-MAY-2013) Anterior infarct (cited on or before 11-MAY-2013) Abnormal ECG When compared with ECG of 06-FEB-2022 16:52, (unconfirmed) Atrial fibrillation has replaced Sinus rhythm ST no longer depressed in Lateral leads Nonspecific T wave abnormality, worse in Inferior leads Confirmed by Dalton Singer ([id number]) on 02/07/2022 12:37:47 PM Referred By: REFERRED SELF Confirmed By:Dalton Singer
--- NOTE | 2022-02-07 12:55 | Electrocardiogram Report ---
Test Reason : Blood Pressure : / mmHG Vent. Rate : 083 BPM Atrial Rate : 083 BPM P-R Int : 162 ms QRS Dur : 096 ms QT Int : 378 ms P-R-T Axes : 041 -10 016 degrees QTc Int : 444 ms Normal sinus rhythm Anterior infarct (cited on or before 11-MAY-2013) Abnormal ECG When compared with ECG of 06-FEB-2022 18:39, (unconfirmed) Sinus rhythm has replaced Atrial fibrillation Questionable change in initial forces of Anterior leads Confirmed by Dalton Singer ([id number]) on 02/07/2022 12:54:55 PM Referred By: REFERRED SELF Confirmed By:Dalton Singer
[2022-02-08] MEDS: ACETAMINOPHEN 325 MG TAB PO PRN (00:15)
[2022-02-08] MEDS: LORazepam 0.5 MG TAB PO PRN ×2 (03:52→20:48)
[2022-02-08 08:13] LABS: Estimated Average Glucose 180 mg/dl; Hemoglobin A1C 7.9 % (4.5-5.6)
[2022-02-08] MEDS: INSULIN ASPART PER UNIT SC SCH ×4 (08:21→20:49)
[2022-02-08 08:25] LABS: BUN Creatinine Ratio 39.5 (10-20); Calcium 8.1 mg/dl (8.5-10.1); Creatinine Clr Calc Pharmacy 30.3 ml/min; Est GFR (Non-African American) 38.8 ml/min; Magnesium 1.7 mg/dl (1.7-2.4); Phosphorus 4.9 mg/dl (2.5-4.9); Potassium 3.9 mmol/L (3.5-5.1)
[2022-02-08] MEDS: PANTOprazole 40 MG TAB PO SCH (09:03)
[2022-02-08] MEDS: METOPROLOL TARTRATE 100 MG TAB PO SCH ×2 (09:03→20:48)
[2022-02-08] MEDS: ATORVASTATIN 40 MG TAB PO SCH (09:03)
[2022-02-08] MEDS: CHOLECALCIFEROL 1,000 UNITS 25 MCG TAB PO SCH (09:03)
[2022-02-08] MEDS: ISOSORBIDE MONO EXTENDED REL 30 MG TABCR PO SCH (09:03)
[2022-02-08] MEDS: APIXABAN 5 MG TABLET PO SCH (09:03)
[2022-02-08] MEDS: FUROSEMIDE 40 MG/4 ML VIAL IV SCH ×2 (09:03→20:48)
[2022-02-08] MEDS: SPIRONOLACTONE 12.5 MG TAB PO SCH (09:03)
[2022-02-08] MEDS: CLOPIDOGREL BISULFATE 75 MG TAB PO SCH (09:03)
[2022-02-08] MEDS: lisinopril 2.5 MG TAB PO SCH (09:04)
[2022-02-08] MEDS: FERROUS SULFATE 325 MG TAB PO SCH (09:04)
[2022-02-08] MEDS: OMEGA-3 (PURIFIED FISH OIL) 1 GM CAP PO SCH (09:04)
[2022-02-08 09:18] LABS: Basophils # (auto) 0.05 K/uL (0-0.2); Basophils % (auto) 1.2 %; Eosinophils # (auto) 0.13 K/uL (0-0.50); Eosinophils % (auto) 3.2 %; Hematocrit (blood only) 24.6 % (34.1-44.9); Hypochromasia Present; Immature Granulocytes # (auto) 0.01 K/uL (0.00-0.02); Immature Granulocytes % (auto) 0.2 %; Lymphocytes # (auto) 0.83 K/uL (1.2-3.4); Lymphocytes % (auto) 20.2 %; Mean Corpuscular Hemoglobin 25.1 pg (25.0-34.0); Mean Corpuscular Hgb Conc 28.5 g/dL (32.0-36.0); Mean Corpuscular Volume 88.2 fL (80.0-100.0); Monocytes # (auto) 0.36 K/uL (0.24-0.82); Monocytes % (auto) 8.8 %; Neutrophils # (auto) 2.73 K/uL (1.4-6.5); Neutrophils % (auto) 66.4 %; Ovalocytes 1+; Platelet Count 156 K/uL (130-400); Polychromasia 1+; RDW Coefficient of Variation 16.4 % (11.5-14.5); RDW Standard Deviation 53.3 fL (36.4-46.3); Red Blood Count 2.79 M/uL (3.93-5.22); White Blood Count 4.11 K/ul (4.8-10.8)
[2022-02-08] MEDS ORDERED: SODIUM CHLORIDE 0.9% 250 ML IV PRN (10:52)
[2022-02-08] MEDS ORDERED: ACETAMINOPHEN 325 MG TAB PO ONE (10:52)
--- NOTE | 2022-02-08 10:55 | Cardiology Progress Note ---
Date of Service February 08, 2022 Assessment & Plan (1) Acute on chronic heart failure with preserved ejection fraction: (2) Acute and chronic respiratory failure: (3) Non-ST elevation (NSTEMI) myocardial infarction: (4) Paroxysmal atrial fibrillation: (5) S/P TAVR (transcatheter aortic valve replacement): (6) Hypomagnesemia: (7) Anemia: Plan Recurrent symptomatic atrial fibrillation with a rapid ventricular response of unknown duration, status post spontaneous conversion back to sinus rhythm in the early AM of 02/07/2022. [id number] score 9 points. Continue high dose metoprolol, 200 mg twice a day, and Eliquis anticoagulation as able. Acute on chronic respiratory failure with hypoxia due to acute decompensated diastolic congestive heart failure, type II non-STEMI (demand ischemia) in the setting of chronic coronary disease. Continue IV diuresis today, reassess ongoing need in the AM. Symptomatic anemia. Agree with cautious slow transfusion of PRBC's, one unit today. ? Cholecystitis. GI evaluation pending, considering Axios stent placement at the time of EGD after resolution of acute heart failure and improvement in anemia. Ischemic heart disease. Acute inferior/posterolateral STEMI secondary to a subtotal occlusion of the mid RCA s/p successful intervention to the proximal and mid RCA with two bare metal stents. August 10, 2017 cardiac catheterization with single-vessel disease, status post August 2017 PCI of the ostial RCA with a single drug-eluting stent. January 15, 2020 inferior STEMI, very late stent thrombosis with minimal non culprit coronary artery disease elsewhere, normal intracardiac filling pressures. Status post PCI of the ostial RCA sten thrombosis with a new overlapping 3.0 x 8 mm Xience drug eluting stent. See above. Continue appropriate medical management including Clopidogrel. She is not prescribed ASA. 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 Admission and Anticipated Discharge Date Admission Date: February 06, 2022 Supervising Physician Co-Signing Physician Notes Patient seen and examined at the bedside. Bright red blood per rectum reported earlier today. Hemoglobin trending down to 7.0. Gastroenterology consultation obtained. Patient feeling tired today. Edema unchanged. Fluid balance negative with IV diuretic therapy. Renal function remained stable. Telemetry demonstrates sinus rhythm. PE: VSS. Gen: NAD, AAOx3. Heart: Regular rhythm, normal S1-S2, 2/6 systolic ejection murmur. Lungs: Scant crackles at the bases bilateral. Extremities: 1- 2+ bilateral pitting pretibial edema. A/P: Agree with above PA-C history, physical exam, assessment and plan. Transfuse 1 unit of packed red blood cells today. Continue IV Lasix 40 mg twice daily. Monitor daily weight, fluid balance, GFR, and electrolytes. Hold evening dose of Eliquis. Continue to monitor for any recurrent signs of GI blood loss. Likely proceed with endoscopy when optimized from a cardiovascular perspective. Subjective Patient seen and examined initially around 9:30 AM then again around 10:40 AM. Chart, medications and telemetry reviewed. Prior to hospitalization patient notes "I started to get sick again. What I felt was my heart. Extreme pressure in the middle of my chest, extreme fatigue, palpitations at times." Presenting symptoms improved following administration of IV diuresis then conversion to sinus. Patient notes feeling "90% better" in regards to the fluid. I/O's negative 1,264 mL's overall. Stools are chronically dark, on oral iron replacement. Notes bright red blood on the toilet tissue which she feelis is consistent with her history of moderately severe internal hemorrhoids. Patient does have a history of colon cancer and diverticulosis. Sinus rhythm in the 70's and 80's since conversion from atrial fibrillation with a RVR early in the AM of 02/07/2022. February 07, 2022 TTE Interpretation Summary ([facility], Dr. Alatorre): EF 60-65%. Moderate concentric LVH. Flattened septum consistent with RV pressure/volume overload. Mildly dilated RV. Reduced RV systolic function by TAPSE. TAVR (Claudio type prosthetic valve) with normal gradients. Mild aortic valve prosthesis regurgitation is present. Annuloplasty ringg in the mitral position. Moderate MR. Moderate to severe TR. Review of Systems Review of Systems: All systems reviewed & are unremarkable except as noted in Subjective Physical Exam Physical Exam: General: A&Ox3. HENT: Normocephalic. Atraumatic. Eyes: PER. Conjunctiva pink, sclera pale. Neck: No carotid bruits. + JVP. Chest: Extensive surgical graft scars with unprotected thoracic contents right of the sternum. Heart:RRR, 70 bpm. Grade 2 systolic ejection murmur. No diastolic murmur. No rub. Lungs: Diminished at the bases. Clear to auscultation. Abdomen: Multiple surgical scars. +BS. Soft. Nontender. No masses or organomegaly. Extremities: 1+ edema. No clubbing. No cyanosis. Limited neurological examination is without focal deficits. Pulses: radial=2/4, posterior tibial=1/4. Results & Data ([facility]) Vital Signs (Past 12 Hours) Vital Signs Temp Pulse Pulse Resp BP Pulse Ox O2 Del Method 02/08/22 07:27 36.8 C 77 18 115/66 100 Nasal Cannula 02/08/22 07:08 75 02/08/22 07:08 Nasal Cannula 02/08/22 04:31 36.7 C 75 18 114/53 L 100 Room Air 02/07/22 23:32 74 02/07/22 23:08 36.9 C 73 15 113/53 L 98 Nasal Cannula O2 Flow Rate 02/08/22 07:27 2 02/08/22 07:08 02/08/22 07:08 2 02/08/22 04:31 02/07/22 23:32 02/07/22 23:08 2 Laboratory Results Cardiac Enzymes 02/07/22 Range/Units 16:50 Troponin I High Sens 702.8 H* D (0-14) pg/ml CBC 02/08/22 Range/Units 07:07 WBC 4.11 L (4.8-10.8) K/ul RBC 2.79 L (3.93-5.22) M/uL Hgb 7.0 L (12.0-16.0) g/dl Hct 24.6 L (34.1-44.9) % Plt Count 156 (130-400) K/uL Neut # (Auto) 2.73 (1.4-6.5) K/uL Lymph # (Auto) 0.83 L (1.2-3.4) K/uL Banner # (Auto) 0.36 (0.24-0.82) K/uL Eos # (Auto) 0.13 (0-0.50) K/uL Baso # (Auto) 0.05 (0-0.2) K/uL Comprehensive Metabolic Panel 02/08/22 Range/Units 07:07 Sodium 142 (136-145) mmol/L Potassium 3.9 (3.5-5.1) mmol/L Chloride 97 L (98-107) mmol/L Carbon Dioxide 42 H* (21-32) mmol/L BUN 51 H (6-23) mg/dl Creatinine 1.29 H (0.6-1.2) mg/dl Glucose 127 H (70-99(Fasting)) mg/dl Calcium 8.1 L (8.5-10.1) mg/dl Intake and Output 02/07/22 02/08/22 02/08/22 22:59 06:59 14:59 Intake Total 250 / 825.834 100 / 825.834 Output Total 550 / 1550 500 / 1550 Balance -300 / -724.166 -400 / -724.166 Intake: IV 100 / 375.834 Magnesium Sulfate / D5w 1 gm In 100 / 375.834 100 ml @ 50 mls/hr IV Q2H [facility] Rx#:[id number] Oral 150 / 450 100 / 450 Output: Urine Amount (Catheter) 550 / 1550 500 / 1550 Guevara/Indwelling 550 / 1550 500 / 1550 Other: Weight 72.1 kg 72.1 kg Weight Measurement Method Built in [facility] Patient Weight 02/09/22 06:59 Weight 72.1 kg
--- NOTE | 2022-02-08 11:05 | Gastrointestinal Consultation ---
Date of Consultation February 08, 2022 Assessment & Plan (1) Rectal bleeding: (2) Acute blood loss anemia: (3) Cholecystitis: Plan Will consider EGD, once cardiopulmonary status is optimized. Will also consider/discuss w advanced endoscopist if she would benefit from Axios stent placement to drain the gallbladder. Recommend PPI drip, hold Eliquis (discussed w Cardiology - will defer to them). Recommend full liquid diet. Defer management of fluid/blood resuscitation to primary and cardiology services. Supervising Physician Co-Signing Physician Notes I have personally seen and examined the patient with JOCELINE Bocanegra. Her note reflects my exam and findings. I agree with her impression and plan. Patient also has been having 6-8 months of diarrhea. Her rectal bleeding is described as "red and sporadic". Cont to follow H/H and stabilize cardiopulmonary status. Will address need for endoscopic evaluation as her course unfolds. Chilo Sullivan M.D. History of Present Illness Reason for Consultation: Consult for anemia and occult positive stool Pt also with acute cholecystitis and not a surgical candidate Requesting Physician: Dr. Cortez Attending Physician: Jeyson Cortez MD History of Present Illness Ms. Andrea Garcia is an 81 yr old female pt of Dr. Peter diaz an extensive cardiac hx most recent stenting in 2019, maintained on Plavix/Eliquis. Also hx of distant breast CA S/P mastectomy, radiation and distant colon cancer S/P resection. She was admitted 02/06 for SOB. She was found to be in A. fib with RVR and cardiology notes a NSTEMI this admission. She is maintained on Eliquis and Plavix which are continued at this time, most recent doses this morning. She reports having had 2 small red bowel movements yesterday that were red, and this morning the nurse reports one dark BM, small, loose. Hb on arrival 11.6, today 7.0. BUN is elevated at 51 cr is also mildly elevated at 1.29. She denies any abdominal pain nausea or vomiting. Though she is somewhat high risk, she does agree to go through EGD if that is her recommendation. However, she does not want any operations. 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 Minimal sphincterotomy, papillary balloon dilation and placement of a CBD stent. In December she underwent repeat ERCP w removal of the stent and sweeping of the CBD for sludge. Most recent imaging of the gallbladder was in October prior to the initial ERCP w a distended gallbladder with a thickened and edematous wall as well as biliary sludge. Allergies Allergy/AdvReac Type Severity Reaction Status Date / Time codeine Allergy Severe RESP. Verified 01/15/20 21:10 DEPRESSION oyster extract Allergy Intermediate HIVES AND Verified 01/15/20 21:10 SWELLING, NO PROBLEMS W CONTRAST Home Medications Medication Instructions Recorded Confirmed Type acetaminophen 500 mg tablet 500 mg PO DIRECTED PRN Fever Or 07/29/19 02/06/22 History (Tylenol Extra Strength) Pain cholecalciferol (vitamin D3) 25 1,000 unit PO QAM 07/29/19 02/06/22 History mcg (1,000 unit) capsule (Vitamin D3) furosemide 20 mg tablet (Lasix) 20 mg PO DAILY 07/29/19 02/06/22 History metoprolol tartrate 100 mg tablet 200 mg PO BID 07/29/19 02/06/22 History omega 3-rhp-bde-fish oil 1,000 mg 1 cap PO QAM 07/29/19 02/06/22 History (120 mg-180 mg) capsule (Fish Oil) nitroglycerin 0.4 mg sublingual 0.4 mg sublingual UD PRN Chest Pain 01/15/20 02/06/22 History tablet (Nitrostat) omeprazole 20 mg tablet,delayed 20 mg PO DAILY 01/15/20 02/06/22 History release apixaban 5 mg tablet (Eliquis) 5 mg PO BID 30 days #60 tabs 01/17/20 02/06/22 Rx atorvastatin 40 mg tablet 40 mg PO DAILY 02/06/22 02/06/22 History clopidogrel 75 mg tablet 75 mg PO DAILY 02/06/22 02/06/22 History ferrous sulfate 325 mg (65 mg 325 mg PO DAILY 02/06/22 02/06/22 History iron) tablet (Iron (ferrous sulfate)) isosorbide mononitrate 30 mg 30 mg PO DAILY 02/06/22 02/06/22 History tablet,extended release 24 hr lisinopril 2.5 mg tablet 2.5 mg PO DAILY 02/06/22 02/06/22 History lorazepam 0.5 mg tablet (Ativan) 0.25 mg PO BID PRN Anxiety 02/06/22 02/06/22 History Patient History Medical History (HFpEF) heart failure with preserved ejection fraction Acute hypokalemia Anxiety Atherosclerotic cardiovascular disease Atrial fibrillation with RVR BPV (benign positional vertigo) Breast cancer Colon cancer DMII (diabetes mellitus, type 2) Hyperlipidemia Hypertension Hypomagnesemia On apixaban therapy Pneumonia ST elevation (STEMI) myocardial infarction Surgical History History of colon resection History of mastectomy S/P drug eluting coronary stent placement S/P PTCA (percutaneous transluminal coronary angioplasty) S/P TAVR (transcatheter aortic valve replacement) Social History Smoking Status: Never smoker Second Hand Exposure: No; Do You Dip or Chew Tobacco: No; Tobacco Cessation Education Requested by Patient: No Hx Alcohol Use: No Hx Substance Use: No Preferred Language: Tongan Communication Ability: Effective Diving Board Assembler Required: No Beliefs That Will Affect Care: None marital status: Current Living Situation: Spouse Other Information That Helps Us Care for You: No Feels Safe at Home: Yes Safety Concerns: Feels Safe At This Time Assistive Devices: Oxygen - Continuous Review of Systems Review of Systems: ROS: Gen: + weakness No fevers, no weight loss Eyes: No eye redness, or pain, no recent vision changes Resp: + SOB; occasional cough Cardio: +palpitations, + lower leg edema, Noo chest pain GI: As per HPI, otherwise (-). : Denies pain on urination Skin: No jaundice, itching or new rashes Physical Exam Constitutional: well nourished, + ill appearing (chronically), cooperative and + overweight; no acute distress Eyes: PERRL, conjunctivae normal, anicteric sclerae ENMT: external ear and nose normal, oropharynx normal Neck: trachea midline; neck nontender no lymphadenopathy Respiratory: + retractions (slight - right side of the chest wall moves in/out with respiration); no labored breathing, no cough, not tachypneic, no audible wheezes and no nasal flaring Auscultation: + crackles (right mid and lower lung); no wheezes Cardiovascular: Rate/Rhythm: regular rhythm Heart Sounds: + murmur (2-3/6 systolic) Extremities: + edema (1+ lower leg edema bilat) Chest (Breasts): Additional Comments: deformed right side of the chest; post mastectomy, non intact right upper ribs (pt reports chronic) Gastrointestinal (Abdomen): normal bowel sounds, soft, nontender, no hepatosplenomegaly Skin: no rashes, warm and dry Neurologic: PERRL, EOMI, accommodation nl, no face palsy, no dysarthria Psychiatric: A+Ox3, euthymic affect Lymphatic: no cervical or axillary lymphadenopathy Results & Data ([facility]) Vital Signs (Past 12 Hours) Vital Signs Temp Pulse Pulse Resp BP Pulse Ox O2 Del Method 02/08/22 07:27 36.8 C 77 18 115/66 100 Nasal Cannula 02/08/22 07:08 75 02/08/22 07:08 Nasal Cannula 02/08/22 04:31 36.7 C 75 18 114/53 L 100 Room Air 02/07/22 23:32 74 02/07/22 23:08 36.9 C 73 15 113/53 L 98 Nasal Cannula O2 Flow Rate 02/08/22 07:27 2 02/08/22 07:08 02/08/22 07:08 2 02/08/22 04:31 02/07/22 23:32 02/07/22 23:08 2 Laboratory Results Troponins are elevated WBC 4, Hb 7, HCT 24, PLT S156, NA 142, K3.9, CL 97, CO2 42, BUN 51, creatinine 1.29, glucose 137. Diagnostic Findings CXR 02/06/22: 1. Patchy reticulonodular densities within the lung bases persists. This favors a chronic inflammatory/infectious bronchiolitis. 2. No new focal lung consolidations identified. 3. Stable cardiomegaly.
--- NOTE | 2022-02-08 12:37 | Electrocardiogram Report ---
Test Reason : Blood Pressure : / mmHG Vent. Rate : 083 BPM Atrial Rate : 083 BPM P-R Int : 166 ms QRS Dur : 106 ms QT Int : 390 ms P-R-T Axes : 044 -08 046 degrees QTc Int : 458 ms Normal sinus rhythm Cannot rule out Inferior infarct , age undetermined Abnormal ECG When compared with ECG of 07-FEB-2022 05:32, Criteria for Anterior infarct are no longer Present Confirmed by Tung Harrell ([id number]) on 02/08/2022 12:37:07 PM Referred By: REFERRED SELF Confirmed By:Tung Harrell
--- NOTE | 2022-02-08 17:49 | Hospitalist Progress Note ---
Date of Service February 08, 2022 Assessment & Plan (1) Acute blood loss anemia: Plan Acute on chronic heart failure with preserved ejection fraction Acute on chronic respiratory failure: Likely secondary to above, improved. Patient does have complicated cardiac history, CAD status post stents, mitral valve fibroblastoma status post annuloplasty, STEMI, status post TAVR, A. fib on Eliquis. Patient also has history of breast cancer status postlumpectomy and radiation. Patient presented with chest pain and complaint of worsening leg swelling for last few days [employer]. Patient was given IV Lasix in the ED and initially placed on BiPAP and then transition to 4 L oxygen. April 2021 echo with EF of 58%. Admitting troponin elevated but down trended. Likely secondary to type II NSTEMI in the setting of CHF exacerbation and A. fib. ECG without ischemic changes at admission. 02/07 echo with EF of 60 to 65%, moderate concentric LVH, RV pressure/volume overload. Cardiology on board, managing diuresis. Patient on 2 L nasal cannula oxygen [baseline oxygen 2 L] Daily weight, strict I's and O's. Acute on chronic anemia GI bleed Hemoglobin around 10-11 3 months ago, outpatient hemoglobin of 8.7, admitting hemoglobin of 8.1 FOBT positive, hemoglobin dropping gradually to 7.0 today, blood consent obtained, transfusing 1 unit Monitor hemoglobin after transfusion and as required Full liq diet per GI, PPI IV, GI consult, avoid NSAIDs. Eliquis on hold. Appreciate GI recs. Patient denies any dizziness/chest pain/feeling of heart racing. In fact patient feels better today. Continue with iron supplement. Atrial fibrillation with RVR: Currently NSR, continue with home dose of metoprolol. Eliquis on hold due to GI bleed. YUE: Creatinine 1.29 today, likely prerenal secondary to blood loss and possibly cardiorenal/patient is volume overloaded. BMP in AM. Other chronic medical conditions: CAD, HTN, status post TAVR, DM2 --> continue with/resume home meds as and when appropriate. Chronic cholecystitis with calculus: Patient was admitted to [place] 2 weeks ago for possible cholecystectomy but was canceled due to positive COVID test. Scheduled to follow-up with surgery as outpatient on 02/24. GI considering endoscopic evaluation and possible Axios stent placement. DVT prophylaxis: SCDs, Eliquis on hold. CODE STATUS: Full code Disposition: PCU telemetry Emergency Contact: Adama [phone] Admission and Anticipated Discharge Date Admission Date: February 06, 2022 Subjective Patient seen and examined at bedside as a follow-up of acute on chronic heart failure with preserved ejection fraction, acute on chronic respiratory failure and acute on chronic anemia likely secondary to GI bleed and A. fib with RVR. Patient was sitting up in chair, on 2 L nasal cannula oxygen, NAD, denies any acute events overnight, patient in fact reports that she is feeling better today , patient also reports that she has been having red blood in the stool since last 2 days but at the same time stated that she had not notified anybody about the problem. Patient reports eating okay. Patient reports feeling weak and tired as usual but may be slightly better per her. Patient denies any dizziness or chest pain. Patient's hemoglobin was 7.0 today morning, given the fact that she is losing blood per GI, GI consulted, n.p.o., IV Protonix, blood transfusion consent obtained [initially patient was reluctant but has history of blood transfusion in the past, later on was willing for blood transfusion]. Avoid NSAIDs. Physical Exam Physical Exam: GENERAL: Alert and oriented x3. NAD, on 2L NC O2. HEENT: No pallor, no icterus. Pupils equal, round and reactive to light. Oral mucosa moist. Upper part of sternum removed. NECK: No JVD, no neck masses. HEART: S1 and S2 heard. Regular rate and rhythm. + murmur, no gallop. RESPIRATORY SYSTEM: Normal AP diameter. No accessory muscle use. No wheezing, b/b crackles. ABDOMEN: Soft, bowel sounds present, nontender, no distention. CENTRAL NERVOUS SYSTEM: No facial droop. Speech is clear. Obeys simple commands. Moves extremities. EXTREMITIES: 2+ ble edema, no erythema seen. Results & Data Results & Data ([facility]) Vital Signs (Past 12 Hours) Vital Signs Temp Pulse Pulse Resp BP BP Pulse Ox 02/08/22 14:50 36.4 C L 76 16 121/55 L 99 02/08/22 13:50 36.7 C 74 18 110/57 L 100 02/08/22 13:20 36.7 C 74 16 117/51 L 100 02/08/22 13:05 36.8 C 74 14 116/43 L 100 02/08/22 12:45 36.8 C 74 18 124/54 L 100 02/08/22 11:41 36.8 C 73 14 100/62 100 02/08/22 07:27 36.8 C 77 18 115/66 100 02/08/22 07:08 75 02/08/22 07:08 O2 Del Method O2 Flow Rate 02/08/22 14:50 02/08/22 13:50 02/08/22 13:20 02/08/22 13:05 2 02/08/22 12:45 02/08/22 11:41 02/08/22 07:27 Nasal Cannula 2 02/08/22 07:08 02/08/22 07:08 Nasal Cannula 2
[2022-02-08 18:25] LABS: Hematocrit (blood only) 29.7 % (34.1-44.9); Hemoglobin 8.5 g/dl (12.0-16.0)
[2022-02-08] MEDS ORDERED: ACETAMINOPHEN 325 MG TAB PO STA (19:57)
[2022-02-08] MEDS: PANTOprazole 40 MG in SYRINGE 0 ML IV SCH (20:48)
[2022-02-09] MEDS: LORazepam 0.5 MG TAB PO PRN ×2 (02:06→23:02)
[2022-02-09] MEDS: ACETAMINOPHEN 325 MG TAB PO PRN ×2 (02:11→23:01)
[2022-02-09 06:46] LABS: Hematocrit (blood only) 29.3 % (34.1-44.9); Hemoglobin 8.4 g/dl (12.0-16.0); Mean Corpuscular Hemoglobin 25.4 pg (25.0-34.0); Mean Corpuscular Hgb Conc 28.7 g/dL (32.0-36.0); Mean Corpuscular Volume 88.5 fL (80.0-100.0); Mean Platelet Volume 11.1 fL (9.4-12.3); Platelet Count 160 K/uL (130-400); RDW Coefficient of Variation 16.4 % (11.5-14.5); RDW Standard Deviation 53.3 fL (36.4-46.3); Red Blood Count 3.31 M/uL (3.93-5.22); White Blood Count 4.82 K/ul (4.8-10.8)
[2022-02-09 07:12] LABS: Calcium 8.4 mg/dl (8.5-10.1); Creatinine Clr Calc Pharmacy 31.9 ml/min; Est GFR (African American) 47.6 ml/min; Est GFR (Non-African American) 41.1 ml/min; Magnesium 1.5 mg/dl (1.7-2.4); Phosphorus 4.6 mg/dl (2.5-4.9)
[2022-02-09] MEDS: lisinopril 2.5 MG TAB PO SCH (08:14)
[2022-02-09] MEDS: FERROUS SULFATE 325 MG TAB PO SCH (08:14)
[2022-02-09] MEDS: ATORVASTATIN 40 MG TAB PO SCH (08:14)
[2022-02-09] MEDS: METOPROLOL TARTRATE 100 MG TAB PO SCH ×2 (08:14→20:44)
[2022-02-09] MEDS: CHOLECALCIFEROL 1,000 UNITS 25 MCG TAB PO SCH (08:14)
[2022-02-09] MEDS: OMEGA-3 (PURIFIED FISH OIL) 1 GM CAP PO SCH (08:14)
[2022-02-09] MEDS: CLOPIDOGREL BISULFATE 75 MG TAB PO SCH (08:14)
[2022-02-09] MEDS: SPIRONOLACTONE 12.5 MG TAB PO SCH (08:14)
[2022-02-09] MEDS: ISOSORBIDE MONO EXTENDED REL 30 MG TABCR PO SCH (08:14)
[2022-02-09] MEDS: PANTOprazole 40 MG in SYRINGE 0 ML IV SCH ×2 (08:15→20:44)
[2022-02-09] MEDS: FUROSEMIDE 40 MG/4 ML VIAL IV SCH (08:15)
[2022-02-09] MEDS: MAGNESIUM SULFATE / D5W 1 GM/100 ML BAG IV SCH ×3 (08:26→12:15)
[2022-02-09] MEDS: INSULIN ASPART PER UNIT SC SCH ×4 (08:46→20:43)
--- NOTE | 2022-02-09 09:38 | Gastroenterology Progress Note ---
Date of Service February 09, 2022 Assessment & Plan (1) Rectal bleeding: Plan: Continued w two diarrheal BMs with small amt of bright red blood. Hb stable. BUN 48. Plan Per cardiology, should be ready for EGD tomorrow. Will make NPO after midnight, order EGD and will go forward with EGD tomorrow if no adverse events. For today, froma GI standpoint, may have a regular diet but will defer to primary/cardiology. Admission and Anticipated Discharge Date Admission Date: February 06, 2022 Supervising Physician Co-Signing Physician Notes I have personally seen and examined the patient with JOCELINE Bocanegra. Her note reflects my exam and findings. I agree with her impression and plan. Will plan on EGD in am looking for upper GI pathology as possible contributing factor to anemia. Chilo Sullivan M.D. Subjective Awake, alert, HR in the 70's, O2 by NC at 2L/min. no SOB. Edema much improved. Pt reports urgent diarrheal BMs one last night, one this morning both w small amt of blood. Review of Systems Review of Systems: ROS: Gen: + weakness No fevers, no weight loss Eyes: No eye redness, or pain, no recent vision changes Resp: Currently no SOB; no cough Cardio: Currently no palpitations, lower leg edema improved and, no chest pain GI: As per HPI, otherwise (-). : Denies pain on urination Skin: No jaundice, itching or new rashes Physical Exam Constitutional: well nourished, + ill appearing (chronically), cooperative and + overweight; no acute distress Eyes: PERRL, conjunctivae normal, anicteric sclerae ENMT: external ear and nose normal, oropharynx normal Neck: trachea midline; neck nontender Respiratory: + retractions (slight - right side of the chest wall moves in/out with respiration); no labored breathing, no cough, not tachypneic, no audible wheezes and no nasal flaring Auscultation: + crackles (right mid and lower lung); no wheezes Cardiovascular: Rate/Rhythm: regular rhythm Heart Sounds: + murmur (2-3/6 systolic) Extremities: + edema (trace bilat lower leg edea) Gastrointestinal (Abdomen): normal bowel sounds, soft, nontender, no hepatosplenomegaly Skin: no rashes, warm and dry Neurologic: PERRL, EOMI, accommodation nl, no face palsy, no dysarthria Psychiatric: A+Ox3, euthymic affect Lymphatic: no cervical or axillary lymphadenopathy Results & Data ([facility]) Vital Signs (Past 12 Hours) Vital Signs Temp Pulse Pulse Resp BP Pulse Ox O2 Del Method 02/09/22 07:30 76 02/09/22 07:30 Nasal Cannula 02/09/22 07:30 36.7 C 79 14 119/51 L 98 Nasal Cannula 02/09/22 02:07 36.5 C 75 15 111/54 L 94 Nasal Cannula 02/09/22 00:02 70 02/08/22 22:48 36.9 C 74 18 109/55 L 99 Nasal Cannula 02/08/22 21:52 Nasal Cannula O2 Flow Rate 02/09/22 07:30 02/09/22 07:30 2 02/09/22 07:30 2 02/09/22 02:07 2 02/09/22 00:02 02/08/22 22:48 2 02/08/22 21:52 2 Laboratory Results WBC 4.8, Hb 8.4, Hct 29.3, plts 160, INR 1.2, Na 141, K 4.0, Cl 96, CO2 41, BUN 48, Cr 1.23, glucose 122
--- NOTE | 2022-02-09 10:00 | Cardiology Progress Note ---
Date of Service February 09, 2022 Assessment & Plan (1) Acute on chronic heart failure with preserved ejection fraction: (2) Acute and chronic respiratory failure: (3) Non-ST elevation (NSTEMI) myocardial infarction: (4) Paroxysmal atrial fibrillation: (5) S/P TAVR (transcatheter aortic valve replacement): (6) Hypomagnesemia: (7) Anemia: Plan Recurrent symptomatic atrial fibrillation with a rapid ventricular response of unknown duration, status post spontaneous conversion back to sinus rhythm in the early AM of 02/07/2022. [id number] score 9 points. Continue high dose metoprolol, 200 mg twice a day. Eliquis anticoagulation is currently on hold, pending GI workup. Resume Eliquis when able. Acute on chronic respiratory failure with hypoxia due to acute decompensated diastolic congestive heart failure, type II non-STEMI (demand ischemia) in the setting of chronic coronary disease. Hold IV diuresis after the AM dose today. Supplement magnesium. Maintain normokalemia. Symptomatic anemia. Status post 1 U PRBC's on 02/08/2022. Hgb 8.4 this AM. EGD planned for 02/10/2021, then colonoscopy based on EGD findings. Resume Eliquis when able. Discontinue fish oils. ? Cholecystitis. Her wishes are clear. She does not want cholecystectomy. She is interested in Axios stent placement. Ischemic heart disease. Acute inferior/posterolateral STEMI secondary to a subtotal occlusion of the mid RCA s/p successful intervention to the proximal and mid RCA with two bare metal stents. August 10, 2017 cardiac catheterization with single-vessel disease, status post August 2017 PCI of the ostial RCA with a single drug-eluting stent. January 15, 2020 inferior STEMI, very late stent thrombosis with minimal non culprit coronary artery disease elsewhere, normal intracardiac filling pressures. Status post PCI of the ostial RCA sten thrombosis with a new overlapping 3.0 x 8 mm Xience drug eluting stent. NSTEMI this admission. See above. Continue appropriate medical management including Clopidogrel. She is not prescribed ASA. 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 Admission and Anticipated Discharge Date Admission Date: February 06, 2022 Supervising Physician Co-Signing Physician Notes Patient seen and examined at the bedside. No recurrent signs/symptoms of GI blood loss. Received 1 unit of packed red blood cells yesterday. Hemoglobin stable. Eliquis on hold in anticipation of endoscopy 02/10/2022. Fluid balance remains negative. She is feeling better today. Denies chest pain or shortness of breath at rest. Telemetry reveals sinus rhythm. No recurrent atrial fibrillation overnight. PE: VSS. Gen: NAD, AAOx3. Heart: Regular rhythm, normal S1-S2, 2/6 systolic ejection murmur. Lungs: Scant crackles at the bases bilateral. Extremities: 1+ bilateral pitting pretibial edema. A/P: Agree with above PA-C history, physical exam, assessment and plan. Monitor daily H&H. Continue IV diuretics. Monitor daily weight, fluid balance, GFR, and electrolytes. Hold Eliquis in anticipation of endoscopy tomorrow 02/10/2022. Continue to monitor for any recurrent signs of GI blood loss. Subjective Patient seen and examined. Chart, medications and telemetry reviewed. Feeling better overall. No chest pressure. Fatigue has improved some. No palpitations. Edema continues to improve. Two bouts of diarrhea in the last 24 hours. Hypomagnesemia (1.5) noted with supplemental magnesium already ordered. I/O's negative 1,754 mL's overall. Telemetry: Sinus in the 70's currently, 70's and 80's overnight. No atrial fibrillation since very early in the AM of 02/07/2022. February 07, 2022 TTE Interpretation Summary ([facility], Dr. Alatorre): EF 60-65%. Moderate concentric LVH. Flattened septum consistent with RV pressure/volume overload. Mildly dilated RV. Reduced RV systolic function by TAPSE. TAVR (Claudio type prosthetic valve) with normal gradients. Mild aortic valve prosthesis regurgitation is present. Annuloplasty ringg in the mitral position. Moderate MR. Moderate to severe TR. Review of Systems Review of Systems: Complete Review of Systems is as stated above, negative, or noncontributory. Physical Exam Physical Exam: General: A&Ox3. HENT: Normocephalic. Atraumatic. Eyes: PER. Conjunctiva pink, sclera pale. Neck: No carotid bruits. + JVP. Chest: Extensive surgical graft scars with unprotected thoracic contents right of the sternum. Heart:RRR, 70 bpm. Grade 2 systolic ejection murmur. No diastolic murmur. No rub. Lungs: Diminished at the bases. Clear to auscultation. Abdomen: Multiple surgical scars. +BS. Soft. Nontender. No masses or organomegaly. Extremities: Trace to 1+ edema. No clubbing. No cyanosis. Limited neurological examination is without focal deficits. Pulses: radial=2/4, posterior tibial=1/4. Results & Data ([facility]) Vital Signs (Past 12 Hours) Vital Signs Temp Pulse Pulse Resp BP Pulse Ox O2 Del Method 02/09/22 07:30 76 02/09/22 07:30 Nasal Cannula 02/09/22 07:30 36.7 C 79 14 119/51 L 98 Nasal Cannula 02/09/22 02:07 36.5 C 75 15 111/54 L 94 Nasal Cannula 02/09/22 00:02 70 02/08/22 22:48 36.9 C 74 18 109/55 L 99 Nasal Cannula O2 Flow Rate 02/09/22 07:30 02/09/22 07:30 2 02/09/22 07:30 2 02/09/22 02:07 2 02/09/22 00:02 02/08/22 22:48 2 Laboratory Results CBC 02/08/22 02/09/22 Range/Units 17:13 06:29 WBC 4.82 (4.8-10.8) K/ul RBC 3.31 L (3.93-5.22) M/uL Hgb 8.5 L 8.4 L (12.0-16.0) g/dl Hct 29.7 L 29.3 L (34.1-44.9) % Plt Count 160 (130-400) K/uL Comprehensive Metabolic Panel 02/09/22 Range/Units 06:29 Sodium 141 (136-145) mmol/L Potassium 4.0 (3.5-5.1) mmol/L Chloride 96 L (98-107) mmol/L Carbon Dioxide 41 H* (21-32) mmol/L BUN 48 H (6-23) mg/dl Creatinine 1.23 H (0.6-1.2) mg/dl Glucose 122 H (70-99(Fasting)) mg/dl Calcium 8.4 L (8.5-10.1) mg/dl Intake and Output 02/08/22 02/09/22 02/09/22 22:59 06:59 14:59 Intake Total 1210 / 1210 Output Total 750 / 1700 300 / 1700 Balance 460 / -490 -300 / -490 Intake: Oral 900 / 900 Intake (Blood Product) Amt 310 / 310 Packed Cells, Leukoreduced 310 / 310 Unit [id number] Output: Urine Amount (Catheter) 750 / 1700 300 / 1700 Guevara/Indwelling 750 / 1700 300 / 1700 Other: Weight 72.5 kg Weight Measurement Method Built in [facility]
--- NOTE | 2022-02-09 16:10 | Hospitalist Progress Note ---
Date of Service February 09, 2022 Assessment & Plan (1) Acute blood loss anemia: Plan Acute on chronic heart failure with preserved ejection fraction Acute on chronic respiratory failure: Likely secondary to above, improved. Patient does have complicated cardiac history, CAD status post stents, mitral valve fibroblastoma status post annuloplasty, STEMI, status post TAVR, A. fib on Eliquis. Patient also has history of breast cancer status post lumpectomy and radiation. Patient presented with chest pain and complaint of worsening leg swelling for last few days [employer]. Patient was given IV Lasix in the ED and initially placed on BiPAP and then transitioned to 4 L oxygen. April 2021 echo with EF of 58%. Admitting troponin elevated but down trended. Likely secondary to type II NSTEMI in the setting of CHF exacerbation and A. fib. ECG without ischemic changes at admission. 02/07 echo with EF of 60 to 65%, moderate concentric LVH, RV pressure/volume overload. Cardiology on board, managing diuresis, IV Lasix on hold today. Patient on 2 L nasal cannula oxygen [baseline oxygen 2 L] Daily weight, strict I's and O's. Acute on chronic anemia GI bleed Hemoglobin around 10-11 3 months ago, outpatient hemoglobin of 8.7, admitting hemoglobin of 8.1 FOBT positive, hemoglobin dropping gradually to 7.0 on 02/08, s/p 1 unit prbc 02/08 GI on board, n.p.o. midnight, for EGD tomorrow. Can continue with regular diet for now. Eliquis remains on hold. Continue with pantoprazole IV. Patient denies any dizziness/chest pain/feeling of heart racing. Continue with iron supplement. Atrial fibrillation with RVR: Currently NSR, continue with home dose of metoprolol. Eliquis on hold due to GI bleed. YUE: Creatinine 1.29 today, likely prerenal secondary to blood loss and possibly cardiorenal/patient is volume overloaded. BMP in AM. Other chronic medical conditions: CAD, HTN, status post TAVR, DM2 --> continue with/resume home meds as and when appropriate. Chronic cholecystitis with calculus: Patient was admitted to [facility] 2 weeks ago for possible cholecystectomy but was canceled due to positive COVID test. Scheduled to follow-up with surgery as outpatient on 02/24. GI considering endoscopic evaluation and possible Axios stent placement, will likely happen as an outpatient. Patient to follow-up with GI as an outpatient. DVT prophylaxis: SCDs, Eliquis on hold. CODE STATUS: Full code Disposition: PCU telemetry Emergency Contact: Adama [phone] Admission and Anticipated Discharge Date Admission Date: February 06, 2022 Subjective Patient seen and examined at bedside as a follow-up of acute on chronic heart failure with preserved ejection fraction, acute on chronic respiratory failure and acute on chronic anemia likely secondary to GI bleed and A. fib with RVR. Patient was sitting up in chair, on 2 L nasal cannula oxygen, NAD, at bedside, denies any acute events overnight, patient reports that she is feeling better, denies further blood in the stool. Patient reports eating okay. Patient lightheadedness or dizziness or chest pain or palpitation or belly pain or other review of symptoms. Telemetry reviewed, sinus in the 70s. Physical Exam Physical Exam: GENERAL: Alert and oriented x3. NAD, on 2L NC O2. HEENT: No pallor, no icterus. Pupils equal, round and reactive to light. Oral mucosa moist. Upper part of sternum removed. NECK: No JVD, no neck masses. HEART: S1 and S2 heard. Regular rate and rhythm. + murmur, no gallop. RESPIRATORY SYSTEM: Normal AP diameter. No accessory muscle use. No wheezing, b/b crackles. ABDOMEN: Soft, bowel sounds present, nontender, no distention. CENTRAL NERVOUS SYSTEM: No facial droop. Speech is clear. Obeys simple commands. Moves extremities. EXTREMITIES: 1-2+ ble edema, no erythema seen. Results & Data Results & Data ([facility] [place]) Vital Signs (Past 12 Hours) Vital Signs Temp Pulse Pulse Resp BP Pulse Ox O2 Del Method 02/09/22 15:43 72 02/09/22 15:00 36.8 C 75 18 109/78 95 Room Air 02/09/22 11:26 36.8 C 73 14 102/47 L 100 Nasal Cannula 02/09/22 07:30 76 02/09/22 07:30 Nasal Cannula 02/09/22 07:30 36.7 C 79 14 119/51 L 98 Nasal Cannula O2 Flow Rate 02/09/22 15:43 02/09/22 15:00 02/09/22 11:26 2 02/09/22 07:30 02/09/22 07:30 2 02/09/22 07:30 2
[2022-02-10 07:12] LABS: Hematocrit (blood only) 29.4 % (34.1-44.9); Hemoglobin 8.4 g/dl (12.0-16.0); Mean Corpuscular Hemoglobin 25.6 pg (25.0-34.0); Mean Corpuscular Hgb Conc 28.6 g/dL (32.0-36.0); Mean Corpuscular Volume 89.6 fL (80.0-100.0); Mean Platelet Volume 11.8 fL (9.4-12.3); Platelet Count 166 K/uL (130-400); RDW Coefficient of Variation 16.4 % (11.5-14.5); RDW Standard Deviation 53.8 fL (36.4-46.3); Red Blood Count 3.28 M/uL (3.93-5.22); White Blood Count 5.24 K/ul (4.8-10.8)
[2022-02-10 07:36] LABS: BUN Creatinine Ratio 39.8 (10-20); Calcium 8.6 mg/dl (8.5-10.1); Creatinine Clr Calc Pharmacy 34.7 ml/min; Est GFR (African American) 52.8 ml/min; Est GFR (Non-African American) 45.5 ml/min; Potassium 4.1 mmol/L (3.5-5.1)
--- NOTE | 2022-02-10 08:04 | Anesthesiology Consultation ---
Date of Service February 10, 2022 Assessment & Plan (1) Encounter for pre-operative examination: Chart Review Chart Review: Acceptable Risk for Surgery and Patient NOT seen in Pre Admission Testing Cardiology note 02/09/22: Assessment & Plan (1) Acute on chronic heart failure with preserved ejection fraction: (2) Acute and chronic respiratory failure: (3) Non-ST elevation (NSTEMI) myocardial infarction: (4) Paroxysmal atrial fibrillation: (5) S/P TAVR (transcatheter aortic valve replacement): (6) Hypomagnesemia: (7) Anemia: Plan Recurrent symptomatic atrial fibrillation with a rapid ventricular response of unknown duration, status post spontaneous conversion back to sinus rhythm in the early AM of 02/07/2022. [id number] score 9 points. Continue high dose metoprolol, 200 mg twice a day. Eliquis anticoagulation is currently on hold, pending GI workup. Resume Eliquis when able. Acute on chronic respiratory failure with hypoxia due to acute decompensated diastolic congestive heart failure, type II non-STEMI (demand ischemia) in the setting of chronic coronary disease. Hold IV diuresis after the AM dose today. Supplement magnesium. Maintain normokalemia. Symptomatic anemia. Status post 1 U PRBC's on 02/08/2022. Hgb 8.4 this AM. EGD planned for 02/10/2021, then colonoscopy based on EGD findings. Resume Eliquis when able. Discontinue fish oils. ? Cholecystitis. Her wishes are clear. She does not want cholecystectomy. She is interested in Axios stent placement. Ischemic heart disease. Acute inferior/posterolateral STEMI secondary to a subtotal occlusion of the mid RCA s/p successful intervention to the proximal and mid RCA with two bare metal stents. August 10, 2017 cardiac catheterization with single-vessel disease, status post August 2017 PCI of the ostial RCA with a single drug-eluting stent. January 15, 2020 inferior STEMI, very late stent thrombosis with minimal non culprit coronary artery disease elsewhere, normal intracardiac filling pressures. Status post PCI of the ostial RCA sten thrombosis with a new overlapping 3.0 x 8 mm Xience drug eluting stent. NSTEMI this admission. See above. Continue appropriate medical management including Clopidogrel. She is not prescribed ASA. 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 Consults Requested none History Surgery Operation Date: 02/10/22 16:00 Proposed Procedures p Esophagogastroduodenoscopy Dr Sullivan - Chilo Sullivan MD Height/Weight Height: 5 ft Weight: 72.6 kg Allergies Allergy/AdvReac Type Severity Reaction Status Date / Time codeine Allergy Severe RESP. Verified 01/15/20 21:10 DEPRESSION oyster extract Allergy Intermediate HIVES AND Verified 01/15/20 21:10 SWELLING, NO PROBLEMS W CONTRAST Medications Home Medications Medication Instructions Recorded Confirmed Last Taken acetaminophen 500 mg tablet 500 mg PO DIRECTED PRN Fever Or 07/29/19 02/06/22 Unknown (Tylenol Extra Strength) Pain cholecalciferol (vitamin D3) 25 1,000 unit PO QAM 07/29/19 02/06/22 07/28/19 mcg (1,000 unit) capsule (Vitamin D3) furosemide 20 mg tablet (Lasix) 20 mg PO DAILY 07/29/19 02/06/22 Unknown metoprolol tartrate 100 mg tablet 200 mg PO BID 07/29/19 02/06/22 07/28/19 omega [id number] oil 1,000 mg 1 cap PO QAM 07/29/19 02/06/22 07/28/19 (120 mg-180 mg) capsule (Fish Oil) nitroglycerin 0.4 mg sublingual 0.4 mg sublingual UD PRN Chest Pain 01/15/20 02/06/22 Unknown tablet (Nitrostat) omeprazole 20 mg tablet,delayed 20 mg PO DAILY 01/15/20 02/06/22 Unknown release apixaban 5 mg tablet (Eliquis) 5 mg PO BID 30 days #60 tabs 01/17/20 02/06/22 0 02/06/22 atorvastatin 40 mg tablet 40 mg PO DAILY 02/06/22 02/06/22 Unknown clopidogrel 75 mg tablet 75 mg PO DAILY 02/06/22 02/06/22 Unknown ferrous sulfate 325 mg (65 mg 325 mg PO DAILY 02/06/22 02/06/22 Unknown iron) tablet (Iron (ferrous sulfate)) isosorbide mononitrate 30 mg 30 mg PO DAILY 02/06/22 02/06/22 Unknown tablet,extended release 24 hr lisinopril 2.5 mg tablet 2.5 mg PO DAILY 02/06/22 02/06/22 Unknown lorazepam 0.5 mg tablet (Ativan) 0.25 mg PO BID PRN Anxiety 02/06/22 02/06/22 Unknown Active Medications Generic Name Dose Route Start Last Admin Trade Name Ruel PRN Reason Stop Dose Admin Acetaminophen 650 mg 02/06/22 21:23 02/09/22 23:01 Acetaminophen 325 Mg Tab PO 03/08/22 21:22 650 mg Q4H PRN Administration Pain or Fever Apixaban 5 mg 02/06/22 21:23 02/08/22 09:03 Apixaban 5 Mg Tablet PO 03/08/22 21:22 5 mg BID ILA Administration Atorvastatin Calcium 40 mg 02/07/22 09:00 02/09/22 08:14 Atorvastatin 40 Mg Tab PO 03/09/22 08:59 40 mg DAILY ILA Administration Clopidogrel Bisulfate 75 mg 02/07/22 09:00 02/09/22 08:14 Clopidogrel Bisulfate 75 Mg Tab PO 03/09/22 08:59 75 mg DAILY ILA Administration Ferrous Sulfate 325 mg 02/07/22 09:00 02/09/22 08:14 Ferrous Sulfate 325 Mg Tab PO 03/09/22 08:59 325 mg DAILY ILA Administration Furosemide 40 mg 02/07/22 11:30 02/09/22 08:15 Furosemide 40 Mg/4 Ml Vial IV 03/09/22 11:29 40 mg BID ILA Administration Pantoprazole Sodium 40 mg/ 10 mls @ 5 mls/min 02/08/22 21:00 02/09/22 20:44 Syringe IV 03/10/22 20:59 5 mls/min BID ILA Administration Insulin Aspart 0 units 02/06/22 21:23 02/09/22 20:43 Insulin Aspart Per Unit SC 03/08/22 21:22 Not Given ACHS ILA Isosorbide Mononitrate 30 mg 02/07/22 09:00 02/09/22 08:14 Isosorbide Iron Extended Rel 30 Mg Tabcr PO 03/09/22 08:59 30 mg DAILY ILA Administration Lisinopril 2.5 mg 02/07/22 09:00 02/09/22 08:14 Lisinopril 2.5 Mg Tab PO 03/09/22 08:59 2.5 mg DAILY ILA Administration Lorazepam 0.25 mg 02/06/22 21:23 02/09/22 23:02 Lorazepam 0.5 Mg Tab PO 03/08/22 21:22 0.25 mg BID PRN Administration Anxiety Metoprolol Tartrate 200 mg 02/06/22 21:23 02/09/22 20:44 Metoprolol Tartrate 100 Mg Tab PO 03/08/22 21:22 200 mg BID ILA Administration Nitroglycerin 0.4 mg 02/06/22 16:48 02/06/22 17:17 Nitroglycerin Sl 0.4 Mg/Tab Tab SL 03/08/22 16:47 0.4 mg UD PRN Administration Chest Pain Pantoprazole Sodium 40 mg 02/07/22 09:00 02/08/22 09:03 Pantoprazole 40 Mg Tab PO 03/09/22 08:59 40 mg DAILY ILA Administration Spironolactone 12.5 mg 02/07/22 11:00 02/09/22 08:14 Spironolactone 12.5 Mg Tab PO 03/09/22 10:59 12.5 mg DAILY ILA Administration Vitamin D 1,000 units 02/07/22 09:00 02/09/22 08:14 Cholecalciferol 1,000 Units 25 Mcg Tab PO 03/09/22 08:59 1,000 units QAM ILA Administration Past Medical History Medical History (HFpEF) heart failure with preserved ejection fraction Acute hypokalemia Anxiety Atherosclerotic cardiovascular disease Atrial fibrillation with RVR BPV (benign positional vertigo) Breast cancer Colon cancer DMII (diabetes mellitus, type 2) Hyperlipidemia Hypertension Hypomagnesemia On apixaban therapy Pneumonia ST elevation (STEMI) myocardial infarction Past Surgical History Surgical History History of colon resection History of mastectomy S/P drug eluting coronary stent placement S/P PTCA (percutaneous transluminal coronary angioplasty) S/P TAVR (transcatheter aortic valve replacement) Social History Smoking Status: Never smoker Do You Dip or Chew Tobacco: No Hx Alcohol Use: No Alcohol type: wine alcohol intake frequency: holidays/special occasions only Hx Substance Use: No substance use type: does not use Physical Exam Vital Signs Last Vital Signs Temp 36.7 C 02/10/22 07:49 Pulse 82 02/10/22 07:49 Resp 20 02/10/22 07:49 BP 136/46 L 02/10/22 07:49 Pulse Ox 2 L 02/10/22 07:49 O2 Del Method 02/10/22 07:49 O2 Flow Rate 2 02/10/22 03:30 FiO2 28 02/06/22 17:23 Testing Laboratory Results 02/10/22 06:38 02/10/22 06:38 PT 12.5 Seconds (9.0-12.0) H 02/06/22 16:55 INR 1.2 (0.9-1.1) H 02/06/22 16:55 APTT 27.9 Seconds (21.0-31.0) 02/06/22 16:55 Hemoglobin A1c 7.9 % (4.5-5.6) H 02/07/22 07:20 Blood Type O Positive 02/08/22 11:23 Antibody Screen NEGATIVE 02/08/22 11:23 02/10/22 02/09/22 07:37 20:43 POC Glucose 134 H 143 H Electrocardiogram Date: 02/06/22 DICTATED BY:Dalton Singer MD Test Reason : Blood Pressure : / mmHG Vent. Rate : 107 BPM Atrial Rate : 110 BPM P-R Int : 000 ms QRS Dur : 104 ms QT Int : 364 ms P-R-T Axes : 000 -09 009 degrees QTc Int : 485 ms Atrial fibrillation with rapid ventricular response Minimal voltage criteria for LVH, may be normal variant Possible Inferior infarct (cited on or before 11-MAY-2013) Anterior infarct (cited on or before 11-MAY-2013) Abnormal ECG When compared with ECG of 06-FEB-2022 16:52, (unconfirmed) Atrial fibrillation has replaced Sinus rhythm ST no longer depressed in Lateral leads Nonspecific T wave abnormality, worse in Inferior leads Confirmed by Dalton Singer ([id number]) on 02/07/2022 12:37:47 PM Chest X-Ray Date: 02/06/22 XR chest 1V portable HISTORY: Atypical Chest Pain COMPARISON: Chest CTA 11/03/2021. FINDINGS: No pneumothorax. No pleural effusions. There is chronic elevation the right hemidiaphragm with stable blunting of the right lateral costophrenic sulcus. The heart remains mildly enlarged. There are dense mitral annulus calcifications and an aortic valve stent is noted. No evidence for pulmonary edema. Patchy reticulonodular densities within the lung bases persist. IMPRESSION: 1. Patchy reticulonodular densities within the lung bases persists. This favors a chronic inflammatory/infectious bronchiolitis. 2. No new focal lung consolidations identified. 3. Stable cardiomegaly. Echocardiogram Date: 02/07/22 EF 60-65% LVH s/p TAVR
[2022-02-10] MEDS: METOPROLOL TARTRATE 100 MG TAB PO SCH ×2 (09:10→20:30)
[2022-02-10] MEDS: INSULIN ASPART PER UNIT SC SCH ×4 (09:17→20:24)
[2022-02-10] MEDS ORDERED: LORazepam 0.25 MG in SYRINGE 0.125 ML IV STA (09:22)
[2022-02-10] MEDS ORDERED: METOPROLOL TARTRATE 1 MG/ML VIAL IV STA (09:24)
--- NOTE | 2022-02-10 09:39 | Cardiology Progress Note ---
Date of Service February 10, 2022 Assessment & Plan (1) Acute on chronic heart failure with preserved ejection fraction: (2) Acute and chronic respiratory failure: (3) Non-ST elevation (NSTEMI) myocardial infarction: (4) Paroxysmal atrial fibrillation: (5) S/P TAVR (transcatheter aortic valve replacement): (6) Hypomagnesemia: (7) Anemia: Plan Recurrent (as of 08:54 this AM) symptomatic atrial fibrillation with a rapid ventricular response. 5 mg IV lopressor now. Decrease metoprolol tartrate from 200 mg twice a day to 100 mg twice a day. Add Sotalol 80 mg twice a day. Check QTc interval 2 to 4 hours after each dose of Sotalol. [id number] score 9 points. Resume anticoagulation when able. Acute on chronic respiratory failure with hypoxia due to acute decompensated diastolic congestive heart failure, type II non-STEMI (demand ischemia) in the setting of chronic coronary disease. Last dose of IV furosemide was in the AM of 02/09/2022. Start oral furosemide today. Maintain electrolytes. Symptomatic anemia. Status post 1 U PRBC's on 02/08/2022. Hgb stable at 8.4 this AM. GI evaluation in process. Resume Eliquis when able. Fish oils discontinued this admission. ? Cholecystitis. Her wishes are clear. She does not want cholecystectomy. She is interested in Axios stent placement. Ischemic heart disease. Acute inferior/posterolateral STEMI secondary to a subtotal occlusion of the mid RCA s/p successful intervention to the proximal and mid RCA with two bare metal stents. August 10, 2017 cardiac catheterization with single-vessel disease, status post August 2017 PCI of the ostial RCA with a single drug-eluting stent. January 15, 2020 inferior STEMI, very late stent thrombosis with minimal non culprit coronary artery disease elsewhere, normal intracardiac filling pressures. Status post PCI of the ostial RCA sten thrombosis with a new overlapping 3.0 x 8 mm Xience drug eluting stent. NSTEMI this admission. See above. Continue appropriate medical management including Clopidogrel. She is not prescribed ASA. 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 Admission and Anticipated Discharge Date Admission Date: February 06, 2022 Supervising Physician Co-Signing Physician Notes Patient seen and examined at the bedside. Recurrent atrial fibrillation with rapid ventricular response this AM. No recurrent signs/symptoms of GI blood loss. Received 1 unit of packed red blood cells yesterday. Hemoglobin stable. Eliquis on hold in anticipation of endoscopy. Fluid balance remains negative 805cc. Patient feeling anxious with intermittent chest pressure. Denies orthopnea or PND. present at bedside. PE: VSS. Gen: NAD, AAOx3. Heart: Irregular rhythm, borderline tachycardic, normal S1-S2, 2/6 systolic ejection murmur. Lungs: Scant crackles at the bases bilateral. Extremities: 1+ bilateral pitting pretibial edema. A/P: Agree with above PA-C history, physical exam, assessment and plan. 5 mg of IV Lopressor x1 now. Recommend sotalol loading, 80 mg twice daily. Reduce metoprolol to tartrate to 100 mg twice daily. Monitor daily H&H. Continue IV diuretics. Monitor daily weight, fluid balance, GFR, and electrolytes. Resume Eliquis when able. Endoscopy will be postponed today. Monitor for any recurrent signs of GI blood loss. Subjective Patient seen and examined. Chart, medications and telemetry reviewed. For EGD this AM + Chest pressure, shortness of breath, anxious feeling, intermittent palpitations this morning. Edema has improved. Telemetry: Recurrent atrial fibrillation with RVR replaced sinus rhythm this morning at 8:54 AM. I/O's negative 2,464 mL's overall. February 07, 2022 TTE Interpretation Summary ([facility], Dr. Alatorre): EF 60-65%. Moderate concentric LVH. Flattened septum consistent with RV pressure/volume overload. Mildly dilated RV. Reduced RV systolic function by TAPSE. TAVR (Claudio type prosthetic valve) with normal gradients. Mild aortic valve prosthesis regurgitation is present. Annuloplasty ringg in the mitral position. Moderate MR. Moderate to severe TR. Physical Exam Physical Exam: General: A&Ox3. HENT: Normocephalic. Atraumatic. Eyes: PER. Conjunctiva pink, sclera pale. Neck: No carotid bruits. + JVP. Chest: Extensive surgical graft scars with unprotected thoracic contents right of the sternum. Heart: Irregularly irregular at 110 bpm. Soft systolic murmur. No diastolic murmur. No rub. Lungs: Diminished at the bases. Clear to auscultation. Abdomen: Multiple surgical scars. +BS. Soft. Nontender. No masses or organomegaly. Extremities: Mild edema (improvd). No clubbing. No cyanosis. Limited neurological examination is without focal deficits. Pulses: radial=2/4, posterior tibial=1/4. Results & Data ([facility] [place]) Vital Signs (Past 12 Hours) Vital Signs Temp Pulse Pulse Pulse Resp BP Pulse Ox 02/10/22 09:31 133/43 L 02/10/22 09:02 122 H 18 130/68 100 02/10/22 07:15 74 02/10/22 07:15 02/10/22 07:49 36.7 C 82 20 136/46 L 2 L 02/10/22 03:30 36.8 C 78 18 104/53 L 96 02/10/22 00:05 73 02/09/22 23:00 36.2 C L 73 22 105/49 L 97 02/09/22 22:44 O2 Del Method O2 Flow Rate 02/10/22 09:31 02/10/22 09:02 Nasal Cannula 2 02/10/22 07:15 02/10/22 07:15 Nasal Cannula 2 02/10/22 07:49 Nasal Cannula 02/10/22 03:30 Nasal Cannula 2 02/10/22 00:05 02/09/22 23:00 Nasal Cannula 2 02/09/22 22:44 Nasal Cannula 2 Laboratory Results CBC 02/10/22 Range/Units 06:38 WBC 5.24 (4.8-10.8) K/ul RBC 3.28 L (3.93-5.22) M/uL Hgb 8.4 L (12.0-16.0) g/dl Hct 29.4 L (34.1-44.9) % Plt Count 166 (130-400) K/uL Comprehensive Metabolic Panel 02/10/22 Range/Units 06:38 Sodium 141 (136-145) mmol/L Potassium 4.1 (3.5-5.1) mmol/L Chloride 97 L (98-107) mmol/L Carbon Dioxide 40 H (21-32) mmol/L BUN 45 H (6-23) mg/dl Creatinine 1.13 (0.6-1.2) mg/dl Glucose 118 H (70-99(Fasting)) mg/dl Calcium 8.6 (8.5-10.1) mg/dl Intake and Output 02/09/22 02/10/22 02/10/22 22:59 06:59 14:59 Output Total 801 / 1001 200 / 1001 Balance -801 / -710.167 -200 / -710.167 Output: Urine Amount (Catheter) 800 / 1000 200 / 1000 Guevara/Indwelling 800 / 1000 200 / 1000 # Bowel Movements Other: Weight 72.6 kg 72.6 kg Weight Measurement Method Built in [facility] Patient Weight 02/11/22 06:59 Weight 72.6 kg
[2022-02-10] MEDS: PANTOprazole 40 MG in SYRINGE 0 ML IV SCH ×2 (10:12→20:30)
--- NOTE | 2022-02-10 10:46 | Gastroenterology Progress Note ---
Date of Service February 10, 2022 Assessment & Plan (1) Rectal bleeding: (2) Atherosclerotic cardiovascular disease: (3) Acute blood loss anemia: Plan Hb is stable post transfusion. Most recent blood in BM about 24 hrs ago, small amt on toilet paper. Plan for EGD tomorrow. May eat today. Please keep NPO after midnight for EGD tomorrow. OK to continue antiplatelet meds. Will do diagnostic, not therapeutic EGD. Admission and Anticipated Discharge Date Admission Date: February 06, 2022 Supervising Physician Co-Signing Physician Notes I have personally seen and examined the patient with JOCELINE Bocanegra. Her note reflects my exam and findings. I agree with her impression and plan. H/H stable. Will reschedule EGD given rapid rate A. fib and it's associated procedural risk. Chilo Sullivan M.D. Subjective 81 female admitted for A-fib w RVR. No BM in the past 24 hrs. Hb stable post transfusion. Pt denies any abd pain. No N/V This morning plan was to have pt undergo EGD, but reviewed by anesthesia due to A-fib rapid rate, EGD was cancelled for today. Review of Systems Review of Systems: ROS: Gen: + weakness No fevers, no weight loss Eyes: No eye redness, or pain, no recent vision changes Resp: Currently no SOB; no cough Cardio: Currently no palpitations, lower leg edema improved and, no chest pain GI: As per HPI, otherwise (-). : Denies pain on urination Skin: No jaundice, itching or new rashes Physical Exam Constitutional: well nourished, + ill appearing (chronically), cooperative and + overweight; no acute distress Eyes: PERRL, conjunctivae normal, anicteric sclerae ENMT: external ear and nose normal, oropharynx normal Neck: trachea midline; neck nontender Respiratory: + retractions (slight - right side of the chest wall moves in/out with respiration); no labored breathing, no cough, not tachypneic, no audible wheezes and no nasal flaring Auscultation: + crackles (crakles left lower lung); no wheezes Cardiovascular: Rate/Rhythm: regular rhythm Heart Sounds: + murmur (2-3/6 systolic) Extremities: + edema (trace bilat lower leg edea) Gastrointestinal (Abdomen): normal bowel sounds, soft, nontender, no hepatosplenomegaly Skin: no rashes, warm and dry Neurologic: PERRL, EOMI, accommodation nl, no face palsy, no dysarthria Psychiatric: A+Ox3, euthymic affect Lymphatic: no cervical or axillary lymphadenopathy Results & Data ([facility]) Vital Signs (Past 12 Hours) Vital Signs Temp Pulse Pulse Pulse Resp BP BP 02/10/22 10:12 116/75 02/10/22 09:42 135 H 133/43 L 02/10/22 09:31 133/43 L 02/10/22 09:02 122 H 18 130/68 02/10/22 07:15 74 02/10/22 07:15 02/10/22 07:49 36.7 C 82 20 136/46 L 02/10/22 03:30 36.8 C 78 18 104/53 L 02/10/22 00:05 73 02/09/22 23:00 36.2 C L 73 22 105/49 L 02/09/22 22:44 Pulse Ox O2 Del Method O2 Flow Rate 02/10/22 10:12 02/10/22 09:42 02/10/22 09:31 02/10/22 09:02 100 Nasal Cannula 2 02/10/22 07:15 02/10/22 07:15 Nasal Cannula 2 02/10/22 07:49 2 L Nasal Cannula 02/10/22 03:30 96 Nasal Cannula 2 02/10/22 00:05 02/09/22 23:00 97 Nasal Cannula 2 02/09/22 22:44 Nasal Cannula 2 Laboratory Results Hb 4.8, Hb 8.4, Hct 29.3, Plts 160, INR 1.2, Na 141, K 4.0, Cl 96, CO2 41, BUN 48, Cr 1.23, glucose 122.
[2022-02-10] MEDS: lisinopril 2.5 MG TAB PO SCH (11:17)
[2022-02-10] MEDS: FERROUS SULFATE 325 MG TAB PO SCH (11:17)
[2022-02-10] MEDS: SPIRONOLACTONE 12.5 MG TAB PO SCH (11:17)
[2022-02-10] MEDS: SOTALOL HCL 80 MG TAB PO SCH ×2 (11:17→20:30)
[2022-02-10] MEDS: ATORVASTATIN 40 MG TAB PO SCH (11:17)
[2022-02-10] MEDS: ISOSORBIDE MONO EXTENDED REL 30 MG TABCR PO SCH (11:17)
[2022-02-10] MEDS: CLOPIDOGREL BISULFATE 75 MG TAB PO SCH (11:17)
[2022-02-10] MEDS: CHOLECALCIFEROL 1,000 UNITS 25 MCG TAB PO SCH (11:17)
--- NOTE | 2022-02-10 15:30 | Hospitalist Progress Note ---
Date of Service February 10, 2022 Assessment & Plan (1) Acute blood loss anemia: Plan Acute on chronic heart failure with preserved ejection fraction Acute on chronic respiratory failure: Likely secondary to above, improved. Patient does have complicated cardiac history, CAD status post stents, mitral valve fibroblastoma status post annuloplasty, STEMI, status post TAVR, A. fib on Eliquis. Patient also has history of breast cancer status post lumpectomy and radiation. Patient presented with chest pain and complaint of worsening leg swelling for last few days [employer]. Patient was given IV Lasix in the ED and initially placed on BiPAP and then transitioned to 4 L oxygen. April 2021 echo with EF of 58%. Admitting troponin elevated but down trended. Likely secondary to type II NSTEMI in the setting of CHF exacerbation and A. fib. ECG without ischemic changes at admission. 02/07 echo with EF of 60 to 65%, moderate concentric LVH, RV pressure/volume overload. Cardiology on board, managing diuresis, on oral lasix today. Patient on 2 L nasal cannula oxygen [baseline oxygen 2 L] Daily weight, strict I's and O's. Acute on chronic anemia GI bleed Hemoglobin around 10-11 3 months ago, outpatient hemoglobin of 8.7, admitting hemoglobin of 8.1 FOBT positive, hemoglobin dropped gradually to 7.0 on 02/08, s/p 1 unit prbc 02/08. Hb has been stable since then. GI on board, n.p.o. midnight, for EGD tomorrow. EGD cancelled today. Can continue with regular diet for now. Eliquis remains on hold. Continue with pantoprazole IV. Patient denies any dizziness/chest pain/feeling of heart racing. Continue with iron supplement. Atrial fibrillation with RVR: Back in Afib rvr in AM, cards titrating metoprolol dose and started on sotalol 02/10. Eliquis on hold due to GI bleed. YUE: resolved Other chronic medical conditions: CAD, HTN, status post TAVR, DM2 --> continue with/resume home meds as and when appropriate. Chronic cholecystitis with calculus: Patient was admitted to [facility] 2 weeks ago for possible cholecystectomy but was canceled due to positive COVID test. Scheduled to follow-up with surgery as outpatient on 02/24. GI considering endoscopic evaluation and possible Axios stent placement, will likely happen as an outpatient. Patient to follow-up with GI as an outpatient. DVT prophylaxis: SCDs, Eliquis on hold. CODE STATUS: Full code Disposition: PCU telemetry Emergency Contact: Adama [phone] Admission and Anticipated Discharge Date Admission Date: February 06, 2022 Subjective Patient seen and examined at bedside as a follow-up of acute on chronic heart failure with preserved ejection fraction, acute on chronic respiratory failure and acute on chronic anemia likely secondary to GI bleed and A. fib with RVR. Patient was sitting up in chair, on 2 L nasal cannula oxygen, NAD, at bedside, denies any acute events overnight, no BM in last 24-hour, went into A. fib with RVR at around 8:54 AM today, EGD planned for today was canceled after anesthesia evaluation, starting patient on diet, n.p.o. midnight for possible EGD tomorrow. Patient reports eating okay. Patient reported anxiety in the morning. Patient denies lightheadedness or dizziness or chest pain or palpitation or belly pain or other review of symptoms. Physical Exam Physical Exam: GENERAL: Alert and oriented x3. NAD, on 2L NC O2. HEENT: No pallor, no icterus. Pupils equal, round and reactive to light. Oral mucosa moist. Upper part of sternum removed. NECK: No JVD, no neck masses. HEART: S1 and S2 heard. irregular rate and rhythm. + murmur, no gallop. RESPIRATORY SYSTEM: Normal AP diameter. No accessory muscle use. No wheezing, b/b crackles. ABDOMEN: Soft, bowel sounds present, nontender, no distention. CENTRAL NERVOUS SYSTEM: No facial droop. Speech is clear. Obeys simple commands. Moves extremities. EXTREMITIES: 1+ ble edema, no erythema seen. Results & Data Results & Data ([facility]) Vital Signs (Past 12 Hours) Vital Signs Temp Pulse Pulse Pulse Resp BP BP 02/10/22 14:49 37.3 C 60 16 122/62 02/10/22 11:01 36.8 C 75 16 109/62 02/10/22 10:12 116/75 02/10/22 09:42 135 H 133/43 L 02/10/22 09:31 133/43 L 02/10/22 09:02 122 H 18 130/68 02/10/22 07:15 74 02/10/22 07:15 02/10/22 07:49 36.7 C 82 20 136/46 L 02/10/22 03:30 36.8 C 78 18 104/53 L Pulse Ox O2 Del Method O2 Flow Rate 02/10/22 14:49 95 Nasal Cannula 2 02/10/22 11:01 98 Room Air 2 02/10/22 10:12 02/10/22 09:42 02/10/22 09:31 02/10/22 09:02 100 Nasal Cannula 2 02/10/22 07:15 02/10/22 07:15 Nasal Cannula 2 02/10/22 07:49 2 L Nasal Cannula 02/10/22 03:30 96 Nasal Cannula 2
[2022-02-10] MEDS: LORazepam 0.5 MG TAB PO PRN (18:21)
[2022-02-10] MEDS ORDERED: LOPERAMIDE HCL 2 MG CAP PO ONE (19:14)
[2022-02-10] MEDS: ACETAMINOPHEN 325 MG TAB PO PRN (22:07)
[2022-02-11 07:15] LABS: Hematocrit (blood only) 29.5 % (34.1-44.9); Hemoglobin 8.6 g/dl (12.0-16.0); Mean Corpuscular Hemoglobin 26.3 pg (25.0-34.0); Mean Corpuscular Hgb Conc 29.2 g/dL (32.0-36.0); Mean Corpuscular Volume 90.2 fL (80.0-100.0); Mean Platelet Volume 12.4 fL (9.4-12.3); Platelet Count 135 K/uL (130-400); RDW Coefficient of Variation 16.7 % (11.5-14.5); RDW Standard Deviation 54.3 fL (36.4-46.3); Red Blood Count 3.27 M/uL (3.93-5.22); White Blood Count 4.75 K/ul (4.8-10.8)
[2022-02-11 07:50] LABS: BUN Creatinine Ratio 44.6 (10-20); Calcium 8.8 mg/dl (8.5-10.1); Est GFR (African American) 53.4 ml/min; Phosphorus 3.4 mg/dl (2.5-4.9); Potassium 4.3 mmol/L (3.5-5.1)
[2022-02-11] MEDS: CLOPIDOGREL BISULFATE 75 MG TAB PO SCH (08:56)
[2022-02-11] MEDS: INSULIN ASPART PER UNIT SC SCH ×4 (08:56→21:13)
[2022-02-11] MEDS: METOPROLOL TARTRATE 100 MG TAB PO SCH ×2 (08:57→21:14)
[2022-02-11] MEDS: PANTOprazole 40 MG in SYRINGE 0 ML IV SCH (08:57)
[2022-02-11] MEDS: lisinopril 2.5 MG TAB PO SCH (08:57)
[2022-02-11] MEDS: SPIRONOLACTONE 12.5 MG TAB PO SCH (08:58)
[2022-02-11] MEDS: ISOSORBIDE MONO EXTENDED REL 30 MG TABCR PO SCH (08:58)
[2022-02-11] MEDS: SOTALOL HCL 80 MG TAB PO SCH ×2 (08:58→21:14)
[2022-02-11] MEDS: FERROUS SULFATE 325 MG TAB PO SCH (08:59)
[2022-02-11] MEDS: ATORVASTATIN 40 MG TAB PO SCH (08:59)
[2022-02-11] MEDS: CHOLECALCIFEROL 1,000 UNITS 25 MCG TAB PO SCH (08:59)
[2022-02-11] MEDS ORDERED: FUROSEMIDE 40 MG TAB PO SCH (09:00)
--- NOTE | 2022-02-11 09:33 | Anesthesiology Consultation ---
Date of Service February 11, 2022 Assessment & Plan Chart Review Chart Review: Acceptable Risk for Surgery ASA ASA3 Proposed Anesthesia Anesthesia Type: MAC Risk / Benefits Reviewed With: PT / POA / Parent / Guardian, Accepts Plan and Informed Consent Obtained History Surgery Operation Date: 02/11/22 16:00 Proposed Procedures p Esophagogastroduodenoscopy Dr Sullivan - Chilo Sullivan MD Height/Weight Height: 5 ft Weight: 72.5 kg Allergies Allergy/AdvReac Type Severity Reaction Status Date / Time codeine Allergy Severe RESP. Verified 02/11/22 09:52 DEPRESSION oyster extract Allergy Intermediate HIVES AND Verified 02/11/22 09:52 SWELLING, NO PROBLEMS W CONTRAST Medications Home Medications Medication Instructions Recorded Confirmed Last Taken acetaminophen 500 mg tablet 500 mg PO DIRECTED PRN Fever Or 07/29/19 02/06/22 Unknown (Tylenol Extra Strength) Pain cholecalciferol (vitamin D3) 25 1,000 unit PO QAM 07/29/19 02/06/22 07/28/19 mcg (1,000 unit) capsule (Vitamin D3) furosemide 20 mg tablet (Lasix) 20 mg PO DAILY 07/29/19 02/06/22 Unknown metoprolol tartrate 100 mg tablet 200 mg PO BID 07/29/19 02/06/22 07/28/19 omega 6-hyk-wjh-fish oil 1,000 mg 1 cap PO QAM 07/29/19 02/06/22 07/28/19 (120 mg-180 mg) capsule (Fish Oil) nitroglycerin 0.4 mg sublingual 0.4 mg sublingual UD PRN Chest Pain 01/15/20 02/06/22 Unknown tablet (Nitrostat) omeprazole 20 mg tablet,delayed 20 mg PO DAILY 01/15/20 02/06/22 Unknown release apixaban 5 mg tablet (Eliquis) 5 mg PO BID 30 days #60 tabs 01/17/20 02/06/22 02/06/22 atorvastatin 40 mg tablet 40 mg PO DAILY 02/06/22 02/06/22 Unknown clopidogrel 75 mg tablet 75 mg PO DAILY 02/06/22 02/06/22 Unknown ferrous sulfate 325 mg (65 mg 325 mg PO DAILY 02/06/22 02/06/22 Unknown iron) tablet (Iron (ferrous sulfate)) isosorbide mononitrate 30 mg 30 mg PO DAILY 02/06/22 02/06/22 Unknown tablet,extended release 24 hr lisinopril 2.5 mg tablet 2.5 mg PO DAILY 02/06/22 02/06/22 Unknown lorazepam 0.5 mg tablet (Ativan) 0.25 mg PO BID PRN Anxiety 02/06/22 02/06/22 Unknown Active Medications Generic Name Dose Route Start Last Admin Trade Name Artemio PRN Reason Stop Dose Admin Acetaminophen 650 mg 02/06/22 21:23 02/10/22 22:07 Acetaminophen 325 Mg Tab PO 03/08/22 21:22 650 mg Q4H PRN Administration Pain or Fever Apixaban 5 mg 02/06/22 21:23 02/08/22 09:03 Apixaban 5 Mg Tablet PO 03/08/22 21:22 5 mg BID ILA Administration Atorvastatin Calcium 40 mg 02/07/22 09:00 02/11/22 08:59 Atorvastatin 40 Mg Tab PO 03/09/22 08:59 40 mg DAILY ILA Administration Clopidogrel Bisulfate 75 mg 02/07/22 09:00 02/11/22 08:56 Clopidogrel Bisulfate 75 Mg Tab PO 03/09/22 08:59 75 mg DAILY ILA Administration Ferrous Sulfate 325 mg 02/07/22 09:00 02/11/22 08:59 Ferrous Sulfate 325 Mg Tab PO 03/09/22 08:59 325 mg DAILY ILA Administration Pantoprazole Sodium 40 mg/ 10 mls @ 5 mls/min 02/08/22 21:00 02/11/22 08:57 Syringe IV 03/10/22 20:59 5 mls/min BID ILA Administration Insulin Aspart 0 units 02/06/22 21:23 02/11/22 08:56 Insulin Aspart Per Unit SC 03/08/22 21:22 Not Given ACHS ILA Isosorbide Mononitrate 30 mg 02/07/22 09:00 02/11/22 08:58 Isosorbide Irwin Extended Rel 30 Mg Tabcr PO 03/09/22 08:59 30 mg DAILY ILA Administration Lisinopril 2.5 mg 02/07/22 09:00 02/11/22 08:57 Lisinopril 2.5 Mg Tab PO 03/09/22 08:59 2.5 mg DAILY ILA Administration Lorazepam 0.25 mg 02/06/22 21:23 02/10/22 18:21 Lorazepam 0.5 Mg Tab PO 03/08/22 21:22 0.25 mg BID PRN Administration Anxiety Metoprolol Tartrate 100 mg 02/10/22 21:00 02/11/22 08:57 Metoprolol Tartrate 100 Mg Tab PO 03/12/22 20:59 100 mg BID ILA Administration Nitroglycerin 0.4 mg 02/06/22 16:48 02/06/22 17:17 Nitroglycerin Sl 0.4 Mg/Tab Tab SL 03/08/22 16:47 0.4 mg UD PRN Administration Chest Pain Pantoprazole Sodium 40 mg 02/07/22 09:00 02/08/22 09:03 Pantoprazole 40 Mg Tab PO 03/09/22 08:59 40 mg DAILY ILA Administration Sotalol HCl 80 mg 02/10/22 10:30 02/11/22 08:58 Sotalol Hcl 80 Mg Tab PO 03/12/22 10:29 80 mg BID ILA Administration Spironolactone 12.5 mg 02/07/22 11:00 02/11/22 08:58 Spironolactone 12.5 Mg Tab PO 03/09/22 10:59 12.5 mg DAILY ILA Administration Vitamin D 1,000 units 02/07/22 09:00 02/11/22 08:59 Cholecalciferol 1,000 Units 25 Mcg Tab PO 03/09/22 08:59 1,000 units QAM ILA Administration NPO Date Last Intake of Fluids: 02/10/22 Time Last Intake of Fluids: 09:30 Date Last Intake of Solids: 02/10/22 Time Last Intake of Solids: 09:30 Past Medical History Medical History (HFpEF) heart failure with preserved ejection fraction Acute hypokalemia Anxiety Atherosclerotic cardiovascular disease Atrial fibrillation with RVR BPV (benign positional vertigo) Breast cancer Colon cancer DMII (diabetes mellitus, type 2) Hyperlipidemia Hypertension Hypomagnesemia On apixaban therapy Pneumonia ST elevation (STEMI) myocardial infarction Exercise / Class Metabolic Activity II 4-5 Yardwork/Stairs/Walk up hill Past Surgical History Surgical History History of colon resection History of mastectomy S/P drug eluting coronary stent placement S/P PTCA (percutaneous transluminal coronary angioplasty) S/P TAVR (transcatheter aortic valve replacement) Past Anesthesia History No Hx of Anesthesia Complications and No Family Hx of Anesthesia Complications History of PONV No Hx of PONV and No Hx of Motion Sickness Social History Smoking Status: Never smoker Do You Dip or Chew Tobacco: No Hx Alcohol Use: No Alcohol type: wine alcohol intake frequency: holidays/special occasions only Hx Substance Use: No substance use type: does not use Review of Systems Constitutional: as per Subjective / HPI Eyes: as per Subjective / HPI Ear, Nose, Mouth, Throat: as per Subjective / HPI Respiratory: + dyspnea on exertion (stable) Cardiovascular: + dyspnea Additional Comments: Hx of CAD with stents, AVR repair (ROSARIO), and recent Afib with RVR (converted back to SR with meds) Gastrointestinal: + melena Genitourinary (Female): as per Subjective / HPI Musculoskeletal: as per Subjective / HPI Integumentary: as per Subjective / HPI Neurologic: as per Subjective / HPI Psychiatric: as per Subjective / HPI Endocrine: as per Subjective / HPI on Apixaban (stopped sec to blood loss) Allergy / Immunological: as per Subjective / HPI Physical Exam Vital Signs Last Vital Signs Temp 37.1 C 02/11/22 09:53 Pulse 76 02/11/22 09:53 Resp 18 02/11/22 09:53 BP 127/65 02/11/22 09:53 Pulse Ox 100 02/11/22 09:53 O2 Del Method 02/11/22 09:53 O2 Flow Rate 2 02/11/22 09:53 FiO2 28 02/06/22 17:23 Constitutional + obese ENMT Mouth: no TMJ abnormality Thyromental Distance: > or= 3.5 Finger Breadths Mallampati Class: I Neck normal visual inspection Respiratory normal respiratory effort Auscultation: lungs clear to auscultation bilaterally Cardiovascular Rate/Rhythm: regular rate and regular rhythm Heart Sounds: no murmur Musculoskeletal Spine: normal cervical ROM Extremities: extremities normal to inspection Neurologic moves all extremities Psychiatric Orientation: alert and oriented x 3 Testing Laboratory Results 02/11/22 06:51 02/11/22 06:51 PT 12.5 Seconds (9.0-12.0) H 02/06/22 16:55 INR 1.2 (0.9-1.1) H 02/06/22 16:55 APTT 27.9 Seconds (21.0-31.0) 02/06/22 16:55 Hemoglobin A1c 7.9 % (4.5-5.6) H 02/07/22 07:20 Blood Type O Positive 02/08/22 11:23 Antibody Screen NEGATIVE 02/08/22 11:23 02/11/22 02/10/22 06:20 23:59 POC Glucose 139 H 204 H
--- NOTE | 2022-02-11 09:41 | Cardiology Progress Note ---
Date of Service February 11, 2022 Assessment & Plan (1) Acute on chronic heart failure with preserved ejection fraction: (2) Acute and chronic respiratory failure: (3) Non-ST elevation (NSTEMI) myocardial infarction: (4) Paroxysmal atrial fibrillation: (5) S/P TAVR (transcatheter aortic valve replacement): (6) Hypomagnesemia: (7) Anemia: Plan Recurrent symptomatic paroxysmal atrial fibrillation with a rapid ventricular response status post sponatenous conversion back to sinus last on 02/10/2022 at 10:22 AM. Oral Sotalol initiated in the AM of 02/10/2022. Metoprolol tartrate reduced from 200 mg BID to 100 mg BID. QTc 468 ms this AM. EKG ordered for AM of 02/12/2022. [id number] score 9 points. Eliquis anticoagulation remains on hold at present (risks, benefits and alternative to short term and joint terminal attack controller anticoagulation discussed) Acute on chronic respiratory failure with hypoxia due to acute decompensated diastolic congestive heart failure, type II non-STEMI (demand ischemia) in the setting of chronic coronary disease. Last dose of IV furosemide was in the AM of 02/09/2022. Volume status: Normovolemia to mildly hypovolemic. Reduce oral furosemide back to 20 mg/day. Maintain electrolytes. OK to remove Guevara cather. Symptomatic anemia. Status post 1 U PRBC's on 02/08/2022. Hgb 8.6 this AM. GI evaluation pending. Fish oils discontinued this admission. Eliquis as above. ? Cholecystitis. Her wishes are clear. She does not want cholecystectomy. She is interested in Axios stent placement. Ischemic heart disease. Acute inferior/posterolateral STEMI secondary to a subtotal occlusion of the mid RCA s/p successful intervention to the proximal and mid RCA with two bare metal stents. August 10, 2017 cardiac catheterization with single-vessel disease, status post August 2017 PCI of the ostial RCA with a single drug-eluting stent. January 15, 2020 inferior STEMI, very late stent thrombosis with minimal non culprit coronary artery disease elsewhere, normal intracardiac filling pressures. Status post PCI of the ostial RCA sten thrombosis with a new overlapping 3.0 x 8 mm Xience drug eluting stent. NSTEMI this admission. See above. Continue appropriate medical management including Clopidogrel. She is not prescribed ASA. 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 Admission and Anticipated Discharge Date Admission Date: February 06, 2022 Supervising Physician Co-Signing Physician Notes Patient seen and examined at the bedside. Remains in sinus rhythm overnight. Sotalol added yesterday 02/10/2022. Metoprolol reduced to 100 mg twice daily. EGD performed earlier today without evidence of bleeding. Hemoglobin remained stable. Fluid balance -1755 cc. Patient offers no new concerns/complaints. PE: VSS. Gen: NAD, AAOx3. Heart: Irregular rhythm, borderline tachycardic, normal S1-S2, 2/6 systolic ejection murmur. Lungs: Scant crackles at the bases bilateral. Extremities: 1+ bilateral pitting pretibial edema. A/P: Agree with above PA-C history, physical exam, assessment and plan. Continue sotalol loading 80 mg twice daily. Repeat ECG in a.m. approximately 1 hour after sotalol. Patient must receive a total of 6 doses as an inpatient pr ior to discharge. Metoprolol appropriately reduced to 100 mg twice daily. Consider restart oral anticoagulation in a.m. pending review of H&H. Reduce oral furosemide to 20 mg daily. Monitor for any recurrent signs of GI blood loss. Subjective Patient seen and examined x 2 this morning. Chart, medications and telemetry reviewed. + Musculoskeletal posterior cervical neck discomfort. + Discomfort from the Guevara catheter + Anxiety Diarrhea has resolved. No chest pain, palpitations, shortness of breath, cough, chest congestion, orthopnea, PND, peripheral edema, dizziness, near syncope, subjective fevers, or chills Telemetry: PAF on 02/10/2022 from 08:54 to 10:22 AM. No further PAF. Sinus in the 70's and 80's. EKG this AM reveals sinus with a QTC of 468 ms. I/O's negative 3,344 mL's overall. February 07, 2022 TTE Interpretation Summary ([facility], Dr. Alatorre): EF 60-65%. Moderate concentric LVH. Flattened septum consistent with RV pressure/volume overload. Mildly dilated RV. Reduced RV systolic function by TAPSE. TAVR (Claudio type prosthetic valve) with normal gradients. Mild aortic valve prosthesis regurgitation is present. Annuloplasty ringg in the mitral position. Moderate MR. Moderate to severe TR. Review of Systems Review of Systems: Complete Review of Systems is as stated above, negative, or noncontributory. Physical Exam Physical Exam: General: A&Ox3. HENT: Normocephalic. Atraumatic. Eyes: PER. Conjunctiva pink, sclera pale. Neck: No carotid bruits. Normal JVP. Chest: Extensive surgical graft scars with unprotected thoracic contents right of the sternum. Heart: RRR, 80 bpm. Soft systolic murmur. No diastolic murmur. No rub. Lungs: Diminished at the bases. Clear to auscultation. Abdomen: Multiple surgical scars. +BS. Soft. Nontender. No masses or organomegaly. Extremities: No edema. No clubbing. No cyanosis. Limited neurological examination is without focal deficits. Pulses: radial=2/4, posterior tibial=1/4. Results & Data ([facility]) Vital Signs (Past 12 Hours) Vital Signs Temp Pulse Pulse Resp BP Pulse Ox O2 Del Method 02/11/22 08:09 36.7 C 76 20 129/75 98 Nasal Cannula 02/11/22 02:23 36.5 C 78 20 117/43 L 96 Nasal Cannula 02/10/22 23:00 36.5 C 77 16 153/74 H 98 Nasal Cannula O2 Flow Rate 02/11/22 08:09 2.0 02/11/22 02:23 2 02/10/22 23:00 2 Laboratory Results CBC 02/11/22 Range/Units 06:51 WBC 4.75 L (4.8-10.8) K/ul RBC 3.27 L (3.93-5.22) M/uL Hgb 8.6 L (12.0-16.0) g/dl Hct 29.5 L (34.1-44.9) % Plt Count 135 (130-400) K/uL Comprehensive Metabolic Panel 02/11/22 Range/Units 06:51 Sodium 140 (136-145) mmol/L Potassium 4.3 (3.5-5.1) mmol/L Chloride 98 (98-107) mmol/L Carbon Dioxide 37 H (21-32) mmol/L BUN 50 H (6-23) mg/dl Creatinine 1.12 (0.6-1.2) mg/dl Glucose 131 H (70-99(Fasting)) mg/dl Calcium 8.8 (8.5-10.1) mg/dl Intake and Output 02/10/22 02/11/22 02/11/22 22:59 06:59 14:59 Intake Total 120 / 395 Output Total 1025 / 1275 Balance 120 / -880 -1025 / -880 Intake: Oral 120 / 395 Output: Urine Amount (Catheter) 1025 / 1275 Guevara/Indwelling 1025 / 1275 Other: Other Intake Source NPO Weight 72.5 kg 72.5 kg Weight Measurement Method Built in [facility] Patient Weight 02/12/22 06:59 Weight 72.5 kg
--- NOTE | 2022-02-11 10:10 | History & Physical Report ---
Date of Service February 11, 2022 Assessment & Plan (1) GI bleeding: Plan: stable for EGD Admission and Anticipated Discharge Date Admission Date: February 06, 2022 History of Present Illness Chief Complaint: GI blood loss anemia Primary Care Provider: Mohit Perkins MD Pt with GI blood loss for EGD Allergies Allergy/AdvReac Type Severity Reaction Status Date / Time codeine Allergy Severe RESP. Verified 02/11/22 09:52 DEPRESSION oyster extract Allergy Intermediate HIVES AND Verified 02/11/22 09:52 SWELLING, NO PROBLEMS W CONTRAST Home Medications Medication Instructions Recorded Confirmed Type acetaminophen 500 mg tablet 500 mg PO DIRECTED PRN Fever Or 07/29/19 02/06/22 History (Tylenol Extra Strength) Pain cholecalciferol (vitamin D3) 25 1,000 unit PO QAM 07/29/19 02/06/22 History mcg (1,000 unit) capsule (Vitamin D3) furosemide 20 mg tablet (Lasix) 20 mg PO DAILY 07/29/19 02/06/22 History metoprolol tartrate 100 mg tablet 200 mg PO BID 07/29/19 02/06/22 History omega 5-uwp-wnq-fish oil 1,000 mg 1 cap PO QAM 07/29/19 02/06/22 History (120 mg-180 mg) capsule (Fish Oil) nitroglycerin 0.4 mg sublingual 0.4 mg sublingual UD PRN Chest Pain 01/15/20 02/06/22 History tablet (Nitrostat) omeprazole 20 mg tablet,delayed 20 mg PO DAILY 01/15/20 02/06/22 History release apixaban 5 mg tablet (Eliquis) 5 mg PO BID 30 days #60 tabs 01/17/20 02/06/22 Rx atorvastatin 40 mg tablet 40 mg PO DAILY 02/06/22 02/06/22 History clopidogrel 75 mg tablet 75 mg PO DAILY 02/06/22 02/06/22 History ferrous sulfate 325 mg (65 mg 325 mg PO DAILY 02/06/22 02/06/22 History iron) tablet (Iron (ferrous sulfate)) isosorbide mononitrate 30 mg 30 mg PO DAILY 02/06/22 02/06/22 History tablet,extended release 24 hr lisinopril 2.5 mg tablet 2.5 mg PO DAILY 02/06/22 02/06/22 History lorazepam 0.5 mg tablet (Ativan) 0.25 mg PO BID PRN Anxiety 02/06/22 02/06/22 History Past Med/Surg History Medical History (HFpEF) heart failure with preserved ejection fraction Acute hypokalemia Anxiety Atherosclerotic cardiovascular disease Atrial fibrillation with RVR BPV (benign positional vertigo) Breast cancer Colon cancer DMII (diabetes mellitus, type 2) Hyperlipidemia Hypertension Hypomagnesemia On apixaban therapy Pneumonia ST elevation (STEMI) myocardial infarction Surgical History History of colon resection History of mastectomy S/P drug eluting coronary stent placement S/P PTCA (percutaneous transluminal coronary angioplasty) S/P TAVR (transcatheter aortic valve replacement) Social History Smoking Status: Never smoker Second Hand Exposure: No; Do You Dip or Chew Tobacco: No; Tobacco Cessation Education Requested by Patient: No Hx Alcohol Use: No Hx Substance Use: No Preferred Language: Bhutanese Communication Ability: Effective Packaging Manager Required: No Beliefs That Will Affect Care: None marital status: Current Living Situation: Spouse Other Information That Helps Us Care for You: No Feels Safe at Home: Yes Safety Concerns: Feels Safe At This Time Assistive Devices: Oxygen - Continuous Physical Exam Constitutional: WD/WN, vitals as above Respiratory: normal respiratory effort, lungs clear to auscultation Cardiovascular: irregular Gastrointestinal (Abdomen): normal bowel sounds, soft, nontender, no hepatosplenomegaly Results & Data ([facility]) Vital Signs (Past 12 Hours) Vital Signs Temp Pulse Pulse Resp BP Pulse Ox O2 Del Method 02/11/22 08:00 Nasal Cannula 02/11/22 08:00 02/11/22 09:53 37.1 C 76 18 127/65 100 Nasal Cannula 02/11/22 08:09 36.7 C 76 20 129/75 98 Nasal Cannula 02/11/22 02:23 36.5 C 78 20 117/43 L 96 Nasal Cannula 02/10/22 23:00 36.5 C 77 16 153/74 H 98 Nasal Cannula O2 Del Method O2 Flow Rate O2 Flow Rate 02/11/22 08:00 2 02/11/22 08:00 Nasal Cannula 2 02/11/22 09:53 2 02/11/22 08:09 2.0 02/11/22 02:23 2 02/10/22 23:00 2 Code Status & VTE Plan VTE Prophylaxis Plan VTE Prophylaxis will be ordered: Yes
[2022-02-11] MEDS ORDERED: PROPOFOL IV EMULSION 10 MG/ML 20 ML VIAL IV ONE (10:33)
--- NOTE | 2022-02-11 11:00 | Anesthesiology Progress Note ---
Date of Service February 11, 2022 Anesthesia Post Procedure Vital Signs Vital Signs: Temp Pulse Pulse Pulse Resp BP Pulse Ox 02/11/22 10:52 70 16 113/46 L 100 02/11/22 10:37 70 16 97/44 L 100 02/11/22 08:00 02/11/22 08:00 02/11/22 09:53 37.1 C 76 18 127/65 100 02/11/22 08:09 36.7 C 76 20 129/75 98 02/11/22 02:23 36.5 C 78 20 117/43 L 96 02/10/22 23:00 36.5 C 77 16 153/74 H 98 02/10/22 21:30 02/10/22 20:43 02/10/22 19:28 36.7 C 83 18 134/66 96 02/10/22 16:37 75 02/10/22 14:49 37.3 C 60 16 122/62 95 02/10/22 11:01 36.8 C 75 16 109/62 98 Pulse Ox O2 Del Method O2 Del Method O2 Flow Rate O2 Flow Rate 02/11/22 10:52 Nasal Cannula 2 02/11/22 10:37 Nasal Cannula 2 02/11/22 08:00 Nasal Cannula 2 02/11/22 08:00 Nasal Cannula 2 02/11/22 09:53 Nasal Cannula 2 02/11/22 08:09 Nasal Cannula 2.0 02/11/22 02:23 Nasal Cannula 2 02/10/22 23:00 Nasal Cannula 2 02/10/22 21:30 96 Nasal Cannula 2 02/10/22 20:43 Nasal Cannula 2 02/10/22 19:28 Nasal Cannula 2 02/10/22 16:37 02/10/22 14:49 Nasal Cannula 2 02/10/22 11:01 Room Air 2 Pain Intensity Neck: Pain Intensity: 3 Transfer of Care Handoff Completed per policy Notes Mental Status: alert / awake / arousable and participated in evaluation Patient Amnestic to Procedure: Yes Nausea / Vomiting: adequately controlled Pain: adequately controlled Airway Patency, RR, SpO2: stable & adequate BP & HR: stable & adequate Hydration State: stable & adequate Anesthetic Complications: no major complications apparent and Pt Satisfied with anesthetic care
--- NOTE | 2022-02-11 12:25 | GI REPORT ---
Patient Name: Andrea Garcia Procedure Date: 02/11/2022 10:04 AM Date of : 1940 Admit Type: Inpatient Age: 81 Gender: Female Attending MD: Chilo Sullivan MD Procedure: Upper GI endoscopy Providers: Chilo Sullivan MD Referring MD: Jeyson Cortez Md Indications: Iron deficiency anemia secondary to chronic blood loss, Recent gastrointestinal bleeding Medicines: See the Anesthesia note for documentation of the administered medications Complications: No immediate complications. Estimated Blood Loss: Estimated blood loss: none. Procedure: Pre-Anesthesia Assessment: - Prior to the procedure, a History and Physical was performed, and patient medications, allergies and sensitivities were reviewed. The patient's tolerance of previous anesthesia was reviewed. - The risks and benefits of the procedure and the sedation options and risks were discussed with the patient. All questions were answered and informed consent was obtained. - Patient identification and proposed procedure were verified prior to the procedure by the physician and the nurse. The procedure was verified in the pre-procedure area. - Pre-procedure physical examination revealed no contraindications to sedation. - After reviewing the risks and benefits, the patient was deemed in satisfactory condition to undergo the procedure. After obtaining informed consent, the endoscope was passed under direct vision. Throughout the procedure, the patient's blood pressure, pulse, and oxygen saturations were monitored continuously. The Endoscope was introduced through the mouth, and advanced to the third part of duodenum. The upper GI endoscopy was accomplished without difficulty. The patient tolerated the procedure well. Findings: LA Grade A (one or more mucosal breaks less than 5 mm, not extending between tops of 2 mucosal folds) esophagitis with no bleeding was found. A small amount of food (residue) was found in the gastric body. The examined duodenum was normal. The cardia and gastric fundus were normal on retroflexion. Impression: - Mild reflux esophagitis in distal esophagus. - A small amount of food (residue) in the stomach. - Normal examined duodenum. - No specimens collected. - No ulcers seen. - No high risk bleeding sites seen. Recommendation: - [facility] for [facility] care. Yisel Johnson MD 02/11/2022 12:25:14 PM This report has been signed electronically. Note Initiated On: 02/11/2022 10:04 AM Number of Addenda: 0 I attest to the content of the Intraoperative Record and orders documented therein, exceptions below {[id number]}
--- NOTE | 2022-02-11 15:58 | Electrocardiogram Report ---
Test Reason : Blood Pressure : / mmHG Vent. Rate : 080 BPM Atrial Rate : 080 BPM P-R Int : 162 ms QRS Dur : 100 ms QT Int : 406 ms P-R-T Axes : 041 -11 049 degrees QTc Int : 468 ms Poor data quality, interpretation may be adversely affected Normal sinus rhythm Left atrial enlargement Possible Old Inferior infarct (cited on or before 11-MAY-2013) Abnormal ECG When compared with ECG of 07-FEB-2022 08:02, No significant change was found Confirmed by Bubba Mata ([id number]) on 02/11/2022 3:58:31 PM Referred By: REFERRED SELF Confirmed By:Bubba Mata
--- NOTE | 2022-02-11 16:56 | Hospitalist Progress Note ---
Date of Service February 11, 2022 Assessment & Plan (1) Acute blood loss anemia: Plan Acute on chronic heart failure with preserved ejection fraction Acute on chronic respiratory failure: Likely secondary to above, improved. Patient does have complicated cardiac history, CAD status post stents, mitral valve fibroblastoma status post annuloplasty, STEMI, status post TAVR, A. fib on Eliquis. Patient also has history of breast cancer status post lumpectomy and radiation. Patient presented with chest pain and complaint of worsening leg swelling for last few days [employer]. Patient was given IV Lasix in the ED and initially placed on BiPAP and then transitioned to 4 L oxygen. April 2021 echo with EF of 58%. Admitting troponin elevated but down trended. Likely secondary to type II NSTEMI in the setting of CHF exacerbation and A. fib. ECG without ischemic changes at admission. 02/07 echo with EF of 60 to 65%, moderate concentric LVH, RV pressure/volume overload. Cardiology on board, managing diuresis, on oral lasix. Patient on 2 L nasal cannula oxygen [baseline oxygen 2 L] Daily weight, strict I's and O's. Acute on chronic anemia GI bleed Hemoglobin around 10-11 3 months ago, outpatient hemoglobin of 8.7, admitting hemoglobin of 8.1 FOBT positive, hemoglobin dropped gradually to 7.0 on 02/08, s/p 1 unit prbc 02/08. Hb has been stable since then. GI on board, status post EGD 02/11 with mild reflux esophagitis in distal esophagus/no ulcers. Discussed with GI, plan for outpatient colonoscopy. Eliquis remains on hold. We will change her IV pantoprazole to p.o. Patient denies any dizziness/chest pain/feeling of heart racing. Continue with iron supplement. No bowel movement in 2 days. Monitor for blood in bowel movement. Atrial fibrillation with RVR: Back in Afib rvr in AM of 02/10 [8:54 AM to 10:22 AM], cards titrating metoprolol dose and started on sotalol 02/10. Eliquis on hold due to GI bleed. YUE: resolved Other chronic medical conditions: CAD, HTN, status post TAVR, DM2 --> continue with/resume home meds as and when appropriate. Chronic cholecystitis with calculus: Patient was admitted to [facility] 2 weeks ago for possible cholecystectomy but was canceled due to positive COVID test. S cheduled to follow-up with surgery as outpatient on 02/24. GI considering endoscopic evaluation and possible Axios stent placement, will likely happen as an outpatient. Patient to follow-up with GI as an outpatient. DVT prophylaxis: SCDs, Eliquis on hold. CODE STATUS: Full code Disposition: PCU telemetry Emergency Contact: Adama [phone] Admission and Anticipated Discharge Date Admission Date: February 06, 2022 Subjective Patient seen and examined at bedside as a follow-up of acute on chronic heart failure with preserved ejection fraction, acute on chronic respiratory failure and acute on chronic anemia likely secondary to GI bleed and A. fib with RVR. Patient was sitting up in chair, on 2 L nasal cannula oxygen, NAD, denies any acute events overnight, no BM in last 2 days per pt, is in sinus per telemetry review since 1022 am yesterday, s/p EGD today. Starting patient on diet. d/w GI, plan for OP colonoscopy and eval for axios stent for chronic gaviota. Patient reports eating okay. Patient denies lightheadedness or dizziness or chest pain or palpitation or belly pain or other review of symptoms. Physical Exam Physical Exam: GENERAL: Alert and oriented x3. NAD, on 2L NC O2. HEENT: No pallor, no icterus. Pupils equal, round and reactive to light. Oral mucosa moist. Upper part of sternum removed. NECK: No JVD, no neck masses. HEART: S1 and S2 heard. regular rate and rhythm. + murmur, no gallop. RESPIRATORY SYSTEM: Normal AP diameter. No accessory muscle use. No wheezing, b/b crackles. ABDOMEN: Soft, bowel sounds present, nontender, no distention. CENTRAL NERVOUS SYSTEM: No facial droop. Speech is clear. Obeys simple commands. Moves extremities. EXTREMITIES: 1+ ble edema, no erythema seen. Results & Data Results & Data ([facility]) Vital Signs (Past 12 Hours) Vital Signs Temp Pulse Pulse Resp BP Pulse Ox O2 Del Method 02/11/22 15:48 36.7 C 76 18 127/62 97 Nasal Cannula 02/11/22 11:42 36.5 C 70 18 116/64 99 Nasal Cannula 02/11/22 11:07 72 16 104/44 L 100 Nasal Cannula 02/11/22 10:52 70 16 113/46 L 100 Nasal Cannula 02/11/22 10:37 70 16 97/44 L 100 Nasal Cannula 02/11/22 08:00 Nasal Cannula 02/11/22 08:00 02/11/22 09:53 37.1 C 76 18 127/65 100 Nasal Cannula 02/11/22 08:09 36.7 C 76 20 129/75 98 Nasal Cannula O2 Del Method O2 Flow Rate O2 Flow Rate 02/11/22 15:48 2.0 02/11/22 11:42 2 02/11/22 11:07 2 02/11/22 10:52 2 02/11/22 10:37 2 02/11/22 08:00 2 02/11/22 08:00 Nasal Cannula 2 02/11/22 09:53 2 02/11/22 08:09 2.0
[2022-02-12] MEDS ORDERED: ACETAMINOPHEN 325 MG TAB PO STA (03:54)
[2022-02-12 05:11] LABS: Hematocrit (blood only) 27.5 % (34.1-44.9)
[2022-02-12 05:28] LABS: Partial Thromboplastin Time 26.4 Seconds (21.0-31.0)
[2022-02-12 05:43] LABS: BUN Creatinine Ratio 48.4 (10-20); Calcium 8.7 mg/dl (8.5-10.1); Creatinine Clr Calc Pharmacy 43.1 ml/min; Est GFR (African American) 68.6 ml/min; Est GFR (Non-African American) 59.2 ml/min; Magnesium 1.6 mg/dl (1.7-2.4); Potassium 4.1 mmol/L (3.5-5.1); Troponin I High Sensitivity 54.6 pg/ml (0-14)
[2022-02-12] MEDS ORDERED: MAGNESIUM SULFATE / D5W 1 GM/100 ML BAG IV ONE ×2 (05:44→08:00)
--- NOTE | 2022-02-12 05:46 | Communication Note ---
Date of Service: February 12, 2022 Patient complained of neck pain similar to heart attack in the past as per RN. Some relief with Tylenol Rx. EKG as per my interpretation rate 75, NSR, T wave flattening lateral leads Troponin 0.054 Ap Neck pain similar to heart attack as per patient account History CAD ? Anginal equivalent Trend troponin Request AM provider to update Cardiology.
[2022-02-12] MEDS: INSULIN ASPART PER UNIT SC SCH ×3 (07:57→17:00)
[2022-02-12] MEDS: ATORVASTATIN 40 MG TAB PO SCH (08:04)
[2022-02-12] MEDS: CLOPIDOGREL BISULFATE 75 MG TAB PO SCH (08:05)
[2022-02-12] MEDS: CHOLECALCIFEROL 1,000 UNITS 25 MCG TAB PO SCH (08:05)
[2022-02-12] MEDS: FERROUS SULFATE 325 MG TAB PO SCH (08:05)
[2022-02-12] MEDS: ISOSORBIDE MONO EXTENDED REL 30 MG TABCR PO SCH (08:06)
[2022-02-12] MEDS: lisinopril 2.5 MG TAB PO SCH (08:06)
[2022-02-12] MEDS: SPIRONOLACTONE 12.5 MG TAB PO SCH (08:07)
[2022-02-12] MEDS: SOTALOL HCL 80 MG TAB PO SCH (08:07)
[2022-02-12] MEDS: METOPROLOL TARTRATE 100 MG TAB PO SCH (08:55)
[2022-02-12] MEDS ORDERED: FUROSEMIDE 20 MG TAB PO SCH (09:00)
[2022-02-12] MEDS: PANTOprazole 40 MG TAB PO SCH (09:19)
--- NOTE | 2022-02-12 09:47 | Communication Note ---
Date of Service: February 12, [address] Carcamo including prior hospitalization and transfer to [facility] for cholecystitis but not a surgical candidate. Discussed Axious procedure with the pt and earlier this admission and they would like to go forward with the procedure. OP EUS w Axios being scheduled at [facility]. Due to hx of colon cancer and having had rectal bleeding and anemia this admission, discussed possible colonoscopy w pt. She and her would like to go forward with that. Offered Tuesday or Tuesday - discussed w cardiology - pt still stabilizing on new antiarrhythmic and card prefers not to interrupt Eliquis for a few weeks. Also, per cards, prefers that she not go off the Plavix for colonoscopy. Will arrange OP colonoscopy in a hospital setting. Our office will contact the pt and to provide an appt.
--- NOTE | 2022-02-12 11:11 | Cardiology Progress Note ---
Date of Service February 12, 2022 Assessment & Plan (1) Acute on chronic heart failure with preserved ejection fraction: (2) Acute and chronic respiratory failure: (3) Non-ST elevation (NSTEMI) myocardial infarction: (4) Paroxysmal atrial fibrillation: (5) S/P TAVR (transcatheter aortic valve replacement): (6) Hypomagnesemia: (7) Anemia: Plan Recurrent symptomatic paroxysmal atrial fibrillation with a rapid ventricular response status post spontaneous conversion back to sinus last on 02/10/2022 at 10:22 AM. Oral Sotalol initiated in the AM of 02/10/2022. Metoprolol tartrate reduced from 200 mg BID to 100 mg BID. Patient received her fifth dose of sotalol this morning. EKG/QTc ok. Telemetry benign. [id number] score 9 points. Eliquis anticoagulation will be resumed (risks, benefits and alternatives discussed). She will need close monitoring of her H&H. Patient is adamant about leaving the hospital today, even if it is against medical advise. Recommend administering the 6th dose of sotalol at 3 PM today with an EKG to be obtained at 4 PM today. Acute on chronic respiratory failure with hypoxia due to acute decompensated diastolic congestive heart failure, type II non-STEMI (demand ischemia) in the setting of chronic coronary disease. Last dose of IV furosemide was in the AM of 02/09/2022. Volume status: Normovolemia to mildly hypovolemic. Prior to arrival dosing of furosemide, 20 mg/day, resumed. Maintain electrolytes. Symptomatic anemia. Status post 1 U PRBC's on 02/08/2022. Hgb 8.0 this AM. EGD without an overt source of bleeding. Eliquis to be resumed. Outpatient colonoscopy planned via GI. OK to interrupt Eliquis for colonoscopy. Patient re quires uninterrupted continuation of antiplatelet therapy. Fish oils discontinued this admission. ? Cholecystitis. Her wishes are clear. She does not want cholecystectomy. She is interested in Axios stent placement. This is being arranged by GI as an outpatient at [facility]. Ischemic heart disease. Acute inferior/posterolateral STEMI secondary to a subtotal occlusion of the mid RCA s/p successful intervention to the proximal and mid RCA with two bare metal stents. August 10, 2017 cardiac catheterization with single-vessel disease, status post August 2017 PCI of the ostial RCA with a single drug-eluting stent. January 15, 2020 inferior STEMI, very late stent thrombosis with minimal non culprit coronary artery disease elsewhere, normal intracardiac filling pressures. Status post PCI of the ostial RCA sten thrombosis with a new overlapping 3.0 x 8 mm Xience drug eluting stent. NSTEMI this admission. See above. Continue appropriate medical management including Clopidogrel. She is not prescribed ASA. 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 Admission and Anticipated Discharge Date Admission Date: February 06, 2022 Supervising Physician Co-Signing Physician Notes Patient seen and examined at the bedside. Remains in sinus rhythm overnight. Sotalol added yesterday 02/10/2022. Received her fifth dose today. Metoprolol reduced to 100 mg twice daily. Normal QT interval per ECG this morning. reported by nursing. Patient requesting discharge home if possible. PE: VSS. Gen: NAD, AAOx3. Heart: Irregular rhythm, borderline tachycardic, normal S1-S2, 2/6 systolic ejection murmur. Lungs: Clear bilateral. No rales, rhonchi, wheeze. Extremities: Trace to mild bilateral ankle edema. A/P: Agree with above PA-C history, physical exam, assessment and plan. Continue sotalol loading 80 mg twice daily. Patient will receive her sixth dose this afternoon with repeat ECG. If QTC remains below 500 ms, she may be discharged home. Continue other cardiovascular medications as ordered. Cardiology follow-up in 1-2 weeks. Subjective Patient seen and examined x 2 this morning. Chart, medications and telemetry reviewed. EGD on 02/11/2022 revealed mil reflux esophagitis in the distal esophagus with a small amount of residual food in the stomach. The duodenum was normal. No ulcer seen. No high bleeding risk sites observed. Patient has a history of right-sided colon cancer, undergoing colonoscopy last on November 11, 2015 revealing diverticulosis and internal hemorrhoids at that time. Follow-up colonoscopy was recommended in 5 years + . + Musculoskeletal posterior cervical neck discomfort overnight aided by acetaminophen. + Diarrhea. Guevara catheter removed. No chest pain, palpitations, worsening shortness of breath, chest congestion, orthopnea, PND, or increased peripheral edema. Ambulatory within the room without difficulty. Received the 5th dose of Sotalol this AM. EKG at 03:36:47 this morning revealed NSR with possible left atrial enlargement, low voltage QRS, QTc 433 ms. Telemetry: Sinus in the 70's and 80's. Last episode of PAF was on 02/10/2022 from 08:54 to 10:22 AM. I/O's negative 4,044 mL's overall. February 07, 2022 TTE Interpretation Summary ([facility], Dr. Alatorre): EF 60-65%. Moderate concentric LVH. Flattened septum consistent with RV pressure/volume overload. Mildly dilated RV. Reduced RV systolic function by TAPSE. TAVR (Claudio type prosthetic valve) with normal gradients. Mild aortic valve prosthesis regurgitation is present. Annuloplasty ringg in the mitral position. Moderate MR. Moderate to severe TR. Review of Systems Review of Systems: Complete Review of Systems is as stated above, negative, or noncontributory. Physical Exam Physical Exam: General: A&Ox3. HENT: Normocephalic. Atraumatic. Eyes: PER. Conjunctiva pink, sclera pale. Neck: No carotid bruits. Normal JVP. Chest: Extensive surgical graft scars with unprotected thoracic contents right of the sternum. Heart: RRR, 80 bpm. Soft systolic murmur. No diastolic murmur. No rub. Lungs: Diminished at the bases. Clear to auscultation. Abdomen: Multiple surgical scars. +BS. Soft. Nontender. No masses or organomegaly. Extremities: No edema. No clubbing. No cyanosis. Limited neurological examination is without focal deficits. Pulses: radial=2/4, posterior tibial=1/4. Results & Data ([facility]) Vital Signs (Past 12 Hours) Vital Signs Temp Pulse Pulse Resp BP Pulse Ox O2 Del Method 02/12/22 08:00 Nasal Cannula 02/12/22 08:00 02/12/22 08:03 36.7 C 79 18 120/51 L 96 Nasal Cannula 02/12/22 06:55 36.6 C 75 20 119/47 L 99 Nasal Cannula 02/12/22 03:45 36.9 C 76 18 112/47 L 98 Nasal Cannula 02/12/22 03:00 36.6 C 76 18 126/49 L 100 Nasal Cannula O2 Del Method O2 Flow Rate O2 Flow Rate 02/12/22 08:00 2 02/12/22 08:00 Nasal Cannula 2 02/12/22 08:03 2 02/12/22 06:55 2 02/12/22 03:45 2 02/12/22 03:00 2 Laboratory Results Cardiac Enzymes 02/12/22 02/12/22 Range/Units 04:58 08:05 Troponin I High Sens 54.6 H* D 46.0 H (0-14) pg/ml Coagulation 02/12/22 Range/Units 04:58 APTT 26.4 (21.0-31.0) Seconds CBC 02/12/22 Range/Units 04:58 Hgb 8.0 L (12.0-16.0) g/dl Hct 27.5 L (34.1-44.9) % Comprehensive Metabolic Panel 02/12/22 Range/Units 04:58 Sodium 142 (136-145) mmol/L Potassium 4.1 (3.5-5.1) mmol/L Chloride 95 L (98-107) mmol/L Carbon Dioxide 45 H* (21-32) mmol/L BUN 44 H (6-23) mg/dl Creatinine 0.91 (0.6-1.2) mg/dl Glucose 128 H (70-99(Fasting)) mg/dl Calcium 8.7 (8.5-10.1) mg/dl Intake and Output 02/11/22 02/12/22 02/12/22 22:59 06:59 14:59 Intake Total 200 / 450 100 / 450 200 / 200 Output Total 350 / 1350 Balance -150 / -900 100 / -900 200 / 200 Intake: IV 200 / 200 Magnesium Sulfate / D5w 1 gm In 200 / 200 100 ml @ 50 mls/hr IV ONE ONE Rx#:[id number] Oral 200 / 450 100 / 450 Output: Urine Amount (Catheter) 350 / 1350 Guevara/Indwelling 350 / 1350 Other: # Unmeasured Voids 1 1 Weight 72.4 kg Weight Measurement Method Built in [facility]
[2022-02-12] MEDS ORDERED: Nursing to Pharmacy Communication SCH (11:30)
--- NOTE | 2022-02-12 14:15 | Electrocardiogram Report ---
Test Reason : Blood Pressure : / mmHG Vent. Rate : 075 BPM Atrial Rate : 075 BPM P-R Int : 164 ms QRS Dur : 100 ms QT Int : 388 ms P-R-T Axes : 047 -05 034 degrees QTc Int : 433 ms Normal sinus rhythm Possible Left atrial enlargement Low voltage QRS Cannot rule out Inferior infarct (cited on or before 11-MAY-2013) Cannot rule out Anteroseptal infarct (cited on or before 11-MAY-2013) Abnormal ECG When compared with ECG of 11-FEB-2022 09:13, Questionable change in initial forces of Anteroseptal leads Confirmed by Tung Harrell ([id number]) on 02/12/2022 2:15:00 PM Referred By: REFERRED SELF Confirmed By:Tung Harrell
[2022-02-12] MEDS ORDERED: SOTALOL HCL 80 MG TAB PO ONE (15:00)
[2022-02-12 15:08] LABS: Hematocrit (blood only) 28.4 % (34.1-44.9); Hemoglobin 8.4 g/dl (12.0-16.0)
--- NOTE | 2022-02-12 15:51 | Discharge Summary ---
Discharge Summary Date of Service February 12, 2022 Notes For Next Care Provider Patient is a started on sotalol 80 mg twice daily, patient will need follow-up with cardiology in 1 to 2 weeks. Patient will need PCP follow-up within a week and likely needs CBC/CMP/magnesium level drawn. Patient's metoprolol dose has been decreased to 100 mg twice daily. Fish oil has been discontinued. Spironolactone has been added. Patient will also need GI follow-up for setting up outpatient colonoscopy for her GI bleed. Medication Changes From Visit Your metoprolol dose has been decreased to 100 mg twice daily, sotalol 80 mg twice daily has been added. Spironolactone has been added. Fish oil has been discontinued. 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 Per pt she has been having diarrhea 3-4x/day with nausea for few weeks. Today she started to experience chest pain and has been noticing increased leg swelling for last few days. Has been complaint with her medications and today took 40mg of lasix instead of 20mg. She has been wearing 2L of oxygen at home continuously. ER course: pt was initially put on Bipap and given 40mg IV Lasix and 15mg of IV Lopressor At bedside: pt denied any acute CP, abd pain, N/V or SOB. She stated that she is feeling better since the arrival. Transition the pt to 4L NC and pt did very well and remained asymptomatic Admission Exam Per Admitting Provider General:.NC in place (4L),NAD, well developed, well nourished, average body habitus HEENT:.Normocephalic and atraumatic, Normal Conjunctiva, EOMI, Sclera is non- icteric Lungs:.b/l lower lobe crackles but Good air entry b/l Heart:.Systolic murmur, in Afib( upper part of the sternum removed) Abdominal:.ND, Soft, NT MSK:severe b/l LE pitting edema Psych:.AAOx3, normal affect Principal Dx & Hospital Course #1 = Principal Diagnosis (1) Acute blood loss anemia: (2) Acute exacerbation of CHF (congestive heart failure): (3) Acute respiratory failure with hypoxemia: (4) Paroxysmal atrial fibrillation: Plan 81-year-old lady was managed for the following: Acute on chronic heart failure with preserved ejection fraction Acute on chronic respiratory failure: Likely secondary to above, improved. Patient does have complicated cardiac history, CAD status post stents, mitral valve fibroblastoma status post annuloplasty, STEMI, status post TAVR, A. fib on Eliquis. Patient also has history of breast cancer status post lumpectomy and radiation. Patient presented with chest pain and complaint of worsening leg swelling for last few days [employer]. Patient was given IV Lasix in the ED and initially placed on BiPAP and then transitioned to 4 L oxygen. April 2021 echo with EF of 58%. Admitting troponin elevated but down trended. Likely secondary to type II NSTEMI in the setting of CHF exacerbation and A. fib. ECG without ischemic changes at admission. 02/07 echo with EF of 60 to 65%, moderate concentric LVH, RV pressure/volume overload. Cardiology on board, managing diuresis, on oral lasix 20 Mg daily. Patient on 2 L nasal cannula oxygen [baseline oxygen 2 L] Patient is started on Aldactone while in hospital. Patient hemodynamically stable on the day of discharge. Acute on chronic anemia GI bleed Hemoglobin around 10-11 3 months ago, outpatient hemoglobin of 8.7, admitting hemoglobin of 8.1 FOBT positive, hemoglobin dropped gradually to 7.0 on 02/08, s/p 1 unit prbc 02/08. Hb has been stable since then. GI on board, status post EGD 02/11 with mild reflux esophagitis in distal esophagus/no ulcers. Plan for outpatient colonoscopy. Patient to continue with her home PPI, follow-up with GI as outpatient. Patient denies any dizziness/chest pain/feeling of heart racing. Continue with iron supplement. Patient advised not to strain during defecation. Advised to use [id number] laxatives. Atrial fibrillation with RVR: Back in Afib rvr in AM of 02/10 [8:54 AM to 10:22 AM], cards titrated metoprolol dose to 100 Mg twice daily and started on sotalol 80 Mg twice daily 02/10. Patient to continue with Eliquis and Plavix. YUE: resolved Other chronic medical conditions: CAD, HTN, status post TAVR, DM2 --> continue with/resume home meds as and when appropriate. Chronic cholecystitis with calculus: Patient was admitted to [place] 2 weeks ago for possible cholecystectomy but was canceled due to positive COVID test. Scheduled to follow-up with surgery as outpatient on 02/24. GI considering endoscopic evaluation and possible Axi[employer] stent placement, will likely happen as an outpatient. Patient to follow-up with GI as an outpatient. CODE STATUS: Full code Emergency Contact: Adama [phone] Patient adamant on going home today or else will sign out AMA. Patient being discharged to home with home health with following instruction at the point of discharge: Follow-up with your primary care physician within 1 week time and then likely you will need a blood test CBC/CMP/magnesium level. You were evaluated by GI doctor for gastrointestinal bleed, you underwent upper scope and no ulcers were found. You will likely need outpatient colonoscopy, you will have to coordinate with your GI as outpatient. Also you will need evaluation for chronic cholecystitis and possible stent placement. For this also you will need to follow-up with your outpatient GI. You were evaluated by heart doctor for acute on chronic heart failure with preserved ejection fraction and atrial fibrillation with rapid rate, your cardiac medications were optimized, take them as prescribed. Follow-up with your cardiology doctor as an outpatient in 1-2 weeks. Advise not to strain during defecating, you can use [id number] stool softener for laxative effect. Take your medications as prescribed. Discharge Exam GENERAL: Alert and oriented x3. NAD, on 2L NC O2. HEENT: No pallor, no icterus. Pupils equal, round and reactive to light. Oral mucosa moist. Upper part of sternum removed. NECK: No JVD, no neck masses. HEART: S1 and S2 heard. regular rate and rhythm. + murmur, no gallop. RESPIRATORY SYSTEM: Normal AP diameter. No accessory muscle use. No wheezing, b/b crackles. ABDOMEN: Soft, bowel sounds present, nontender, no distention. CENTRAL NERVOUS SYSTEM: No facial droop. Speech is clear. Obeys simple commands. Moves extremities. EXTREMITIES: trace ble edema, no erythema seen. Updated Medication List Medication Instructions Recorded Confirmed Type acetaminophen 500 mg tablet 500 mg PO DIRECTED PRN Fever Or 07/29/19 02/06/22 History (Tylenol Extra Strength) Pain cholecalciferol (vitamin D3) 25 1,000 unit PO QAM 07/29/19 02/06/22 History mcg (1,000 unit) capsule (Vitamin D3) furosemide 20 mg tablet (Lasix) 20 mg PO DAILY 07/29/19 02/06/22 History metoprolol tartrate 100 mg tablet 200 mg PO BID 07/29/19 02/06/22 History omega 1-ujy-jmg-fish oil 1,000 mg 1 cap PO QAM 07/29/19 02/06/22 History (120 mg-180 mg) capsule (Fish Oil) nitroglycerin 0.4 mg sublingual 0.4 mg sublingual UD PRN Chest Pain 01/15/20 02/06/22 History tablet (Nitrostat) omeprazole 20 mg tablet,delayed 20 mg PO DAILY 01/15/20 02/06/22 History release apixaban 5 mg tablet (Eliquis) 5 mg PO BID 30 days #60 tabs 01/17/20 02/06/22 Rx atorvastatin 40 mg tablet 40 mg PO DAILY 02/06/22 02/06/22 History clopidogrel 75 mg tablet 75 mg PO DAILY 02/06/22 02/06/22 History ferrous sulfate 325 mg (65 mg 325 mg PO DAILY 02/06/22 02/06/22 History iron) tablet (Iron (ferrous sulfate)) isosorbide mononitrate 30 mg 30 mg PO DAILY 02/06/22 02/06/22 History tablet,extended release 24 hr lisinopril 2.5 mg tablet 2.5 mg PO DAILY 02/06/22 02/06/22 History lorazepam 0.5 mg tablet (Ativan) 0.25 mg PO BID PRN Anxiety 02/06/22 02/06/22 History sotalol 80 mg tablet 80 mg PO BID #60 tabs 02/12/22 Rx spironolactone 25 mg tablet 12.5 mg PO DAILY #15 tabs 02/12/22 Rx Hospital Stay Data Consultations 02/06/22 18:31 ED Decision to Admit Stat 02/06/22 21:23 Consult Cardiology Routine 02/08/22 10:00 Consult Gastroenterology Routine Procedures Performed Operation Date: 02/11/22 16:00 Actual Procedures p Esophagogastroduodenoscopy - Chilo Sullivan MD Pending Results Patient Have Any Pending Studies at Discharge: No Discharge Instructions Given to Patient (Per Discharging Provider) Follow-up with your primary care physician within 1 week time and then likely you will need a blood test CBC/CMP/magnesium level. You were evaluated by GI doctor for gastrointestinal bleed, you underwent upper scope and no ulcers were found. You will likely need outpatient colonoscopy, you will have to coordinate with your GI as outpatient. Also you will need evaluation for chronic cholecystitis and possible stent placement. For this also you will need to follow-up with your outpatient GI. You were evaluated by heart doctor for acute on chronic heart failure with preserved ejection fraction and atrial fibrillation with rapid rate, your cardiac medications were optimized, take them as prescribed. Follow-up with your cardiology doctor as an outpatient in 1-2 weeks. Your metoprolol dose is decreased from 200mg twice a day to 100 mg twice a day. Advise not to strain during defecating, you can use [id number] stool softener for laxative effect. Take your medications as prescribed. Total Time Total Time Spent Total Time Spent (In Minutes): 45
[2022-02-12] MEDS ORDERED: APIXABAN 5 MG TABLET PO SCH (21:00)
--- NOTE | 2022-02-13 22:23 | Electrocardiogram Report ---
Test Reason : Blood Pressure : / mmHG Vent. Rate : 073 BPM Atrial Rate : 073 BPM P-R Int : 164 ms QRS Dur : 102 ms QT Int : 396 ms P-R-T Axes : 037 -05 043 degrees QTc Int : 436 ms Normal sinus rhythm Possible Left atrial enlargement Cannot rule out Inferior infarct (cited on or before 11-MAY-2013) Poor R wave progression, consider anterior OR vs. lead placement vs. LVH Abnormal ECG When compared with ECG of 12-FEB-2022 03:36, No significant change was found Confirmed by Lai Brenner ([id number]) on 02/13/2022 10:23:01 PM Referred By: REFERRED SELF Confirmed By:Lai Brenner
== END 2022-02-12 18:32 | disposition home health service (06) | DRG 280 ==
LOC: ED 16:27 → SUATTDRO 19:20 → 2E 19:20